=== PATIENT | male | born 1965 | race Caucasian/White ===

== ENCOUNTER 2020-09-10 08:02 | Outpatient (REF) | payer MEDICAID, SELFPAY | END 2020-09-10 08:03 | disposition home or self-care (01) | LOC: HO.LAB 08:02 | PROVIDERS: Visit Provider Internal Medicine | DX: Z20.822 Contact with and (suspected) exposure to COVID-19 (principal) | CPT/HCPCS: 36415; C9803; U0003 ==

== ENCOUNTER 2022-05-27 22:52 | Emergency (ER) | payer MEDICAID, SELFPAY ==
[2022-05-27 23:28] VITALS: BP 146/91; PULSE 92; RESP 20; TEMP 37.2; O2SAT 91; BMI 34.3
[2022-05-28 00:17] LABS: Basophils Percent Auto 0.4 % (0-2); Eosinophils Absolute Auto 0.4 X10*3/uL (0.0-0.4); Hematocrit 45.9 % (42.0-52.0); Hemoglobin 14.9 g/dl (14.0-18.0); Imm Gran Abs Auto 0.02 X10*3/uL (0.00-0.03); Imm Gran Pct Auto 0.2 % (0.0-0.4); Lymphocytes Absolute Auto 2.1 X10*3/uL (1.2-4.9); Lymphocytes Percent Auto 22.7 % (20-40); MANUAL DIFF FLAG NO; Mean Corpuscular HGB Conc 32.5 g/dl (31.0-36.0); Mean Corpuscular Hemoglobin 30.3 pg (27.0-33.0); Mean Corpuscular Volume 93.3 fL (80.0-98.0); Mean Platelet Volume 10.3 fL (9.4-12.4); Monocytes Absolute Auto 0.9 X10*3/uL (0.1-1.2); Monocytes Percent Auto 9.4 % (2-11); Neutrophils Absolute Auto 5.9 x10*3/uL (2.0-8.3); Neutrophils Percent Auto 63.3 % (45-73); Platelet Count 196 X10*3/uL (160-400); Red Blood Count 4.92 X10*6/uL (4.60-5.80); Red Cell Distribution Width 13.2 % (11.0-16.0); White Blood Count 9.3 X10*3/uL (4.8-10.8)
[2022-05-28 00:33] LABS: Alanine Aminotransferase 23 U/L (0-40); Albumin Level 4.3 g/dL (3.5-5.0); Alkaline Phosphatase 79 U/L (39-117); Anion Gap 13 (12-20); Aspartate Amino Transferase 27 U/L (5-37); Bilirubin Direct 0.4 mg/dL (0.0-0.5); Bilirubin Total 1.2 mg/dL (0.0-1.0); Blood Urea Nitrogen 21 mg/dL (9-16); Calcium 9.2 mg/dL (8.4-10.2); Carbon Dioxide 33 mmol/L (22-29); Chloride 98 mmol/L (96-108); Creatinine Clr Calc Pharmacy 104.5; Estimated Glomerular Filt Rate > 60; Glucose Random 110 mg/dL (60-115); Lipase 16 U/L (8-78); Potassium 4.8 mmol/L (3.3-5.1); Sodium 139 mmol/L (135-145); Total Protein 7.4 g/dL (6.5-8.0)
== END 2022-05-28 09:47 | disposition left against medical advice (07) ==
PROVIDERS: Emergency Provider Emergency Medicine
DX: R10.9 Unspecified abdominal pain (principal); R11.2 Nausea with vomiting, unspecified
CPT/HCPCS: 36415; 80048; 80076; 83690; 85025; 99281; 99283

== ENCOUNTER 2022-05-30 20:38 | Emergency (ER) | payer MEDICAID, SELFPAY ==
--- NOTE | ~2022-05-30 | XR_ITS ---
EXAMINATION: XR CHEST CLINICAL INFORMATION: Shortness of breath COMPARISON: Chest x-ray 06/18/2019 TECHNIQUE: Frontal view of the chest was obtained. FINDINGS: The lungs are clear. No airspace consolidation, pleural effusion, or pneumothorax. The cardiomediastinal silhouette is within normal limits. No acute osseous injury. XR/XR chest 1V IMPRESSION: No acute pulmonary process.
--- NOTE | 2022-05-30 21:07 | ECG_ITS ---
Test Reason : DYSPNEA Blood Pressure : / mmHG Vent. Rate : 089 BPM Atrial Rate : 089 BPM P-R Int : 156 ms QRS Dur : 108 ms QT Int : 378 ms P-R-T Axes : 057 015 056 degrees QTc Int : 459 ms Normal sinus rhythm Intra-ventricular conduction delay Otherwise normal ECG When compared with ECG of 07-MAY-2019 22:43, No significant change was found Referred By: Eneida Conteh Electronically Signed By:MARIA EUGENIA FERREIRA MD
[2022-05-30 21:08] VITALS: BP 140/80; PULSE 85; RESP 15; O2SAT 95; BMI 38.3
[2022-05-30 21:14] VITALS: PULSE 85; RESP 16; O2SAT 95
[2022-05-30] MEDS: Albuterol Sulfate (0.083%) 2.5 MG/3 ML VIAL.NEB 10 MG INHALE (21:14)
[2022-05-30 21:22] LABS: MANUAL DIFF FLAG NO
[2022-05-30] MEDS: methylPREDNISolone Sod Succ 125 MG/2 ML VIAL IVPUSH (21:23)
[2022-05-30] MEDS: Magnesium Sulfate/H2O 2 GM/50 ML PIGGYBACK IV (21:26)
[2022-05-30 21:28] LABS: Basophils Absolute Auto 0.1 X10*3/uL (0.0-0.2); Basophils Percent Auto 0.6 % (0-2); Eosinophils Percent Auto 12.6 % (0-4); Hematocrit 44.4 % (42.0-52.0); Hemoglobin 14.6 g/dl (14.0-18.0); Imm Gran Abs Auto 0.02 X10*3/uL (0.00-0.03); Imm Gran Pct Auto 0.3 % (0.0-0.4); Lymphocytes Absolute Auto 2.1 X10*3/uL (1.2-4.9); Lymphocytes Percent Auto 27.2 % (20-40); Mean Corpuscular HGB Conc 32.9 g/dl (31.0-36.0); Mean Corpuscular Volume 94.3 fL (80.0-98.0); Mean Platelet Volume 10.9 fL (9.4-12.4); Monocytes Absolute Auto 0.7 X10*3/uL (0.1-1.2); Monocytes Percent Auto 8.4 % (2-11); Neutrophils Percent Auto 50.9 % (45-73); Platelet Count 172 X10*3/uL (160-400); Red Blood Count 4.71 X10*6/uL (4.60-5.80); Red Cell Distribution Width 13.2 % (11.0-16.0); White Blood Count 7.9 X10*3/uL (4.8-10.8)
[2022-05-30 21:30] VITALS: O2SAT 93
--- NOTE | 2022-05-30 21:30 | PC.NURSE ---
patient a&ox3, iv inserted, labs drawn, covid swab obtained, ekg obtained, photo graphics librarian applied nsr, pt medicated per order, lungs have in/ex wheezing throughout/diminished throughout, call bradley within reach, will continue to monitor.
[2022-05-30 21:37] LABS: Anion Gap 12 (12-20); Blood Urea Nitrogen 23 mg/dL (9-16); Calcium 9.1 mg/dL (8.4-10.2); Carbon Dioxide 34 mmol/L (22-29); Chloride 99 mmol/L (96-108); Creatinine Clr Calc Pharmacy 91.2; Estimated Glomerular Filt Rate > 60; Glucose Random 118 mg/dL (60-115); Potassium 4.4 mmol/L (3.3-5.1); Sodium 141 mmol/L (135-145)
[2022-05-30 21:55] VITALS: BP 132/66; PULSE 89; RESP 16; TEMP 36.9; O2SAT 94
--- NOTE | 2022-05-30 21:56 | PC.NURSE ---
Pt came in with upper respiratory distress, o2 low ~80. Pt was connected to nasal cannula 3L, resp therapy was contacted, pt had IV placed by JOANNA Merritt. Pt was connected to the telemetry and it shows NSR. 95 o2.. Pt lung sound were Wheezing through out the lobes and chest tightness. Pt eyes are red and pt reported feeling tired . will continue to monitor.
[2022-05-30 21:59] LABS: COVID-19 Test Negative (Negative)
[2022-05-30 22:16] VITALS: BP 150/75; PULSE 89; RESP 14; TEMP 36.8; O2SAT 92
--- NOTE | 2022-05-30 22:21 | ED_ITS ---
HPI - URI/Sore Throat General Chief Complaint: Upper Respiratory Symptoms Stated Complaint: Asthma Time Seen by Provider: 05/30/22 21:06 Source: patient Mode of arrival: ambulatory Limitations: no limitations History of Present Illness HPI Narrative: Patient comes emergency room complaining of shortness of breath/asthma exacerbation. Patient states it has been going on for couple of days. When patient arrived to the emergency room, patient's oxygen was 84% on room air. Patient was started on nasal cannula at 4 L. patient denies any recent URI infections, no chest pain. Related Data Previous Rx's Medication Instructions Recorded albuterol sulfate 90 mcg/actuation 2 puff inhalation Q4-6H PRN 05/30/22 aerosol inhaler shortness of breath or wheezing #8.5 grams prednisone 50 mg tablet 50 mg PO DAILY #5 tabs 05/30/22 Allergies Allergy/AdvReac Type Severity Reaction Status Date / Time ? Environmental Allergy Unknown asthma Uncoded 10/05/21 13:56 exacerbation Review of Systems Review of Systems: Constitutional : No Weight loss, No Fever, No Chills, No Night Sweats, No Fatigue, No Malaise ENT/Mouth : No Hearing loss, No Ear Pain, No Nasal Congestion, No Sinus Pain, No Hoarseness, No sore throat, No Rhinorrhea, No Swallowing Difficulty Eyes: No Eye Pain, No Swelling, No Redness, No Foreign Body, No Discharge, No Vision Changes Cardiovascular : No Chest Pain, No SOB, No Dyspnea on Exertion, No Orthopnea, No Edema, No Palpitations Respiratory : Complaining of cough, wheezing, dyspnea Gastrointestinal : No Nausea, No Vomiting, No Diarrhea, No Constipation, No abdominal Pain, No Hematochezia, No Melena Genitourinary : no irregular bleeding, No Dysuria, No Urinary Frequency, No Hematuria, No Urinary Incontinence, No Urgency, No Flank Pain, No Urinary Flow Changes, No Hesitancy Musculoskeletal : No joint pain, No Myalgias, No Joint Swelling Skin : No Skin Lesions, No rash Neuro : No Weakness, No Numbness, No Paresthesias, No Loss of Consciousness, No Dizziness, No Headache Psych : No Anxiety/Panic, No Depression, No SI/HI/AH/VH, No Social Issues, Heme/Lymph: No Bruising, No Bleeding,No Lymphadenopathy Endocrine : No Polyuria, No Polydipsia, No Temperature Intolerance PMFSH Past Medical History Medical History (Updated 05/30/22 @ 22:28 by Eneiad Conteh MD) Asthma exacerbation Social History Social History (System 10/05/21 @ 13:56 by Betzaida Bustillo) Alcohol intake: former Patient Tobacco Use Status: Former Tobacco user Use of substances other than those prescribed or required for medical reasons: No Advance Directives: No Advance Directives Information Provided: No Physical Exam Vital Signs: Vital Signs: Last Vital Signs Temp 98.3 F 05/30/22 22:16 Pulse 89 05/30/22 22:16 Resp 14 05/30/22 22:16 BP 150/75 H 05/30/22 22:16 Pulse Ox 92 05/30/22 22:16 O2 Del Method 05/30/22 22:16 O2 Flow Rate 4 05/30/22 22:16 Oxygen Flow Rate 3 05/30/22 21:30 BMI result Body Mass Index 38.3 Const: Other: Appearance: Alert. Oriented X3. No acute distress. Eyes: Pupils equal, round and reactive to light. ENT: Pharynx normal. Neck: Normal inspection. Neck supple. No lymph nodes noted. No crepitus CVS: Normal heart rate and rhythm. Pulses normal. Normal S1 and S2 Respiratory: Wheezing, shortness of breath, cough Abdomen: Soft and nontender. No rigidity. No distention. Skin: Skin warm and dry. Normal skin color. Normal skin turgor. Extremities: No lower extremity edema. No Lacerations. No Rash Neuro: Oriented X 3. No motor deficit. No sensory deficit. Moving all ex tremities. No slurred speech. CN 2 through 12 grossly intact Psych: calm, cooperative, normal affect Course Course Course Narrative: Patient received an hour long nebulization treatment, Solu-Medrol, who assumed. Chest x-ray negative for pneumonia. After the treatment, patient states that he feels much better. However, patient remains needing oxygen, 4 L to saturate 92-93%. Patient needs more nebulization treatments and steroids. On physical exam after the treatment, patient is moving air more than on arrival. However he is still very wheezy I discussed with the patient that I strongly recommend that he needs to be admitted. Patient is still on 4 L of oxygen saturating 93%. Without oxygen, drops to the high 80s. Patient is insistent that he does not want to stay in the hospital, patient will leave against medical advise. Patient is aware that if he leaves against medical advice, his respiratory status can worsen, it may even lead to . Patient has no specific reason for not wanting to stay in the hospital other than he wants to go home Patient requesting that his medications be sent to [facility]. At this time, it is closed. Patient [facility]. I discussed with the patient that only 1 open is in [facility] and there are other pharmacies open in [place]. Patient states that he will go to [facility] in the morning. I discussed with the patient that he will not have any medications throughout the night to help him with his shortness of breath. Patient is fully aware and verbalizes that he is making a bad decision but still insists on leaving. MDM - URI/Sore Throat Lab Data Result diagrams: 05/30/22 21:19 05/30/22 21:19 Labs: Lab Results 05/30/22 05/30/22 05/30/22 Range/Units 21:19 21:19 21:19 WBC 7.9 (4.8-10.8) X10*3/uL RBC 4.71 (4.60-5.80) X10*6/uL Hgb 14.6 (14.0-18.0) g/dl Hct 44.4 (42.0-52.0) % MCV 94.3 (80.0-98.0) fL MCH 31.0 (27.0-33.0) pg MCHC 32.9 (31.0-36.0) g/dl RDW 13.2 (11.0-16.0) % Plt Count 172 (160-400) X10*3/uL MPV 10.9 (9.4-12.4) fL Immature Gran % (Auto) 0.3 (0.0-0.4) % Neut % (Auto) 50.9 (45-73) % Lymph % (Auto) 27.2 (20-40) % Routt % (Auto) 8.4 (2-11) % Eos % (Auto) 12.6 H (0-4) % Baso % (Auto) 0.6 (0-2) % Lymph # (Auto) 2.1 (1.2-4.9) X10*3/uL Routt # (Auto) 0.7 (0.1-1.2) X10*3/uL Eos # (Auto) 1.0 H (0.0-0.4) X10*3/uL Baso # (Auto) 0.1 (0.0-0.2) X10*3/uL Abs Immat Gran (auto) 0.02 (0.00-0.03) X10*3/uL Absolute Neuts (auto) 4.0 (2.0-8.3) x10*3/uL Absolute Nucleated RBC 0.000 (0.0-0.012) X10*3/uL Nucleated RBC % (auto) 0.0 (0.0-0.2) /100WBC Sodium 141 (135-145) mmol/L Potassium 4.4 (3.3-5.1) mmol/L Chloride 99 (96-108) mmol/L Carbon Dioxide 34 H (22-29) mmol/L Anion Gap 12 (12-20) BUN 23 H (9-16) mg/dL Creatinine 1.03 (0.5-1.4) mg/dL Estim Creat Clear Calc 91.2 Estimated GFR > 60 Random Glucose 118 H (60-115) mg/dL Calcium 9.1 (8.4-10.2) mg/dL COVID-19 ([facility]) Negative (Negative) COVID-19 Clin Com See Note Discharge Plan Discharge Clinical Impression: Asthma exacerbation Patient Disposition: Left Against Medical Advice Instructions: Asthma (ED) Additional Instructions: Your refused to be admitted to the hospital. Please follow-up with your primary care physician tomorrow. If you have any worsening or new symptoms, please return to the emergency room or call 911 Prescriptions: New albuterol sulfate 90 mcg/actuation HFA aerosol inhaler 2 puff inhalation Q4-6H PRN (Reason: shortness of breath or wheezing) Qty: 8.5 1RF prednisone 50 mg tablet 50 mg PO DAILY Qty: 5 0RF
== END 2022-05-30 23:14 | disposition left against medical advice (07) ==
PROVIDERS: Emergency Provider Emergency Medicine
DX: J45.901 Unspecified asthma with (acute) exacerbation (principal); R06.02 Shortness of breath; Z20.822 Contact with and (suspected) exposure to COVID-19; Z87.891 Personal history of nicotine dependence; Z79.899 Other long term (current) drug therapy
CPT/HCPCS: 71045; 80048; 85025; 87635; 93005; 94640; 99285; J2930; J3475

== ENCOUNTER 2022-10-09 17:35 | Emergency (ER) | payer MEDICAID, SELFPAY ==
--- NOTE | ~2022-10-09 | CT_ITS ---
CT HEAD WITHOUT IV CONTRAST CT CERVICAL SPINE WITHOUT IV CONTRAST CT MAXILLOFACIAL WITHOUT IV CONTRAST INDICATION: Pain status post fall COMPARISON: 04/16/2018 TECHNIQUE: Multidetector CT acquisitions of the head, maxillofacial region, and cervical spine were obtained without IV contrast. Multiplanar reformats were acquired and utilized for image interpretation. DLP: 1609 mGy-cm FINDINGS: HEAD: There is no intracranial hemorrhage or extra-axial fluid collection. The ventricles are unremarkable without hydrocephalus. No midline shift or mass effect. Best to white matter differentiation is diffusely maintained without evidence of an evolved acute territorial infarct. The basilar cisterns are preserved. Subcortical and periventricular white matter hypoattenuation is suggestive of [] small vessel ischemic disease. Soft tissue swelling anteriorly overlying the frontal region. No underlying deformity.. The mastoid air cells and paranasal sinuses are well-aerated. MAXILLOFACIAL: The mandible, maxilla, pterygoid plates, nasal bones, zygomatic arches, paranasal sinus canales, and bony orbits are intact. No acute osseous abnormality within the maxillofacial region. There is near complete opacity of the right maxillary sinus which is relatively diminutive sclerotic thickened bony margins. This is likely sequelae chronic sinus disease. Widening of the ostium noted with extension into the nasal cavity suggesting possibly a polypoid changes.. The globes and extra-ocular musculature is intact. No significant soft tissue findings. CERVICAL SPINE: Ossicular terminalis again noted C2. Motion degradation limits assessment. No definite acute deformity. There is anatomic alignment of the vertebral bodies and posterior elements. There is no acute fracture and there is no acute subluxation. The craniocervical and atlantoaxial articulations are normal. There is no prevertebral soft tissue swelling. No significant soft tissue abnormality within the neck. The visualized lung apices are clear. CT/CT cervical spine wo IV con IMPRESSION: 1. No acute intracranial abnormality. 2. No acute osseous abnormality within the cervical spine. 3. No acute osseous abnormality within the maxillofacial region. Chronic findings as above.
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
[2022-10-09 17:43] VITALS: BP 139/85; PULSE 98; RESP 20; TEMP 37.3; O2SAT 91; BMI 36.0
== END 2022-10-09 19:40 | disposition home or self-care (01) ==
PROVIDERS: Emergency Provider Emergency Medicine
DX: R51.9 Headache, unspecified (principal); H57.12 Ocular pain, left eye; S00.83XD Contusion of other part of head, subsequent encounter; S00.12XD Contusion of left eyelid and periocular area, subsequent encounter; V28.09XD Other motorcycle driver injured in noncollision transport accident in nontraffic accident, subsequent encounter
CPT/HCPCS: 70450; 70486; 72125; 99282; 99284

== ENCOUNTER 2022-10-20 13:40 | Outpatient (REF) | payer MEDICAID, SELFPAY ==
--- NOTE | ~2022-10-20 | XR_ITS ---
EXAMINATION: XR LUMBOSACRAL SPINE CLINICAL INFORMATION: Pain across lumbar area. COMPARISON: None TECHNIQUE: Three views of the lumbosacral spine. FINDINGS: There is normal lumbar lordosis. The vertebral heights and alignment is normal. There is loss of L3-L4 and L4-L5 disc levels. No lytic or sclerotic process seen. The paravertebral soft tissues are normal. The SI joints are normal. There is moderate stool in colon. XR/XR lumbar spine 2-3V IMPRESSION: Mild ventral spondylosis lumbar spine. No visible acute fracture, dislocation or lytic process seen.
== END 2022-10-20 13:41 | disposition home or self-care (01) ==
LOC: HO.XRAY 13:40
PROVIDERS: Visit Provider Emergency Medicine
DX: M54.50 Low back pain, unspecified (principal)
CPT/HCPCS: 72100

== ENCOUNTER 2023-03-01 10:26 | Outpatient (REF) | payer MEDICAID, SELFPAY ==
[2023-03-01 11:52] LABS: Alanine Aminotransferase 17 U/L (0-40); Alkaline Phosphatase 63 U/L (39-117); Aspartate Amino Transferase 21 U/L (5-37); Bilirubin Direct 0.6 mg/dL (0.0-0.5); Bilirubin Total 2.7 mg/dL (0.0-1.0)
[2023-03-02 02:23] LABS: Syphilis Screen Nonreactive (Nonreactive)
[2023-03-02 03:02] LABS: HIV AB/AG Nonreactive (Nonreactive); HIV Num 1 0.04 S/CO (0.00-0.99)
[2023-03-02 03:05] LABS: ~HepC Num1 0.12 S/CO (0.00-0.79); ~Hepatitis C Antibody Nonreactive (Nonreactive)
[2023-03-03 16:19] LABS: TS Negative Control Passed; TS Panel A 0; TS Panel B 0; TS Positive Control Passed; TSpotTB Negative (Negative)
== END 2023-03-01 10:27 | disposition home or self-care (01) ==
LOC: HO.HHCL 10:26
PROVIDERS: Visit Provider Emergency Medicine
DX: Z11.4 Encounter for screening for human immunodeficiency virus [HIV] (principal); Z11.1 Encounter for screening for respiratory tuberculosis; F11.20 Opioid dependence, uncomplicated
CPT/HCPCS: 36415; 80076; 86481; 86780; 86803; 87389

== ENCOUNTER 2023-03-08 11:21 | Outpatient (REF) | payer MEDICAID, SELFPAY ==
[2023-03-08 13:37] LABS: MANUAL DIFF FLAG NO
[2023-03-08 14:01] LABS: Basophils Percent Auto 0.5 % (0-2); Eosinophils Absolute Auto 0.2 X10*3/uL (0.0-0.4); Eosinophils Percent Auto 3.1 % (0-4); Hematocrit 37.3 % (42.0-52.0); Hemoglobin 12.4 g/dl (14.0-18.0); Imm Gran Abs Auto 0.01 X10*3/uL (0.00-0.03); Imm Gran Pct Auto 0.2 % (0.0-0.4); Immature Retic Fraction 3.3 % (2.3-13.4); Lymphocytes Absolute Auto 1.9 X10*3/uL (1.2-4.9); Lymphocytes Percent Auto 32.6 % (20-40); Mean Corpuscular HGB Conc 33.2 g/dl (31.0-36.0); Mean Corpuscular Hemoglobin 30.5 pg (27.0-33.0); Mean Corpuscular Volume 91.9 fL (80.0-98.0); Mean Platelet Volume 10.6 fL (9.4-12.4); Monocytes Absolute Auto 0.5 X10*3/uL (0.1-1.2); Neutrophils Absolute Auto 3.2 x10*3/uL (2.0-8.3); Neutrophils Percent Auto 54.6 % (45-73); Platelet Count 224 X10*3/uL (160-400); Red Blood Count 4.06 X10*6/uL (4.60-5.80); Red Cell Distribution Width 12.1 % (11.0-16.0); Retic HGB Equivalent 35.8 pg (30.0-35.0); White Blood Count 5.9 X10*3/uL (4.8-10.8)
[2023-03-08 14:36] LABS: Alanine Aminotransferase 14 U/L (0-40); Albumin Level 3.7 g/dL (3.5-5.0); Alkaline Phosphatase 60 U/L (39-117); Aspartate Amino Transferase 15 U/L (5-37); Bilirubin Direct 0.3 mg/dL (0.0-0.5); Bilirubin Total 0.7 mg/dL (0.0-1.0); Total Protein 6.6 g/dL (6.5-8.0)
[2023-03-08 15:26] LABS: Amphetamine Screen Urine Not Detected (Not Detect); Barbiturates, Urine Not Detected (Not Detect); Benzodiazepines Screen Urine Not Detected (Not Detect); Cannabinoid Screen Urine POSITIVE (Not Detect); Cocaine Screen Urine POSITIVE (Not Detect); Fentanyl, urine POSITIVE (Not Detect); Opiate Screen Urine Not Detected (Not Detect); Phencyclidine Screen Urine Not Detected (Not Detect)
== END 2023-03-08 11:22 | disposition home or self-care (01) ==
LOC: HO.HHCL 11:21
PROVIDERS: Visit Provider Emergency Medicine
DX: F11.20 Opioid dependence, uncomplicated (principal)
CPT/HCPCS: 36415; 80076; 80307; 80353; 85025; 85045

== ENCOUNTER 2024-06-06 06:30 | Outpatient (REF) | payer MEDICAID, SELFPAY ==
[2024-06-06 06:49] LABS: MANUAL DIFF FLAG NO
[2024-06-06 07:36] LABS: Basophils Percent Auto 0.5 % (0-2); Eosinophils Absolute Auto 0.4 X10*3/uL (0.0-0.4); Eosinophils Percent Auto 6.2 % (0-4); Hematocrit 38.6 % (42.0-52.0); Hemoglobin 12.9 g/dl (14.0-18.0); Imm Gran Abs Auto 0.03 X10*3/uL (0.00-0.03); Imm Gran Pct Auto 0.5 % (0.0-0.4); Lymphocytes Absolute Auto 2.1 X10*3/uL (1.2-4.9); Lymphocytes Percent Auto 36.5 % (20-40); Mean Corpuscular HGB Conc 33.4 g/dl (31.0-36.0); Mean Corpuscular Hemoglobin 30.9 pg (27.0-33.0); Mean Corpuscular Volume 92.3 fL (80.0-98.0); Mean Platelet Volume 10.4 fL (9.4-12.4); Monocytes Absolute Auto 0.6 X10*3/uL (0.1-1.2); Monocytes Percent Auto 10.3 % (2-11); Neutrophils Absolute Auto 2.6 x10*3/uL (2.0-8.3); Platelet Count 204 X10*3/uL (160-400); Red Blood Count 4.18 X10*6/uL (4.60-5.80); Red Cell Distribution Width 12.8 % (11.0-16.0); White Blood Count 5.6 X10*3/uL (4.8-10.8)
[2024-06-06 08:00] LABS: Alanine Aminotransferase 30 U/L (0-40); Albumin Level 3.9 g/dL (3.5-5.0); Alkaline Phosphatase 87 U/L (39-117); Anion Gap 10 (12-20); Aspartate Amino Transferase 25 U/L (5-37); Bilirubin Total 0.7 mg/dL (0.0-1.0); Blood Urea Nitrogen 20 mg/dL (9-16); Calcium 8.9 mg/dL (8.4-10.2); Carbon Dioxide 31 mmol/L (22-29); Chloride 103 mmol/L (96-108); Estimated Glomerular Filt Rate > 60; Glucose Random 118 mg/dL (60-115); Potassium 4.1 mmol/L (3.3-5.1); Sodium 140 mmol/L (135-145); Total Protein 6.9 g/dL (6.5-8.0)
[2024-06-06 08:39] LABS: HBS Num1 208.36 mIU/mL (0-7.99); HBsAGNum1 0.38 S/CO (0.00-0.99); HIV AB/AG Nonreactive (Nonreactive); HIV Num 1 0.06 S/CO (0.00-0.99); Hepatitis B Surface Antigen Negative (Negative); ~HepC Num1 0.12 S/CO (0.00-0.79); ~Hepatitis B Surface Antibody REACTIVE (Nonreactive); ~Hepatitis C Antibody Nonreactive (Nonreactive)
[2024-06-06 08:57] LABS: Hepatitis A Antibody IgG REACTIVE (Nonreactive); ~Hepatitis A Antibody IgG 7.68 S/CO (0.00-0.99)
[2024-06-08 15:23] LABS: RPR Rapid Plasma Reagin NON-REACTIVE (NON-REACTIVE)
== END 2024-06-06 06:31 | disposition home or self-care (01) ==
LOC: HO.LAB 06:30
PROVIDERS: PCP Internal Medicine Geriatric Medicine; Visit Provider Internal Medicine Geriatric Medicine
DX: F11.20 Opioid dependence, uncomplicated (principal); F33.2 Major depressive disorder, recurrent severe without psychotic features
CPT/HCPCS: 36415; 80053; 85025; 86592; 86706; 86708; 86803; 87340; 87389

== ENCOUNTER 2024-10-03 22:48 | Emergency (ER) | payer MEDICAID, SELFPAY ==
--- NOTE | ~2024-10-03 | CT_ITS ---
EXAMINATION: CT CERVICAL SPINE WITHOUT CONTRAST CLINICAL INFORMATION: Fall, trauma. COMPARISON: 10/09/2022. TECHNIQUE: Spiral CT imaging of the cervical spine performed in axial plane without contrast. Multiplanar reformatted images were constructed from the axial data set. This CT examination was performed using dose optimization techniques as appropriate, variously including the following: *Automated exposure control *Adjustment of mA and/or kV according to patient size (this includes techniques or standardized protocols for targeted exams where dose is matched to indication/reason for exam; i.e. extremities or head) *Use of iterative reconstruction technique FINDINGS: CORONAL ALIGNMENT: -Minimal levoconvex scoliosis, possibly positional. SAGITTAL ALIGNMENT: -There is a normal lordosis. There are no subluxations. C1-C2 AND CRANIOCERVICAL JUNCTION: -Intact and aligned. There are mild to moderate degenerative changes at the atlantoaxial joint with a subcortical cyst in the left lateral dens. VERTEBRAL BODIES AND FACETS: -No fracture, compression deformity, traumatic subluxation, facet malalignment, or suspicious bone lesion. -Normal facet alignment. Mild degenerative facet changes most notable on the right at C3-4. DISCS: -Mild loss of disc space diffusely. PREVERTEBRAL AND PARAVERTEBRAL SOFT TISSUES: -No prevertebral or paravertebral soft tissue abnormality. -Neck soft tissues demonstrate minimal calcification of the carotid bulbs bilaterally. Mildly heterogeneous thyroid without discrete nodule. LUNG APICES: -Mild left pleural scarring posteriorly. Lung apices otherwise clear. CT/CT cervical spine wo IV con IMPRESSION: 1. No CT evidence of acute cervical spine fracture or injury. Electronically signed by: Eh Guillaume MD 10/04/2024 08:59 AM [facility] [place]
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
[2024-10-04 06:46] VITALS: BP 153/77; PULSE 77; RESP 17; TEMP 36.6; O2SAT 98; BMI 28.1
--- NOTE | 2024-10-04 06:52 | PC.NURSE ---
pt named called x2 times at time of initial triage, no answer at that time. rn care manager preformed x2 role calls with no answer. at this time, pt noted to be sitting and awake in waiting room, pt states he slept through his name. triage preformed at this time.
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
--- OUTSIDE RECORDS SUMMARY | 2024-10-04 08:00 | XMS_ITS | Clinical Summary ---
Author Organization [facility] Address [address] [place] [address] Care Team Providers Care Director Of Search Engine Marketing Name Role Phone Pcp, No Primary Care Provider Unavailabl e Allergies No known active allergies Family History Medical History Relation Name Comments Bipolar disorder Father Relation Name Status Comments Father Social History Tobacco Use Types Packs/Day Years Used Date Smoking Tobacco: Never Alcohol Use Standard Drinks/Week Comments No 0 (1 standard drink = 0.6 oz pur e alcohol) Sex and Gender Information Value Date Recorded Sex Assigned at Not on file Gender Identity Not on file Sexual Orientation Not on file Last Filed Vital Signs Vital Sign Reading Time Taken Comments Blood Pressure 135/76 08/19/2016 12:05 PM EST Pulse 68 08/19/2016 12:05 PM EST Temperature 36 ??C (96.8 ??F) 08/19/2016 12:05 PM EST Respiratory Rate 18 08/19/2016 12:05 PM EST Oxygen Saturation 97% 08/19/2016 12:05 PM EST Inhaled Oxygen Concentration - - Weight - - Height - - Body Mass Index - - Plan of Treatment Health Maintenance Due Date Last Done Comments Hepatitis C Virus Screening 1967 HIV Screening 1980 DTaP/Tdap/Td Vaccines (1 - Tdap) 1986 Hepatitis B Vaccines (1 of 3 - 19+ 3-dose series) 1986 Colonoscopy 2012 Pneumococcal Vaccines 50+ (1 of 1 - PCV) 2017 Zoster (Shingles) Vaccine (1 of 2) 2017 Influenza Vaccine 03/22/2024 COVID-19 Vaccine ( - 2023-2 5 season) 2024 Pneumococcal Vaccine: Pediat allie (0-5 Years) and At-Risk Patients (6 to 49 Years) Aged Out No longer eligible b ased on patient's age to complete this topic Care Teams Director Of Search Engine Marketing Relationship Specialty Start Date End Date Pcp, No PCP - General General Medicine 08/19/16
--- NOTE | 2024-10-04 08:23 | ED.FALL ---
HPI - Fall General Chief Complaint: Fall Stated Complaint: Fall 4 days ago; bruising and swelling in face Time Seen by Provider: 10/04/24 08:21 Source: patient Mode of arrival: ambulatory Limitations: language barrier (Ivorian speaking, [facility] content publisher used) History of Present Illness ED Provider: Dr. Felipe Melissa HPI Narrative: 59-year-old male with a history of asthma, polysubstance use disorder in remission who presents to the emergency department for evaluation of slip and fall landing on his face, striking his head, no loss of consciousness. The injury occurred 3 days prior to coming to the emergency department. The patient states he was concerned he was developed bilateral black and blueness to both eyes, he has a lpto-tb-vipyzmmf headache, he also has neck pain. He states he feels dizzy and lightheaded whenever he stands up. Patient points to the top of his head when asked to localize the headache, describes it as a pounding sensation which he has been constant since the injury. Patient also was complaining of neck pain. He denied numbness, weakness, loss of bowel or bladder control, nausea, vomiting. Related Data Previous Rx's ?Medication ?Instructions ?Recorded albuterol sulfate 90 mcg/actuation 2 puff inhalation Q4-6H PRN 05/30/22 aerosol inhaler shortness of breath or wheezing #8.5 grams prednisone 50 mg tablet 50 mg PO DAILY #5 tabs 05/30/22 Allergies Allergy/AdvReac Type Severity Reaction Status Date / Time ? Environmental Allergy Unknown asthma Uncoded 10/04/24 06:48 exacerbation Review of Systems Review of Systems: Yes all other systems are reviewed and are negative [facility] Past Medical History [facility] Narrative: Social history: He denies tobacco and alcohol use. He states that he was a former intranasal heroin user but states that he has been sober for years. Medical History (Updated 10/05/24 @ 00:01 by Dylan Zuniga) Asthma exacerbation Social History Social History (System 10/05/21 @ 13:56 by Betzaida Bustillo) Alcohol intake: former Patient Tobacco Use Status: Former Tobacco user Advance Directives: No Advance Directives Information Provided: No Do you have a plan to hurt others: No Plan Physical Exam Vital Signs: Vital Signs: Last Vital Signs Temp 97.8 F 10/04/24 10:25 Pulse 71 10/04/24 10:25 Resp 16 10/04/24 10:25 BP 125/80 10/04/24 10:25 Pulse Ox 97 10/04/24 10:25 O2 Del Method Room Air 10/04/24 10:25 BMI result Body Mass Index 28.1 Vital signs were normal Exam: General: Awake, alert in no distress Head: Normocephalic, atraumatic EENT: PERRL, Lids normal, sclera normal, conjunctiva normal, bilateral periorbitalecchymosis, extraocular muscles are intact with no double vision, ecchymosis to the bridge of the nose with no tenderness, does have tenderness palpation he was zygomatic arch bilaterally, , ears normal, throat without erythema or exudates Neck: Supple, no adenopathy, patient has no cervical spine tenderness, he does have tenderness palpation it was trapezius muscles bilaterally, he was full range of motion of his neck without any discomfort. Lung: breath sounds symmetric, no wheezing, rales or rhonchi Chest: symmetric movement, nontender Heart: regular rate and rhythm, normal S1, S2 no murmurs or rubs Abdomen: soft, non-tender, nondistended, normal bowel sounds Back: no vertebral tenderness, no CVAT Extremities: no deformities, moves all extremities symmetrically Neuro: Awake, alert, oriented, normal speech, cranial nerves intact, moves all extremities symmetrically Psych: Pleasant, cooperative Medical Decision Making Medical Decision Making MDM Narrative: 59-year-old male with a history of asthma, polysubstance use disorder in remission who presents to the emergency department for evaluation of slip and fall landing on his face, striking his head and face 3 days prior, no loss of consciousness. He complaining of headache, neck pain and facial pain with no double vision, numbness, weakness, nausea and vomiting. Physical examination did reveal ecchymosis the bridge in his nose, bilateral periorbital ecchymosis, tenderness bilateral zygomatic arch areas, normal neurologic exam. Differential diagnosis: Includes but is not limited to Skull fracture, intracranial bleed, postconcussion syndrome/headache, orbital fractures, zygomatic arch fractures, nasal fracture, neck strain/sprain /fracture Course: CT scans of the patient's head, cervical spine maxillofacial bones were unremarkable except for question of nasal bone fracture. The patient did have ecchymosis over his bridge of his nose but no significant tenderness therefore I doubt that he has a significant nasal bone fracture and I did discuss this with him. Patient was advised to take Tylenol and ibuprofen for pain, he was given printed and verbal instructions and discharged home. Admission/Observation Consideration of admission/observation: Escalation of care including admission/observation considered ( Yes) Radiology Impression Discussion of test interpretation with radiology: I have reviewed the radiologist's reading. Radiologist Impression: CT facial bones wo IV con IMPRESSION: Limited examination due to patient motion. Possible fracture of the left nasal bone. The facial bones are otherwise intact. Electronically signed by: Mart James MD 10/04/2024 08:[address] head/brain wo IV con IMPRESSION: Soft tissue swelling at the vertex. No acute intracranial abnormality. Electronically signed by: Mart James MD 10/04/2024 08:[address] cervical spine wo IV con IMPRESSION: 1. No CT evidence of acute cervical spine fracture or injury. Electronically signed by: Eh Guillaume MD 10/04/2024 08:59 AM EST Discharge Plan Discharge Clinical Impression: Closed head injury, Contusion of face, Fall from slipping Patient Disposition: Home, Self-Care Instructions: Head Injury (ED), Facial Contusion (ED) Additional Instructions: The CT scan of your head, face and neck did not reveal any skull fracture/broken bones, bleeding in your brain or fractures/broken bones in your face. The black and blueness underneath your eyes are from the initial fall causing bleeding underneath your skin. As the bleeding is absorbed by your body the bruises turned black and blue, green and then yellow. The should eventually go away in 2 weeks. Take ibuprofen 200 mg pills, 2 pills every 6 hours as needed for pain or fever. Take Tylenol (acetaminophen) 500 mg pills, 2 pills every 6 hours as needed for pain or fever. Follow-up with your doctor in 2 days. Please return to the emergency department if your symptoms get worse or if you develop any symptoms that are concerning to you. Prescriptions: No Action albuterol sulfate 90 mcg/actuation HFA aerosol inhaler 2 puff inhalation Q4-6H PRN (Reason: shortness of breath or wheezing) Qty: 8.5 1RF prednisone 50 mg tablet 50 mg PO DAILY Qty: 5 0RF Interventions: ED Discharge Assessment Last Done: 10/04/24 10:25 Discharge Date/Time: 10/04/24 10:26 Print Language: Ivorian
[2024-10-04 09:37] VITALS: BP 125/80; PULSE 71; RESP 16; TEMP 36.6; O2SAT 97
[2024-10-04 10:25] VITALS: BP 125/80; PULSE 71; RESP 16; TEMP 36.6; O2SAT 97
== END 2024-10-04 10:26 | disposition home or self-care (01) ==
PROVIDERS: Emergency Provider Emergency Medicine Emergency Medical Services; PCP Internal Medicine Geriatric Medicine
DX: S00.83XA Contusion of other part of head, initial encounter (principal); S05.12XA Contusion of eyeball and orbital tissues, left eye, initial encounter; S05.11XA Contusion of eyeball and orbital tissues, right eye, initial encounter; R51.9 Headache, unspecified; M54.2 Cervicalgia; W18.30XA Fall on same level, unspecified, initial encounter; Y93.9 Activity, unspecified; Y92.9 Unspecified place or not applicable; Y99.8 Other external cause status; Z87.891 Personal history of nicotine dependence; Z79.899 Other long term (current) drug therapy
CPT/HCPCS: 70450; 70486; 72125; 99283; 99284

== ENCOUNTER → 2024-10-04 07:06 | Outpatient (BNV) | payer MEDICAID, SELFPAY | PROVIDERS: Emergency Provider Emergency Medicine Emergency Medical Services; PCP Internal Medicine Geriatric Medicine; Visit Provider Radiology Diagnostic Radiology | DX: S09.90XA Unspecified injury of head, initial encounter (principal); G89.11 Acute pain due to trauma; S02.2XXA Fracture of nasal bones, initial encounter for closed fracture; S00.81XA Abrasion of other part of head, initial encounter; W01.10XA Fall on same level from slipping, tripping and stumbling with subsequent striking against unspecified object, initial encounter | CPT/HCPCS: 70450; 70486; 72125 ==

== ENCOUNTER 2024-10-18 11:11 | Inpatient (IN) | payer MEDICAID, SELFPAY ==
[2024-10-18] VITALS (16 sets, daily range): BP systolic 110–147; BP diastolic 67–92; PULSE 58–109; RESP 10–20; TEMP 36.2–38.3; O2SAT 80–99; BMI 34.5; BMI 33.9
--- NOTE | ~2024-10-18 | XR_ITS ---
CLINICAL HISTORY: f u left pleural effusion 1 view chest x-ray Comparison: 05/30/2022 Findings: Portions of the exam are obscured by overlying material. There is a large left pleural effusion with underlying consolidation. Left chest catheter is in position in the inferior hemithorax. Normal size heart. No acute fracture. IMPRESSION: 1. Large left pleural effusion with underlying consolidation This document has been electronically signed by: Preston Plummer MD on 10/19/2024 07:16:59
--- NOTE | ~2024-10-18 | XR_ITS ---
EXAMINATION: XR CHEST CLINICAL INFORMATION: Status post left chest tube removal COMPARISON: October 21, 2024. TECHNIQUE: Frontal view of the chest was obtained. FINDINGS: Small tiny left-sided pneumothorax. Pulmonary reticular pattern prominence of the interstitial markings. Linear and patchy opacity right perihilar region. Cardiomediastinal silhouette is enlarged, unchanged.. XR/XR chest 1V IMPRESSION: Small tiny left-sided pneumothorax. Recommend follow-up Electronically signed by: Jay Bangura MD 10/22/2024 08:40 AM EST
--- NOTE | ~2024-10-18 | US_ITS ---
PROCEDURE: Ultrasound-guided chest tube placement HISTORY: left pleural effusion MEDICATIONS: 10 mL 1% lidocaine TECHNIQUE/FINDINGS Appropriate preprocedural clinical history and imaging studies were reviewed. The patient was brought to the department and placed in the decubitus position. Ultrasound images of the left thorax were obtained to localize a moderate multiloculated pleural effusionwith numerous septations. Permanent ultrasound images were saved. A conversation was had with referring provider to relay the ultrasound findings and confirm that a chest tube was still desired. The risks and benefits and possible complications were discussed with the patient and consent form was signed. An area of the patient's left back was prepped and draped in the usual sterile fashion. 10 mL of 1% lidocaine was used to obtain local anesthesia of the skin and deeper tissues. The left pleural space was accessed with a 12 slovenian locking catheter utilizing trocar technique. The catheter was secured to the skin with a single suture and a sterile dressing was applied over the site. The catheter was then connected to a close chest drainage system. The patient tolerated the procedure well. There were no immediate complications US/US drain thoracentesis Impression: Ultrasound-guided left chest tube placement Electronically signed by: Jake Velazquez MD 10/18/2024 04:40 PM [facility]
--- NOTE | ~2024-10-18 | XR_ITS ---
CLINICAL HISTORY: L pleural collection status post chest tube placem 1 view chest x-ray Comparison: CR - XR CHEST 1V - 10/19/24 06:41 EST Findings: Left-sided chest tube at the left lung base with left effusion significantly diminished. Possible airspace opacity left mid lung versus some remaining loculated fluid or atelectasis. Normal size heart. No acute fracture. IMPRESSION: 1. Left-sided chest tube at the left lung base with left effusion significantly diminished. 2. Possible airspace opacity left mid lung versus some remaining loculated fluid or atelectasis. This document has been electronically signed by: Bret Paredes MD on 10/20/2024 08:07:02
--- NOTE | ~2024-10-18 | XR_ITS ---
CLINICAL HISTORY: effusion 2 views chest Comparison: CR - XR CHEST 1V - 10/20/24 07:43 EST Findings: Cardiac and mediastinal contours are normal. Mild chronic interstitial prominence with scattered peribronchial thickening. No focal consolidation. No effusion. No pneumothorax. Left-sided pigtail pleural drain noted No acute osseous finding. Impression: No significant residual effusion. No pneumothorax. Left-sided pigtail pleural drain noted Mild chronic interstitial prominence with scattered peribronchial thickening. No acute process. This document has been electronically signed by: Marquis Yo MD on 10/21/2024 11:29:10
--- NOTE | ~2024-10-18 | CT_ITS ---
EXAMINATION: CT CHEST ANGIOGRAPHY WITH IV CONTRAST INDICATION: SOB, chest pain, concern for PE COMPARISON: Correlation is made with an AP portable view of the chest dated 05/30/2022. TECHNIQUE: Helical CT scan of the chest was performed following administration of intravenous contrast (65 mL Omnipaque 350). The contrast bolus was timed to optimally opacify the pulmonary arteries. Thin sections were obtained through the pulmonary arteries. Coronal and sagittal reformatted images were generated. 3D/MIP reconstructed images are also obtained and reviewed. This CT exam was performed with one or more of the following dose reduction techniques: automated exposure control, adjustment of the mA and/or kV according to patient size, use of iterative reconstruction technique. DLP: 309 mGy-cm CHEST: THYROID: The thyroid gland is unremarkable. PULMONARY ARTERIES: No intraluminal filling defects are identified within the pulmonary arteries to suggest pulmonary emboli. PLEURA: There is a large left pleural effusion which is likely loculated. There is moderate mass effect with shift of the cardiomediastinal silhouette to the right. There is no right pleural effusion. No pneumothorax. LUNGS: There is subsegmental atelectasis in the left upper lobe and near complete atelectasis of the left lower lobe. There are scattered groundglass opacities in the right upper lobe which may be inflammatory in nature. MEDIASTINUM: There is no mediastinal lymphadenopathy. MARYJO: There is no hilar lymphadenopathy. CARDIOVASCULATURE: The heart is normal in size. There is mitral annular calcification. There is no pericardial effusion. The thoracic aorta is normal in caliber. DEGREE OF CORONARY CALCIFICATION: mild MAIN AIRWAYS: The mainstem bronchi and proximal branches are patent. AXILLA: There is no axillary lymphadenopathy. UPPER ABDOMEN: The visualized portions of the liver, spleen, and adrenals are unremarkable. BONES AND SOFT TISSUES: Unremarkable. CT/CT angio chest PE protocol IMPRESSION: No evidence of pulmonary emboli. Large left pleural effusion which is likely loculated. Subsegmental atelectasis in the left upper lobe and near complete atelectasis of the left lower lobe. Electronically signed by: Mart James MD 10/18/2024 01:47 PM [facility]
--- NOTE | 2024-10-18 11:30 | ECG_ITS ---
Test Reason : DIFF BREATHING Blood Pressure : */* mmHG Vent. Rate : 99 BPM Atrial Rate : 99 BPM P-R Int : 132 ms QRS Dur : 106 ms QT Int : 348 ms P-R-T Axes : 44 21 46 degrees QTcB Int : 446 ms Normal sinus rhythm Septal infarct , age undetermined Abnormal ECG When compared with ECG of 30-May-2022 21:24, Septal infarct is now Present Referred By: Armando Vu Electronically Signed By: Chuck Fleming
--- NOTE | 2024-10-18 11:35 | ED_ITS ---
HPI - Chest Pain General Chief Complaint: Chest Pain Stated Complaint: lung pain Time Seen by Provider: 10/18/24 11:45 Source: patient Mode of arrival: ambulatory Limitations: no limitations History of Present Illness ED Provider: Kathi Rogers PA-C HPI narrative: Patient is a 59 year old assigned male at with a history of IVDU - last use this morning, and asthma presenting to the emergency department today with left sided chest pain and shortness of breath. Patient states that 4 days ago he was at work when he felt a sharp sudden left sided pain and has progressively had worsening shortness of breath and chest pain. Patient denies any dizziness, lightheadedness, abdominal pain, nausea, vomiting, fever, chills, blurry vision, double vision, loss of vision, back pain, night sweats, pain with urination, increased urinary frequency, increased urinary urgency, blood in his urine or stool, syncope or a near syncopal episode, bowel incontinence, bladder incontinence, or any other complaints at this time. MD complaint: chest pain Treatment prior to arrival: none Related Data Home Medications ?Medication ?Instructions ?Recorded ?Confirmed No Known Home Meds 10/18/24 10/18/24 Allergies Allergy/AdvReac Type Severity Reaction Status Date / Time ? Environmental Allergy Unknown asthma Uncoded 10/18/24 11:29 exacerbation Review of Systems 2 Constitutional: Constitutional: Reports no additional constitutional complaints, Denies chills, Denies fever(s) and Denies night sweats Eyes: Eyes: Reports no additional eye complaints, Denies blurry vision, Denies change in vision, Denies diplopia, Denies eye discharge, Denies loss of vision and Denies eye pain ENT: Denies dizziness Comments: bruising present under bilateral eyes - patient states this is from fall on 10/04 for which he was already evaluated Cardiovascular: Cardiovascular: Reports no additional cardiovascular complaints, Reports chest pain, Denies lightheadedness, Denies Loss of Consciousness and Reports dyspnea Respiratory: Respiratory: Reports no additional respiratory complaints and Reports dyspnea Gastrointestinal: Gastrointestinal: Reports no additional gastrointestinal complaints, Denies abdominal pain, Denies melena, Denies hematochezia, Denies change in bowel habits and Denies change in stool character Genitourinary: Genitourinary: Reports no additional male genitourinary complaints, Denies hematuria, Denies oliguria, Denies difficulty urinating, Denies dysuria, Denies urinary frequency, Denies urinary hesitancy, Denies urinary incontinence and Denies urinary urgency Musculoskeletal: Musculoskeletal: Reports no additional musculoskeletal complaints, Denies numbness and Denies tingling Neurologic: Denies dizziness, Denies loss of vision, Denies numbness and Denies tingling Psychiatric: Psychiatric: Reports no additional psychiatric complaints Endocrine: Endocrine: Reports no additional endocrine complaints Hematologic/Lymphatic: Hematologic/Lymphatic: Reports no additional hematologic/lymphatic complaints Allergic/Immunologic: Allergic/Immunologic: Reports no additional allergic/immunologic complaints [facility] Past Medical History Attestation statement: The following information was validated with the patient. Source: old records reviewed and nursing notes reviewed Medical History Asthma exacerbation Social History Social History Household Members: Unknown / Unable to assess Housing: Unknown / Unable to assess Alcohol intake: former Patient Tobacco Use Status: Former Tobacco user Use of substances other than those prescribed or required for medical reasons: Yes Currently Displaying Signs/Symptoms of Drug Intoxication Withdrawal: Yes Advance Directives: No Advance Directives Information Provided: Yes Physical Exam 2 Vital Signs: Vital Signs: Last Vital Signs Temp 98.0 F 10/19/24 07:21 Pulse 86 10/19/24 08:09 Resp 18 10/19/24 08:09 BP 147/87 H 10/19/24 07:21 Pulse Ox 96 10/19/24 07:21 O2 Del Method Nasal Cannula 10/19/24 07:21 O2 Flow Rate 4 10/19/24 07:21 BMI result Body Mass Index 34.5 Const: General: cooperative, no acute distress, alert and awake Nutritional Appearance: well nourished Orientation/consciousness: patient oriented x3 Limitations: no limitations HEENT: Head: Yes normal to inspection and Yes atraumatic Ears: hearing grossly normal bilaterally and external ears normal General nose exam: Normal external nose present, no nasal discharge noted and no epistaxis Face and sinus: No abrasion, No laceration and Yes other (bruising present under bilateral eyes - patient states he fell on 10/04) Mouth: Normal oral and palatal mucosa present, no drooling and no muffled voice Eyes: General: appearance normal, both eyes and all related structures P eriorbital: periorbital findings normal Eyelids: Yes eyelids normal C onjunctivae: conjunctivae normal Pupils: Equal, round and reactive pupils present EOM: EOMs intact bilaterally Neck: Neck: Yes normal visual inspection, Yes full ROM and Yes no lymphadenopathy Chest: Chest palpation & inspection: normal inspection of the chest Resp: Effort & Inspection: able to speak in complete sentences and labored Auscultation: wheezes right lower and right upper and diminished lung sounds on the left throughout Cardio: Rate: tachycardic Rhythm: regular rhythm GI: Inspection: Yes normal to inspection Neuro: General: patient oriented x3, moves all extremities and CN's II-XI intact bilaterally Cranial nerves: Yes Equal, round and reactive pupils present Cognition (Neuro): normal cognition Extrem: General: Yes normal to inspection, Yes full ROM and Yes capillary refill normal Psych: Appearance: grossly normal Mental Status: mental status grossly normal Affect: normal affect Attitude: cooperative Thought process: N ormal thought process present Thought content: Normal thought content present Insight: Good insight present (Psych) Course Course Course Narrative: RmE: 59-year-old male presents to ED for shortness of breath and pleurisy for the past 4 days. Patient states shortness of breath on exertion. Patient is hypoxic O2 sat between 76 80%. Negative for leg swelling or pitting edema. For crackles and rhonchi on lungs. Labs EKG ordered. Patient to be brought back to the ED immediately. Oxygen ordered. Medications Administered Generic Name Dose Route Start Last Admin Trade Name Freq PRN Reason Stop Dose Admin Albuterol/Ipratropium 3 ml 10/18/24 20:00 10/19/24 08:06 Albuterol/Iprat 2.5/0.5mg 3 Ml Ampul.Neb INHALE 3 ml RQ4H WHILE AWAKE ANGELES Administration Enoxaparin Sodium 40 mg 10/18/24 18:00 10/18/24 18:34 Enoxaparin Sodium 40 Mg/0.4 Ml Syringe SUBCUT 40 mg Q24H ANGELES Administration Piperacillin Sod/Tazobactam 100 mls @ 200 mls/hr 10/18/24 18:00 10/19/24 06:24 Sod 4.5 gm/ Sodium Chloride IV Infused Q6H ANGELES Infusion Vancomycin HCl 1,500 mg/ 500 mls @ 333.333 mls/hr 10/19/24 03:00 10/19/24 05:15 Sodium Chloride IV Infused Q12H ANGELES Infusion Methylprednisolone Sodium Succinate 40 mg 10/19/24 00:00 10/19/24 00:56 Methylprednisolone Sod Succ 40 Mg/Ml Vial IVPUSH 40 mg Q12H ANGELES Administration Morphine Sulfate 4 mg 10/18/24 18:11 10/18/24 22:58 Morphine Sulfate 4 Mg/Ml Cartridge IVPUSH 4 mg Q4H PRN Administration Pain, Severe (Pain Scale 7-10) Protocol Sodium Chloride 3 ml 10/19/24 00:00 10/19/24 00:57 0.9 % Sodium Chloride Flush 3 Ml Syringe IVFLUSH 3 ml QSHIFT ANGELES Administration Discontinued Medications Generic Name Dose Route Start Last Admin Trade Name Freq PRN Reason Stop Dose Admin Ceftriaxone Sodium 1 gm 10/18/24 12:07 10/18/24 12:17 Ceftriaxone Sodium 1 Gm Vial IVPUSH 10/18/24 12:08 1 gm ONCE ONE Administration Albuterol Sulfate 5 mg/ 0 mg 10/18/24 12:07 10/18/24 12:13 Albuterol/Ipratropium 3 ml INHALE 10/18/24 12:08 5 each ONCE ONE Administration Acetaminophen 1,000 mg in 100 mls @ 400 mls/hr 10/18/24 11:47 10/18/24 12:17 Ofirmev IV 10/18/24 12:01 Infused ONCE ONE Infusion Magnesium Sulfate/Dextrose 1 gm in 100 mls @ 100 mls/hr 10/18/24 11:55 10/18/24 13:22 Magnesium Sulfate/D5w IV 10/18/24 12:54 Infused ONCE ONE Infusion Azithromycin 500 mg/ Sodium 250 mls @ 125 mls/hr 10/18/24 12:07 10/18/24 15:11 Chloride IV 10/18/24 14:06 Infused ONCE ONE Infusion Vancomycin HCl 2,000 mg in 500 mls @ 250 mls/hr 10/18/24 14:00 10/18/24 17:10 Vancomycin/Ns IV 10/18/24 15:59 Infused ONCE ONE Infusion Iohexol 100 ml 10/18/24 13:22 10/18/24 13:22 Iohexol 350 Mg/Ml 100 Ml Infus..Btl IV 10/18/24 13:23 65 ml ONCE ONE Administration Lidocaine HCl 10 ml 10/18/24 17:03 10/18/24 17:06 Lidocaine Hcl 1 % Mpf 5 Ml Vial SUBCUT 10/18/24 17:04 10 ml ONCE ONE Administration Lorazepam 1 mg 10/19/24 01:25 10/19/24 01:40 Lorazepam 2 Mg/Ml Vial IVPUSH 10/19/24 01:26 1 mg STAT STA Administration Methylprednisolone Sodium Succinate 60 mg 10/18/24 11:55 10/18/24 12:16 Methylprednisolone Sod Succ 125 Mg/2 Ml Vial IVPUSH 10/18/24 11:56 60 mg ONCE ONE Administration Medical Decision Making Medical Decision Making [facility] Narrative: Patient is a 59 year old assigned male at with a history of IVDU - last use this morning, and asthma presenting to the emergency department today with left sided chest pain and shortness of breath. Patient's physical exam was as noted in the physical exam portion of this note. Patient's physical exam showed an initially hypoxic individual in the mid 80s on RA. Oxygen was immediately applied via nasal cannula and the patient's saturation improved as expected. Patient's right lung sounded wheezy and the left sounded diminished. Given his asthma history and hypoxia, IV magnesium + solu-medrol and a duo neb were given. Patient's physical exam showed some healing / old bruising to the face from a fall on 10/01/2024 for which he had a CT head, c-spine, and facial bones on 10/04/2024 that were negative. Patient confirmed he suffered no other falls or trauma since then. Patient's blood work showed an elevated WBC count of 18.6, AST 53, ALT 45, alk phos 285, initial trop of 193.1, BNP 303. Patient's EKG were unremarkable. Patient's CT PT study showed a marked left sided pleural effusion with loculation causing moderate mass effect with shift of the cardiomediastinal silhouette to the right. I consulted with cardiology who stated that the patient's elevated troponin was likely secondary to an underlying cause such as infection and not cardiac ischemia. I spoke with the thoracic team who recommended speaking with IR. I spoke with IR who agreed to place a chest tube. I spoke with the hospitalist team who agreed to admission. Patient's presentation was concerning for sepsis (@1400). Patient was given IV ceftriaxone + azithromycin initially when concern was primarily aspiration pneumonia however, after the CT findings were reported - vancomycin was added. I explained my physical exam findings as well as all test results to the patient. I answered all questions asked by the patient. Patient admitted. Differential Diagnosis Differential Diagnoses: The differential diagnosis associated with the presentation includes Pleural effusion Empyema Sepsis PNA Admission/Observation Consideration of admission/observation: Escalation of care including admission/observation considered Patient admitted as noted in the MDM Rationale portion of this note. Consult Healthcare Provider Management of the patient was discussed with: Hospitalist (agreed to admission as noted in the MDM Rationale portion of this note.) and [employer] Operator (spoke to the thoracic team, IR, and cardiology as noted in the MDM Rationale portion of this note.) Lab Data [facility] Lab Attestation statement: I reviewed the patient's lab results. My interpretation of these results are in the MDM Rationale portion of this note. 10/19/24 05:35 10/19/24 05:35 Labs: Lab Results 10/18/24 10/18/24 10/18/24 Range/Units 11:50 12:11 16:30 WBC 18.6 H (4.8-10.8) X10*3/uL RBC 3.57 L (4.60-5.80) X10*6/uL Hgb 10.5 L (14.0-18.0) g/dl Hct 32.8 L (42.0-52.0) % MCV 91.9 (80.0-98.0) fL MCH 29.4 (27.0-33.0) pg MCHC 32.0 (31.0-36.0) g/dl RDW 12.9 (11.0-16.0) % Plt Count 417 H D (160-400) X10*3/uL MPV 9.5 (9.4-12.4) fL Immature Gran % (Auto) 0.6 H (0.0-0.4) % Neut % (Auto) 76.8 H (45-73) % Lymph % (Auto) 8.8 L (20-40) % Barnwell % (Auto) 13.3 H (2-11) % Eos % (Auto) 0.2 (0-4) % Baso % (Auto) 0.3 (0-2) % Lymph # (Auto) 1.6 (1.2-4.9) X10*3/uL Barnwell # (Auto) 2.5 H (0.1-1.2) X10*3/uL Eos # (Auto) 0.0 (0.0-0.4) X10*3/uL Baso # (Auto) 0.1 (0.0-0.2) X10*3/uL Abs Immat Gran (auto) 0.12 H (0.00-0.03) X10*3/uL Absolute Neuts (auto) 14.3 H (2.0-8.3) x10*3/uL Absolute Nucleated RBC 0.000 (0.0-0.012) X10*3/uL Nucleated RBC % (auto) 0.0 (0.0-0.2) /100WBC Smear Tech's Comments VERIFIED PT 14.2 H (10.9-12.4) SEC INR 1.2 H (0.9-1.1) APTT 28.4 (26.0-36.8) SEC VBG pH 7.45 H (7.32-7.43) VBG pCO2 55 mmHg VBG pO2 73 mmHg VBG HCO3 38 H (22-26) mmol/L VBG O2 Saturation 97.0 % VBG Base Excess 12.9 mmol/L Sodium 134 L (135-145) mmol/L Potassium 4.5 (3.3-5.1) mmol/L Chloride 97 (96-108) mmol/L Carbon Dioxide 31 H (22-29) mmol/L Anion Gap 11 L (12-20) BUN 16 (9-16) mg/dL Creatinine 0.61 (0.5-1.4) mg/dL Estim Creat Clear Calc 126.6 Estimated GFR > 60 Random Glucose 111 (60-115) mg/dL Lactic Acid 0.7 (0.5-2.0) mmol/L Calcium 8.2 L D (8.4-10.2) mg/dL Total Bilirubin 0.7 (0.0-1.0) mg/dL AST 53 H (5-37) U/L ALT 45 H (0-40) U/L Alkaline Phosphatase 285 H (39-117) U/L Lactate Dehydrogenase 474 H (118-273) U/L Troponin I High Sens 193.1 H* (<3.5-35.0) ng/L B-Natriuretic Peptide 303 H (<100) pg/mL Total Protein 6.8 (6.5-8.0) g/dL Albumin 2.9 L (3.5-5.0) g/dL Pleural pH 7.15 Pleural WBC 1.215 X10*3/uL Pleural RBC 0.015 X10*6/uL Pleural Neutrophils 64 % Pleural Lymphocytes 20 % Pleural Monocytes 13 % Pleural Eosinophils 3 % Pleural Total Protein 5.4 Pleural LDH 805 Influenza Type A (PCR) NEGATIVE (Negative) Influenza Type B (PCR) NEGATIVE (Negative) RSV RNA Qual (PCR) NEGATIVE (Negative) SARS-CoV-2 RNA (RT-PCR) NEGATIVE (Negative) 10/18/24 Range/Units 17:54 WBC (4.8-10.8) X10*3/uL RBC (4.60-5.80) X10*6/uL Hgb (14.0-18.0) g/dl Hct (42.0-52.0) % MCV (80.0-98.0) fL MCH (27.0-33.0) pg MCHC (31.0-36.0) g/dl RDW (11.0-16.0) % Plt Count (160-400) X10*3/uL MPV (9.4-12.4) fL Immature Gran % (Auto) (0.0-0.4) % Neut % (Auto) (45-73) % Lymph % (Auto) (20-40) % Barnwell % (Auto) (2-11) % Eos % (Auto) (0-4) % Baso % (Auto) (0-2) % Lymph # (Auto) (1.2-4.9) X10*3/uL Barnwell # (Auto) (0.1-1.2) X10*3/uL Eos # (Auto) (0.0-0.4) X10*3/uL Baso # (Auto) (0.0-0.2) X10*3/uL Abs Immat Gran (auto) (0.00-0.03) X10*3/uL Absolute Neuts (auto) (2.0-8.3) x10*3/uL Absolute Nucleated RBC (0.0-0.012) X10*3/uL Nucleated RBC % (auto) (0.0-0.2) /100WBC Smear Tech's Comments PT (10.9-12.4) SEC INR (0.9-1.1) APTT (26.0-36.8) SEC VBG pH (7.32-7.43) VBG pCO2 mmHg VBG pO2 mmHg VBG HCO3 (22-26) mmol/L VBG O2 Saturation % VBG Base Excess mmol/L Sodium (135-145) mmol/L Potassium (3.3-5.1) mmol/L Chloride (96-108) mmol/L Carbon Dioxide (22-29) mmol/L Anion Gap (12-20) BUN (9-16) mg/dL Creatinine (0.5-1.4) mg/dL Estim Creat Clear Calc Estimated GFR Random Glucose (60-115) mg/dL Lactic Acid (0.5-2.0) mmol/L Calcium (8.4-10.2) mg/dL Total Bilirubin (0.0-1.0) mg/dL AST (5-37) U/L ALT (0-40) U/L Alkaline Phosphatase (39-117) U/L Lactate Dehydrogenase (118-273) U/L Troponin I High Sens 87.5 H D (<3.5-35.0) ng/L B-Natriuretic Peptide (<100) pg/mL Total Protein (6.5-8.0) g/dL Albumin (3.5-5.0) g/dL Pleural pH Pleural WBC X10*3/uL Pleural RBC X10*6/uL Pleural Neutrophils % Pleural Lymphocytes % Pleural Monocytes % Pleural Eosinophils % Pleural Total Protein Pleural LDH Influenza Type A (PCR) (Negative) Influenza Type B (PCR) (Negative) RSV RNA Qual (PCR) (Negative) SARS-CoV-2 RNA (RT-PCR) (Negative) Independent Interpretation I performed an independent interpretation of an: EKG and CT Scan Interpretation: My interpretation is in agreement with the radiologist's impression of this imaging study. L Report Number: [id number]: Total DLP = 309.00 mGy-cm EXAMINATION: CT CHEST ANGIOGRAPHY WITH IV CONTRAST INDICATION: SOB, chest pain, concern for PE COMPARISON: Correlation is made with an AP portable view of the chest dated 05/30/2022. TECHNIQUE: Helical CT scan of the chest was performed following administration of intravenous contrast (65 mL Omnipaque 350). The contrast bolus was timed to optimally opacify the pulmonary arteries. Thin sections were obtained through the pulmonary arteries. Coronal and sagittal reformatted images were generated. 3D/MIP reconstructed images are also obtained and reviewed. This CT exam was performed with one or more of the following dose reduction techniques: automated exposure control, adjustment of the mA and/or kV according to patient size, use of iterative reconstruction technique. DLP: 309 mGy-cm CHEST: THYROID: The thyroid gland is unremarkable. PULMONARY ARTERIES: No intraluminal filling defects are identified within the pulmonary arteries to suggest pulmonary emboli. PLEURA: There is a large left pleural effusion which is likely loculated. There is moderate mass effect with shift of the cardiomediastinal silhouette to the right. There is no right pleural effusion. No pneumothorax. LUNGS: There is subsegmental atelectasis in the left upper lobe and near complete atelectasis of the left lower lobe. There are scattered groundglass opacities in the right upper lobe which may be inflammatory in nature. MEDIASTINUM: There is no mediastinal lymphadenopathy. MARYJO: There is no hilar lymphadenopathy. CARDIOVASCULATURE: The heart is normal in size. There is mitral annular calcification. There is no pericardial effusion. The thoracic aorta is normal in caliber. DEGREE OF CORONARY CALCIFICATION: mild MAIN AIRWAYS: The mainstem bronchi and proximal branches are patent. AXILLA: There is no axillary lymphadenopathy. UPPER ABDOMEN: The visualized portions of the liver, spleen, and adrenals are unremarkable. BONES AND SOFT TISSUES: Unremarkable. CT/CT angio chest PE protocol IMPRESSION: No evidence of pulmonary emboli. Large left pleural effusion which is likely loculated. Subsegmental atelectasis in the left upper lobe and near complete atelectasis of the left lower lobe. Electronically signed by: Mart James MD 10/18/2024 01:47 PM [facility] Dictated By: Mart James MD Signed By: Electronically signed by Mart James MD 10/18/24 1347 Vent. Rate: 99 BPM Atrial Rate: 99 BPM P-R Int: 132 ms QRS Dur: 106 ms QT Int: 348 ms P-R-T Axes: 44 21 46 degrees QTcB Int: 446 ms Normal sinus rhythm Septal infarct, age undetermined When compared with ECG of 30-May-2022 21:24, Septal infarct is now Present DD/ 1141 Vent. Rate: 86 BPM Atrial Rate: 86 BPM P-R Int: 134 ms QRS Dur: 112 ms QT Int: 380 ms P-R-T Axes: 40 23 46 degrees QTcB Int: 454 ms Sinus rhythm with Premature supraventricular complexes Septal infarct (cited on or before 18-Oct-2024) When compared with ECG of 18-Oct-2024 11:47, Premature supraventricular complexes are now Present DD/ 1305 Radiology Impression Discussion of test interpretation with radiology: I have reviewed the radiologist's reading. Critical Care Time Critical Care Time Critical Care Time: Yes Total Critical Care Time: 59 Attestation: I spent 59 minutes of Critical Care Time with this patient. This does not include time spent on separately reported billable procedures. Discharge Plan Discharge Clinical Impression: Hypoxia, Pleural effusion, Sepsis Patient Disposition: Admitted As Inpatient Interventions: Admission Worksheet (ED) Last Done: 10/18/24 19:46 Discharge Date/Time: 10/18/24 21:46
[2024-10-18] MEDS: Acetaminophen 1,000 MG/100 ML PIGGYBACK 400 MG IV (11:54)
[2024-10-18 12:04] LABS: Basophils Absolute Auto 0.1 X10*3/uL (0.0-0.2); Basophils Percent Auto 0.3 % (0-2); Eosinophils Percent Auto 0.2 % (0-4); Hematocrit 32.8 % (42.0-52.0); Hemoglobin 10.5 g/dl (14.0-18.0); Imm Gran Abs Auto 0.12 X10*3/uL (0.00-0.03); Imm Gran Pct Auto 0.6 % (0.0-0.4); Lymphocytes Absolute Auto 1.6 X10*3/uL (1.2-4.9); Lymphocytes Percent Auto 8.8 % (20-40); MANUAL DIFF FLAG SCAN; Mean Corpuscular Hemoglobin 29.4 pg (27.0-33.0); Mean Corpuscular Volume 91.9 fL (80.0-98.0); Mean Platelet Volume 9.5 fL (9.4-12.4); Monocytes Absolute Auto 2.5 X10*3/uL (0.1-1.2); Monocytes Percent Auto 13.3 % (2-11); Neutrophils Absolute Auto 14.3 x10*3/uL (2.0-8.3); Neutrophils Percent Auto 76.8 % (45-73); Platelet Count 417 X10*3/uL (160-400); Red Blood Count 3.57 X10*6/uL (4.60-5.80); Red Cell Distribution Width 12.9 % (11.0-16.0); SCAN SMEAR FLAG 1; White Blood Count 18.6 X10*3/uL (4.8-10.8)
[2024-10-18 12:08] LABS: INTERNATIONAL NORM RATIO 1.2 (0.9-1.1); Prothrombin Time 14.2 SEC (10.9-12.4)
[2024-10-18 12:11] LABS: Partial Thromboplastin Time 28.4 SEC (26.0-36.8)
[2024-10-18] MEDS: Albuterol Sulfate 5 MG, Albuterol/Iprat 2.5/0.5MG 3 ML 3 ML INHALE (12:13)
[2024-10-18 12:14] LABS: Lactic Acid 0.7 mmol/L (0.5-2.0)
[2024-10-18 12:16] LABS: VBG Base Excess 12.9 mmol/L; VBG HCO3 38 mmol/L (22-26); VBG pCO2 55 mmHg; VBG pH 7.45 (7.32-7.43); VBG pO2 73 mmHg
[2024-10-18] MEDS: Magnesium Sulfate/D5W 1 GM/100 ML PIGGYBACK IV (12:16)
[2024-10-18] MEDS: methylPREDNISolone Sod Succ 125 MG/2 ML VIAL 60 MG IVPUSH (12:16)
[2024-10-18 12:17] LABS: Venous Blood Gas Refer to POC result
[2024-10-18 12:17] LABS: Anion Gap 11 (12-20); Carbon Dioxide 31 mmol/L (22-29); Chloride 97 mmol/L (96-108); Potassium 4.5 mmol/L (3.3-5.1); Sodium 134 mmol/L (135-145)
[2024-10-18] MEDS: cefTRIAXone sodium 1 GM VIAL IVPUSH (12:17)
[2024-10-18 12:19] LABS: Alanine Aminotransferase 45 U/L (0-40); Albumin Level 2.9 g/dL (3.5-5.0); Alkaline Phosphatase 285 U/L (39-117); Aspartate Amino Transferase 53 U/L (5-37); B Type Natriuretic Peptide 303 pg/mL (<100); Bilirubin Total 0.7 mg/dL (0.0-1.0); Blood Urea Nitrogen 16 mg/dL (9-16); Calcium 8.2 mg/dL (8.4-10.2); Creatinine Clr Calc Pharmacy 126.6; Estimated Glomerular Filt Rate > 60; Glucose Random 111 mg/dL (60-115); Total Protein 6.8 g/dL (6.5-8.0)
[2024-10-18 12:26] LABS: Troponin-I High Sensitivity 193.1 ng/L (<3.5-35.0)
[2024-10-18 12:29] LABS: SLIDE REVIEW VERIFIED
[2024-10-18 12:53] LABS: Influenza A PCR NEGATIVE (Negative); Influenza B PCR NEGATIVE (Negative); Resp Syncy Virus RNA Qual PCR NEGATIVE (Negative); SARS COV2 PCR INHOUSE NEGATIVE (Negative)
--- NOTE | 2024-10-18 12:53 | ECG_ITS ---
Test Reason : REPEAT Blood Pressure : */* mmHG Vent. Rate : 86 BPM Atrial Rate : 86 BPM P-R Int : 134 ms QRS Dur : 112 ms QT Int : 380 ms P-R-T Axes : 40 23 46 degrees QTcB Int : 454 ms Sinus rhythm with Premature supraventricular complexes Septal infarct (cited on or before 18-Oct-2024) Abnormal ECG When compared with ECG of 18-Oct-2024 11:47, Premature supraventricular complexes are now Present Referred By: Kathi Rogers Electronically Signed By: Chuck Fleming
[2024-10-18] MEDS: Azithromycin 500 MG in 0.9 % Sodium Chloride 250 ML 125 MG IV (12:55)
[2024-10-18] MEDS: iohexoL 350 MG/ML 100 ML INFUS..BTL IV (13:22)
--- OUTSIDE RECORDS SUMMARY | 2024-10-18 14:55 | XMS_ITS | Clinical Summary ---
Author Organization [employer] Address [address] [facility] [address] [place] [address] Care Team Providers Care Blanket Winder Helper Name Role Phone Name, Warner JENKINS Primary Care Provider [phone] Allergies No known active allergies Medications * [...] arise. Plan: Aldo will be engaged in MH services, referral for Ind. Therapy and Medication [...] to address current needs Yes Strengths include Adlo is in action stageof change and his motivation will serve as treatment engagement. PLAN: 1. Follow up with [facility]: Recommended for follow-up: during OBAT appts 2. [...] Encounters Date Type Department Care Team Description 10/04/2024 Orders Only [facility] External Provider, [facility] 08/16/2024 Telephone [facility] MEDICINE [address] [place] [address] Brianna Rizzo [place] feb recalls [...] your housing situation today? I have davi corina 05/29/[address] you li [...] 05/29/2024 10:27 AM EDT Plan of Treatment Upcoming Encounters Date Type Department Care Team (Late st Contact Info) Description 12/28/2024 10:15 AM EDT Office Visit [facility] MEDICINE [address] [place] [address] Name, MD Warner [address] [place] [address] Health Maintenance Due Date Last Done Comments [...] Procedure Name Priority Date/Time Associated Diagnosis Comments CTA CHEST PE PROTOCAL Routine 10/18/2024 1:16 PM EST VENOUS BLOOD GAS Routine 10/18/2024 12:1 1 PM EST SLIDE REVIEW Routine 10/18/2024 11:50 AM EST CBC WITH AUTO DIFFERENTIAL Routine 10/18/2024 11:50 AM EST HIGH SENSITIVITY TROPONIN I Routine 10/18/2024 11:50 AM EST B TYPE NATRIURETIC PEPTIDE (BNP) Routine 10/18/2024 11:50 AM EST COMPREHENSIVE METABOLIC PANEL Routine 10/18/2024 11:50 AM EST LACTIC ACID Routine 10/18/2024 11:50 AM EST APTT Routine 10/18/2024 11:50 AM EST PROTHROMBIN TIME-INR Routine 10/18/2024 11:50 AM EST SARS COV2/INFLUENZA A/B AND RSV RNA QL NAAT Routine 10/18/2024 11:[address] CERVICAL SPINE WO CONTRAST Routine 10/04/2024 8:[address] SINUS FACIAL BONES WO CONTRAST Routine 10/04/2024 7:[address] HEAD WO CONTRAST Routine 10/04/2024 7 :06 AM EST HEPATITIS C AB W/REFL TO HCV RNA, QN, PCR Routine 06/06/2024 6:48 AM EDT Uncomplicated opioid dependence (CMS/HCC) 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 [facility] ?[address] ?[place] [address] ? CT Scan Report ? Signed ? Patient: Carroll,Aldo ?MR#: [id number] ? : 1965 ?Acct:[id number] ? Age/Sex: 59 / M ?ADM Date: 02/27/25 ? Loc: HO.ED ? Attending Dr: ? Ordering Physician: Kathi Rogers ?? Date of Service: 10/18/24 ?? Procedure(s): CT angio chest PE protocol ?? Accession Number(s): [id number] ? cc: Kathi Rogers; [facility] ? Report Number: ?? [id number]: Total DLP = ??309.00 mGy-cm ?? EXAMINATION: CT CHEST ANGIOGRAPHY WITH IV CONTRAST ? INDICATION: SOB, chest pain, concern for PE ? COMPARISON: Correlation is made with an AP portable view of the chest ?? dated 05/30/2022. ? TECHNIQUE: Helical CT scan of the chest was performed following ?? administration of intravenous contrast (65 mL Omnipaque 350). ??The ?? contrast bolus was timed to optimally opacify the pulmonary arteries. ? Thin sections were obtained through the pulmonary arteries. ??Coronal ?? and sagittal reformatted images were generated. ??3D/MIP reconstructed ?? images are also obtained and reviewed. ? This CT exam was performed with one or more of the following dose ?? reduction techniques: automated exposure control, adjustment of the mA ?? and/or kV according to patient size, use of iterative reconstruction ?? technique. ? DLP: 309 mGy-cm ? CHEST: ? THYROID: ??The thyroid gland is unremarkable. ? PULMONARY ARTERIES: ??No intraluminal filling defects are identified ?? within the pulmonary arteries to suggest pulmonary emboli. ? PLEURA: ??There is a large left pleural effusion which is likely ?? loculated. There is moderate mass effect with shift of the ?? cardiomediastinal silhouette to the right. There is no right pleural ?? effusion. ??No pneumothorax. ? LUNGS: There is subsegmental atelectasis in the left upper lobe and ?? near complete atelectasis of the left lower lobe. There are scattered ?? groundglass opacities in the right upper lobe which may be inflammatory ?? in nature. ? MEDIASTINUM: There is no mediastinal lymphadenopathy. ? MARYJO: There is no hilar lymphadenopathy. ? CARDIOVASCULATURE: The heart is normal in size. There is mitral annular ?? calcification. ??There is no pericardial effusion. ??The thoracic aorta ?? is normal in caliber. ? DEGREE OF CORONARY CALCIFICATION: ??mild ? MAIN AIRWAYS: The mainstem bronchi and proximal branches are patent. ? AXILLA: There is no axillary lymphadenopathy. ? UPPER ABDOMEN: The visualized portions of the liver, spleen, and ?? adrenals are unremarkable. ? BONES AND SOFT TISSUES: Unremarkable. ? CT/CT angio chest PE protocol ?? IMPRESSION: ?? No evidence of pulmonary emboli. ?? Large left pleural effusion which is ?? likely loculated. Subsegmental atelectasis in the left upper lobe and ?? near complete atelectasis of the left lower lobe. ? Electronically signed by: ??Mart James MD ??10/18/2024 01:47 PM EST ?? RP ? Dictated By: ?Mart James MD ? Signed By: ?<Electronically signed by Mart James MD in OV> ?10/18/24 1347 ? DD/ 1316 ? TD/TT: 10/18/24 1335 ? Car Worker Helper: ? Procedure Note Milli Mondragon - 10/18/[address] [place] [address] [address] Scan Report Signed Patient: Brent Hodges#: [id number] : 1965Acct:[id number] Age/Sex: 59 / MADM Date: 10/18/24 Loc: .ED Attending Dr: Ordering Physician: Kathi Rogers Date of Service: 10/18/24 Procedure(s): CT angio chest PE protocol Accession Number(s): [id number] cc: Kathi Rogers; [facility] Report Number: [id number]: Total DLP = 309.00 mGy-cm EXAMINATION: CT CHEST ANGIOGRAPHY WITH IV CONTRAST INDICATION: SOB, chest pain, concern for PE COMPARISON: Correlation is made with an AP portable view of the chest dated 05/30/2022. TECHNIQUE: Helical CT scan of the chest was performed following administration of intravenous contrast (65 mL Omnipaque 350). The contrast bolus was timed to optimally opacify the pulmonary arteries. Thin sections were obtained through the pulmonary arteries. Coronal and sagittal reformatted images were generated. 3D/MIP reconstructed images are also obtained and reviewed. This CT exam was performed with one or more of the following dose reduction techniques: automated exposure control, adjustment of the mA and/or kV according to patient size, use of iterative reconstruction technique. DLP: 309 mGy-cm CHEST: THYROID: The thyroid gland is unremarkable. PULMONARY ARTERIES: No intraluminal filling defects are identified within the pulmonary arteries to suggest pulmonary emboli. PLEURA: There is a large left pleural effusion which is likely loculated. There is moderate mass effect with shift of the cardiomediastinal silhouette to the right. There is no right pleural effusion. No pneumothorax. LUNGS: There is subsegmental atelectasis in the left upper lobe and near complete atelectasis of the left lower lobe. There are scattered groundglass opacities in the right upper lobe which may be inflammatory in nature. MEDIASTINUM: There is no mediastinal lymphadenopathy. MARYJO: There is no hilar lymphadenopathy. CARDIOVASCULATURE: The heart is normal in size. There is mitral annular calcification. There is no pericardial effusion. The thoracic aorta is normal in caliber. DEGREE OF CORONARY CALCIFICATION: mild MAIN AIRWAYS: The mainstem bronchi and proximal branches are patent. AXILLA: There is no axillary lymphadenopathy. UPPER ABDOMEN: The visualized portions of the liver, spleen, and adrenals are unremarkable. BONES AND SOFT TISSUES: Unremarkable. CT/CT angio chest PE protocol IMPRESSION: No evidence of pulmonary emboli. Large left pleural effusion which is likely loculated. Subsegmental atelectasis in the left upper lobe and near complete atelectasis of the left lower lobe. Electronically signed by: Mart James MD 10/18/2024 01:47 PM EST Dictated By: Mart James MD Signed By: <Electronically signed by Mart James MD in OV> 10/18/24 1347 DD/ 1316 TD/TT: 10/18/24 1335 Car Worker Helper: [facility] External Provider IM CT PROCEDURES Final Result * (ABNORMAL) VENOUS BLOOD GAS (10/18/2024 12:11 PM EST) VBG pH 7.45(H) 7.32 - 7.43 [facility] Comment:METER #: [id number] additional_comment: Cb hernaso VBG PCO2 55 mmHg [facility] Comment:METER #: [id number] additional_comment: Cb hernaso VBG PO2 73 mmHg [facility] Comment:METER #: [id number] additional_comment: Cb hernaso VBG Base Excess 12.9 mmol/L [facility] Comment:METER #: [id number] additional_comment: Cb hernaso VBG HCO3 38(H) 22 - 26 mmol/L [facility] Comment:METER #: [id number] additional_comment: Cb hernaso O2 Sat, Beau 97.0 % [facility] Comment:METER #: [id number] additional_comment: Cb hernaso 10/18/2024 12:1 1 PM EST 10/18/2024 12:15 PM EST us Generic External Data Provider LAB BLOOD ORDERAB LES Final Result Performing Organization Address City/[facility]/ZIP Co de Phone Number [facility] [address] [place] [phone] * Slide Review (10/18/2024 11:50 AM EST) Pathologist [facility] Slide Review VERIFIED [facility] 10/18/2024 11:5 0 AM EST 10/18/2024 11:55 AM EST us Generic External Data Provider LAB BLOOD ORDERAB LES Final Result Performing Organization Address City/[facility] Co de Phone Number [facility] [address] [place] [phone] * (ABNORMAL) High Sensitivity Troponin I (10/18/2024 11:50 AM EST) TROPONIN I HIGH SENSITIVITY 193.1(HH) <3.5 - 35.0 ng/L [facility] Comment:Critical value for H S-TNI Results called to and read backby: SHELDON Person calling: MANAS Date: 10/18/24Time:1226The Khan high sensitivity Troponin-I results should beused in conjunction with other diagnostic information suchas ECG, clinical observations and information, and patientsymptoms to aid in the diagnosis of PA. 10/18/2024 11:5 0 AM EST 10/18/2024 11:55 AM EST Generic External Data Provider LAB BLOOD ORDERAB LES Final Result Performing Organization Address City/[facility]/ZIP Co de Phone Number [facility] [address] [place] [phone] * SARS-CoV-2 RNA, Influenza A/B, and RSV RNA, Ql NAAT (10/18/2024 11:50 AM EST) Influenza A PCR NEGATIVE Negative [facility] Influenza B PCR NEGATIVE Negative [facility] Resp Syncy Virus RNA Qual PCR NEGATIVE Negative [facility] SARS COV2 PCR NEGATIVE Negative [facility] Comment:All test results mus t be correlated with clinical findings.Negative results do not preclude SARS-CoV2, influenza Avirus, influenza B virus and/or RSV infectionand should not be used as the sole basis for treatment orother patient management decisions. Negative results must becombined with clinical observations, patient history, andepidemiological information.This test has not been evaluated for monitoring treatment ofinfection.This test has been authorized by the FDA under an EmergencyUse Authorization (EUA) for use by authorized laboratories.Testing performed on the blabfeed GeneXpert utilizingreal-time RT-PCR.All SARS CoV2 and positive influenza A/B results arereported to [facility]. 10/18/2024 11:5 0 AM EST 10/18/2024 11:55 AM EST us Generic External Data Provider LAB MICROBIOLOGY - GENERAL ORDERABLES Final Result [facility] [address] [place] [address] [phone] * (ABNORMAL) CBC auto differential (10/18/2024 11:50 AM EST) White Blood Count 18.6(H) 4.8 - 10.8 X10*3/uL [facility] Red Blood Count 3.57(L) 4.60 - 5.80 X10*6/uL [facility] Hemoglobin 10.5(L) 14.0 - 18.0 g/dl [facility] Hematocrit 32.8(L) 42.0 - 52.0 % [facility] Mean Corpuscular Volume 91.9 80.0 - 98.0 fL [facility] Mean Corpuscular Hemoglobin 29.4 27.0 - 33.0 pg [facility] Mean Corpuscular HGB Conc 32.0 31.0 - 36.0 g/dl [facility] Red Cell Distribution Width 12.9 11.0 - 16.0 % [facility] Platelet Count 417(H) 160 - 400 X10*3/uL [facility] Mean Platelet Volume 9.5 9.4 - 12.4 fL [facility] Neutrophils Percent Auto 76.8(H) 45 - 73 % [facility] Imm Gran Pct Auto 0.6(H) 0.0 - 0.4 % [facility] Lymphocytes Percent Auto 8.8(L) 20 - 40 % [facility] Monocytes Percent Auto 13.3(H) 2 - 11 % [facility] Eosinophils Percent Auto 0.2 0 - 4 % [facility] Basophils Percent Auto 0.3 0 - 2 % [facility] NRBC Pct Auto 0.0 0.0 - 0.2 /100WBC [facility] Neutrophils Absolute Auto 14.3(H) 2.0 - 8.3 x10*3/uL [facility] Imm Gran Abs Auto 0.12(H) 0.00 - 0.03 X10*3/uL [facility] Lymphocytes Absolute Auto 1.6 1.2 - 4.9 X10*3/uL [facility] Monocytes Absolute Auto 2.5(H) 0.1 - 1.2 X10*3/uL [facility] Eosinophils Absolute Auto 0.0 0.0 - 0.4 X10*3/uL [facility] Basophils Absolute Auto 0.1 0.0 - 0.2 X10*3/uL [facility] NRBC Abs Auto 0.000 0.0 - 0.012 X10*3/uL [facility] 10/18/2024 11:5 0 AM EST 10/18/2024 11:55 AM EST Generic External Data Provider LAB BLOOD ORDERAB LES Edited Result - Final Performing Organization Address [facility] Co de Phone Number [facility] [address] [place] [phone] * Partial Thromboplastin Time, Activated (APTT) (10/18/2024 11:50 AM EST) Partial Thromboplastin Time 28.4 26.0 - 36.8 SEC [facility] Comment:For information rega rding the monitoring of direct thrombininhibitors, please refer to Pharmacy. 10/18/2024 11:5 0 AM EST 10/18/2024 11:55 AM EST Generic External Data Provider LAB BLOOD ORDERAB LES Final Result Performing Organization Address [facility] Co de Phone Number [facility] [address] [place] [phone] * (ABNORMAL) Prothrombin Time-INR (10/18/2024 11:50 AM EST) Prothrombin Time 14.2(H) 10.9 - 12.4 SEC [facility] INTERNATIONAL NORM RATIO 1.2(H) 0.9 - 1.1 [facility] Comment:INTERNATIONAL NORMAL IZED RATIO (INR) REFERENCE RANGES Reference RangeFor patients not on anticoagulant therapy: 0.9 - 1.1INR ranges for oral anticoagulanttherapy:For prevention and treatment of venous thrombosis and pulmonary embolism: 2.0 - 3.0For acute myocardial infarction with aspirin therapy: 2.0 - 3.0For acute myocardial infarction without aspirin therapy: 3.0 - 4.0For patients with mechanical prosthetic heart valves: 2.5 - 3.5 10/18/2024 11:5 0 AM EST 10/18/2024 11:55 AM EST us Generic External Data Provider LAB BLOOD ORDERAB LES Final Result Performing Organization Address [facility] Co de Phone Number [facility] [address] [place] [phone] * (ABNORMAL) B Type Natriuretic Peptide (BNP) (10/18/2024 11:50 AM EST) B Type Natriuretic Peptide 303(H) <100 pg/mL [facility] Comment:For those patients w ho are being treated with Natrecor(nesiritide, recombinant BNP), BNP testing should beperformed at least two hours post treatment in order toensure that only endogenous levels of BNP are detected. 10/18/2024 11:5 0 AM EST 10/18/2024 11:55 AM EST us Generic External Data Provider LAB BLOOD ORDERAB LES Final Result Performing Organization Address [facility] Co de Phone Number [facility] [address] [place] [phone] * Lactic Acid (10/18/2024 11:50 AM EST) Lactic Acid 0.7 0.5 - 2.0 mmol/L [facility] 10/18/2024 11:5 0 AM EST 10/18/2024 11:55 AM EST Generic External Data Provider LAB BLOOD ORDERAB LES Final Result Performing Organization Address [facility] Co de Phone Number [facility] [address] [place] [phone] * (ABNORMAL) Comprehensive Metabolic Panel (10/18/2024 11:50 AM EST) Sodium 134(L) 135 - 145 mmol/L [facility] Potassium 4.5 3.3 - 5.1 mmol/L [facility] Chloride 97 96 - 108 mmol/L [facility] Carbon Dioxide 31(H) 22 - 29 mmol/L [facility] Anion Gap 11(L) 12 - 20 [facility] Urea Nitrogen (BUN) 16 9 - 16 mg/dL [facility] Creatinine, Serum 0.61 0.5 - 1.4 mg/dL [facility] Creatinine Clr Calc Pharmacy 126.6 [facility] Comment:eGFR (calculated fro m the MDRD study equation) and eCrCl(calculated from the Cockcroft-Gault equation) are based ondifferent parameters and may not yield comparable results.If eCrCl result is absurd, please check patient'sheight/weight. Estimated Glomerular Filt Rate >60 [facility] Comment:Chronic Kidney Disea se: Estimated GFR < 60 mL/min/1.02h9Nhitbh Kidney Disease: Estimated GFR < 15 mL/min/1.73m2 Glucose 111 60 - 115 mg/dL [facility] Calcium 8.2(L) 8.4 - 10.2 mg/dL [facility] Bilirubin, Total 0.7 0.0 - 1.0 mg/dL [facility] Aspartate Amino Transferase 53(H) 5 - 37 U/L [facility] Alanine Aminotransferase 45(H) 0 - 40 U/L [facility] Total Protein 6.8 6.5 - 8.0 g/dL [facility] Albumin Level 2.9(L) 3.5 - 5.0 g/dL [facility] Alkaline Phosphatase 285(H) 39 - 117 U/L [facility] 10/18/2024 11:5 0 AM EST 10/18/2024 11:55 AM EST us Generic External Data Provider LAB BLOOD ORDERAB LES Final Result [facility] [address] [place] [phone] * CT Cervical Spine w/o Contrast (10/04/2024 8:04 AM EST) Anatomical Region Laterality Modality Spine, C-spine Computed Tomogra phy 10/04/2024 8:04 AM EST Narrative 10/04/2024 9:03 AM EST ? [facility] ?[address] ?[place] [address] ? CT Scan Report ? Signed ? Patient: Aldo Link ?MR#: [id number] ?? [id number] ? : 1965 ?Acct:[id number] ? Age/Sex: 59 / M ?ADM Date: 10/04/24 ? Loc: HO.ED ? Attending Dr: ? Ordering Physician: Deborah Oreilly ?? Date of Service: 10/04/24 ?? Procedure(s): CT cervical spine wo IV con ?? Accession Number(s): [id number] ? cc: Deborah Oreilly; Name,Warner JENKINS ? Report Number: ?? [id number]: Total DLP = ?0.00 mGy-cm ?? EXAMINATION: ?? CT CERVICAL SPINE WITHOUT CONTRAST ? CLINICAL INFORMATION: ?? Fall, trauma. ? COMPARISON: ?? 10/09/2022. ? TECHNIQUE: ?? Spiral CT imaging of the cervical spine performed in axial plane ?? without contrast. Multiplanar reformatted images were constructed from ?? the axial data set. ? This CT examination was performed using dose optimization techniques as ?? appropriate, variously including the following: ?? *Automated exposure control ?? *Adjustment of mA and/or kV according to patient size (this includes ?? techniques or standardized protocols for targeted exams where dose is ?? matched to indication/reason for exam; i.e. extremities or head) ?? *Use of iterative reconstruction technique ? FINDINGS: ?? CORONAL ALIGNMENT: ?? -Minimal levoconvex scoliosis, possibly positional. ? SAGITTAL ALIGNMENT: ?? -There is a normal lordosis. There are no subluxations. ? C1-C2 AND CRANIOCERVICAL JUNCTION: ?? -Intact and aligned. There are mild to moderate degenerative changes at ?? the atlantoaxial joint with a subcortical cyst in the left lateral dens. ? VERTEBRAL BODIES AND FACETS: ?? -No fracture, compression deformity, traumatic subluxation, facet ?? malalignment, or suspicious bone lesion. ?? -Normal facet alignment. Mild degenerative facet changes most notable ?? on the right at C3-4. ? DISCS: ?? -Mild loss of disc space diffusely. ? PREVERTEBRAL AND PARAVERTEBRAL SOFT TISSUES: ?? -No prevertebral or paravertebral soft tissue abnormality. ?? -Neck soft tissues demonstrate minimal calcification of the carotid ?? bulbs bilaterally. ?? Mildly heterogeneous thyroid without discrete nodule. ? LUNG APICES: ?? -Mild left pleural scarring posteriorly. Lung apices otherwise clear. ? CT/CT cervical spine wo IV con ?? IMPRESSION: ?? 1. No CT evidence of acute cervical spine fracture or injury. ? Electronically signed by: ??Eh Guillaume MD ??10/04/2024 08:59 AM EST RP ? Dictated By: ?Eh Guillaume MD ? Signed By: ?<Electronically signed by Eh Guillaume, MD in OV> ?10/04/24 0859 ? DD/ 0804 ? TD/TT: 10/04/24 0842 ? Car Worker Helper: ? Procedure Note Alanna, Milli - 10/04/[address] [address] [address] Scan Report Signed Patient: Aldo Link#: [id number] : 1965Acct:[id number] Age/Sex: 59 / MADM Date: 10/04/24 Loc: HO.ED Attending Dr: Ordering Physician: Deborah Oreilly Date of Service: 10/04/24 Procedure(s): CT cervical spine wo IV con Accession Number(s): [id number] cc: Deborah Oreilly; Name,Warner JENKINS Report Number: [id number]: Total DLP = 0.00 mGy-cm EXAMINATION: CT CERVICAL SPINE WITHOUT CONTRAST CLINICAL INFORMATION: Fall, trauma. COMPARISON: 10/09/2022. TECHNIQUE: Spiral CT imaging of the cervical spine performed in axial plane without contrast. Multiplanar reformatted images were constructed from the axial data set. This CT examination was performed using dose optimization techniques as appropriate, variously including the following: *Automated exposure control *Adjustment of mA and/or kV according to patient size (this includes techniques or standardized protocols for targeted exams where dose is matched to indication/reason for exam; i.e. extremities or head) *Use of iterative reconstruction technique FINDINGS: CORONAL ALIGNMENT: -Minimal levoconvex scoliosis, possibly positional. SAGITTAL ALIGNMENT: -There is a normal lordosis. There are no subluxations. C1-C2 AND CRANIOCERVICAL JUNCTION: -Intact and aligned. There are mild to moderate degenerative changes at the atlantoaxial joint with a subcortical cyst in the left lateral dens. VERTEBRAL BODIES AND FACETS: -No fracture, compression deformity, traumatic subluxation, facet malalignment, or suspicious bone lesion. -Normal facet alignment. Mild degenerative facet changes most notable on the right at C3-4. DISCS: -Mild loss of disc space diffusely. PREVERTEBRAL AND PARAVERTEBRAL SOFT TISSUES: -No prevertebral or paravertebral soft tissue abnormality. -Neck soft tissues demonstrate minimal calcification of the carotid bulbs bilaterally. Mildly heterogeneous thyroid without discrete nodule. LUNG APICES: -Mild left pleural scarring posteriorly. Lung apices otherwise clear. CT/CT cervical spine wo IV con IMPRESSION: 1. No CT evidence of acute cervical spine fracture or injury. Electronically signed by: Eh Guillaume MD 10/04/2024 08:59 AM EST Dictated By: Eh Guillaume MD Signed By: <Electronically signed by Eh Guillaume MD in OV> 10/04/24 0859 DD/ 0804 TD/TT: 10/04/24 0842 Car Worker Helper: [facility] External Provider IMG CT PROCEDURES Edited Result - Final * CT Sinus Facial Bones w/o Contrast (10/04/2024 7:06 AM EST) Anatomical Region Laterality Modality Computed Tomogra phy 10/04/2024 7:06 AM EST Narrative 10/04/2024 8:58 AM EST ? [facility] ?[address] ?[place] [address] ? CT Scan Report ? Signed ? Patient: Carroll Kunz,Aldo ?MR#: [id number] ?? [id number] ? : 1965 ?Acct:[id number] ? Age/Sex: 59 / M ?ADM Date: 10/04/24 ? Loc: HO.ED ? Attending Dr: ? Ordering Physician: Deborah Oreilly ?? Date of Service: 10/04/24 ?? Procedure(s): CT facial bones wo IV con ?? Accession Number(s): [id number] ? cc: Deborah Oreilly; Name,Warner JENKINS ? Report Number: ?? [id number]: Total DLP = ??307.00 mGy-cm ?? EXAMINATION: CT MAXILLOFACIAL WITHOUT IV CONTRAST ? HISTORY: fall, +headstrike. ? TECHNIQUE: ? Serial 1.5 mm helically acquired images were obtained of the facial ?? bones per standard departmental protocol. Coronal and sagittal ?? reformatted images were also obtained and evaluated. ??One or more of ?? the following techniques was used for dose reduction: Automated ?? exposure control, adjustment of the mA and/or kV according to patient ?? size, use of iterative reconstruction technique. ? DLP: 307.71 mGy-cm ? COMPARISON: Comparison is made with the prior examination dated ?? 10/04/2024. ? FINDINGS: ? There is mild motion artifact. There may be a nondisplaced fracture of ?? the left nasal bone. Facial bones are otherwise intact. ??The globes are ?? intact. ??There is partial opacification of the bilateral frontal and ?? ethmoid sinuses as well as the right maxillary sinus. Expansion of the ?? ostium of the right maxillary sinus may represent polyposis. ??The ?? visualized portion of the brain is unremarkable. ??There is left ?? periorbital soft tissue swelling. ? CT/CT facial bones wo IV con ?? IMPRESSION: ?? Limited examination due to patient motion. Possible fracture of the ?? left nasal bone. The facial bones are otherwise intact. ? Electronically signed by: ??Mart James MD ??10/04/2024 08:56 AM EST ?? RP ? Dictated By: ?Mart James MD ? Signed By: ?<Electronically signed by Mart James MD in OV> ?10/04/24 0856 ? DD/ 0706 ? TD/TT: 10/04/24 0842 ? Car Worker Helper: ? Procedure Note Donektainterpreter, Image - 10/04/[address] [place] [address] [address] Scan Report Signed Patient: Brent Link#: [id number] 2532 : 1965Acct:[id number] Age/Sex: 59 / MADM Date: 10/04/24 Loc: HO.ED Attending Dr: Ordering Physician: Deborah Oreilly Date of Service: 10/04/24 Procedure(s): CT facial bones wo IV con Accession Number(s): [id number] cc: Deborah Oreilly; Name,Warner JENKINS Report Number: [id number]: Total DLP = 307.00 mGy-cm EXAMINATION: CT MAXILLOFACIAL WITHOUT IV CONTRAST HISTORY: fall, +headstrike. TECHNIQUE: Serial 1.5 mm helically acquired images were obtained of the facial bones per standard departmental protocol. Coronal and sagittal reformatted images were also obtained and evaluated. One or more of the following techniques was used for dose reduction: Automated exposure control, adjustment of the mA and/or kV according to patient size, use of iterative reconstruction technique. DLP: 307.71 mGy-cm COMPARISON: Comparison is made with the prior examination dated 10/04/2024. FINDINGS: There is mild motion artifact. There may be a nondisplaced fracture of the left nasal bone. Facial bones are otherwise intact. The globes are intact. There is partial opacification of the bilateral frontal and ethmoid sinuses as well as the right maxillary sinus. Expansion of the ostium of the right maxillary sinus may represent polyposis. The visualized portion of the brain is unremarkable. There is left periorbital soft tissue swelling. CT/CT facial bones wo IV con IMPRESSION: Limited examination due to patient motion. Possible fracture of the left nasal bone. The facial bones are otherwise intact. Electronically signed by: Mart James MD 10/04/2024 08:56 AM EST RP Dictated By: Mart James MD Signed By: <Electronically signed by Mart James MD in OV> 10/04/24 0856 DD/ 0706 TD/TT: 10/04/24 0842 Car Worker Helper: [facility] External Provider IMG CT PROCEDURES Edited Result - Final * CT Head w/o Contrast (10/04/2024 7:06 AM EST) Anatomical Region Laterality Modality Head, Neck Computed Tomogra phy 10/04/2024 7:06 AM EST Narrative 10/04/2024 8:54 AM EST ? [facility] ?[address] ?[place] [address] ? CT Scan Report ? Signed ? Patient: Carroll Kunz,Aldo ?MR#: [id number] ?? 2532 ? : 1965 ?Acct:[id number] ? Age/Sex: 59 / M ?ADM Date: 10/04/24 ? Loc: HO.ED ? Attending Dr: ? Ordering Physician: Deborah Oreilly ?? Date of Service: 10/04/24 ?? Procedure(s): CT head/brain wo IV con ?? Accession Number(s): [id number] ? cc: Deborah Oreilly; Name,Warner JENKINS ? Report Number: ?? [id number]: Total DLP = ??819.00 mGy-cm ?? EXAMINATION: CT HEAD WITHOUT IV CONTRAST ? HISTORY: headstrike. ? TECHNIQUE: ? Unenhanced helical CT of the head was performed per standard ?? departmental protocol. Coronal and sagittal reformats of the head were ?? also evaluated. One or more of the following techniques was used for ?? dose reduction: Automated exposure control, adjustment of the mA and/or ?? kV according to patient size, use of iterative reconstruction technique. ? DLP: 809.58 mGy-cm ? COMPARISON: Comparison is made with the prior examination dated ?? 10/09/2022. ? FINDINGS: ? BRAIN: ??The brain parenchyma is unremarkable. There is normal ?? shaw/white differentiation. The ventricular system is normal in size ?? and configuration. ??There is no mass effect or midline shift. ??No ?? intra- or extra-axial fluid collections are identified. ? SINUSES: There is opacification of the sphenoid and right maxillary ?? sinuses. Expansion of the ostium of the right maxillary sinus may ?? represent polyposis. ??The mastoid air cells and middle ear cavities are ?? well pneumatized. ? ORBITS: The visualized orbits are unremarkable. ? BONES/SOFT TISSUES: There is soft tissue swelling at the vertex. The ?? calvarium is intact. No suspicious lytic or sclerotic lesions. ? CT/CT head/brain wo IV con ?? IMPRESSION: ?? Soft tissue swelling at the vertex. No acute intracranial abnormality. ? Electronically signed by: ??Mart James MD ??10/04/2024 08:51 AM EST ? Dictated By: ?Mart James MD ? Signed By: ?<Electronically signed by Mart James MD in OV> ?10/04/24 0851 ? DD/ 07 ? TD/TT: 10/04/24 0842 ? Car Worker Helper: ? Procedure Note Milli Mondragon - 10/04/[address] [address] [address] Scan Report Signed Patient: Brent Link#: [id number] 2532 : 1965Acct:[id number] Age/Sex: 59 / MADM Date: 10/04/24 Loc: HO.ED Attending Dr: Ordering Physician: Deborah Oreilly Date of Service: 10/04/24 Procedure(s): CT head/brain wo IV con Accession Number(s): [id number] cc: Deborah Oreilly; Name,Warner Report Number: [id number]: Total DLP = 819.00 mGy-cm EXAMINATION: CT HEAD WITHOUT IV CONTRAST HISTORY: headstrike. TECHNIQUE: Unenhanced helical CT of the head was performed per standard departmental protocol. Coronal and sagittal reformats of the head were also evaluated. One or more of the following techniques was used for dose reduction: Automated exposure control, adjustment of the mA and/or kV according to patient size, use of iterative reconstruction technique. DLP: 809.58 mGy-cm COMPARISON: Comparison is made with the prior examination dated 10/09/2022. FINDINGS: BRAIN: The brain parenchyma is unremarkable. There is normal shaw/white differentiation. The ventricular system is normal in size and configuration. There is no mass effect or midline shift. No intra- or extra-axial fluid collections are identified. SINUSES: There is opacification of the sphenoid and right maxillary sinuses. Expansion of the ostium of the right maxillary sinus may represent polyposis. The mastoid air cells and middle ear cavities are well pneumatized. ORBITS: The visualized orbits are unremarkable. BONES/SOFT TISSUES: There is soft tissue swelling at the vertex. The calvarium is intact. No suspicious lytic or sclerotic lesions. CT/CT head/brain wo IV con IMPRESSION: Soft tissue swelling at the vertex. No acute intracranial abnormality. Electronically signed by: Mart James MD 10/04/2024 08:51 AM EST Dictated By: Mart James MD Signed By: <Electronically signed by Mart James MD in OV> 10/04/24 0851 DD/ 0706 TD/TT: 10/04/24 0842 Car Worker Helper: [facility] External Provider IMG CT PROCEDURES Edited Result - Final * Hepatitis C Antibody with Reflex to HCV, RNA, Quantitative, Real-Time PCR (06/06/2024 6:48 AM EDT) Pathologist [facility] Hepatitis C Antibody Nonreactive Nonreactive [facility] Comment:Antibodies to HCV no t detected; does not exclude early acuteHCV infection. Blood Venous blood specimen / Unknown 06/06/2024 6:48 AM EDT 06/06/2024 6:48 AM EDT Warner Hinkle MD LAB BLOOD ORDERABLES Final Resul t Performing Organization Address [facility] de Phone Number [facility] [address] [place] [phone] * HIV-1/2 Antigen and Antibodies, Fourth Generation, with Reflexes (06/06/2024 6:48 AM EDT) Pathologist [facility] HIV AB/AG Nonreactive Nonreactive [facility] Comment:HIV-1 p24 Ag and/or HIV-1/HIV-2 Ab not detected.A test result that is nonreactive does not exclude thepossibility of exposure to or infection with HIV-1 and/orHIV-2. Nonreactive results in this assay for individualswith prior exposure to HIV-1 and/or HIV-2 may be due toantigen and antibody levels that are below the limit ofdetection of this assay.[facility] HIV Ag/Ab Combo assay result andsupplemental assay results should be interpreted inconjunction with the patient's clinical presentation,history and other laboratory results. If the results areinconsistent with clinical evidence, additional testing issuggested to confirm the result. Blood Venous blood specimen / Unknown 06/06/2024 6:48 AM EDT 06/06/2024 6:48 AM EDT Warner Hinkle MD LAB BLOOD ORDERABLES Final Resul t Performing Organization Address [facility] Co de Phone Number [facility] [address] [place] [address] [phone] from Last 3 Months or Most Recently Relevant to Health Maintenance Insurance * Guarantor: Aldo Hodges Account Type Relation to Patient Date of Phone Billing Address Personal/Family Self [address] Care Teams Blanket Winder Helper Relationship Specialty Start Date End Date Name, MD Warner [address] [place] [phone] PCP - General Internal Medicine 03/09/24
--- OUTSIDE RECORDS SUMMARY | 2024-10-18 14:55 | XMS_ITS | Clinical Summary ---
Author Organization [facility] Address [address] [place] [address] Care Team Providers Care Gang Tailer Name Role Phone Pcp, No Primary Care [...] (1 of 3 - 19+ 3-dose series) 08/1986 Colonoscopy 2012 Pneumococcal Vaccines 50+ (1 of 1 - PCV) 2017 Zoster (Shingles) Vaccine (1 of 2) 2017 Influenza Vaccine 03/22/2024 COVID-19 Vaccine ( - 2023-25 season) 2024 Care Teams Gang Tailer Relationship Specialty Start Date End Date Pcp, No PCP - General General Medicine 08/19/16
--- OUTSIDE RECORDS SUMMARY | 2024-10-18 14:55 | XMS_ITS | Encounter Summary ---
Demographics Address [address] [place] [address] Mobile Phone Home Phone Work Phone Preferred Language es Marital Status Single Anabaptist Affiliation Unknown Race Other Race Ethnic Group or Author Organization [employer] Address [address] [place] [address] Care Team Providers Care Supervisor Seaming Name Role Phone Name, Warner JENKINS Primary Care Provider Encounter Details Date Type Department Care Team ([facility] st Contact Info) Description 10/04/2024 Orders Only [facility] External Provider, [facility] Social History Tobacco Use Types Packs/Day Years Used Date Smoking Tobacco: Never Smokeless Tobacco: Never Alcohol Use Standard Drinks/Week Comments Not Currently [...] Orientation Straight 06/21/2022 10 :17 AM EDT documented as of this encounter Plan of Treatment Upcoming Encounters Date Type Department Care Team (Late st Contact Info) Description 12/28/2024 10:15 AM EDT Office Visit [facility] [address] [place] [address] Name, MD Warner [address] [place] [address] documented as of this encounter Procedures Procedure Name Priority Date/Time Associated Diagnosis Comments CTA CHEST PE PROTOCAL Routine 10/18/2024 1:16 PM EST VENOUS BLOOD GAS Routine 10/18/2024 12:1 1 PM EST SLIDE REVIEW Routine 10/18/2024 11:50 AM EST HIGH SENSITIVITY TROPONIN I Routine 10/18/2024 11:50 AM EST SARS COV2/INFLUENZA A/B AND RSV RNA QL NAAT Routine 10/18/2024 11:50 AM EST CBC WITH AUTO DIFFERENTIAL Routine 10/18/2024 11:50 AM EST APTT Routine 10/18/2024 11:50 AM EST PROTHROMBIN TIME-INR Routine 10/18/2024 11:50 AM EST B TYPE NATRIURETIC PEPTIDE (BNP) Routine 10/18/2024 11:50 AM EST LACTIC ACID Routine 10/18/2024 11:50 AM EST COMPREHENSIVE METABOLIC PANEL Routine 10/18/2024 11:[address] CERVICAL SPINE WO CONTRAST Routine 10/04/2024 8:[address] SINUS FACIAL BONES WO CONTRAST Routine 10/04/2024 7:[address] HEAD WO CONTRAST Routine 10/04/2024 7 :06 AM EST documented in this encounter Results * CTA Chest PE Protocal (10/18/2024 1:16 PM EST) Anatomical Region Laterality Modality Body, Chest Computed Tomogra phy 10/18/2024 1:16 PM EST Narrative 10/18/2024 1:50 PM EST ? [facility] ?[address] ?[place] [address] ? CT Scan Report ? Signed ? Patient: Carroll,Aldo ?MR#: [id number] ? : 1965 ?Acct:[id number] ? Age/Sex: 59 / M ?ADM Date: 10/18/24 ? Loc: HO.ED ? Attending Dr: ? Ordering Physician: Kathi Rogers ?? Date of Service: 10/18/24 ?? Procedure(s): CT angio chest PE protocol ?? Accession Number(s): [id number] ? cc: Kathi Rogers; [facility] ? Report Number: ?? [id number]: Total DLP = ??309.00 mGy-cm ?? EXAMINATION: [...] DD/ 1316 ? TD/TT: 10/18/24 1335 ? Medical Geneticist: ? Procedure Note Donotuseinterpreter, Image - 10/18/[address] [address] [address] Scan Report Signed Patient: Brent Hodges#: [id number] : 1965Acct:[id number] Age/Sex: 59 / MADM Date: 10/18/24 Loc: HO.ED Attending Dr: Ordering Physician: Kathi Rogers Date of Service: 10/18/24 Procedure(s): CT angio chest PE protocol Accession Number(s): [id number] cc: Kathi Rogers; [facility] Report Number: [id number]: Total DLP = 309.00 mGy-cm EXAMINATION: CT [...] 10/18/24 1347 DD/ 1316 TD/TT: 10/18/24 1335 Medical Geneticist: [facility] External Provider IMG CT PROCEDURES Final Result * (ABNORMAL) VENOUS BLOOD GAS (10/18/2024 12:11 PM EST) VBG pH 7.45(H) 7.32 - 7.43 [facility] Comment:METER #: [id number] additional_comment: Cb hernaso VBG PCO2 55 mmHg [facility] Comment:METER #: [id number] additional_comment: Cb hernaso VBG PO2 73 mmHg [facility] Comment:METER #: [id number] additional_comment: Cb hernaso VBG Base Excess 12.9 mmol/L [facility] Comment:METER #: [id number] additional_comment: Cb hernaso VBG HCO3 38(H) 22 - 26 mmol/L [facility] Comment:METER #: [id number] additional_comment: Cb hernaso O2 Sat, Beau 97.0 % [facility] Comment:METER #: [id number] additional_comment: Cb naso 10/18/2024 12:1 1 PM EST 10/18/2024 12:15 PM EST Generic External Data Provider LAB BLOOD ORDERAB LES Final Result Performing Organization Address [facility] Co de Phone Number [facility] [address] [place] [phone] * SARS-CoV-2 RNA, Influenza A/B, and RSV RNA, Ql NAAT (10/18/2024 11:50 AM EST) Influenza A PCR NEGATIVE Negative [facility] Influenza B PCR NEGATIVE Negative [facility] Resp Syncy Virus RNA Qual PCR NEGATIVE Negative [facility] SARS COV2 PCR NEGATIVE Negative [facility] Comment:All test results mus t be [...] use by authorized laboratories.Testing performed on the [employer] GeneXpert utilizingreal-time RT-PCR.All SARS CoV2 and positive influenza A/B results arereported to [facility]. 10/18/2024 11:5 0 AM EST 10/18/2024 11:55 AM EST Generic External Data Provider LAB MICROBIOLOGY - GENERAL ORDERABLES Final Result Performing Organization Address [facility]/ZIP Co de Phone Number [facility] [address] [place] [phone] * Slide Review (10/18/2024 11:50 AM EST) Slide Review VERIFIED [facility] 10/18/2024 11:5 0 AM EST 10/18/2024 11:55 AM EST us Generic External Data Provider LAB BLOOD ORDERAB LES Final Result Performing Organization Address City/State/[place] Co de Phone Number [facility] [address] [place] [phone] * (ABNORMAL) CBC auto differential (10/18/2024 11:50 AM EST) White Blood Count 18.6(H) 4.8 - 10.8 X10*3/uL [facility] Red Blood Count 3.57(L) 4.60 - 5.80 X10*6/uL [facility] Hemoglobin 10.5(L) 14.0 - 18.0 g/dl [facility] Hematocrit 32.8(L) 42.0 - 52.0 % [facility] Mean Corpuscular Volume 91.9 80.0 - 98.0 fL [facility] Mean Corpuscular Hemoglobin 29.4 27.0 - 33.0 pg [facility] Mean Corpuscular HGB Conc 32.0 31.0 - 36.0 g/dl [facility] Red Cell Distribution Width 12.9 11.0 - 16.0 % [facility] Platelet Count 417(H) 160 - 400 X10*3/uL [facility] Mean Platelet Volume 9.5 9.4 - 12.4 fL [facility] Neutrophils Percent Auto 76.8(H) 45 - 73 % [facility] Imm Gran Pct Auto 0.6(H) 0.0 - 0.4 % [facility] Lymphocytes Percent Auto 8.8(L) 20 - 40 % [facility] Monocytes Percent Auto 13.3(H) 2 - 11 % [facility] Eosinophils Percent Auto 0.2 0 - 4 % [facility] Basophils Percent Auto 0.3 0 - 2 % [facility] NRBC Pct Auto 0.0 0.0 - 0.2 /100WBC [facility] Neutrophils Absolute Auto 14.3(H) 2.0 - 8.3 x10*3/uL [facility] Imm Gran Abs Auto 0.12(H) 0.00 - 0.03 X10*3/uL [facility] Lymphocytes Absolute Auto 1.6 1.2 - 4.9 X10*3/uL [facility] Monocytes Absolute Auto 2.5(H) 0.1 - 1.2 X10*3/uL [facility] Eosinophils Absolute Auto 0.0 0.0 - 0.4 X10*3/uL [facility] Basophils Absolute Auto 0.1 0.0 - 0.2 X10*3/uL [facility] NRBC Abs Auto 0.000 0.0 - 0.012 X10*3/uL [facility] 10/18/2024 11:5 0 AM EST 10/18/2024 11:55 AM EST us Generic External Data Provider LAB BLOOD ORDERAB LES Edited Result - Final [facility] [address] [place] [phone] * (ABNORMAL) High Sensitivity Troponin I (10/18/2024 11:50 AM EST) TROPONIN I HIGH SENSITIVITY 193.1(HH) <3.5 - 35.0 ng/L [facility] Comment:Critical value for H S-TNI Results called to and read backby: SHELDON Person calling: MANAS Date: 10/18/24Time:1226The Khan high sensitivity Troponin-I results should beused in conjunction with other diagnostic information suchas ECG, clinical observations and information, and patientsymptoms to aid in the diagnosis of [place]. 10/18/2024 11:5 0 AM EST 10/18/2024 11:55 AM EST us Generic External Data Provider LAB BLOOD ORDERAB LES Final Result Performing Organization Address City/[facility]/ZIP Co de Phone Number [facility] [address] [place] [phone] * (ABNORMAL) B Type Natriuretic Peptide (BNP) (10/18/2024 11:50 AM EST) [facility] B Type Natriuretic Peptide 303(H) <100 pg/mL [facility] Comment:For those patients w ho are being treated with Natrecor(nesiritide, recombinant BNP), BNP testing should beperformed at least two hours post treatment in order toensure that only endogenous levels of BNP are detected. 10/18/2024 11:5 0 AM EST 10/18/2024 11:55 AM EST Generic External Data Provider LAB BLOOD ORDERAB LES Final Result Performing Organization Address [facility]/[place] Co de Phone Number [facility] [address] [place] [phone] * (ABNORMAL) Comprehensive Metabolic Panel (10/18/2024 11:50 AM EST) [facility] Sodium 134(L) 135 - 145 mmol/L [facility] Potassium 4.5 3.3 - 5.1 mmol/L [facility] Chloride 97 96 - 108 mmol/L [facility] Carbon Dioxide 31(H) 22 - 29 mmol/L [facility] Anion Gap 11(L) 12 - 20 [facility] Urea Nitrogen (BUN) 16 9 - 16 mg/dL [facility] Creatinine, Serum 0.61 0.5 - 1.4 mg/dL [facility] Creatinine Clr Calc Pharmacy 126.6 [facility] Comment:eGFR (calculated fro m the MDRD study equation) and eCrCl(calculated from the Cockcroft-Gault equation) are based ondifferent parameters and may not yield comparable results.If eCrCl result is absurd, please check patient'sheight/weight. Estimated Glomerular Filt Rate >60 [facility] Comment:Chronic Kidney Disea se: Estimated GFR < 60 mL/min/1.51x3Rfztbr Kidney Disease: Estimated GFR < 15 mL/min/1.73m2 Glucose 111 60 - 115 mg/dL [facility] Calcium 8.2(L) 8.4 - 10.2 mg/dL [facility] Bilirubin, Total 0.7 0.0 - 1.0 mg/dL [facility] Aspartate Amino Transferase 53(H) 5 - 37 U/L [facility] Alanine Aminotransferase 45(H) 0 - 40 U/L [facility] Total Protein 6.8 6.5 - 8.0 g/dL [facility] Albumin Level 2.9(L) 3.5 - 5.0 g/dL [facility] Alkaline Phosphatase 285(H) 39 - 117 U/L [facility] 10/18/2024 11:5 0 AM EST 10/18/2024 11:55 AM EST Generic External Data Provider LAB BLOOD ORDERAB LES Final Result Performing Organization Address [facility]/[place] Co de Phone Number [facility] [address] [place] [phone] * Lactic Acid (10/18/2024 11:50 AM EST) Lactic Acid 0.7 0.5 - 2.0 mmol/L [facility] 10/18/2024 11:5 0 AM EST 10/18/2024 11:55 AM EST Generic External Data Provider LAB BLOOD ORDERAB LES Final Result Performing Organization Address [facility] Co de Phone Number [facility] [address] [place] [address] [phone] * Partial Thromboplastin Time, Activated (APTT) (10/18/2024 11:50 AM EST) Partial Thromboplastin Time 28.4 26.0 - 36.8 SEC [facility] Comment:For information rega rding the monitoring of direct thrombininhibitors, please refer to Pharmacy. 10/18/2024 11:5 0 AM EST 10/18/2024 11:55 AM EST Generic External Data Provider LAB BLOOD ORDERAB LES Final Result Performing Organization Address [facility] Co de Phone Number [facility] [address] [place] [address] [phone] * (ABNORMAL) Prothrombin Time-INR (10/18/2024 11:50 AM EST) Prothrombin Time 14.2(H) 10.9 - 12.4 SEC [facility] INTERNATIONAL NORM RATIO 1.2(H) 0.9 - 1.1 [facility] Comment:INTERNATIONAL NORMAL IZED RATIO (INR) REFERENCE [...] ORDERAB LES Final Result Performing Organization Address [facility] Co de Phone Number [facility] [address] [place] [phone] * CT Cervical Spine w/o Contrast (10/04/2024 8:04 AM EST) Anatomical Region Laterality Modality Spine, C-spine Computed Tomogra phy 10/04/2024 8:04 AM EST Narrative 10/04/2024 9:03 AM EST ? [facility] ?[address] ?[place] [address] ? CT Scan Report ? Signed ? Patient: Carroll Ze,Aldo ?MR#: [id number] ?? [id number] ? : 1965 ?Acct:[id number] ? Age/Sex: 59 / M ?ADM Date: 10/04/24 ? Loc: HO.ED ? Attending Dr: ? Ordering Physician: Deborah Oreilly ?? Date of Service: 10/04/24 ?? Procedure(s): CT cervical spine wo IV con ?? Accession Number(s): [id number] ? cc: Deborah Oreilly; Name,Warner JENKINS ? Report Number: ?? [id number]: Total DLP = ?0.00 mGy-cm ?? EXAMINATION: [...] ? Signed By: ?<Electronically signed by Eh Guillaume MD in OV> ?10/04/24 0859 ? DD/ 0804 ? TD/TT: 10/04/24 0842 ? Medical Geneticist: ? Procedure Note Donotuseinterpreter, Image - 10/04/[address] [place] [address] [address] Scan Report Signed Patient: Brent Link#: [id number] : 1965Acct:[id number] Age/Sex: 59 / MADM Date: 10/04/24 Loc: HO.ED Attending Dr: Ordering Physician: Deborah Oreilly Date of Service: 10/04/24 Procedure(s): CT cervical spine wo IV con Accession Number(s): [id number] cc: Deborah Oreilly; Name,Warner JENKINS Report Number: [id number]: Total DLP = 0.00 mGy-cm EXAMINATION: CT [...] 10/04/24 0859 DD/ 0804 TD/TT: 10/04/24 0842 Medical Geneticist: [facility] External Provider IMG CT PROCEDURES Edited Result - Final * CT Sinus Facial Bones w/o Contrast (10/04/2024 7:06 AM EST) Anatomical Region Laterality Modality Computed Tomogra phy 10/04/2024 7:06 AM EST Narrative 10/04/2024 8:58 AM EST ? [facility] ?[address] ?[place] [address] ? CT Scan Report ? Signed ? Patient: Carroll Kunz,Aldo ?MR#: [id number] ?? [id number] ? : 1965 ?Acct:[id number] ? Age/Sex: 59 / M ?ADM Date: 02/13/25 ? Loc: HO.ED ? Attending Dr: ? Ordering Physician: Deborah Oreilly ?? Date of Service: 10/04/24 ?? Procedure(s): CT facial bones wo IV con ?? Accession Number(s): [id number] ? cc: Deborah Oreilly; Name,Warner JENKINS ? Report Number: ?? [id number]: Total DLP = ??307.00 mGy-cm ?? EXAMINATION: [...] DD/ 0706 ? TD/TT: 10/04/24 0842 ? Medical Geneticist: ? Procedure Note Alanna, Image - 10/04/[address] [address] CT Scan Report Signed Patient: Brent Link#: [id number] 2532 : 1965Acct:[id number] Age/Sex: 59 / MADM Date: 10/04/24 Loc: HO.ED Attending Dr: Ordering Physician: Deborah Oreilly Date of Service: 10/04/24 Procedure(s): CT facial bones wo IV con Accession Number(s): [id number] cc: Deborah Oreilly; Name,Warner JENKINS Report Number: [id number]: Total DLP = 307.00 mGy-cm EXAMINATION: CT [...] Mart James MD 10/04/2024 08:56 AM EST Dictated By: Mart James MD Signed By: <Electronically signed by Mart James MD in OV> 10/04/24 0856 DD/ 0706 TD/TT: 10/04/24 0842 Medical Geneticist: [facility] External Provider IMG CT PROCEDURES Edited Result - Final * CT Head w/o Contrast (10/04/2024 7:06 AM EST) Anatomical Region Laterality Modality Head, Neck Computed Tomogra phy 10/04/2024 7:06 AM EST Narrative 10/04/2024 8:54 AM EST ? [facility] ?[address] ?[place] [address] ? CT Scan Report ? Signed ? Patient: Aldo Link ?MR#: [id number] ?? 2532 ? : 1965 ?Acct:[id number] ? Age/Sex: 59 / M ?ADM Date: 10/04/24 ? Loc: HO.ED ? Attending Dr: ? Ordering Physician: Deborah Oreilly ?? Date of Service: 10/04/24 ?? Procedure(s): CT head/brain wo IV con ?? Accession Number(s): [id number] ? cc: Deborah Oreilly; Name,Warner JENKINS ? Report Number: ?? [id number]: Total DLP = ??819.00 mGy-cm ?? EXAMINATION: [...] ??Mart James MD ??10/04/2024 08:51 AM EST ?? RP ? Dictated By: ?Mart James MD ? Signed By: ?<Electronically signed by Mart James MD in OV> ?10/04/24 0851 ? DD/ 0706 ? TD/TT: 10/04/24 0842 ? Medical Geneticist: ? Procedure Note Alanna, Image - 10/04/[address] [place] [address] [address] Scan Report Signed Patient: Brent Link#: [id number] 2532 : 1965Acct:[id number] Age/Sex: 59 / MADM Date: 10/04/24 Loc: HO.ED Attending Dr: Ordering Physician: Deborah Oreilly Date of Service: 10/04/24 Procedure(s): CT head/brain wo IV con Accession Number(s): [id number] cc: Deborah Oreilly; Name,Warner JENKINS Report Number: [id number]: Total DLP = 819.00 mGy-cm EXAMINATION: CT [...] 10/04/24 0851 DD/ 0706 TD/TT: 10/04/24 0842 Medical Geneticist: [facility] External Provider IMG CT PROCEDURES Edited Result - Final documented in this encounter Visit Diagnoses Not on filedocumented in this encounter Additional Health Concerns Assessment Noted Time PHQ-9 Depression Total Score: 16 024 11:28 AM EDT documented as of this encounter Care Teams Supervisor Seaming Relationship Specialty Start Date End Date Name, MD Warner [address] [place] [address] PCP - General Internal Medicine 03/09/24 documented as of this encounter
--- NOTE | 2024-10-18 14:58 | PHA.MEDREC ---
Addendum entered by Noe Gant 10/18/24 16:09: reviewed Original Note: Pharmacy Consult ? Medication Reconciliation Pharmacy has completed the medication reconciliation. 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
[2024-10-18] MEDS: vancomycin/NS 2,000 MG/500 ML PLAST..BAG 250 MG IV (15:00)
--- NOTE | 2024-10-18 15:21 | HO.THORCONS ---
History of Present Illness Consult details Consult date: 10/18/24 Narrative: 59 year old male with a history of IVDA and asthma who presented to the ED with complaints of left sided chest pain and shortness of breath. Patient states that he felt well until around 4 days ago when he felt a sharp sudden left sided pain and has progressively had worsening shortness of breath and chest pain. Patient denies any dizziness, lightheadedness, abdominal pain, nausea, vomiting, fever, chills, back pain, night sweats. He was tachycardic and febrile upon presentation with O2 sat of 80s on room air. Improved with supplemental O2 now on oxymask. Work up in ED included CBC, BMP, LFTs significant for leukocytosis oif 18.6. Lactic acid normal. Trop 193.1. BNP 303. CTA chest was performed which was negative for PE, showed large possible loculated left pleural effusion with shift of the cardiomediastinal silhouette to the right and near complete atelectasis of the left lower lobe. Review of Systems Review of Systems: Yes all other systems are reviewed and are negative [facility] Past Medical History Medical History Asthma exacerbation Social History Social History Alcohol intake: former Patient Tobacco Use Status: Former Tobacco user Use of substances other than those prescribed or required for medical reasons: Yes Advance Directives: No Advance Directives Information Provided: Yes Meds Allergies Allergy/AdvReac Type Severity Reaction Status Date / Time ? Environmental Allergy Unknown asthma Uncoded 10/18/24 11:29 exacerbation Active Medications: Current Medications Vancomycin HCl (Vancomycin/Ns) 2,000 mg in 500 mls @ 250 mls/hr IV ONCE ONE Stop: 10/18/24 15:59 Last Admin: 10/18/24 15:00 Dose: 250 mls/hr Home Medications ?Medication ?Instructions ?Recorded ?Confirmed ?Last Taken ?Type No Known Home Meds 10/18/24 10/18/24 Unknown History Physical Exam Vital Signs: Vital Signs: Last Vital Signs Temp 98.4 F 10/18/24 15:00 Pulse 82 10/18/24 14:53 Resp 20 10/18/24 14:53 BP 135/87 10/18/24 14:53 Pulse Ox 95 10/18/24 14:53 O2 Del Method Oxymask 10/18/24 14:53 O2 Flow Rate 7 10/18/24 14:53 BMI result Body Mass Index 34.5 Const: Other: somnolent but arousable to verbal stimuli General: no acute distress Orientation/consciousness: patient oriented x3 Eyes: Other: b/l orbital ecchymosis Chest: Chest palpation & inspection: normal inspection of the chest and normal palpation of entire chest wall Resp: Effort & Inspection: normal respiratory effort, able to speak in complete sentences, no cough, not labored, not tachypneic, no tracheal deviation and no use of accessory muscles Skin: General skin exam: no jaundice Neuro: General: patient oriented x3 and moves all extremities Results Labs 10/18/24 11:50 10/18/24 11:50 Labs: Abnormal lab results 10/18/24 10/18/24 Range/Units 11:50 12:11 WBC 18.6 H (4.8-10.8) X10*3/uL RBC 3.57 L (4.60-5.80) X10*6/uL Hgb 10.5 L (14.0-18.0) g/dl Hct 32.8 L (42.0-52.0) % Plt Count 417 H D (160-400) X10*3/uL Immature Gran % (Auto) 0.6 H (0.0-0.4) % Neut % (Auto) 76.8 H (45-73) % Lymph % (Auto) 8.8 L (20-40) % Stevens % (Auto) 13.3 H (2-11) % Stevens # (Auto) 2.5 H (0.1-1.2) X10*3/uL Abs Immat Gran (auto) 0.12 H (0.00-0.03) X10*3/uL Absolute Neuts (auto) 14.3 H (2.0-8.3) x10*3/uL PT 14.2 H (10.9-12.4) SEC INR 1.2 H (0.9-1.1) VBG pH 7.45 H (7.32-7.43) VBG HCO3 38 H (22-26) mmol/L Sodium 134 L (135-145) mmol/L Carbon Dioxide 31 H (22-29) mmol/L Anion Gap 11 L (12-20) Calcium 8.2 L D (8.4-10.2) mg/dL AST 53 H (5-37) U/L ALT 45 H (0-40) U/L Alkaline Phosphatase 285 H (39-117) U/L Troponin I High Sens 193.1 H* (<3.5-35.0) ng/L B-Natriuretic Peptide 303 H (<100) pg/mL Albumin 2.9 L (3.5-5.0) g/dL Short CBC 10/18/24 Range/Units 11:50 WBC 18.6 H (4.8-10.8) X10*3/uL Hgb 10.5 L (14.0-18.0) g/dl Hct 32.8 L (42.0-52.0) % Plt Count 417 H D (160-400) X10*3/uL BMP 10/18/24 11:50 Sodium 134 L Potassium 4.5 Chloride 97 Carbon Dioxide 31 H BUN 16 Creatinine 0.61 Calcium 8.2 L D Liver Function 10/18/24 Range/Units 11:50 Total Bilirubin 0.7 (0.0-1.0) mg/dL AST 53 H (5-37) U/L ALT 45 H (0-40) U/L Alkaline Phosphatase 285 H (39-117) U/L Albumin 2.9 L (3.5-5.0) g/dL All other labs normal. Imaging CT scan - chest: report reviewed and image reviewed Assessment and Plan (1) Pleural effusion: Status: Acute (2) Sepsis: Status: Acute Plan 59 year old male with a history of IVDA and asthma presenting with chest pain and shortness of breath with work up showing large left pleural effusion with mediastinal shift, with concern for possible early empyema. IR left chest tube insertion was requested. Depending on IR findings and his clinical response, we discussed he may require fibrinolysis or possibly even surgical intervention with decortication. He understands. Further plan dependent on clinical course. Will continue to follow. Procedures Date of Service Date of Service: 10/18/24
--- NOTE | 2024-10-18 15:41 | P.HPHOSP_ITS ---
History of Present Illness Date of Service: 10/18/24 Attending physician on admission: García Velasquez Chief Complaint: SOB and chest pain Pt is a 59-year-old [place] Citizen-speaking male with a PMH significant for asthma?and opioid use disorder who presents to the ED with?worsening SOB, PLUNKETT, and left- sided chest pain x4 days. Pt reports SOB and chest pain worsened with walking. Chest pain is sharp and stabbing, and nonradiating. Reports he just can not catch his breath when he walks. Denies cough, fever, or chills. Has hx of opioid use disorder, no longer on methadone for at least the past year. Reports only snorts heroin, last used late last night/early this morning. Denies hx of IVDU or tobacco use. No nausea, vomiting, abdominal pain. Denies lower leg extremity swelling or pain. In the ED pt was febrile up to 100.9, tachycardic up to 109, and hypoxic at 80% on RA. Labs were significant for leukocytosis 18.6, normocytic anemia of 10.5/32.8, sodium 134, AST 53, ALT 45, alk-phos 285, initial troponin 193.1, BNP 303, and albumin 2.9. Tested negative for flu, RSV, and COVID. CTA of chest negative for pulmonary emboli but showed large left pleural effusion likely loculated. Also showed subsegmental atelectasis in left upper lobe and near complete atelectasis of left lower lobe. EKG demonstrated normal sinus rhythm without evidence of significant ST elevations or depressions, similar to prior. ED clinician contacted IR who performed ultrasound-guided thoracentesis and placed chest tube in left lung. Pt was treated with acetaminophen, DuoNebs, Mag sulfate, Solu-Medrol, azithromycin, ceftriaxone, and vancomycin. Pt will be admitted to the hospital for treatment and further evaluation of acute hypoxic respiratory failure in the setting of large left pleural effusion. Review of Systems 2 Review of Systems: Negative except for that which is stated in the HPI. [facility] Medical History Asthma exacerbation Social History Alcohol intake: former Patient Tobacco Use Status: Former Tobacco user Use of substances other than those prescribed or required for medical reasons: Yes Advance Directives: No Advance Directives Information Provided: Yes Meds Allergies Allergy/AdvReac Type Severity Reaction Status Date / Time ? Environmental Allergy Unknown asthma Uncoded 10/18/24 11:29 exacerbation Active Medications: Current Medications Vancomycin HCl (Vancomycin/Ns) 2,000 mg in 500 mls @ 250 mls/hr IV ONCE ONE Stop: 10/18/24 15:59 Last Admin: 10/18/24 15:00 Dose: 250 mls/hr Home Medications ?Medication ?Instructions ?Recorded ?Confirmed ?Last Taken ?Type No Known Home Meds 10/18/24 10/18/24 Unknown History Physical Exam 2 Vital Signs and Narrative: Vital Signs: Last Vital Signs Temp 98.4 F 10/18/24 15:00 Pulse 82 10/18/24 14:53 Resp 20 10/18/24 14:53 BP 135/87 10/18/24 14:53 Pulse Ox 95 10/18/24 14:53 O2 Del Method Oxymask 10/18/24 14:53 O2 Flow Rate 7 10/18/24 14:53 BMI result Body Mass Index 34.5 General: AOx3, somnolent but arousable, answering appropriately. In no acute distress Resp: Primarily right-sided wheezing and rhonchi. Left side with coarse breath sounds. Left-sided chest tube in place. CVS: S1, S2, RRR GI: +BS, NT, no distention Skin: Warm, dry Neuro: Cranial nerves II-XII grossly intact bilaterally. Motor grossly intact bilaterally Extremities: No edema Psych: Appropriate affect Results Labs 10/18/24 11:50 10/18/24 11:50 Labs: Laboratory Results - last 24 hr 10/18/24 10/18/24 11:50 12:11 MCV 91.9 MCH 29.4 MCHC 32.0 RDW 12.9 Plt Count 417 H D MPV 9.5 Immature Gran % (Auto) 0.6 H Neut % (Auto) 76.8 H Lymph % (Auto) 8.[address] [place] % (Auto) 13.3 H Eos % (Auto) 0.2 Baso % (Auto) 0.3 Lymph # (Auto) 1.6 [place] # (Auto) 2.5 H Eos # (Auto) 0.0 Baso # (Auto) 0.1 Abs Immat Gran (auto) 0.12 H Absolute Neuts (auto) 14.3 H Absolute Nucleated RBC 0.000 Nucleated RBC % (auto) 0.0 Smear Tech's Comments VERIFIED PT 14.2 H INR 1.2 H APTT 28.4 VBG pH 7.45 H VBG pCO2 55 VBG pO2 73 VBG HCO3 38 H VBG O2 Saturation 97.0 VBG Base Excess 12.9 Anion Gap 11 L Estim Creat Clear Calc 126.6 Estimated GFR > 60 Random Glucose 111 Lactic Acid 0.7 Calcium 8.2 L D Total Bilirubin 0.7 AST 53 H ALT 45 H Alkaline Phosphatase 285 H B-Natriuretic Peptide 303 H Total Protein 6.8 Albumin 2.9 L Influenza Type A (PCR) NEGATIVE Influenza Type B (PCR) NEGATIVE RSV RNA Qual (PCR) NEGATIVE SARS-CoV-2 RNA (RT-PCR) NEGATIVE Imaging Radiologist's Impressions: Impressions Chest CTA 10/18/24 13:16 IMPRESSION: No evidence of pulmonary emboli. Large left pleural effusion which is likely loculated. Subsegmental atelectasis in the left upper lobe and near complete atelectasis of the left lower lobe. Electronically signed by: Mart James MD 10/18/2024 01:47 PM EST Assessment and Plan (1) Pleural effusion: Status: Acute (2) Hypoxia: Status: Acute Plan Pt is a 59-year-old [place] Citizen-speaking male with a PMH significant for asthma?and opioid use disorder who presents to the ED with?worsening SOB, PLUNKETT, and left- sided chest pain x4 days. Pt will be admitted to the hospital for treatment and further evaluation of acute hypoxic respiratory failure in the setting of large left pleural effusion. Acute hypoxic respiratory failure in the setting of left pleural effusion Concerning for underlying pneumonia with sepsis CTA showing left large pleural effusion likely loculated with subsegmental atelectasis of JANET and near complete atelectasis of LLL IR performed US-guided thoracentesis with chest tube in place Meets sepsis criteria with tachycardia and leukocytosis; lactic acid wnl Will treat with vancomycin and Zosyn, started 10/18/2024 Analy, Solu-Medrol Thoracic surgery consult for chest tube management Follow blood cultures, thoracentesis/pleural serologies Titrate supplemental O2>92, wean as tolerated Mild intermittent asthma Concern for acute exacerbation in the setting of above Treat as above Elevated troponin Initial troponin 193.1 with repeat down trending to 87.5 EKG without significant ischemic changes Chest pain likely secondary to pleural effusion Monitor on telemetry Opioid use disorder Denies IVDU Reports last used either last night or this morning No longer on methadone for the past year+ Addiction medicine consult Full Code Attending:?Dr. Velasquez DVT Prophylaxis: Lovenox Pt will require a hospitalization of at least two nights for treatment of?acute hypoxic respiratory failure in the setting of large left pleural effusion with likely underlying pneumonia with sepsis. Pt will require hospital level care for chest tube management, IV antibiotics, and specialist consultation with thoracic surgery. Quality Stroke Does the patient have a stroke diagnosis?: No VTE Prior VTE?: No VTE Risk Level:: Medical - moderate - high VTE Device Contraindication: Treatment Not Indicated VTE Drug Contraindication: N/A - Med Ordered
[2024-10-18] MEDS: Lidocaine HCl 1 % MPF 5 ML VIAL 10 ML SUBCUT (17:06)
[2024-10-18 17:08] LABS: Lactate Dehydrogenase 474 U/L (118-273)
[2024-10-18 17:34] LABS: MN% 22.8 %; PMN% 77.2 %; RBC Pleural Fluid 0.015 X10*6/uL; WBC Pleural Fluid 1.215 X10*3/uL
[2024-10-18 18:03] LABS: BF Shift QC OK YES; Lymphocytes Pleural Fluid 20 %; Neutrophils Pleural Fluid 64 %
[2024-10-18 18:04] LABS: Eosinophils Pleural Fluid 3 %; Monocytes Pleural Fluid 13 %
--- NOTE | 2024-10-18 18:08 | PHA.PROG ---
Admission Date/Time: Indication: respiratory Weight in k.6 kg Adjusted body weight in Kg: [place] body weight in Kg: Obesity Dosing Indication % IBW: BMI 34.5 Serum Creatinine - Last 168 Hours 10/18/24 11:50 Creatinine 0.61 Estimated CrCl and GFR - Last 168 Hours 10/18/24 11:50 Estim Creat Clear Calc 126.6 Estimated GFR > 60 Vancomycin Loading Dose: 2000mg X1 Current Vancomycin Dosing Regimen: 1500mg Q12H Vancomycin Monitoring using AUC goal of 400 - 600 range with trough as surrogate marker: 554 Date and Time for next Vancomycin Level to be drawn: 10/19 @1300 Pharmacist Comments on Vancomycin Plan: Patient's renal function appears stable Targeting trough on 16.2, predicted as indication is respiratory. To be be readjusted as needed per renal and trough tomorow. Vancomycin dosing will take advantage of [employer] as a clinical decision support tool that uses Bayesian modeling to calculate individual patient's pharmacokinetic parameters and forecast the patient's drug concentration time course with the target goal AUC 24 range of 400 - 600 mg/L/hr.
--- NOTE | 2024-10-18 18:09 | PC.NURSE ---
pt back from IR with left lateral chest tube. patent and hooked up to low wall suctions. set to -20. report from IR said about 45cc drainage, drainage now about 85ccs. fruit punch color. dressing site clean and dry.
[2024-10-18 18:21] LABS: Troponin-I High Sensitivity 87.5 ng/L (<3.5-35.0)
[2024-10-18] MEDS: Piperacillin Sodium/Tazobactam 4.5 GM in 0.9 % Sodium Chloride 100 ML IV (18:34)
[2024-10-18] MEDS: Enoxaparin Sodium 40 MG/0.4 ML SYRINGE SUBCUT (18:34)
[2024-10-18 19:25] LABS: Amphetamine Screen Urine Not Detected (Not Detect); Barbiturates, Urine Not Detected (Not Detect); Benzodiazepines Screen Urine Not Detected (Not Detect); Buprenorphine Scr Not Detected (Not Detect); Cannabinoid Screen Urine Not Detected (Not Detect); Cocaine Screen Urine Not Detected (Not Detect); Fentanyl, urine POSITIVE (Not Detect); Methadone Screen, Urine Not Detected (Not Detect); Opiate Screen Urine POSITIVE (Not Detect); Oxycodone Screen Urine Not Detected (Not Detect); Phencyclidine Screen Urine Not Detected (Not Detect)
[2024-10-18] MEDS: Albuterol/Iprat 2.5/0.5MG 3 ML AMPUL.NEB INHALE (19:54)
[2024-10-18] MEDS: Morphine Sulfate 4 MG/ML CARTRIDGE IVPUSH (22:58)
[2024-10-19] VITALS (8 sets, daily range): BP systolic 100–166; BP diastolic 61–90; PULSE 82–96; RESP 16–22; TEMP 36.1–37.2; O2SAT 93–98
[2024-10-19] MEDS: Piperacillin Sodium/Tazobactam 4.5 GM in 0.9 % Sodium Chloride 100 ML IV ×4 (00:56→17:45)
[2024-10-19] MEDS: methylPREDNISolone Sod Succ 40 MG/ML VIAL IVPUSH ×2 (00:56→11:31)
[2024-10-19] MEDS: 0.9 % Sodium Chloride Flush 3 ML SYRINGE IVFLUSH ×3 (00:57→15:44)
[2024-10-19] MEDS: LORazepam 2 MG/ML VIAL 1 MG IVPUSH (01:40)
[2024-10-19] MEDS: vancomycin HCL 1,500 MG in 0.9 % Sodium Chloride 500 ML 333.33 MG IV ×3 (03:29→22:59)
[2024-10-19 06:11] LABS: Hematocrit 35.7 % (42.0-52.0); Hemoglobin 11.5 g/dl (14.0-18.0); Mean Corpuscular HGB Conc 32.2 g/dl (31.0-36.0); Mean Corpuscular Hemoglobin 29.6 pg (27.0-33.0); Mean Platelet Volume 9.6 fL (9.4-12.4); Platelet Count 445 X10*3/uL (160-400); Red Blood Count 3.88 X10*6/uL (4.60-5.80); White Blood Count 18.4 X10*3/uL (4.8-10.8)
[2024-10-19 06:22] LABS: Anion Gap 12 (12-20); Blood Urea Nitrogen 15 mg/dL (9-16); Calcium 8.7 mg/dL (8.4-10.2); Carbon Dioxide 30 mmol/L (22-29); Chloride 100 mmol/L (96-108); Creatinine Clr Calc Pharmacy 139.1; Estimated Glomerular Filt Rate > 60; Glucose Random 107 mg/dL (60-115); Potassium 4.4 mmol/L (3.3-5.1); Sodium 138 mmol/L (135-145)
[2024-10-19 06:30] LABS: B Type Natriuretic Peptide 96 pg/mL (<100)
--- NOTE | 2024-10-19 07:26 | HO.PM.IMPN ---
Subjective Subjective Date of Service: 10/19/24 Interval History: Admitted for shortness of breath and chest pain and diagnosed to have large left pleural effusion status post chest tube placement. This a.m. patient offers no complain of pain, no shortness of breath, no fevers, no chills, no cough, no headache, no acute events overnight tolerating diet. Review of Systems All other system reviewed and are negative. Physical Exam Vital Signs: Vital Signs: Last Vital Signs Temp 97 F 10/19/24 03:32 Pulse 91 10/19/24 03:32 Resp 18 10/19/24 03:32 BP 100/61 10/19/24 03:32 Pulse Ox 96 10/19/24 03:32 O2 Del Method Nasal Cannula 10/19/24 03:32 O2 Flow Rate 3 10/19/24 03:32 BMI result Body Mass Index 33.9 Const: Other: General resting comfortably in no acute distress. Neck no JVD. CVS regular rate rhythm, Respiratory lungs clear to auscultation, no respiratory distress, no wheeze, no rhonchi. Chest tube in left lateral posterior chest, serosanguineous drainage in floor VAC Gastrointestinal abdomen soft, non tender, bowel sounds audible Extremities no edema. Neuro non focal Skin no rash Objective Data Active Medications Acetaminophen (Acetaminophen 325 Mg Tablet) 650 mg PO Q6H PRN PRN Reason: Pain, Mild 1-3,fever,headache Albuterol/Ipratropium (Albuterol/Iprat 2.5/0.5mg 3 Ml Ampul.Neb) 3 ml INHALE RQ4H WHILE AWAKE [facility] Last Admin: 10/18/24 19:54 Dose: 3 ml Documented By: CONSTANTINO Calcium Carbonate (Calcium Carbonate 750 Mg Tab.Chew) 750 mg PO Q4H PRN PRN Reason: Heartburn Enoxaparin Sodium (Enoxaparin Sodium 40 Mg/0.4 Ml Syringe) 40 mg SUBCUT Q24H [facility] Last Admin: 10/18/24 18:34 Dose: 40 mg Documented By: DESTINY Guaifenesin/Dextromethorphan (Guaifenesin Dm 200/20/10 Ml 10 Ml Syrup) 10 ml PO Q4H PRN PRN Reason: Cough Piperacillin Sod/Tazobactam (Sod 4.5 gm/ Sodium Chloride) 100 mls @ 200 mls/hr IV Q6H [facility] Last Infusion: 10/19/24 06:24 Dose: Infused Documented By: HERNAN Vancomycin HCl 1,500 mg/ (Sodium Chloride) 500 mls @ 333.333 mls/hr IV Q12H [facility] Last Infusion: 10/19/24 05:15 Dose: Infused Documented By: HERNAN Ketorolac Tromethamine (Ketorolac Tromethamine 30 Mg/Ml Vial) 30 mg IVPUSH Q6H PRN PRN Reason: Pain, Moderate(Pain Scale 4-6) Magnesium Hydroxide (Milk Of Magnesia 30 Ml Oral.Susp) 30 ml PO DAILY PRN PRN Reason: Constipation Melatonin (Melatonin 3 Mg Tablet) 6 mg PO BEDTIME PRN PRN Reason: Insomnia Methylprednisolone Sodium Succinate (Methylprednisolone Sod Succ 40 Mg/Ml Vial) 40 mg IVPUSH Q12H [facility] Last Admin: 10/19/24 00:56 Dose: 40 mg Documented By: HERNAN Morphine Sulfate (Morphine Sulfate 4 Mg/Ml Cartridge) 4 mg IVPUSH Q4H PRN; Protocol PRN Reason: Pain, Severe (Pain Scale 7-10) Last Admin: 10/18/24 22:58 Dose: 4 mg Documented By: JLUIS Ondansetron HCl (Ondansetron Hcl 4 Mg/2 Ml Vial) 4 mg IVPUSH Q8H PRN PRN Reason: Nausea and Vomiting Pharmacy Consult (Consult Rx Vancomycin Dosing) 1 each MISCELLANE DAILY PRN PRN Reason: Consult order Sodium Chloride (0.9 % Sodium Chloride Flush 3 Ml Syringe) 3 ml IVFLUSH QSHIFT [facility] Last Admin: 10/19/24 00:57 Dose: 3 ml Documented By: HERNAN Labs 10/19/24 05:35 10/19/24 05:35 Labs: Laboratory Results - last 24 hr 10/18/24 10/18/24 10/18/24 11:50 12:11 16:30 MCV 91.9 MCH 29.4 MCHC 32.0 RDW 12.9 Plt Count 417 H D MPV 9.5 Immature Gran % (Auto) 0.6 H Neut % (Auto) 76.8 H Lymph % (Auto) 8.8 L [place] % (Auto) 13.3 H Eos % (Auto) 0.2 Baso % (Auto) 0.3 Lymph # (Auto) 1.6 [place] # (Auto) 2.5 H Eos # (Auto) 0.0 Baso # (Auto) 0.1 Abs Immat Gran (auto) 0.12 H Absolute Neuts (auto) 14.3 H Absolute Nucleated RBC 0.000 Nucleated RBC % (auto) 0.0 Smear Tech's Comments VERIFIED PT 14.2 H INR 1.2 H APTT 28.4 VBG pH 7.45 H VBG pCO2 55 VBG pO2 73 VBG HCO3 38 H VBG O2 Saturation 97.0 VBG Base Excess 12.9 Anion Gap 11 L Estim Creat Clear Calc 126.6 Estimated GFR > 60 Random Glucose 111 Lactic Acid 0.7 Calcium 8.2 L D Total Bilirubin 0.7 AST 53 H ALT 45 H Alkaline Phosphatase 285 H Lactate Dehydrogenase 474 H B-Natriuretic Peptide 303 H Total Protein 6.8 Albumin 2.9 L Pleural WBC 1.215 Pleural RBC 0.015 Pleural Neutrophils 64 Pleural Lymphocytes 20 Pleural Monocytes 13 Pleural Eosinophils 3 Urine Opiates Screen Ur Buprenorphine Scrn Ur Oxycodone Screen Urine Methadone Screen Urine Fentanyl Screen Ur Barbiturates Screen Ur Phencyclidine Scrn Ur Amphetamines Screen U Benzodiazepines Scrn Urine Cocaine Screen U Marijuana (THC) Screen Influenza Type A (PCR) NEGATIVE Influenza Type B (PCR) NEGATIVE RSV RNA Qual (PCR) NEGATIVE SARS-CoV-2 RNA (RT-PCR) NEGATIVE 10/18/24 10/19/24 19:08 05:35 MCV 92.0 MCH 29.6 MCHC 32.2 RDW 13.0 Plt Count 445 H MPV 9.6 Immature Gran % (Auto) Neut % (Auto) Lymph % (Auto) [place] % (Auto) Eos % (Auto) Baso % (Auto) Lymph # (Auto) [place] # (Auto) Eos # (Auto) Baso # (Auto) Abs Immat Gran (auto) Absolute Neuts (auto) Absolute Nucleated RBC 0.000 Nucleated RBC % (auto) 0.0 Smear Tech's Comments PT INR APTT VBG pH VBG pCO2 VBG pO2 VBG HCO3 VBG O2 Saturation VBG Base Excess Anion Gap 12 Estim Creat Clear Calc 139.1 Estimated GFR > 60 Random Glucose 107 Lactic Acid Calcium 8.7 D Total Bilirubin AST ALT Alkaline Phosphatase Lactate Dehydrogenase B-Natriuretic Peptide 96 Total Protein Albumin Pleural WBC Pleural RBC Pleural Neutrophils Pleural Lymphocytes Pleural Monocytes Pleural Eosinophils Urine Opiates Screen POSITIVE H Ur Buprenorphine Scrn Not Detected Ur Oxycodone Screen Not Detected Urine Methadone Screen Not Detected Urine Fentanyl Screen POSITIVE H Ur Barbiturates Screen Not Detected Ur Phencyclidine Scrn Not Detected Ur Amphetamines Screen Not Detected U Benzodiazepines Scrn Not Detected Urine Cocaine Screen Not Detected U Marijuana (THC) Screen Not Detected Influenza Type A (PCR) Influenza Type B (PCR) RSV RNA Qual (PCR) SARS-CoV-2 RNA (RT-PCR) Assessment and Plan (1) Loculated pleural effusion: Status: Acute (2) Opioid use disorder: Status: Acute (3) Sepsis: Status: Acute (4) Pleural effusion: Status: Acute (5) Hypoxia: Status: Acute Plan 59-year-old Portuguese-speaking male with a PMH significant for asthma?and opioid use disorder who presents to the ED with?worsening SOB, PLUNKETT, and left-sided chest pain x4 days. Pt will be admitted to the hospital for treatment and further evaluation of acute hypoxic respiratory failure in the setting of large left pleural effusion. Acute hypoxic respiratory failure in the setting of left pleural effusion with concern for early empyema due to underlying pneumonia/sepsis CTA showing left large pleural effusion likely loculated with subsegmental atelectasis of JANET and near complete atelectasis of LLL IR performed US-guided thoracentesis with chest tube in place on vancomycin and Zosyn, started 10/18/2024 Repeat chest x-ray this morning showed large left pleural effusion with underlying consolidation, leukocytosis due to steroids Thoracic surgery obtained pulmonary consult for fibrinolysis with tPA blood cultures, pleural fluid culture pending Continue oxygen and wean as tolerated Mild intermittent asthma Mild acute exacerbation in the setting of above DuoNeb/IV Solu Medrol gradually wean Elevated troponin Initial troponin 193.1 with repeat down trending to 87.5, EKG without significant ischemic changes, Chest pain likely secondary to pleural effusion Monitor on telemetry Opioid use disorder Denies IVDU Seen by Addiction Team placed on methadone Full Code DVT Prophylaxis: Lovenox Pt will require continued inpatient hospitalization for treatment of?acute hypoxic respiratory failure in the setting of large left pleural effusion with likely underlying pneumonia with sepsis, requiring IV antibiotics IV steroids and Close clinical follow-up with pulmonology and thoracic surgery Quality Stroke Does the patient have a stroke diagnosis?: No VTE Prior VTE?: No VTE Risk Level:: Medical - moderate - high VTE Device Contraindication: Treatment Not Indicated VTE Drug Contraindication: N/A - Med Ordered
[2024-10-19 07:34] LABS: pH Pleural Fluid 7.15
[2024-10-19 07:36] LABS: LDH Pleural Fluid 805; Total Protein Pleural Fluid 5.4
--- NOTE | 2024-10-19 07:56 | PM.PNTS ---
Subjective Subjective Date of Service: 10/19/24 Interval history: Feels a little improved this morning. Denies shortness of breath. Was restless overnight. Physical Exam Vital Signs: Vital Signs: Last Vital Signs Temp 98.0 F 10/19/24 07:21 Pulse 82 10/19/24 07:21 Resp 18 10/19/24 07:21 BP 147/87 H 10/19/24 07:21 Pulse Ox 96 10/19/24 07:21 O2 Del Method Nasal Cannula 10/19/24 07:21 O2 Flow Rate 4 10/19/24 07:21 BMI result Body Mass Index 33.9 Const: General: no acute distress, alert and tired appearing Chest: Other: chest tube in place left lateral/posterior chest no air leak serosanguineous drainage in pleurvac Resp: Effort & Inspection: normal respiratory effort, able to speak in complete sentences, not labored, no retractions, not tachypneic and uses accessory muscles Cardio: Rate: regular rate Skin: General skin exam: no rashes or lesions noted Neuro: General: moves all extremities Procedures Date of Service Date of Service: 10/19/24 Progress Note: A&P Assessment and plan (1) Pleural effusion: Status: Acute (2) Sepsis: Status: Acute Plan Admitted for sepsis, acute hypoxic respiratory failure secondary to large left pleural effusion with concern for early empyema. Underwent IR chest tube placement yesterday. Oxygen requirements have improved somewhat. F/u CXR this AM shows large left pleural effusion with underlying consolidation. Unlikely effusion will improve further as it appears loculated. Will obtain pulmonology consult for fibrinolysis with tPA. Discussed if no further improvement in a couple of days, may require decortication but will attempt conservative measures. Cont IV abx. Time Spent With Patient Time: Total time managing care of this patient today ____ minutes. Quality Stroke Does the patient have a stroke diagnosis?: No VTE Prior VTE?: No VTE Risk Level:: Medical - moderate - high VTE Device Contraindication: Treatment Not Indicated VTE Drug Contraindication: N/A - Med Ordered
[2024-10-19] MEDS: Albuterol/Iprat 2.5/0.5MG 3 ML AMPUL.NEB INHALE (08:06)
--- NOTE | 2024-10-19 12:01 | MHC.CM.PN ---
Cm met with pt along with general cleaner, he was able to answer some questions, but then fell asleep. He lives alone, does not have home health services or DME. He did not know the name of his PCP, we have [facility] listed. CM will return at a later time to determine if pt. wants to complete HCP and further discuss DCP. CM to follow for DC needs.
--- NOTE | 2024-10-19 13:43 | HO.ADDICT_ITS ---
History of Present Illness Date of Service: 10/19/2024 Chief Complaint: Large Pleural Effusion Reason for Consult: OUD Sources of Information: patient interviewed (minimal participation ) and chart reviewed HPI Narrative: Patient is a 59 year old Croatian speaking male medically admitted with pleural effusion Known history of substance use, and UDS +fentanyl Most information obtained from chart review and from Recovery support RN who met with patient before t/w, as patient was quite drowsy and unable to stay awake when seen by t/w. Patient seen in room 486, he is asleep, sitting up in bed. Wakes to voice, and able to answer few questions before falling asleep He states he has been using approx a bundle of fentanyl daily [place]. last use prior to coming to ED Remainder of information obtained from warehouse person lul. He reported that he had previously been engaged in treatment for OUD, and was prescribed methadone 70mg. Unclear when this was, but it has been several months to a year. He denied withdrawal sx to RN and t/w. He did appear somewhat restless, even while sleeping, with his feet moving frequently. He did not appear diaphoretic, piloerection not seen, no yawning, n/v, or loose stools Review of Systems Review of Systems Yes Unobtainable due to mental status Diagnostics Vital Signs (24Hr): Vital Signs - 24 hr 10/18/24 14:53 10/18/24 15:00 10/18/24 16:00 Temperature 98.4 F Pulse Rate 82 73 Respiratory Rate 20 12 Blood Pressure 135/87 124/82 Pulse Oximetry 95 99 Oxygen Delivery Method Oxymask Oxymask Oxygen Flow Rate 7 6 10/18/24 16:05 10/18/24 16:15 10/18/24 16:25 Temperature Pulse Rate 75 77 77 Respiratory Rate 12 12 10 L Blood Pressure 122/80 130/90 H 138/86 Pulse Oximetry 99 99 99 Oxygen Delivery Method Oxymask Oxymask Oxymask Oxygen Flow Rate 6 6 6 10/18/24 16:30 10/18/24 16:35 10/18/24 16:45 Temperature Pulse Rate 78 78 78 Respiratory Rate 10 L 10 L 10 L Blood Pressure 141/92 H 131/90 H 131/82 Pulse Oximetry 99 99 99 Oxygen Delivery Method Oxymask Oxymask Oxymask Oxygen Flow Rate 6 6 6 10/18/24 17:10 10/18/24 18:06 10/18/24 21:34 Temperature 99.4 F 97.2 F Pulse Rate 77 82 58 Respiratory Rate 18 20 18 Blood Pressure 110/67 118/73 147/72 H Pulse Oximetry 94 96 97 Oxygen Delivery Method Oxymask Oxymask Nasal Cannula Oxygen Flow Rate 6 6 3 10/19/24 00:00 10/19/24 03:32 10/19/24 07:21 Temperature 97.6 F 97 F 98.0 F Pulse Rate 84 91 82 Respiratory Rate 18 18 18 Blood Pressure 137/71 100/61 147/87 H Pulse Oximetry 96 96 96 Oxygen Delivery Method Room Air Nasal Cannula Nasal Cannula Oxygen Flow Rate 3 4 10/19/24 08:09 10/19/24 11:12 Temperature 98.6 F Pulse Rate 86 96 Respiratory Rate 18 18 Blood Pressure 152/90 H Pulse Oximetry 93 Oxygen Delivery Method Oxymask Oxygen Flow Rate 5 BMI result Body Mass Index 33.9 Labs 10/19/24 05:35 10/19/24 05:35 Labs: Laboratory Results - last 48 hr 10/18/24 10/18/24 10/18/24 11:50 12:11 16:30 WBC 18.6 H RBC 3.57 L Hgb 10.5 L Hct 32.8 L MCV 91.9 MCH 29.4 MCHC 32.0 RDW 12.9 Plt Count 417 H D MPV 9.5 Immature Gran % (Auto) 0.6 H Neut % (Auto) 76.8 H Lymph % (Auto) 8.8 L Scott % (Auto) 13.3 H Eos % (Auto) 0.2 Baso % (Auto) 0.3 Lymph # (Auto) 1.6 Scott # (Auto) 2.5 H Eos # (Auto) 0.0 Baso # (Auto) 0.1 Abs Immat Gran (auto) 0.12 H Absolute Neuts (auto) 14.3 H Absolute Nucleated RBC 0.000 Nucleated RBC % (auto) 0.0 Smear Tech's Comments VERIFIED PT 14.2 H INR 1.2 H APTT 28.4 VBG pH 7.45 H VBG pCO2 55 VBG pO2 73 VBG HCO3 38 H VBG O2 Saturation 97.0 VBG Base Excess 12.9 Sodium 134 L Potassium 4.5 Chloride 97 Carbon Dioxide 31 H Anion Gap 11 L BUN 16 Creatinine 0.61 Estim Creat Clear Calc 126.6 Estimated GFR > 60 Random Glucose 111 Lactic Acid 0.7 Calcium 8.2 L D Total Bilirubin 0.7 AST 53 H ALT 45 H Alkaline Phosphatase 285 H Lactate Dehydrogenase 474 H Troponin I High Sens 193.1 H* B-Natriuretic Peptide 303 H Total Protein 6.8 Albumin 2.9 L Pleural pH 7.15 Pleural WBC 1.215 Pleural RBC 0.015 Pleural Neutrophils 64 Pleural Lymphocytes 20 Pleural Monocytes 13 Pleural Eosinophils 3 Pleural Total Protein 5.4 Pleural LDH 805 Urine Opiates Screen Ur Buprenorphine Scrn Ur Oxycodone Screen Urine Methadone Screen Urine Fentanyl Screen Ur Barbiturates Screen Ur Phencyclidine Scrn Ur Amphetamines Screen U Benzodiazepines Scrn Urine Cocaine Screen U Marijuana (THC) Screen Influenza Type A (PCR) NEGATIVE Influenza Type B (PCR) NEGATIVE RSV RNA Qual (PCR) NEGATIVE SARS-CoV-2 RNA (RT-PCR) NEGATIVE 10/18/24 10/18/24 10/19/24 17:54 19:08 05:35 WBC 18.4 H RBC 3.88 L Hgb 11.5 L Hct 35.7 L MCV 92.0 MCH 29.6 MCHC 32.2 RDW 13.0 Plt Count 445 H MPV 9.6 Immature Gran % (Auto) Neut % (Auto) Lymph % (Auto) Scott % (Auto) Eos % (Auto) Baso % (Auto) Lymph # (Auto) Scott # (Auto) Eos # (Auto) Baso # (Auto) Abs Immat Gran (auto) Absolute Neuts (auto) Absolute Nucleated RBC 0.000 Nucleated RBC % (auto) 0.0 Smear Tech's Comments PT INR APTT VBG pH VBG pCO2 VBG pO2 VBG HCO3 VBG O2 Saturation VBG Base Excess Sodium 138 Potassium 4.4 Chloride 100 Carbon Dioxide 30 H Anion Gap 12 BUN 15 Creatinine 0.55 Estim Creat Clear Calc 139.1 Estimated GFR > 60 Random Glucose 107 Lactic Acid Calcium 8.7 D Total Bilirubin AST ALT Alkaline Phosphatase Lactate Dehydrogenase Troponin I High Sens 87.5 H D B-Natriuretic Peptide 96 Total Protein Albumin Pleural pH Pleural WBC Pleural RBC Pleural Neutrophils Pleural Lymphocytes Pleural Monocytes Pleural Eosinophils Pleural Total Protein Pleural LDH Urine Opiates Screen POSITIVE H Ur Buprenorphine Scrn Not Detected Ur Oxycodone Screen Not Detected Urine Methadone Screen Not Detected Urine Fentanyl Screen POSITIVE H Ur Barbiturates Screen Not Detected Ur Phencyclidine Scrn Not Detected Ur Amphetamines Screen Not Detected U Benzodiazepines Scrn Not Detected Urine Cocaine Screen Not Detected U Marijuana (THC) Screen Not Detected Influenza Type A (PCR) Influenza Type B (PCR) RSV RNA Qual (PCR) SARS-CoV-2 RNA (RT-PCR) Imaging Radiology Impressions: ITS Impressions Chest CTA 10/18/24 13:16 IMPRESSION: No evidence of pulmonary emboli. Large left pleural effusion which is likely loculated. Subsegmental atelectasis in the left upper lobe and near complete atelectasis of the left lower lobe. Electronically signed by: Mart James MD 10/18/2024 01:47 PM [facility] Mental Status Exam Mental Status Exam Level of Consciousness: Drowsy and Lethargic Medications Medications Current Medications Acetaminophen (Acetaminophen 325 Mg Tablet) 650 mg PO Q6H PRN PRN Reason: Pain, Mild 1-3,fever,headache Albuterol/Ipratropium (Albuterol/Iprat 2.5/0.5mg 3 Ml Ampul.Neb) 3 ml INHALE RQ4H WHILE AWAKE [facility] Last Admin: 10/19/24 11:37 Dose: Not Given Calcium Carbonate (Calcium Carbonate 750 Mg Tab.Chew) 750 mg PO Q4H PRN PRN Reason: Heartburn Enoxaparin Sodium (Enoxaparin Sodium 40 Mg/0.4 Ml Syringe) 40 mg SUBCUT Q24H [facility] Last Admin: 10/18/24 18:34 Dose: 40 mg Guaifenesin/Dextromethorphan (Guaifenesin Dm 200/20/10 Ml 10 Ml Syrup) 10 ml PO Q4H PRN PRN Reason: Cough Piperacillin Sod/Tazobactam (Sod 4.5 gm/ Sodium Chloride) 100 mls @ 200 mls/hr IV Q6H [facility] Last Infusion: 10/19/24 12:01 Dose: Infused Vancomycin HCl 1,500 mg/ (Sodium Chloride) 500 mls @ 333.333 mls/hr IV Q12H [facility] Last Infusion: 10/19/24 05:15 Dose: Infused Ketorolac Tromethamine (Ketorolac Tromethamine 30 Mg/Ml Vial) 30 mg IVPUSH Q6H PRN PRN Reason: Pain, Moderate(Pain Scale 4-6) Magnesium Hydroxide (Milk Of Magnesia 30 Ml Oral.Susp) 30 ml PO DAILY PRN PRN Reason: Constipation Melatonin (Melatonin 3 Mg Tablet) 6 mg PO BEDTIME PRN PRN Reason: Insomnia Methylprednisolone Sodium Succinate (Methylprednisolone Sod Succ 40 Mg/Ml Vial) 40 mg IVPUSH Q12H [facility] Last Admin: 10/19/24 11:31 Dose: 40 mg Morphine Sulfate (Morphine Sulfate 4 Mg/Ml Cartridge) 4 mg IVPUSH Q4H PRN; Protocol PRN Reason: Pain, Severe (Pain Scale 7-10) Last Admin: 10/18/24 22:58 Dose: 4 mg Ondansetron HCl (Ondansetron Hcl 4 Mg/2 Ml Vial) 4 mg IVPUSH Q8H PRN PRN Reason: Nausea and Vomiting Pharmacy Consult (Consult Rx Vancomycin Dosing) 1 each MISCELLANE DAILY PRN PRN Reason: Consult order Sodium Chloride (0.9 % Sodium Chloride Flush 3 Ml Syringe) 3 ml IVFLUSH QSHIFT [facility] Last Admin: 10/19/24 00:57 Dose: 3 ml Allergies Allergies Allergy/AdvReac Type Severity Reaction Status Date / Time ? Environmental Allergy Unknown asthma Uncoded 10/18/24 11:29 exacerbation Assessment & Plan Assessment & Plan (1) Opioid use disorder: Status: Acute Code(s): F11.90 - Opioid use, unspecified, uncomplicated Assessment and Plan: * patient declines methadone dose at this time * methadone 10mg q3H PRN max 3 doses * will adjust methadone dose as appropriate Total time managing care of this patient today __25__ minutes. PMFSH Past Medical History Medical History Asthma exacerbation Social History Social History Household Members: Unknown / Unable to assess Housing: Unknown / Unable to assess Alcohol intake: former Patient Tobacco Use Status: Former Tobacco user Use of substances other than those prescribed or required for medical reasons: Yes Currently Displaying Signs/Symptoms of Drug Intoxication Withdrawal: Yes Advance Directives: No Advance Directives Information Provided: Yes
[2024-10-19 13:53] LABS: Vancomycin Random 6.4 mcg/mL (15-20)
--- NOTE | 2024-10-19 14:08 | HE.PHANOTE ---
RE: VANCO DOSING Trough came back as 6.4 mg/L. Dose is increased to 1500 mg q8h, next trough is scheduled for 10/20/24 @1300.
--- NOTE | 2024-10-19 14:38 | P.CONPL_ITS ---
History of Present Illness History of Present Illness Consult date: 10/19/24 Chief complaint: Large Pleural Effusion Narrative: 59-year-old gentleman with underlying history of asthma and substance abuse admitted 03/10/2025 with dyspnea and left-sided chest discomfort. On initial evaluation patient with large left-sided loculated pleural effusion and significant hypoxia. Now patient is status post left-sided chest tube with partial drainage, however still with presence of loculations. Patient has been evaluated by thoracic surgery and treated with empiric broad-spectrum antibiotics. Review of Systems 2 Constitutional: Constitutional: Denies daytime sleepiness, Denies excessive sweating, Denies fatigue, Denies fever(s), Denies lethargy, Denies malaise, Denies night sweats, Denies snoring and Denies weight loss Eyes: Eyes: Denies blurry vision and Denies itchy eyes ENT: Denies nasal congestion, Denies post nasal drip, Denies sinus pain, Denies sinus pressure and Denies other ( Thrush) Cardiovascular: Cardiovascular: Denies chest pain, Denies pedal edema, Reports dyspnea, Reports dyspnea on exertion, Denies orthopnea and Denies paroxysmal nocturnal dyspnea Respiratory: Respiratory: Denies cough, Denies hemoptysis, Denies excessive phlegm production, Reports dyspnea, Reports dyspnea on exertion, Denies snoring and Denies wheezing Gastrointestinal: Gastrointestinal: Denies abdominal pain and Denies heartburn Musculoskeletal: Musculoskeletal: Denies myalgias, Denies arthralgias and Denies joint swelling Integumentary/Breasts: Skin/Breast: Denies rash Neurologic: Denies memory loss and Denies seizure-like activity Psychiatric: Psychiatric: Denies abnormal sleep pattern, Denies anxiety and Denies memory loss Endocrine: Endocrine: Denies excessive sweating, Denies fatigue and Denies heat intolerance Hematologic/Lymphatic: Hematologic/Lymphatic: Denies easy bruising Allergic/Immunologic: Allergic/Immunologic: Denies itchy eyes, Denies seasonal rhinorrhea and Denies wheezing PMFSH Past Medical History Medical History Asthma exacerbation Social History Social History Household Members: Unknown / Unable to assess Housing: Unknown / Unable to assess Alcohol intake: former Patient Tobacco Use Status: Former Tobacco user Use of substances other than those prescribed or required for medical reasons: Yes Currently Displaying Signs/Symptoms of Drug Intoxication Withdrawal: Yes Advance Directives: No Advance Directives Information Provided: Yes Meds Allergies Allergy/AdvReac Type Severity Reaction Status Date / Time ? Environmental Allergy Unknown asthma Uncoded 10/18/24 11:29 exacerbation Active Medications: Current Medications Acetaminophen (Acetaminophen 325 Mg Tablet) 650 mg PO Q6H PRN PRN Reason: Pain, Mild 1-3,fever,headache Albuterol/Ipratropium (Albuterol/Iprat 2.5/0.5mg 3 Ml Ampul.Neb) 3 ml INHALE RQ4H WHILE AWAKE [facility] Last Admin: 10/19/24 11:37 Dose: Not Given Calcium Carbonate (Calcium Carbonate 750 Mg Tab.Chew) 750 mg PO Q4H PRN PRN Reason: Heartburn Enoxaparin Sodium (Enoxaparin Sodium 40 Mg/0.4 Ml Syringe) 40 mg SUBCUT Q24H [facility] Last Admin: 10/18/24 18:34 Dose: 40 mg Guaifenesin/Dextromethorphan (Guaifenesin Dm 200/20/10 Ml 10 Ml Syrup) 10 ml PO Q4H PRN PRN Reason: Cough Piperacillin Sod/Tazobactam (Sod 4.5 gm/ Sodium Chloride) 100 mls @ 200 mls/hr IV Q6H [facility]CLUD[facility] Last Infusion: 10/19/24 12:01 Dose: Infused Vancomycin HCl 1,500 mg/ (Sodium Chloride) 500 mls @ 333.333 mls/hr IV Q8H [facility]CLUDES [facility] Alteplase, Recombinant 10 mg/Dornase Erik 5 mg/ Lidocaine HCl 10 ml/ Sodium Chloride 50 mls @ 0 mls/hr INTRAPLEUR BID COUNT INCLUDES THE [facility] Stop: 10/22/24 09:01 Ketorolac Tromethamine (Ketorolac Tromethamine 30 Mg/Ml Vial) 30 mg IVPUSH Q6H PRN PRN Reason: Pain, Moderate(Pain Scale 4-6) Magnesium Hydroxide (Milk Of Magnesia 30 Ml Oral.Susp) 30 ml PO DAILY PRN PRN Reason: Constipation Melatonin (Melatonin 3 Mg Tablet) 6 mg PO BEDTIME PRN PRN Reason: Insomnia Methadone HCl (Methadone Hcl 20 Mg/2 Ml Oral.Conc) 10 mg PO Q3H PRN PRN Reason: Opiate Withdrawal Methylprednisolone Sodium Succinate (Methylprednisolone Sod Succ 40 Mg/Ml Vial) 40 mg IVPUSH Q12H [facility]CLUDES [facility] Last Admin: 10/19/24 11:31 Dose: 40 mg Morphine Sulfate (Morphine Sulfate 4 Mg/Ml Cartridge) 4 mg IVPUSH Q4H PRN; Protocol PRN Reason: Pain, Severe (Pain Scale 7-10) Last Admin: 10/18/24 22:58 Dose: 4 mg Ondansetron HCl (Ondansetron Hcl 4 Mg/2 Ml Vial) 4 mg IVPUSH Q8H PRN PRN Reason: Nausea and Vomiting Pharmacy Consult (Consult Rx Vancomycin Dosing) 1 each MISCELLANE DAILY PRN PRN Reason: Consult order Sodium Chloride (0.9 % Sodium Chloride Flush 3 Ml Syringe) 3 ml IVFLUSH QSHIFT COUNT [facility]CLUDES [facility] Last Admin: 10/19/24 00:57 Dose: 3 ml Home Medications ?Medication ?Instructions ?Recorded ?Confirmed ?Last Taken ?Type No Known Home Meds 10/18/24 10/18/24 Unknown History Physical Exam 2 Vital Signs: Vital Signs: Last Vital Signs Temp 98.6 F 10/19/24 11:12 Pulse 96 10/19/24 11:12 Resp 18 10/19/24 11:12 BP 152/90 H 10/19/24 11:12 Pulse Ox 93 10/19/24 11:12 O2 Del Method Oxymask 10/19/24 11:12 O2 Flow Rate 5 10/19/24 11:12 BMI result Body Mass Index 33.9 Const: General: no acute distress and alert Nutritional Appearance: not obese Orientation/consciousness: Other orientation findings ( oriented) HEENT: Head: Yes atraumatic Eyes: General: appearance normal, both eyes and all related structures S clerae: sclerae normal EOM: EOMs intact bilaterally Neck: Neck: Yes supple Lymphatic: no lymphadenopathy noted Resp: Effort & Inspection: normal respiratory effort and no use of accessory muscles Auscultation: other (Poor left-sided air movement) Cardio: Rate: regular rate Rhythm: regular rhythm Heart sounds: no gallops, no murmurs and no rubs Skin: General skin exam: other ( warm) Extrem: General: No clubbing, No cyanosis and No edema Results Laboratory Findings 10/19/24 05:35 10/19/24 05:35 ABG, PT/INR, D-dimer: PT/INR, D-dimer PT 14.2 SEC (10.9-12.4) H 10/18/24 11:50 INR 1.2 (0.9-1.1) H 10/18/24 11:50 Abnormal lab findings: Abnormal Labs 10/18/24 10/18/24 10/18/24 11:50 12:11 17:54 WBC 18.6 H RBC 3.57 L Hgb 10.5 L Hct 32.8 L Plt Count 417 H D Immature Gran % (Auto) 0.6 H Neut % (Auto) 76.8 H Lymph % (Auto) 8.8 L Lynn % (Auto) 13.3 H Lynn # (Auto) 2.5 H Abs Immat Gran (auto) 0.12 H Absolute Neuts (auto) 14.3 H PT 14.2 H INR 1.2 H VBG pH 7.45 H VBG HCO3 38 H Sodium 134 L Carbon Dioxide 31 H Anion Gap 11 L Calcium 8.2 L D AST 53 H ALT 45 H Alkaline Phosphatase 285 H Lactate Dehydrogenase 474 H Troponin I High Sens 193.1 H* 87.5 H D B-Natriuretic Peptide 303 H Albumin 2.9 L Random Vancomycin Urine Opiates Screen Urine Fentanyl Screen 10/18/24 10/19/24 10/19/24 19:08 05:35 13:09 WBC 18.4 H RBC 3.88 L Hgb 11.5 L Hct 35.7 L Plt Count 445 H Immature Gran % (Auto) Neut % (Auto) Lymph % (Auto) Lynn % (Auto) Lynn # (Auto) Abs Immat Gran (auto) Absolute Neuts (auto) PT INR VBG pH VBG HCO3 Sodium Carbon Dioxide 30 H Anion Gap Calcium AST ALT Alkaline Phosphatase Lactate Dehydrogenase Troponin I High Sens B-Natriuretic Peptide Albumin Random Vancomycin 6.4 L Urine Opiates Screen POSITIVE H Urine Fentanyl Screen POSITIVE H Microbiology: Microbiology 10/18/24 12:05 Blood - Venous Blood Culture - Preliminary No growth after 24 hours. 10/18/24 11:50 Blood - Venous Blood Culture - Preliminary No growth after 24 hours. 10/18/24 16:30 Thoracentesis Fluid Gram Stain - Final 10/18/24 16:30 Thoracentesis Fluid Anaerobic Culture - Preliminary No growth to date. 10/18/24 16:30 Thoracentesis Fluid Body Fluid Culture - Preliminary No growth to date. Assessment and Plan (1) Hypoxia: Status: Acute (2) Loculated pleural effusion: Status: Acute Plan Impression: 59-year-old gentleman admitted with hypoxia and large left-sided loculated parapneumonic pleural effusion, though no natali purulence. Recommendation: Will attempt chemical decortication, however if not improving, may require surgical decortication. Procedures Date of Service Date of Service: 10/19/24
[2024-10-19] MEDS: methADONE HCl 20 MG/2 ML ORAL.CONC 10 MG PO (15:23)
[2024-10-19] MEDS: Enoxaparin Sodium 40 MG/0.4 ML SYRINGE SUBCUT (17:45)
[2024-10-19] MEDS: Alteplase Cath Clear 10 MG, Dornase Alfa 5 MG, Lidocaine HCl 2 % MPF 10 ML in 0.9 % Sod... INTRAPLEUR (21:57)
--- NOTE | 2024-10-19 22:58 | PC.NURSE ---
Chest tube unclamped at 2257 per RESIDENTIAL DIRECT SUPPORT PROFESSIONAL Gloria.
[2024-10-19] MEDS: Morphine Sulfate 4 MG/ML CARTRIDGE IVPUSH (23:03)
[2024-10-20] VITALS (10 sets, daily range): BP systolic 120–161; BP diastolic 59–97; PULSE 86–92; RESP 18–20; TEMP 36.6–37.1; O2SAT 93–99
[2024-10-20] MEDS: methylPREDNISolone Sod Succ 40 MG/ML VIAL IVPUSH ×2 (00:45→12:19)
[2024-10-20] MEDS: 0.9 % Sodium Chloride Flush 3 ML SYRINGE IVFLUSH ×2 (00:45→22:05)
[2024-10-20] MEDS: Piperacillin Sodium/Tazobactam 4.5 GM in 0.9 % Sodium Chloride 100 ML IV ×4 (00:45→18:45)
[2024-10-20] MEDS: Ketorolac Tromethamine 30 MG/ML VIAL IVPUSH (00:58)
[2024-10-20] MEDS: Melatonin 3 MG TABLET 6 MG PO (00:59)
[2024-10-20] MEDS: vancomycin HCL 1,500 MG in 0.9 % Sodium Chloride 500 ML 333.33 MG IV ×3 (06:40→22:05)
[2024-10-20 07:22] LABS: Creatinine Clr Calc Pharmacy 127.5; Estimated Glomerular Filt Rate > 60
[2024-10-20] MEDS: Albuterol/Iprat 2.5/0.5MG 3 ML AMPUL.NEB INHALE ×3 (07:29→19:21)
[2024-10-20] MEDS: methADONE HCl 20 MG/2 ML ORAL.CONC 10 MG PO (08:49)
--- NOTE | 2024-10-20 08:51 | HO.PM.IMPN ---
Subjective Subjective Date of Service: 10/20/24 Interval History: Seen in follow up for loculated pleural effusion Interval history: Reports nausea and constipation. Restarting methadone. Reports soreness around chest tube nite. Serosanguinous drainage 300ml on exam. No sob, chest pain Review of Systems Review of Systems: Yes all other systems are reviewed and are negative Physical Exam Vital Signs: Vital Signs: Last Vital Signs Temp 97.8 F 10/20/24 07:23 Pulse 88 10/20/24 07:30 Resp 18 10/20/24 07:30 BP 143/82 H 10/20/24 07:23 Pulse Ox 99 10/20/24 07:23 O2 Del Method Nasal Cannula 10/20/24 07:23 O2 Flow Rate 2 10/20/24 07:23 BMI result Body Mass Index 33.9 Constitutional - Awake and Alert, No apparent distress Eyes - PERRLA, EOMI Cardiovascular - S1S2, RRR, No edema Chest- pleuravac in place with serosanguineous drainage with surrounding tenderness to palpation but no crepitus Respiratory - Normal lung expansion, Normal respiratory effort, No respiratory distress, CTA bilaterally Gastrointestinal - NT / ND; +BS; No rebound or guarding Extremities - no calf tenderness bilaterally, no swelling Skin - Warm/Dry Neurological - Alert & oriented x3= Psychological - Appropriate affect Objective Data Active Medications Acetaminophen (Acetaminophen 325 Mg Tablet) 650 mg PO Q6H PRN PRN Reason: Pain, Mild 1-3,fever,headache Albuterol/Ipratropium (Albuterol/Iprat 2.5/0.5mg 3 Ml Ampul.Neb) 3 ml INHALE RQ4H WHILE AWAKE [facility] Last Admin: 10/20/24 07:29 Dose: 3 ml Documented By: OLIVIA Calcium Carbonate (Calcium Carbonate 750 Mg Tab.Chew) 750 mg PO Q4H PRN PRN Reason: Heartburn Enoxaparin Sodium (Enoxaparin Sodium 40 Mg/0.4 Ml Syringe) 40 mg SUBCUT Q24H [facility] Last Admin: 10/19/24 17:45 Dose: 40 mg Documented By: BREONNA Guaifenesin/Dextromethorphan (Guaifenesin Dm 200/20/10 Ml 10 Ml Syrup) 10 ml PO Q4H PRN PRN Reason: Cough Piperacillin Sod/Tazobactam (Sod 4.5 gm/ Sodium Chloride) 100 mls @ 200 mls/hr IV Q6H [facility] Last Infusion: 10/20/24 06:43 Dose: Infused Documented By: JOLEEN Vancomycin HCl 1,500 mg/ (Sodium Chloride) 500 mls @ 333.333 mls/hr IV Q8H [facility] Last Admin: 10/20/24 06:40 Dose: 333.33 mls/hr Documented By: JOLEEN Alteplase, Recombinant 10 mg/Dornase Erik 5 mg/ Lidocaine HCl 10 ml/ Sodium Chloride 50 mls @ 0 mls/hr INTRAPLEUR BID [facility] Stop: 10/22/24 09:01 Last Admin: 10/19/24 21:57 Dose: 5 mls/hr Documented By: JOLEEN Comments: given by ICU ETHNOLOGY PROFESSOR Gloria. Given via Chest tube site. Not given IVP. mL/hr rate of 0 Ketorolac Tromethamine (Ketorolac Tromethamine 30 Mg/Ml Vial) 30 mg IVPUSH Q6H PRN PRN Reason: Pain, Moderate(Pain Scale 4-6) Last Admin: 10/20/24 00:58 Dose: 30 mg Documented By: JOLEEN Magnesium Hydroxide (Milk Of Magnesia 30 Ml Oral.Susp) 30 ml PO DAILY PRN PRN Reason: Constipation Melatonin (Melatonin 3 Mg Tablet) 6 mg PO BEDTIME PRN PRN Reason: Insomnia Last Admin: 10/20/24 00:59 Dose: 6 mg Documented By: JOLEEN Methadone HCl (Methadone Hcl 20 Mg/2 Ml Oral.Conc) 10 mg PO Q3H PRN PRN Reason: Opiate Withdrawal Last Admin: 10/19/24 15:23 Dose: 10 mg Documented By: BREONNA Co-signed By: MARISOL Methylprednisolone Sodium Succinate (Methylprednisolone Sod Succ 40 Mg/Ml Vial) 40 mg IVPUSH Q12H [facility] Last Admin: 10/20/24 00:45 Dose: 40 mg Documented By: JOLEEN Morphine Sulfate (Morphine Sulfate 4 Mg/Ml Cartridge) 4 mg IVPUSH Q4H PRN; Protocol PRN Reason: Pain, Severe (Pain Scale 7-10) Last Admin: 10/19/24 23:03 Dose: 4 mg Documented By: JOLEEN Ondansetron HCl (Ondansetron Hcl 4 Mg/2 Ml Vial) 4 mg IVPUSH Q8H PRN PRN Reason: Nausea and Vomiting Pharmacy Consult (Consult Rx Vancomycin Dosing) 1 each MISCELLANE DAILY PRN PRN Reason: Consult order Sodium Chloride (0.9 % Sodium Chloride Flush 3 Ml Syringe) 3 ml IVFLUSH QSHIFT [facility] Last Admin: 10/20/24 00:45 Dose: 3 ml Documented By: JOLEEN Labs 10/19/24 05:35 10/20/24 06:11 Labs: Laboratory Results - last 24 hr 10/19/24 10/20/24 13:09 06:11 Hold Purple Top SEE NOTE Estim Creat Clear Calc 127.5 Estimated GFR > 60 Random Vancomycin 6.4 L Microbiology Microbiology Results: Microbiology 10/18/24 12:05 Blood Culture - Preliminary Blood - Venous No growth after 24 hours. 10/18/24 11:50 Blood Culture - Preliminary Blood - Venous No growth after 24 hours. 10/18/24 16:30 Gram Stain - Final Thoracentesis Fluid Anaerobic Culture - Preliminary No growth to date. Body Fluid Culture - Preliminary No growth to date. Assessment and Plan (1) Loculated pleural effusion: Status: Acute (2) Opioid use disorder: Status: Acute Plan 59-year-old Kinyarwanda-speaking male with a PMH significant for asthma?and opioid use disorder who presents to the ED with?worsening SOB, PLUNKETT, and left-sided chest pain x4 days. Pt will be admitted to the hospital for treatment and further evaluation of acute hypoxic respiratory failure in the setting of large left pleural effusion. Acute hypoxic respiratory failure in the setting of left pleural effusion with concern for early empyema due to underlying pneumonia/sepsis CTA showing left large pleural effusion likely loculated with subsegmental atelectasis of JANET and near complete atelectasis of LLL IR performed US-guided thoracentesis with chest tube in place on vancomycin and Zosyn, started 10/18/2024 Repeat chest x-ray this morning showed large left pleural effusion with underlying consolidation, leukocytosis due to steroids Thoracic surgery obtained pulmonary consult for fibrinolysis with tPA blood cultures, pleural fluid culture pending Continue oxygen and wean as tolerated Mild intermittent asthma Mild acute exacerbation in the setting of above DuoNeb/IV Solu Medrol gradually wean Elevated troponin Initial troponin 193.1 with repeat down trending to 87.5, EKG without significant ischemic changes, Chest pain likely secondary to pleural effusion Monitor on telemetry Opioid use disorder Denies IVDU Seen by Addiction Team placed on methadone, increase to 40mg 3/2 Full Code DVT Prophylaxis: Lovenox Pt will require continued inpatient hospitalization for treatment of?acute hypoxic respiratory failure in the setting of large left pleural effusion with likely underlying pneumonia with sepsis, requiring IV antibiotics IV steroids and Close clinical follow-up with pulmonology and thoracic surgery Quality Stroke Does the patient have a stroke diagnosis?: No VTE Prior VTE?: No VTE Risk Level:: Medical - moderate - high VTE Device Contraindication: Treatment Not Indicated VTE Drug Contraindication: N/A - Med Ordered
[2024-10-20] MEDS: Alteplase Cath Clear 10 MG, Dornase Alfa 5 MG, Lidocaine HCl 2 % MPF 10 ML in 0.9 % Sod... INTRAPLEUR ×2 (10:09→22:19)
--- NOTE | 2024-10-20 11:21 | PC.RT ---
Pt SATs 100% on 2L NC. RT took pt off O2, SATs 94% on RA.
--- NOTE | 2024-10-20 11:27 | MHC.RECOVRN ---
Met with pt, along with paste mixer, to follow up regarding methadone titration and assess for withdrawal. Pt laying in bed, awake, alert, easily engages in conversation. Pt reports withdrawal symptoms including nausea, chills, anxiety. Diaphoresis and restlessness noted. Pt would like to continue methadone titration. Denies other questions or concerns. Disucssed with provider, plan to administer 20 mg methadone for a total of 30 mg today. Will continue to follow.
[2024-10-20] MEDS: Docusate Sodium 100 MG CAPSULE PO ×2 (12:19→22:05)
[2024-10-20] MEDS: methADONE HCl 20 MG/2 ML ORAL.CONC PO (12:19)
[2024-10-20 13:20] LABS: Vancomycin Random 14.5 mcg/mL (15-20)
--- NOTE | 2024-10-20 13:52 | MHC.RECOVRN ---
Followed up with pt after receiving total 30 mg methadone today. Pt reports feeling better. Appears less restless, less diaphoretic. Would like to continue titration. Pt has 10 mg prn available for later in the day if needed. Pt denies questions or concerns for t/w. Discussed with provider, plan to begin 40 mg methadone daily tomorrow.
[2024-10-20] MEDS: Morphine Sulfate 4 MG/ML CARTRIDGE IVPUSH ×2 (14:37→22:05)
--- NOTE | 2024-10-20 16:05 | PM.PNTS ---
Subjective Subjective Date of Service: 10/20/24 Interval history: Pt is sleeping. Uneventful night. Sero-sang CT output in pleurovac Cxr this am, marked improvement Physical Exam Vital Signs: Vital Signs: Last Vital Signs Temp 98.4 F 10/20/24 15:42 Pulse 92 10/20/24 15:48 Resp 20 10/20/24 15:48 BP 131/77 10/20/24 15:42 Pulse Ox 98 10/20/24 15:42 O2 Del Method Nasal Cannula 10/20/24 15:42 O2 Flow Rate 2 10/20/24 15:42 BMI result Body Mass Index 33.9 Chest: Other: CT in place Procedures Date of Service Date of Service: 10/20/24 Progress Note: A&P Assessment and plan (1) Loculated pleural effusion: Status: Acute Plan Cont current plan; encourage IS, oob to chair Time Spent With Patient Time: Total time managing care of this patient today ____ minutes. Quality Stroke Does the patient have a stroke diagnosis?: No VTE Prior VTE?: No VTE Risk Level:: Medical - moderate - high VTE Device Contraindication: Treatment Not Indicated VTE Drug Contraindication: N/A - Med Ordered
[2024-10-20] MEDS: Enoxaparin Sodium 40 MG/0.4 ML SYRINGE SUBCUT (18:25)
[2024-10-21] VITALS (8 sets, daily range): BP systolic 113–132; BP diastolic 59–70; PULSE 68–91; RESP 14–20; TEMP 36.3–37.2; O2SAT 93–96
[2024-10-21] MEDS: methylPREDNISolone Sod Succ 40 MG/ML VIAL IVPUSH ×2 (00:06→13:11)
[2024-10-21] MEDS: Piperacillin Sodium/Tazobactam 4.5 GM in 0.9 % Sodium Chloride 100 ML IV ×4 (00:06→17:44)
[2024-10-21] MEDS: Melatonin 3 MG TABLET 6 MG PO (00:08)
--- NOTE | 2024-10-21 00:47 | PC.NURSE ---
Chest tube unclamped at 2319 per MAIL CARRIER TECHNICIAN Gloria. Chest tube draining serosanguineous fluid freely.
[2024-10-21] MEDS: Morphine Sulfate 4 MG/ML CARTRIDGE IVPUSH (02:01)
[2024-10-21] MEDS: vancomycin HCL 1,500 MG in 0.9 % Sodium Chloride 500 ML 333.33 MG IV ×2 (06:35→17:42)
--- NOTE | 2024-10-21 07:40 | HO.PM.IMPN ---
Subjective Subjective Date of Service: 10/21/24 Interval History: Seen in follow up for loculated pleural effusion Interval history: denies opiate w/d symptoms. Serosanguinous drainage from chest tube. No sob, chest pain Review of Systems Review of Systems: Yes all other systems are reviewed and are negative Physical Exam Vital Signs: Vital Signs: Last Vital Signs Temp 97.5 F 10/21/24 03:58 Pulse 84 10/21/24 03:58 Resp 18 10/21/24 03:58 BP 132/66 10/21/24 03:58 Pulse Ox 93 10/21/24 00:00 O2 Del Method Room Air 10/21/24 00:00 O2 Flow Rate 2 10/20/24 15:42 BMI result Body Mass Index 33.9 Constitutional - Awake and Alert, No apparent distress Eyes - PERRLA, EOMI Cardiovascular - S1S2, RRR, No edema Respiratory - Normal lung expansion, Normal respiratory effort, No respiratory distress, diminished LLL , chst tube in place Extremities - no calf tenderness bilaterally, no swelling Skin - Warm/Dry Neurological - Alert & oriented x3 Psychological - Appropriate affect Objective Data Active Medications Acetaminophen (Acetaminophen 325 Mg Tablet) 650 mg PO Q6H PRN PRN Reason: Pain, Mild 1-3,fever,headache Albuterol/Ipratropium (Albuterol/Iprat 2.5/0.5mg 3 Ml Ampul.Neb) 3 ml INHALE RQ4H WHILE AWAKE [facility] Last Admin: 10/21/24 07:34 Dose: Not Given Documented By: SID Non-Admin Reason: Patient Refused Calcium Carbonate (Calcium Carbonate 750 Mg Tab.Chew) 750 mg PO Q4H PRN PRN Reason: Heartburn Docusate Sodium (Docusate Sodium 100 Mg Capsule) 100 mg PO BID [facility] Last Admin: 10/20/24 22:05 Dose: 100 mg Documented By: JOLEEN Enoxaparin Sodium (Enoxaparin Sodium 40 Mg/0.4 Ml Syringe) 40 mg SUBCUT Q24H [facility] Last Admin: 10/20/24 18:25 Dose: 40 mg Documented By: JOLEEN Guaifenesin/Dextromethorphan (Guaifenesin Dm 200/20/10 Ml 10 Ml Syrup) 10 ml PO Q4H PRN PRN Reason: Cough Piperacillin Sod/Tazobactam (Sod 4.5 gm/ Sodium Chloride) 100 mls @ 200 mls/hr IV Q6H [facility] Last Infusion: 10/21/24 06:35 Dose: Infused Documented By: JOLEEN Vancomycin HCl 1,500 mg/ (Sodium Chloride) 500 mls @ 333.333 mls/hr IV Q8H [facility] Last Admin: 10/21/24 06:35 Dose: 333.33 mls/hr Documented By: JOLEEN Alteplase, Recombinant 10 mg/Dornase Erik 5 mg/ Lidocaine HCl 10 ml/ Sodium Chloride 50 mls @ 0 mls/hr INTRAPLEUR BID [facility] Stop: 10/22/24 09:01 Last Admin: 10/20/24 22:19 Dose: 1 mls/hr Documented By: JOLEEN Comments: Administered by ICU HIGH SCHOOL BAND TEACHER at bedside. Given to chest tube. Not as an IV infusion. Ketorolac Tromethamine (Ketorolac Tromethamine 30 Mg/Ml Vial) 30 mg IVPUSH Q6H PRN PRN Reason: Pain, Moderate(Pain Scale 4-6) Last Admin: 10/20/24 00:58 Dose: 30 mg Documented By: JOLEEN Magnesium Hydroxide (Milk Of Magnesia 30 Ml Oral.Susp) 30 ml PO DAILY PRN PRN Reason: Constipation Melatonin (Melatonin 3 Mg Tablet) 6 mg PO BEDTIME PRN PRN Reason: Insomnia Last Admin: 10/21/24 00:08 Dose: 6 mg Documented By: JOLEEN Methadone HCl (Methadone Hcl 20 Mg/2 Ml Oral.Conc) 40 mg PO DAILY@0800 [facility] Methylprednisolone Sodium Succinate (Methylprednisolone Sod Succ 40 Mg/Ml Vial) 40 mg IVPUSH Q12H [facility] Last Admin: 10/21/24 00:06 Dose: 40 mg Documented By: JOLEEN Morphine Sulfate (Morphine Sulfate 4 Mg/Ml Cartridge) 4 mg IVPUSH Q4H PRN; Protocol PRN Reason: Pain, Severe (Pain Scale 7-10) Last Admin: 10/21/24 02:01 Dose: 4 mg Documented By: JOLEEN Ondansetron HCl (Ondansetron Hcl 4 Mg/2 Ml Vial) 4 mg IVPUSH Q8H PRN PRN Reason: Nausea and Vomiting Pharmacy Consult (Consult Rx Vancomycin Dosing) 1 each MISCELLANE DAILY PRN PRN Reason: Consult order Sodium Chloride (0.9 % Sodium Chloride Flush 3 Ml Syringe) [facility] Last Admin: 10/20/24 22:05 Dose: 3 ml Documented By: JOLEEN Labs 10/19/24 05:35 10/21/24 06:19 Labs: Laboratory Results - last 24 hr 10/20/24 12:57 Random Vancomycin 14.5 L Microbiology Microbiology Results: Microbiology 10/18/24 12:05 Blood Culture - Preliminary Blood - Venous No growth after 48 hours. 10/18/24 11:50 Blood Culture - Preliminary Blood - Venous No growth after 48 hours. 10/18/24 16:30 Gram Stain - Final Thoracentesis Fluid Anaerobic Culture - Preliminary No growth to date. Body Fluid Culture - Preliminary No growth to date. Assessment and Plan (1) Loculated pleural effusion: Status: Acute (2) Opioid use disorder: Status: Acute Plan 59-year-old Slovenian-speaking male with a PMH significant for asthma?and opioid use disorder who presents to the ED with?worsening SOB, PLUNKETT, and left-sided chest pain x4 days. Pt will be admitted to the hospital for treatment and further evaluation of acute hypoxic respiratory failure in the setting of large left pleural effusion. Acute hypoxic respiratory failure in the setting of left pleural effusion with concern for early empyema due to underlying pneumonia/sepsis CTA showing left large pleural effusion likely loculated with subsegmental atelectasis of JANET and near complete atelectasis of LLL IR performed US-guided thoracentesis with chest tube in place on vancomycin and Zosyn, started 10/18/2024 Repeat chest x-ray this morning showed large left pleural effusion with underlying consolidation, leukocytosis due to steroids Thoracic surgery obtained pulmonary consult for fibrinolysis with tPA (intiated 10/19) blood cultures, pleural fluid culture pending Weaned from O2 Add IS Mild intermittent asthma Mild acute exacerbation in the setting of above DuoNeb/IV Solu Medrol gradually wean Elevated troponin Initial troponin 193.1 with repeat down trending to 87.5, EKG without significant ischemic changes, Chest pain likely secondary to pleural effusion Monitor on telemetry Opioid use disorder Denies IVDU Seen by Addiction Team placed on methadone, increase to 40mg 10/21 Full Code DVT Prophylaxis: Lovenox Pt will require continued inpatient hospitalization for treatment of?acute hypoxic respiratory failure in the setting of large left pleural effusion with likely underlying pneumonia with sepsis, requiring IV antibiotics IV steroids and Close clinical follow-up with pulmonology and thoracic surgery Quality Stroke Does the patient have a stroke diagnosis?: No VTE Prior VTE?: No VTE Risk Level:: Medical - moderate - high VTE Device Contraindication: Treatment Not Indicated VTE Drug Contraindication: N/A - Med Ordered
[2024-10-21 07:47] LABS: Creatinine Clr Calc Pharmacy 156.2; Estimated Glomerular Filt Rate > 60
[2024-10-21] MEDS: Docusate Sodium 100 MG CAPSULE PO ×2 (09:03→19:51)
[2024-10-21] MEDS: methADONE HCl 20 MG/2 ML ORAL.CONC 40 MG PO (09:03)
--- NOTE | 2024-10-21 09:26 | PM.PNGS ---
Subjective Subjective Date of Service: 10/21/24 Interval history: Patient resting comfortably, no respiratory distress Physical Exam Vital Signs: Vital Signs: Last Vital Signs Temp 97.5 F 10/21/24 03:58 Pulse 84 10/21/24 03:58 Resp 18 10/21/24 03:58 BP 132/66 10/21/24 03:58 Pulse Ox 93 10/21/24 00:00 O2 Del Method Room Air 10/21/24 00:00 O2 Flow Rate 2 10/20/24 15:42 BMI result Body Mass Index 33.9 Chest: Other: Patient breathing comfortably, no air leak identified with deep inspiration. Skin: Other: Warm and dry Objective Data Active Medications Acetaminophen (Acetaminophen 325 Mg Tablet) 650 mg PO Q6H PRN PRN Reason: Pain, Mild 1-3,fever,headache Albuterol/Ipratropium (Albuterol/Iprat 2.5/0.5mg 3 Ml Ampul.Neb) 3 ml INHALE RQ4H WHILE AWAKE [facility] Last Admin: 10/21/24 07:34 Dose: Not Given Documented By: SID Non-Admin Reason: Patient Refused Calcium Carbonate (Calcium Carbonate 750 Mg Tab.Chew) 750 mg PO Q4H PRN PRN Reason: Heartburn Docusate Sodium (Docusate Sodium 100 Mg Capsule) 100 mg PO BID [facility] Last Admin: 10/21/24 09:03 Dose: 100 mg Documented By: CHAYITO Enoxaparin Sodium (Enoxaparin Sodium 40 Mg/0.4 Ml Syringe) 40 mg SUBCUT Q24H [facility] Last Admin: 10/20/24 18:25 Dose: 40 mg Documented By: JOLEEN Guaifenesin/Dextromethorphan (Guaifenesin Dm 200/20/10 Ml 10 Ml Syrup) 10 ml PO Q4H PRN PRN Reason: Cough Piperacillin Sod/Tazobactam (Sod 4.5 gm/ Sodium Chloride) 100 mls @ 200 mls/hr IV Q6H [facility] Last Infusion: 10/21/24 06:35 Dose: Infused Documented By: JOLEEN Vancomycin HCl 1,500 mg/ (Sodium Chloride) 500 mls @ 333.333 mls/hr IV Q8H [facility] Last Admin: 10/21/24 06:35 Dose: 333.33 mls/hr Documented By: JOLEEN Alteplase, Recombinant 10 mg/Dornase Erik 5 mg/ Lidocaine HCl 10 ml/ Sodium Chloride 50 mls @ 0 mls/hr INTRAPLEUR BID [facility] Stop: 10/22/24 09:01 Last Admin: 10/20/24 22:19 Dose: 1 mls/hr Documented By: JOLEEN Comments: Administered by ICU TIMBER CUTTER at bedside. Given to chest tube. Not as an IV infusion. Ketorolac Tromethamine (Ketorolac Tromethamine 30 Mg/Ml Vial) 30 mg IVPUSH Q6H PRN PRN Reason: Pain, Moderate(Pain Scale 4-6) Last Admin: 10/20/24 00:58 Dose: 30 mg Documented By: JOLEEN Magnesium Hydroxide (Milk Of Magnesia 30 Ml Oral.Susp) 30 ml PO DAILY PRN PRN Reason: Constipation Melatonin (Melatonin 3 Mg Tablet) 6 mg PO BEDTIME PRN PRN Reason: Insomnia Last Admin: 10/21/24 00:08 Dose: 6 mg Documented By: JOLEEN Methadone HCl (Methadone Hcl 20 Mg/2 Ml Oral.Conc) 40 mg PO DAILY@0800 [facility] Last Admin: 10/21/24 09:03 Dose: 40 mg Documented By: CHAYITO Co-signed By: ERIC Methylprednisolone Sodium Succinate (Methylprednisolone Sod Succ 40 Mg/Ml Vial) 40 mg IVPUSH Q12H [facility] Last Admin: 10/21/24 00:06 Dose: 40 mg Documented By: JOLEEN Morphine Sulfate (Morphine Sulfate 4 Mg/Ml Cartridge) 4 mg IVPUSH Q4H PRN; Protocol PRN Reason: Pain, Severe (Pain Scale 7-10) Last Admin: 10/21/24 02:01 Dose: 4 mg Documented By: JOLEEN Ondansetron HCl (Ondansetron Hcl 4 Mg/2 Ml Vial) 4 mg IVPUSH Q8H PRN PRN Reason: Nausea and Vomiting Pharmacy Consult (Consult Rx Vancomycin Dosing) 1 each MISCELLANE DAILY PRN PRN Reason: Consult order Sodium Chloride (0.9 % Sodium Chloride Flush 3 Ml Syringe) 3 ml IVFLUSH QSHIFT [facility] Last Admin: 10/21/24 09:24 Dose: Not Given Documented By: CHAYITO Non-Admin Reason: No Access Labs 10/19/24 05:35 10/21/24 06:19 Labs: Laboratory Results - last 24 hr 10/20/24 10/21/24 12:57 06:19 Estim Creat Clear Calc 156.2 Estimated GFR > 60 Random Vancomycin 14.5 L Microbiology Microbiology Results: Microbiology 10/18/24 16:30 Gram Stain - Final Thoracentesis Fluid Anaerobic Culture - Preliminary No growth to date. Body Fluid Culture - Final No growth after 2 days 10/18/24 12:05 Blood Culture - Preliminary Blood - Venous No growth after 48 hours. 10/18/24 11:50 Blood Culture - Preliminary Blood - Venous No growth after 48 hours. Procedures Date of Service Date of Service: 10/21/24 Progress Note: A&P Assessment and plan (1) Loculated pleural effusion: Status: Acute Plan Continue CT drainage, incentive spirometry. Time Spent With Patient Time: Total time managing care of this patient today ____ minutes. Quality Stroke Does the patient have a stroke diagnosis?: No VTE Prior VTE?: No VTE Risk Level:: Medical - moderate - high VTE Device Contraindication: Treatment Not Indicated VTE Drug Contraindication: N/A - Med Ordered
[2024-10-21] MEDS: Alteplase Cath Clear 10 MG, Dornase Alfa 5 MG, Lidocaine HCl 2 % MPF 10 ML in 0.9 % Sod... INTRAPLEUR (10:50)
[2024-10-21] MEDS: Albuterol/Iprat 2.5/0.5MG 3 ML AMPUL.NEB INHALE (10:51)
--- NOTE | 2024-10-21 12:18 | MHC.RECOVRN ---
Met with pt to follow up after receiving 40 mg methadone this morning. Pt denies withdrawal symptoms. Reports he slept poorly last night. Reports feeling comfortable with 40 mg at the moment. Denies questions or concerns for t/w. Discussed with pts RN.
[2024-10-21 13:33] LABS: Vancomycin Trough 17.6 mcg/mL (10.0-20.0)
--- NOTE | 2024-10-21 14:01 | HE.PHANOTE ---
RE: VANCO DOSING Trough came back as 17.6 mg/L. Continue with dose of 1500 mg q8h, trough is scheduled for 10/22/24 @1300.
[2024-10-21] MEDS: Enoxaparin Sodium 40 MG/0.4 ML SYRINGE SUBCUT (17:43)
[2024-10-21] MEDS: Ketorolac Tromethamine 30 MG/ML VIAL IVPUSH (19:51)
[2024-10-21] MEDS: 0.9 % Sodium Chloride Flush 3 ML SYRINGE IVFLUSH (19:53)
[2024-10-21] MEDS: Alteplase Cath Clear 10 MG, Dornase Alfa 5 MG, Lidocaine HCl 2 % MPF 10 ML in 0.9 % Sod... 50 MG INTRAPLEUR (22:16)
[2024-10-22] VITALS (8 sets, daily range): BP systolic 109–145; BP diastolic 57–66; PULSE 74–88; RESP 16–18; TEMP 36.3–36.6; O2SAT 92–97
[2024-10-22] MEDS: vancomycin HCL 1,500 MG in 0.9 % Sodium Chloride 500 ML 333.33 MG IV (02:54)
[2024-10-22] MEDS: Piperacillin Sodium/Tazobactam 4.5 GM in 0.9 % Sodium Chloride 100 ML IV ×2 (02:54→08:50)
[2024-10-22 07:01] LABS: MANUAL DIFF FLAG NO
[2024-10-22 07:05] LABS: Basophils Percent Auto 0.2 % (0-2); Eosinophils Absolute Auto 0.1 X10*3/uL (0.0-0.4); Eosinophils Percent Auto 0.8 % (0-4); Hematocrit 40.2 % (42.0-52.0); Hemoglobin 13.2 g/dl (14.0-18.0); Imm Gran Abs Auto 0.18 X10*3/uL (0.00-0.03); Imm Gran Pct Auto 1.1 % (0.0-0.4); Lymphocytes Percent Auto 12.4 % (20-40); Mean Corpuscular HGB Conc 32.8 g/dl (31.0-36.0); Mean Corpuscular Hemoglobin 29.9 pg (27.0-33.0); Mean Platelet Volume 8.9 fL (9.4-12.4); Monocytes Absolute Auto 1.5 X10*3/uL (0.1-1.2); Monocytes Percent Auto 9.1 % (2-11); Neutrophils Absolute Auto 12.3 x10*3/uL (2.0-8.3); Neutrophils Percent Auto 76.4 % (45-73); Platelet Count 603 X10*3/uL (160-400); Red Blood Count 4.42 X10*6/uL (4.60-5.80); Red Cell Distribution Width 13.2 % (11.0-16.0); White Blood Count 16.1 X10*3/uL (4.8-10.8)
[2024-10-22 07:24] LABS: Anion Gap 11 (12-20); Blood Urea Nitrogen 14 mg/dL (9-16); Calcium 8.3 mg/dL (8.4-10.2); Carbon Dioxide 26 mmol/L (22-29); Chloride 105 mmol/L (96-108); Creatinine Clr Calc Pharmacy 110.9; Estimated Glomerular Filt Rate > 60; Glucose Random 102 mg/dL (60-115); Potassium 3.8 mmol/L (3.3-5.1); Sodium 138 mmol/L (135-145)
[2024-10-22] MEDS: Albuterol/Iprat 2.5/0.5MG 3 ML AMPUL.NEB INHALE ×3 (07:30→15:36)
[2024-10-22] MEDS: 0.9 % Sodium Chloride Flush 3 ML SYRINGE IVFLUSH (08:42)
[2024-10-22] MEDS: predniSONE 20 MG TABLET PO (08:43)
[2024-10-22] MEDS: Docusate Sodium 100 MG CAPSULE PO (08:43)
[2024-10-22] MEDS: methADONE HCl 20 MG/2 ML ORAL.CONC 40 MG PO (08:44)
--- NOTE | 2024-10-22 09:19 | PM.PNTS ---
Subjective Subjective Date of Service: 10/22/24 <Teresa Herrera PA-C - Last Filed: 10/22/24 09:23> 10/22/24 <Scooter España MD - Last Filed: 10/22/24 10:04> Interval history: Feels much improved. Denies shortness of breath. On room air. <Teresa Herrera PA-C - Last Filed: 10/22/24 09:23> Physical Exam Vital Signs: Vital Signs: Last Vital Signs Temp 97.8 F 10/22/24 07:01 Pulse 86 10/22/24 07:30 Resp 18 10/22/24 07:30 BP 119/66 10/22/24 07:01 Pulse Ox 92 10/22/24 07:01 O2 Del Method Room Air 10/22/24 07:01 O2 Flow Rate 2 10/20/24 15:42 BMI result Body Mass Index 33.9 <DAISY Carias Last Filed: 10/22/24 09:23> Const: General: comfortable, no acute distress and alert <Teresa Herrera PA-C - Last Filed: 10/22/24 09:23> Chest: Other: left lateral chest tube in place, scant serosanguineous output in past 24h, no air leak <Teresa Herrera PA-C - Last Filed: 10/22/24 09:23> Resp: Effort & Inspection: normal respiratory effort, able to speak in complete sentences, no grunting, not labored, no tracheal deviation and no use of accessory muscles <Teresa Herrera PA-C - Last Filed: 10/22/24 09:23> Skin: General skin exam: no rashes or lesions noted <Teresa Herrera PA-C - Last Filed: 10/22/24 09:23> Procedures Date of Service Date of Service: 10/22/24 <DAISY Carias Last Filed: 10/22/24 09:23> 10/22/24 <Scooter España MD - Last Filed: 10/22/24 10:04> Progress Note: A&P Assessment and plan (1) Loculated pleural effusion: Status: Acute <Teresa Herrera PA-C - Last Filed: 10/22/24 09:23> (2) Sepsis: Status: Acute <Teresa Herrera PA-C - Last Filed: 10/22/24 09:23> Assessment and Plan: Clinically improved with fibrinolysis, no residual pleural effusion on imaging and scant drainage over past 24h. Chest tube therefore removed uneventfully today by Dr. España and occlusive dressing placed. Post procedure film shows lung up. Ok for dc from thoracic surgery standpoint. Home with [facility] services for chest tube site dressing changes. F/u in office in 1 week. <Teresa Herrera PA-C - Last Filed: 10/22/24 09:23> Time Spent With Patient Time: Total time managing care of this patient today ____ minutes. <Teresa Herrera PA-C - Last Filed: 10/22/24 09:23> Quality Stroke Does the patient have a stroke diagnosis?: No <Teresa Herrera PA-C - Last Filed: 10/22/24 09:23> VTE Prior VTE?: No <Teresa Herrera PA-C - Last Filed: 10/22/24 09:23> VTE Risk Level:: Medical - moderate - high <DAISY Carias Last Filed: 10/22/24 09:23> VTE Device Contraindication: Treatment Not Indicated <Teresa Herrera PA-C - Last Filed: 10/22/24 09:23> VTE Drug Contraindication: N/A - Med Ordered <Teresa Herrera PA-C - Last Filed: 10/22/24 09:23>
--- NOTE | 2024-10-22 11:54 | P.PNADD_ITS ---
Subjective Subjective Date of Service: 10/22/24 Reason For Visit: Large Pleural Effusion Interim History: Patient seen in follow up for OUD and withdrawal management Over the wkend methadone titrated to 40mg QD, and patient tolerating without issue Chest tube no longer in place. Patient seen in room 486 with recovery support RN present He is sitting up in reclined, awake, alert, engaged in interview. Reports that current methadone dose is helpful up until 5 pm when he starts to feel chills and body aches. Some difficulty sleeping and reporting anxiety and discomfort related to site where chest tube was placed. Review of Systems Constitutional: Reports as per HPI Mental Status Exam Mental Status Exam Level of Consciousness: Awake, Appropriate and Alert Patient Behavior: Appropriate, Talkative and Cooperative Mood Description: Calm Affect Description: Calm Speech Pattern: Clear Hallucinations: None Thought Process: Intact Judgement: Good Diagnostics Vital Signs (24Hr): Vital Signs - 24 hr 10/21/24 12:00 10/21/24 15:45 10/21/24 19:48 Temperature 97.6 F 97.6 F 98.9 F Pulse Rate 91 88 88 Respiratory Rate 16 14 20 Blood Pressure 121/70 126/63 113/59 L Pulse Oximetry 95 96 96 Oxygen Delivery Method Room Air Room Air Room Air 10/21/24 23:53 10/22/24 03:46 10/22/24 07:01 Temperature 97.4 F 97.9 F 97.8 F Pulse Rate 74 74 86 Respiratory Rate 18 18 18 Blood Pressure 123/68 145/65 H 119/66 Pulse Oximetry 95 97 92 Oxygen Delivery Method Room Air Room Air Room Air 10/22/24 07:30 10/22/24 11:12 10/22/24 11:45 Temperature 97.8 F Pulse Rate 86 88 88 Respiratory Rate 18 16 16 Blood Pressure 109/58 L Pulse Oximetry 96 Oxygen Delivery Method Room Air BMI result Body Mass Index 33.9 Labs 10/22/24 06:54 10/22/24 06:54 Labs: Laboratory Results - last 48 hr 10/20/24 10/21/24 10/21/24 12:57 06:19 13:00 WBC RBC Hgb Hct MCV MCH MCHC RDW Plt Count MPV Immature Gran % (Auto) Neut % (Auto) Lymph % (Auto) Frio % (Auto) Eos % (Auto) Baso % (Auto) Lymph # (Auto) Frio # (Auto) Eos # (Auto) Baso # (Auto) Abs Immat Gran (auto) Absolute Neuts (auto) Absolute Nucleated RBC Nucleated RBC % (auto) Sodium Potassium Chloride Carbon Dioxide Anion Gap BUN Creatinine 0.49 L Estim Creat Clear Calc 156.2 Estimated GFR > 60 Random Glucose Calcium Vancomycin Trough 17.6 Random Vancomycin 14.5 L 10/22/24 06:54 WBC 16.1 H RBC 4.42 L Hgb 13.2 L Hct 40.2 L MCV 91.0 MCH 29.9 MCHC 32.8 RDW 13.2 Plt Count 603 H D MPV 8.9 L Immature Gran % (Auto) 1.1 H Neut % (Auto) 76.4 H Lymph % (Auto) 12.4 L Frio % (Auto) 9.1 Eos % (Auto) 0.8 Baso % (Auto) 0.2 Lymph # (Auto) 2.0 Frio # (Auto) 1.5 H Eos # (Auto) 0.1 Baso # (Auto) 0.0 Abs Immat Gran (auto) 0.18 H Absolute Neuts (auto) 12.3 H Absolute Nucleated RBC 0.000 Nucleated RBC % (auto) 0.0 Sodium 138 Potassium 3.8 Chloride 105 Carbon Dioxide 26 Anion Gap 11 L BUN 14 Creatinine 0.69 Estim Creat Clear Calc 110.9 Estimated GFR > 60 Random Glucose 102 Calcium 8.3 L Vancomycin Trough Random Vancomycin Imaging Radiology Impressions: ITS Impressions Chest CTA 10/18/24 13:16 IMPRESSION: No evidence of pulmonary emboli. Large left pleural effusion which is likely loculated. Subsegmental atelectasis in the left upper lobe and near complete atelectasis of the left lower lobe. Electronically signed by: Mart James MD 10/18/2024 01:47 PM EST RP Chest X-Ray 10/22/24 08:00 IMPRESSION: Small tiny left-sided pneumothorax. Recommend follow-up Electronically signed by: Jay Bangura MD 10/22/2024 08:40 AM EST RP Medications Medications Current Medications Acetaminophen (Acetaminophen 325 Mg Tablet) 650 mg PO Q6H PRN PRN Reason: Pain, Mild 1-3,fever,headache Albuterol/Ipratropium (Albuterol/Iprat 2.5/0.5mg 3 Ml Ampul.Neb) 3 ml INHALE RQ4H WHILE AWAKE [facility] Last Admin: 10/22/24 11:12 Dose: 3 ml Calcium Carbonate (Calcium Carbonate 750 Mg Tab.Chew) 750 mg PO Q4H PRN PRN Reason: Heartburn Docusate Sodium (Docusate Sodium 100 Mg Capsule) 100 mg PO BID [facility] Last Admin: 10/22/24 08:43 Dose: 100 mg Enoxaparin Sodium (Enoxaparin Sodium 40 Mg/0.4 Ml Syringe) 40 mg SUBCUT Q24H [facility] Last Admin: 10/21/24 17:43 Dose: 40 mg Guaifenesin/Dextromethorphan (Guaifenesin Dm 200/20/10 Ml 10 Ml Syrup) 10 ml PO Q4H PRN PRN Reason: Cough Vancomycin HCl 1,500 mg/ (Sodium Chloride) 500 mls @ 333.333 mls/hr IV Q8H [facility] Last Infusion: 10/22/24 04:45 Dose: Infused Piperacillin Sod/Tazobactam (Sod 4.5 gm/ Sodium Chloride) 100 mls @ 200 mls/hr IV Q6H [facility] Last Infusion: 10/22/24 10:24 Dose: Infused Ketorolac Tromethamine (Ketorolac Tromethamine 30 Mg/Ml Vial) 30 mg IVPUSH Q6H PRN PRN Reason: Pain, Moderate(Pain Scale 4-6) Last Admin: 10/21/24 19:51 Dose: 30 mg Magnesium Hydroxide (Milk Of Magnesia 30 Ml Oral.Susp) 30 ml PO DAILY PRN PRN Reason: Constipation Melatonin (Melatonin 3 Mg Tablet) 6 mg PO BEDTIME PRN PRN Reason: Insomnia Last Admin: 10/21/24 00:08 Dose: 6 mg Methadone HCl (Methadone Hcl 20 Mg/2 Ml Oral.Conc) 40 mg PO DAILY@0800 [facility] Last Admin: 10/22/24 08:44 Dose: 40 mg Morphine Sulfate (Morphine Sulfate 4 Mg/Ml Cartridge) 4 mg IVPUSH Q4H PRN; Protocol PRN Reason: Pain, Severe (Pain Scale 7-10) Last Admin: 10/21/24 02:01 Dose: 4 mg Ondansetron HCl (Ondansetron Hcl 4 Mg/2 Ml Vial) 4 mg IVPUSH Q8H PRN PRN Reason: Nausea and Vomiting Pharmacy Consult (Consult Rx Vancomycin Dosing) 1 each MISCELLANE DAILY PRN PRN Reason: Consult order Prednisone (Prednisone 20 Mg Tablet) 20 mg PO DAILY [facility] Last Admin: 10/22/24 08:43 Dose: 20 mg Sodium Chloride (0.9 % Sodium Chloride Flush 3 Ml Syringe) 3 ml IVFLUSH QSHIFT [facility] Last Admin: 10/22/24 08:42 Dose: 3 ml Allergies Allergies Allergy/AdvReac Type Severity Reaction Status Date / Time ? Environmental Allergy Unknown asthma Uncoded 10/18/24 11:29 exacerbation Assessment & Plan Assessment & Plan (1) Opioid use disorder: Status: Acute Code(s): F11.90 - Opioid use, unspecified, uncomplicated Assessment and Plan: * additional 10mg methadone today * 50mg methadone in AM * Referral already sent to [facility] for continuation of treatment Total time managing care of this patient today __25__ minutes.
--- NOTE | 2024-10-22 13:32 | P.DS_ITS ---
DS: Providers Provider Date of Service: 10/22/24 Date of admission: 10/18/24 17:57 Date of discharge: 10/22/24 Primary care physician: Warner Hinkle MD Admitting clinician: Yumiko Keller Attending physician on admission: Matthew Tony Consults: 10/18/24 17:41 Consult to Thoracic Surgery Routine Consulting Provider: Scooter España Reason for consultation: Chest tube management 10/18/24 18:10 Addiction Medicine Routine Consulting Provider: Addiction Covering Reason for consultation: Opioid use disorder 10/19/24 08:10 Consult to Pulmonology Routine Consulting Provider: Freddie Morin Reason for consultation: loculated pleural effusion, fibrinolysis Has provider been notified: No Attending physician on discharge: [facility] Discharging clinician: Abbie Burnette DS: Diagnosis Discharge Diagnosis (1) Opioid use disorder: Status: Acute DS: Summary Hospital Course Hospital Course: HPI on admission by Yumiko Keller PA-C 10/18: Chief Complaint: SOB and chest pain Pt is a 59-year-old Cameroonian-speaking male with a PMH significant for asthma?and opioid use disorder who presents to the ED with?worsening SOB, PLUNKETT, and left- sided chest pain x4 days. Pt reports SOB and chest pain worsened with walking. Chest pain is sharp and stabbing, and nonradiating. Reports he just can not catch his breath when he walks. Denies cough, fever, or chills. Has hx of opioid use disorder, no longer on methadone for at least the past year. Reports only snorts heroin, last used late last night/early this morning. Denies hx of IVDU or tobacco use. No nausea, vomiting, abdominal pain. Denies lower leg extremity swelling or pain. In the ED pt was febrile up to 100.9, tachycardic up to 109, and hypoxic at 80% on RA. Labs were significant for leukocytosis 18.6, normocytic anemia of 10.5/32.8, sodium 134, AST 53, ALT 45, alk-phos 285, initial troponin 193.1, BNP 303, and albumin 2.9. Tested negative for flu, RSV, and COVID. CTA of chest negative for pulmonary emboli but showed large left pleural effusion likely loculated. Also showed subsegmental atelectasis in left upper lobe and near complete atelectasis of left lower lobe. EKG demonstrated normal sinus rhythm without evidence of significant ST elevations or depressions, similar to prior. ED clinician contacted IR who performed ultrasound-guided thoracentesis and placed chest tube in left lung. Pt was treated with acetaminophen, DuoNebs, Mag sulfate, Solu-Medrol, azithromycin, ceftriaxone, and vancomycin. Pt will be admitted to the hospital for treatment and further evaluation of acute hypoxic respiratory failure in the setting of large left pleural effusion. Hospital Course: Physical Exam Vital Signs: Vital Signs: Last Vital Signs Temp 97.8 F 10/22/24 11:45 Pulse 88 10/22/24 11:45 Resp 16 10/22/24 11:45 BP 109/58 L 10/22/24 11:45 Pulse Ox 96 10/22/24 11:45 O2 Del Method Room Air 10/22/24 11:45 O2 Flow Rate 2 10/20/24 15:42 BMI result Body Mass Index 33.9 DS: Data Data Completed and Pending Labs on day of discharge: Laboratory Results - last 24 hr 10/21/24 10/22/24 13:00 06:54 WBC 16.1 H RBC 4.42 L Hgb 13.2 L Hct 40.2 L MCV 91.0 MCH 29.9 MCHC 32.8 RDW 13.2 Plt Count 603 H D MPV 8.9 L Immature Gran % (Auto) 1.1 H Neut % (Auto) 76.4 H Lymph % (Auto) 12.4 L [place] % (Auto) 9.1 Eos % (Auto) 0.8 Baso % (Auto) 0.2 Lymph # (Auto) 2.0 [place] # (Auto) 1.5 H Eos # (Auto) 0.1 Baso # (Auto) 0.0 Abs Immat Gran (auto) 0.18 H Absolute Neuts (auto) 12.3 H Absolute Nucleated RBC 0.000 Nucleated RBC % (auto) 0.0 Sodium 138 Potassium 3.8 Chloride 105 Carbon Dioxide 26 Anion Gap 11 L BUN 14 Creatinine 0.69 Estim Creat Clear Calc 110.9 Estimated GFR > 60 Random Glucose 102 Calcium 8.3 L Vancomycin Trough 17.6 Preliminary micro results at discharge 10/18/24 16:30 Anaerobic Culture - Preliminary Thoracentesis Fluid No growth to date. 10/18/24 12:05 Blood Culture - Preliminary Blood - Venous No growth after 48 hours. 10/18/24 11:50 Blood Culture - Preliminary Blood - Venous No growth after 48 hours. Discharge Plan Discharge Anticipated Discharge Date/Time: 10/22/24 13:14 Patient Disposition: Home Health Service Discharge Diagnosis: Loculated pleural effusion, pneumonia Referrals: Name,MD Warner [Primary Care Provider] - 1 Week Scooter España MD [Physician] - 1 Week Discharge Medications: New cefpodoxime 200 mg tablet 200 mg PO BID Qty: 10 0RF Rx Instructions: must administer with a meal/food doxycycline hyclate 100 mg capsule 100 mg PO BID Qty: 10 0RF Discharge Orders: Discharge Order (Routine); Ordered 10/22/24 Ordered By: Abbie Burnette Diet: Advance to usual diet Activity on Discharge: As tolerated Stand Alone Forms: Patient Portal Discharge page Print Language: Cameroonian Activity Restrictions/Additional Instructions: Chest tube site dressing changes every other day with xeroform, 4x4 tape. Care Plan Goals: VNA to change dressings every other day Follow up with thoracic surgery Continue antibiotics as prescribed for treatment of pneumonia: cefpodoxime 200mg twice daily and doxycycline 100mg twice daily x 10 doses Follow up with [facility] for methadone management Health Concerns: Community-acquired pneumonia Large pleural effusion requiring chest tube Opiate use disorder Plan of Treatment: Continue following with thoracic surgery on an outpatient basis. VNA to change dressings every other day Antibiotics as prescribed above Follow-up with PCP Assessment: See above See discharge summary
--- NOTE | 2024-10-22 13:34 | MHC.RECOVRN ---
Pts referral has been sent to [facility].
[2024-10-22 13:59] LABS: Vancomycin Random 12.4 mcg/mL (15-20)
[2024-10-22] MEDS: methADONE HCl 20 MG/2 ML ORAL.CONC 10 MG PO (14:16)
--- NOTE | 2024-10-22 15:12 | MHC.CM.PN ---
Pt has been medically cleared for DC, he is able to arrange a ride home, he will have home health services from [facility].
--- NOTE | 2024-10-23 11:02 | W.MHC.F2F ---
Service Date Service Date: 10/23/24 Encounter Date of encounter: 10/23/24 Reasons for Services Signs and symptoms assessed: Chest tube due to loculated effusion secondary to pneumonia Needs dressing changes at chest tube site (removed 10/22). Chest tube site dressing changes every other day with xeroform, 4x4 tape. Reason for long-term: wound care Homebound: Leaving the home is medically contraindicated at this time without the asist of a device and/or another person due th the listed conditions above and below. Reason homebound: weakness related to hospital stay Certification: Based on the above findings, I certify that this patient is confined to the home and needs intermittent long-term care, physical therapy and/or speech therapy, or continues to need occupational therapy. The patient is under my care, and I have initiated the establishment of the plan of care. The patient will be followed by a physician who will periodically review the plan of care. Time Spent With Patient Time: Total time managing care of this patient today ____ minutes.
--- NOTE | 2024-10-23 15:37 | PM.DS ---
DS: Providers Provider Date of Service: 10/23/24 Date of admission: 10/18/24 17:57 Date of discharge: 10/22/24 Primary care physician: Warner Hinkle MD Admitting clinician: Yumiko Keller Attending physician on admission: García Velasquez Consults: 10/18/24 17:41 Consult to Thoracic Surgery Routine Consulting Provider: Scooter España Reason for consultation: Chest tube management 10/18/24 18:10 Addiction Medicine Routine Consulting Provider: Addiction Covering Reason for consultation: Opioid use disorder 10/19/24 08:10 Consult to Pulmonology Routine Consulting Provider: Freddie Morin Reason for consultation: loculated pleural effusion, fibrinolysis Has provider been notified: No DS: Diagnosis Discharge Diagnosis (1) Opioid use disorder: Status: Acute DS: Summary Hospital Course Hospital Course: HPI on admission by Yumiko Keller PA-C 10/18: Chief Complaint: SOB and chest pain Pt is a 59-year-old Belarusian-speaking male with a PMH significant for asthma?and opioid use disorder who presents to the ED with?worsening SOB, PLUNKETT, and left-sided chest pain x4 days. Pt reports SOB and chest pain worsened with walking. Chest pain is sharp and stabbing, and nonradiating. Reports he just can not catch his breath when he walks. Denies cough, fever, or chills. Has hx of opioid use disorder, no longer on methadone for at least the past year. Reports only snorts heroin, last used late last night/early this morning. Denies hx of IVDU or tobacco use. No nausea, vomiting, abdominal pain. Denies lower leg extremity swelling or pain. In the ED pt was febrile up to 100.9, tachycardic up to 109, and hypoxic at 80% on RA. Labs were significant for leukocytosis 18.6, normocytic anemia of 10.5/32.8, sodium 134, AST 53, ALT 45, alk-phos 285, initial troponin 193.1, BNP 303, and albumin 2.9. Tested negative for flu, RSV, and COVID. CTA of chest negative for pulmonary emboli but showed large left pleural effusion likely loculated. Also showed subsegmental atelectasis in left upper lobe and near complete atelectasis of left lower lobe. EKG demonstrated normal sinus rhythm without evidence of significant ST elevations or depressions, similar to prior. ED clinician contacted IR who performed ultrasound-guided thoracentesis and placed chest tube in left lung. Pt was treated with acetaminophen, DuoNebs, Mag sulfate, Solu-Medrol, azithromycin, ceftriaxone, and vancomycin. Pt will be admitted to the hospital for treatment and further evaluation of acute hypoxic respiratory failure in the setting of large left pleural effusion. Hospital Course: Physical Exam Vital Signs: Vital Signs: Last Vital Signs Temp 97.3 F 10/22/24 15:01 Pulse 81 10/22/24 15:36 Resp 18 10/22/24 15:36 BP 110/57 L 10/22/24 15:01 Pulse Ox 96 10/22/24 15:01 O2 Del Method Room Air 10/22/24 15:01 O2 Flow Rate 2 10/20/24 15:42 BMI result Body Mass Index 33.9 Discharge Plan Discharge Anticipated Discharge Date/Time: 10/22/24 13:14 Patient Disposition: Home Health Service Discharge Diagnosis: Loculated pleural effusion, pneumonia Referrals: [facility] [Outside] - 1 Week Warner Hinkle MD [Primary Care Provider] - 1 Week Scooter España MD [Physician] - 1 Week Discharge Medications: New cefpodoxime 200 mg tablet 200 mg PO BID Qty: 10 0RF Rx Instructions: must administer with a meal/food doxycycline hyclate 100 mg capsule 100 mg PO BID Qty: 10 0RF Discharge Orders: Discharge Order (Routine); Ordered 10/22/24 Ordered By: Abbie Burnette Diet: Advance to usual diet Activity on Discharge: As tolerated Stand Alone Forms: Patient Portal Discharge page Print Language: Belarusian Activity Restrictions/Additional Instructions: Chest tube site dressing changes every other day with xeroform, 4x4 tape. Care Plan Goals: VNA to change dressings every other day Follow up with thoracic surgery Continue antibiotics as prescribed for treatment of pneumonia: cefpodoxime 200mg twice daily and doxycycline 100mg twice daily x 10 doses Follow up with [facility] for methadone management Health Concerns: Community-acquired pneumonia Large pleural effusion requiring chest tube Opiate use disorder Plan of Treatment: Continue following with thoracic surgery on an outpatient basis. VNA to change dressings every other day Antibiotics as prescribed above Follow-up with PCP Assessment: See above See discharge summary Discharge Date/Time: 10/22/24 17:38
--- NOTE | 2024-10-23 18:13 | P.DS_ITS ---
DS: Providers Provider Date of Service: 10/22/24 Date of admission: 10/18/24 17:57 Date of discharge: 10/22/24 Primary care physician: Warner Hinkle MD Admitting clinician: Yumiko Keller Attending physician on admission: García Velasquez Consults: 10/18/24 17:41 Consult to Thoracic Surgery Routine Consulting Provider: Scooter España Reason for consultation: Chest tube management 10/18/24 18:10 Addiction Medicine Routine Consulting Provider: Addiction Covering Reason for consultation: Opioid use disorder 10/19/24 08:10 Consult to Pulmonology Routine Consulting Provider: Freddie Morin Reason for consultation: loculated pleural effusion, fibrinolysis Has provider been notified: No Attending physician on discharge: García Velasquez Discharging clinician: Abbie Burnette DS: Diagnosis Discharge Diagnosis (1) Opioid use disorder: Status: Acute DS: Summary Hospital Course Hospital Course: HPI on admission by Yumiko Keller PA-C 10/18: Chief Complaint: SOB and chest pain Pt is a 59-year-old [place]inean-speaking male with a PMH significant for asthma?and opioid use disorder who presents to the ED with?worsening SOB, PLUNKETT, and left- sided chest pain x4 days. Pt reports SOB and chest pain worsened with walking. Chest pain is sharp and stabbing, and nonradiating. Reports he just can not catch his breath when he walks. Denies cough, fever, or chills. Has hx of opioid use disorder, no longer on methadone for at least the past year. Reports only snorts heroin, last used late last night/early this morning. Denies hx of IVDU or tobacco use. No nausea, vomiting, abdominal pain. Denies lower leg extremity swelling or pain. In the ED pt was febrile up to 100.9, tachycardic up to 109, and hypoxic at 80% on RA. Labs were significant for leukocytosis 18.6, normocytic anemia of 10.5/32.8, sodium 134, AST 53, ALT 45, alk-phos 285, initial troponin 193.1, BNP 303, and albumin 2.9. Tested negative for flu, RSV, and COVID. CTA of chest negative for pulmonary emboli but showed large left pleural effusion likely loculated. Also showed subsegmental atelectasis in left upper lobe and near complete atelectasis of left lower lobe. EKG demonstrated normal sinus rhythm without evidence of significant ST elevations or depressions, similar to prior. ED clinician contacted IR who performed ultrasound-guided thoracentesis and placed chest tube in left lung. Pt was treated with acetaminophen, DuoNebs, Mag sulfate, Solu-Medrol, azithromycin, ceftriaxone, and vancomycin. Pt will be admitted to the hospital for treatment and further evaluation of acute hypoxic respiratory failure in the setting of large left pleural effusion. Hospital Course: 59-year-old [place]inean-speaking male with a PMH significant for asthma?and opioid use disorder who presents to the ED with?worsening SOB, PLUNKETT, and left-sided chest pain x4 days. Pt will be admitted to the hospital for treatment and further evaluation of acute hypoxic respiratory failure in the setting of large left pleural effusion secondary to pneumonia with sepsis Acute hypoxic respiratory failure in the setting of left pleural effusion with concern for early empyema due to underlying pneumonia/sepsis Patient tachycardic, tachypneic, with leukocytosis on admission. Resolved with chest tube placement and antibiotic therapy. Blood cultures negative x2. Pleural fluid without any growth. CTA showing left large pleural effusion likely loculated with subsegmental atelectasis of JANET and near complete atelectasis of LLL IR performed US-guided thoracentesis with chest tube in place. Thoracic surgery followed closely monitoring chest tube. Pulmonology consulted who performed fibrinolysis with tPA x3 on vancomycin and Zosyn, started 10/18/2024. Continue cefpodoxime 200 mg twice daily and doxycycline 100 mg twice daily x5 days Select successfully weaned from O2 with resolution of pleural effusion Chest tube removed by thoracic surgery on 10/22. Discharged home with recommendation for follow-up in 1 week. VNA consulted for dressing changes Mild intermittent asthma Mild acute exacerbation in the setting of above Weaned from steroids, Woodrow scheduled Elevated troponin Initial troponin 193.1 with repeat down trending to 87.5, EKG without significant ischemic changes, Chest pain likely secondary to pleural effusion Monitor on telemetry Opioid use disorder Denies IVDU Seen by Addiction Team placed on methadone. Continue 50 mg methadone on discharge and follow-up with [facility] Time Attestation Discharge Coordination Time (in mins): 40 Quality: Safe Use of Opioids Does Pt have an Active Cancer Diagnosis on the Problem List?: No Quality: Stroke Does the patient have a stroke diagnosis?: No Physical Exam Vital Signs: Vital Signs: Last Vital Signs Temp 97.3 F 10/22/24 15:01 Pulse 81 10/22/24 15:36 Resp 18 10/22/24 15:36 BP 110/57 L 10/22/24 15:01 Pulse Ox 96 10/22/24 15:01 O2 Del Method Room Air 10/22/24 15:01 O2 Flow Rate 2 10/20/24 15:42 BMI result Body Mass Index 33.9 Discharge Plan Discharge Anticipated Discharge Date/Time: 10/22/24 13:14 Patient Disposition: Home Health Service Discharge Diagnosis: Loculated pleural effusion, pneumonia Referrals: Miguel SHAIKH [Outside] - 1 Week Name,MD Warner [Primary Care Provider] - 1 Week Scooter España MD [Physician] - 1 Week Discharge Medications: New cefpodoxime 200 mg tablet 200 mg PO BID Qty: 10 0RF Rx Instructions: must administer with a meal/food doxycycline hyclate 100 mg capsule 100 mg PO BID Qty: 10 0RF Discharge Orders: Discharge Order (Routine); Ordered 10/22/24 Ordered By: Abbie Burnette Diet: Advance to usual diet Activity on Discharge: As tolerated Stand Alone Forms: Patient Portal Discharge page Print Language: Guinean Activity Restrictions/Additional Instructions: Chest tube site dressing changes every other day with xeroform, 4x4 tape. Care Plan Goals: VNA to change dressings every other day Follow up with thoracic surgery Continue antibiotics as prescribed for treatment of pneumonia: cefpodoxime 200mg twice daily and doxycycline 100mg twice daily x 10 doses Follow up with [facility] for methadone management Health Concerns: Community-acquired pneumonia Large pleural effusion requiring chest tube Opiate use disorder Plan of Treatment: Continue following with thoracic surgery on an outpatient basis. VNA to change dressings every other day Antibiotics as prescribed above Follow-up with PCP Assessment: See above See discharge summary Discharge Date/Time: 10/22/24 17:38
== END 2024-10-22 17:38 | disposition home health service (06) | DRG 720 ==
LOC: HO.ED 15:41 → HO.EDOVER 18:21 → HO.IMC 19:27
PROVIDERS: Physician Assistant; Physician Assistant Medical; Student in an Organized Health Care Education/Training Program; Admitting Provider Student in an Organized Health Care Education/Training Program; Emergency Provider Emergency Medicine; PCP Internal Medicine Geriatric Medicine; Visit Provider Physician Assistant
PROC: 0W9B30Z Drainage of Left Pleural Cavity with Drainage Device, Percutaneous Approach (ICD-10-PCS; CPT 32551; principal; 2024-10-18 15:30)
DX: A41.9 Sepsis, unspecified organism (principal); J96.01 Acute respiratory failure with hypoxia; J86.9 Pyothorax without fistula; J18.9 Pneumonia, unspecified organism; J91.8 Pleural effusion in other conditions classified elsewhere; J45.21 Mild intermittent asthma with (acute) exacerbation; F11.20 Opioid dependence, uncomplicated; J98.11 Atelectasis; Z20.822 Contact with and (suspected) exposure to COVID-19; Z87.891 Personal history of nicotine dependence
CPT/HCPCS: 0241U; 32557; 36415; 71045; 71275; 80048; 80053; 80202; 80307; 82565; 82803; 83605; 83615; 83880; 83986; 84157; 84484; 85025; 85027; 85610; 85730; 87040; 87070; 87073; 87205; 89051; 93005; 94640; 99285; C1729; J0131; J0456; J0696; J1650; J1885; J2003; J2060; J2270; J2543; J2919; J2997; J3370; J3371; J3475; Q9967; S9485

== ENCOUNTER → 2024-10-18 11:30 | Outpatient (BNV) | payer MEDICAID, SELFPAY | PROVIDERS: Admitting Provider Student in an Organized Health Care Education/Training Program; Emergency Provider Emergency Medicine; Visit Provider Internal Medicine Cardiovascular Disease | DX: R06.09 Other forms of dyspnea (principal); R94.31 Abnormal electrocardiogram [ECG] [EKG]; I49.1 Atrial premature depolarization | CPT/HCPCS: 93010 ==

== ENCOUNTER → 2024-10-18 11:52 | Outpatient (BNV) | payer MEDICAID, SELFPAY | PROVIDERS: Emergency Provider Emergency Medicine; Visit Provider Radiology Diagnostic Radiology | DX: J90 Pleural effusion, not elsewhere classified (principal) | CPT/HCPCS: 32557; 71275 ==

== ENCOUNTER 2024-10-18 17:57 | Outpatient (BNV) | payer MEDICAID, SELFPAY | END 2024-10-19 06:00 | PROVIDERS: Admitting Provider Student in an Organized Health Care Education/Training Program; Emergency Provider Emergency Medicine; Visit Provider Specialist | DX: J90 Pleural effusion, not elsewhere classified (principal) | CPT/HCPCS: 71045 ==

== ENCOUNTER 2024-10-18 17:57 | Outpatient (BNV) | payer MEDICAID, SELFPAY | END 2024-10-20 07:42 | PROVIDERS: Admitting Provider Student in an Organized Health Care Education/Training Program; Emergency Provider Emergency Medicine; PCP Internal Medicine Geriatric Medicine; Visit Provider Radiology Diagnostic Radiology | DX: J90 Pleural effusion, not elsewhere classified (principal) | CPT/HCPCS: 71045 ==

== ENCOUNTER 2024-10-18 17:57 | Outpatient (BNV) | payer MEDICAID, SELFPAY | END 2024-10-21 11:00 | PROVIDERS: Admitting Provider Student in an Organized Health Care Education/Training Program; Emergency Provider Emergency Medicine; PCP Internal Medicine Geriatric Medicine; Visit Provider Radiology Vascular & Interventional Radiology | DX: J90 Pleural effusion, not elsewhere classified (principal) | CPT/HCPCS: 71045 ==

== ENCOUNTER 2024-10-18 17:57 | Outpatient (BNV) | payer MEDICAID, SELFPAY | END 2024-10-22 08:00 | PROVIDERS: Admitting Provider Student in an Organized Health Care Education/Training Program; Emergency Provider Emergency Medicine; PCP Internal Medicine Geriatric Medicine; Visit Provider Radiology Diagnostic Radiology | DX: Z48.03 Encounter for change or removal of drains (principal) | CPT/HCPCS: 71045 ==

== ENCOUNTER → 2024-10-18 17:57 | Outpatient (BNV) | payer MEDICAID, SELFPAY | PROVIDERS: Admitting Provider Student in an Organized Health Care Education/Training Program; Emergency Provider Emergency Medicine; PCP Internal Medicine Geriatric Medicine; Visit Provider Nurse Practitioner Psychiatric/Mental Health | DX: F11.90 Opioid use, unspecified, uncomplicated (principal) | CPT/HCPCS: 99222; 99232 ==

== ENCOUNTER → 2024-10-18 17:57 | Outpatient (BNV) | payer MEDICAID, SELFPAY | PROVIDERS: Admitting Provider Student in an Organized Health Care Education/Training Program; Emergency Provider Emergency Medicine; PCP Internal Medicine Geriatric Medicine; Visit Provider Internal Medicine Pulmonary Disease | DX: R09.02 Hypoxemia (principal); J90 Pleural effusion, not elsewhere classified | CPT/HCPCS: 99222 ==

== ENCOUNTER → 2024-10-18 17:57 | Outpatient (BNV) | payer MEDICAID, SELFPAY | PROVIDERS: Admitting Provider Student in an Organized Health Care Education/Training Program; Emergency Provider Emergency Medicine; Visit Provider Student in an Organized Health Care Education/Training Program | DX: A41.9 Sepsis, unspecified organism (principal); J96.01 Acute respiratory failure with hypoxia; J90 Pleural effusion, not elsewhere classified; F11.90 Opioid use, unspecified, uncomplicated | CPT/HCPCS: 99223; 99232; 99239; G0180 ==

== ENCOUNTER → 2024-10-18 17:57 | Outpatient (BNV) | payer MEDICAID, SELFPAY | PROVIDERS: Admitting Provider Student in an Organized Health Care Education/Training Program; Emergency Provider Emergency Medicine; PCP Internal Medicine Geriatric Medicine; Visit Provider Physician Assistant Surgical | DX: J90 Pleural effusion, not elsewhere classified (principal); A41.9 Sepsis, unspecified organism | CPT/HCPCS: 99222; 99232; 99233 ==

== ENCOUNTER 2024-10-29 14:05 | Outpatient (AMB) | payer MEDICAID, SELFPAY ==
--- NOTE | 2024-10-29 14:06 | A.OFFVIS_ITS ---
Intake Visit Reasons: wound check Intake Note: Patient here s/p pleural effusion. Tube removed on 10-22-34 Patient c/o: reports tube placement healing well. Project Manager Retail Required: No Accompanied by: Self / Same As Patient Allergies ? Environmental Allergy (Unknown, Uncoded 10/29/24 14:08) asthma exacerbation HPI Comments Details: Patient was follow-up status post recent hospitalization for left pleural effusion requiring tube thoracostomy. At present, he has no respiratory issues or complaints. He is otherwise doing well. [facility] Medical History Asthma exacerbation Social History Household Members: Unknown / Unable to assess Housing: Unknown / Unable to assess Alcohol intake: former Patient Tobacco Use Status: Former Tobacco user Physical Exam Chest Other: Chest breath sounds bilaterally. Chest tube site well healed. Assessment & Plan Assessment & Plan (1) Pleural effusion: Code(s): J90 - Pleural effusion, not elsewhere classified Category: Surgical Plan Patient was been given local instructions, and will otherwise follow-up p.r.n.. All questions answered. Coding Level of Care Code Est Pt Level 4 (51515) Diagnoses Pleural effusion J90
--- OUTSIDE RECORDS SUMMARY | 2024-10-29 16:02 | XMS_ITS | Encounter Summary ---
Author Organization @[employer] Address [address] [place] [address] Care Team Providers Care Security Systems Engineer Name Role Phone Name, Warner JENKINS Primary Care Provider [phone] Reason for Visit * Reason Comments Transition Of Care (Tcm) HDF- unschedule d LVM Encounter Details Date Type Department Care Team ([facility] st Contact Info) Description 10/23/2024 Patient Outreach [facility] [address], [place] [id number] Name, MD Warner [address] [place] [address] Transition Of Care (Tcm) (HDF- unscheduled LVM ) Social History Tobacco Use Types Packs/Day Years [...] AM EDT documented as of this encounter Miscellaneous Notes * Significant Event - Lakhwinder Arana - 10/23/2024 1:45 PM EST 10/23/24 1254 Hospital Discharges and Admission for [facility] Type of Visit Hospital Admission Date of Admission/Visit 10/18/24 Date of Discharge 10/22/24 Facility [facility] Diagnosis Loculated pleural effusion Disposition Discharged Home Follow-Up Actions Follow-Up Needed None/self-monitoring Follow-Up Outcome Left Voicemail Initial Contact Date 10/23/24 CC Lakhwinder Luna placed outbound call to patient for HDF outreach. CC placing call to offer patient with an HDF appointment with provider. No answer at this time. Patient's name and were not confirmed. CC left detailed message educating patient on importance of following up with provider followingan inpatient admission. Provided contact information requesting a call back in order to schedule the HDF appointment. Patient educated via voicemail on extended clinic hours on Mondays and Wednesdays, and Walk-In Urgent Care Located in [facility] of [facility]. Patient provided with after-hours line for [facility], , which offer night time triage service and option to transfer to travel consultant provider if needed. CC will request Discharge summaries to scan into chart. CC will place additional outreach call within 2-5 business days. documented in this encounter Plan of Treatment Upcoming Encounters Date Type Department Care Team (Late st Contact Info) Description 12/28/2024 10:15 AM EDT Office Visit [facility] [address] [place] [address] Name, MD Warner [address] [place] [address] documented as of this encounter Visit Diagnoses Not on filedocumented in this encounter Additional Health Concerns Assessment Noted Time PHQ-9 Depression Total Score: 16 024 11:28 AM EDT documented as of this encounter Care Teams Security Systems Engineer Relationship Specialty Start Date End Date Name, [place] [address] PCP - General Internal Medicine 03/09/24 documented as of this encounter
--- OUTSIDE RECORDS SUMMARY | 2024-10-29 16:02 | XMS_ITS | Clinical Summary ---
Author Organization [employer] Address [address] [place] [address] Care Team Providers Care Java Enterprise Architect Name Role Phone Name, Warner JENKINS Primary Care Provider Allergies No known active allergies Medications * [...] treatment engagement. PLAN: 1. Follow up with [facility]: Recommended for follow-up: during OBAT appts 2. [...] Encounters Date Type Department Care Team Description 10/24/2024 Telephone [facility] [address] [place] [address] Name, MD [facility] Follow-up; Appointment Request 10/23/2024 Patient Outreach [facility] [address] [place] [address] Name, MD Warner Transition Of Care (Tcm) (HDF- unscheduled LVM ) 10/04/2024 Orders Only [facility] External Provider, [facility] 08/16/2024 Telephone [facility] [address] [place] [address] Brianna Rizzo [place] sep recalls from Last 3 Months Immunizations Name [...] Description 12/28/2024 10:15 AM EDT Office Visit [facility] [address] [place] [address] Name, MD Warner [address] [place] [address] Health Maintenance Due Date Last Done Comments [...] 05/29/2024, 05/29/2024 Depression Screening 05/29/2025 05/29/2024, 05/29/20 Tobacco Screening 05/29/2025 05/29/2024 DTaP/Tdap/Td Vaccines (2 [...] Procedure Name Priority Date/Time Associated Diagnosis Comments XR CHEST 1 VIEW Routine 10/22/2024 8:00 AM EST XR CHEST 1 VIEW Routine 10/21/2024 11:29 AM EST XR CHEST 1 VIEW Routine 10/20/2024 8:07 AM EST XR CHEST 1 VIEW Routine 10/19/2024 7:16 AM EST CELL COUNT W/DIFF, PLEURAL FLUID Routine 10/18/2024 4:30 PM EST US DRAIN THORACENTESIS Routine 4:00 PM EST CTA CHEST PE PROTOCAL Routine 10/18/2024 1:16 PM EST VENOUS BLOOD GAS Routine 10/18/2024 12:1 1 PM EST LD Routine 10/18/2024 11:50 AM EST SLIDE REVIEW Routine 10/18/2024 11:50 AM [...] Recently Relevant to Health Maintenance Results * XR Chest 1 View (10/22/2024 8:00 AM EST) Only the most recent of4 resultswithin the time period is included. Anatomical Region Laterality Modality Chest Radiographic Kristin ging 10/22/2024 8:00 AM EST Narrative 10/22/2024 8:43 AM EST ? [facility] ?[address] ?[place] [address] ?XRay Report ? Signed ? Patient: Carroll,Aldo ?MR#: [id number] ? : 1965 ?Acct:[id number] ? Age/Sex: 59 / M ?ADM Date: 10/18/24 ? Loc: HO.IMC ?486-1 ? Attending Dr: Abbie HIDALGO ? Ordering Physician: Scooter España MD ?? Date of Service: 10/22/24 ?? Procedure(s): XR chest 1V ?? Accession Number(s): [id number] ? cc: Warner Hinkle MD; Scooter España MD ? EXAMINATION: ?? XR CHEST ? CLINICAL INFORMATION: ?? Status post left chest tube removal ? COMPARISON: ?? October 21, 2024. ? TECHNIQUE: ?? Frontal view of the chest was obtained. ? FINDINGS: ?? Small tiny left-sided pneumothorax. ?? Pulmonary reticular pattern prominence of the interstitial markings. ?? Linear and patchy opacity right perihilar region. ?? Cardiomediastinal silhouette is enlarged, unchanged.. ? XR/XR chest 1V ?? IMPRESSION: ?? Small tiny left-sided pneumothorax. Recommend follow-up ? Electronically signed by: ??Jay Bangura MD ??10/22/2024 08:40 AM ?? EST RP ? Dictated By: ?Jay Mitchell MD ? Signed By: ?<Electronically signed by Jay Carmichael MD in OV> ? 10/22/24 0840 ? DD/ 0800 ? TD/TT: 10/22/24 0809 ? Sheet Metal Worker Supervisor: ? Procedure Note Alanna, Image - 10/22/[address] [address] XRay Report Signed Patient: Brent Hodges#: [id number] : 1965Acct:[id number] Age/Sex: 59 / MADM Date: 10/18/24 Loc: [facility] 486-[address]: Abbie HIDALGO Ordering Physician: Scooter España MD Date of Service: 10/22/24 Procedure(s): XR chest 1V Accession Number(s): [id number] cc: Name,Warner JENKINS; Scooter España MD EXAMINATION: XR CHEST CLINICAL INFORMATION: Status post left chest tube removal COMPARISON: October 21, 2024. TECHNIQUE: Frontal view of the chest was obtained. FINDINGS: Small tiny left-sided pneumothorax. Pulmonary reticular pattern prominence of the interstitial markings. Linear and patchy opacity right perihilar region. Cardiomediastinal silhouette is enlarged, unchanged.. XR/XR chest 1V IMPRESSION: Small tiny left-sided pneumothorax. Recommend follow-up Electronically signed by: Jay Bangura MD 10/22/2024 08:40 AM EST Dictated By: Jay Mitchell MD Signed By: <Electronically signed by Jay Carmichael MDin OV> 10/22/24 0840 DD/ 0800 TD/TT: 10/22/24 0809 Sheet Metal Worker Supervisor: [facility] External Provider IMG XR PROCEDURES Final Result * Cell Count w/Diff Pleural Fluid (10/18/2024 4:30 PM EST) WBC Pleural Fluid 1.215 X10*3/uL [facility] Comment:Body Fluid WBC is a total nucleated cell count.When a differential is performed, the specimen isconcentrated by cytocentrifugation. This sometimes resultsin the number of cells in the differential being greaterthan the actual cell count performed on thenon-concentrated specimen. RBC Pleural Fluid 0.015 X10*6/uL [facility] Comment:The reference interv al(s) and other method performancespecifications are unavailable for this body fluid.Comparison of the result with concentration in the blood,serum, or plasma is recommended. Neutrophils Pleural Fluid 64 % [facility] Lymphocytes Pleural Fluid 20 % [facility] Monocytes Pleural Fluid 13 % [facility] Eosinophils Pleural Fluid 3 % [facility] 10/18/2024 4:30 PM EST 10/18/2024 5:10 PM EST us Generic External Data Provider LAB BODY FLUIDS A ND STOOLS ORDERABLES Final Result Performing Organization Address [facility]/State/[facility] Co de Phone Number [facility] [address] [place] [address] [phone] * US DRAIN THORACENTESIS (10/18/2024 4:00 PM EST) Anatomical Region Laterality Modality Abdomen Ultrasound 10/18/2024 4:00 PM EST Narrative 10/23/2024 1:37 PM EST ? [facility] ?[address] ?[place] [address] ? Ultrasound Report ? Signed ? Patient: Aldo Hodges ?MR#: [id number] ? : 1965 ?Acct:[id number] ? Age/Sex: 59 / M ?ADM Date: 10/18/24 ? Loc: HO.IMC ?486-1 ? Attending Dr: Abbie HIDALGO ? Ordering Physician: Wally Cardona ?? Date of Service: 10/18/24 ?? Procedure(s): US drain thoracentesis ?? Accession Number(s): [id number] ? cc: Warner Hinkle MD; Wally Cardona ? PROCEDURE: ?? Ultrasound-guided chest tube placement ? HISTORY: ?? left pleural effusion ? MEDICATIONS: ?? 10 mL 1% lidocaine ? TECHNIQUE/FINDINGS ?? Appropriate preprocedural clinical history and imaging studies were ?? reviewed. The patient was brought to the department and placed in the ?? decubitus position. ? Ultrasound images of the left thorax were obtained to localize a ?? moderate multiloculated pleural effusionwith numerous septations. ?? Permanent ultrasound images were saved. A conversation was had with ?? referring provider to relay the ultrasound findings and confirm that a ?? chest tube was still desired. ? The risks and benefits and possible complications were discussed with ?? the patient and consent form was signed. An area of the patient's left ?? back was prepped and draped in the usual sterile fashion. 10 mL of 1% ?? lidocaine was used to obtain local anesthesia of the skin and deeper ?? tissues. The left pleural space was accessed with a 12 belgian locking ?? catheter utilizing trocar technique. The catheter was secured to the ?? skin with a single suture and a sterile dressing was applied over the ?? site. The catheter was then connected to a close chest drainage system. ? The patient tolerated the procedure well. There were no immediate ?? complications ? US/US drain thoracentesis ?? Impression: Ultrasound-guided left chest tube placement ? Electronically signed by: ??Jake Velazquez MD ??10/18/2024 04:40 PM EST RP ? Dictated By: ?Jake Velazquez MD ? Signed By: ?<Electronically signed by Jake Velazquez MD in OV> ?10/18/24 1640 ? DD/ 1600 ? TD/TT: 10/18/24 1630 ? Sheet Metal Worker Supervisor: ? Procedure Note Milli Mondragon - 10/23/2024 [place] [address] Ultrasound Report Signed Patient: Brent Hodges#: [id number] : 1965Acct:[id number] Age/Sex: 59 / MADM Date: 10/18/24 Loc: [facility] 486-[address]: Abbie HIDALGO Ordering Physician: Wally Cardona Date of Service: 10/18/24 Procedure(s): US drain thoracentesis Accession Number(s): [id number] cc: Warner Hinkle MD; Wally Cardona PROCEDURE: Ultrasound-guided chest tube placement HISTORY: left pleural effusion MEDICATIONS: 10 mL 1% lidocaine TECHNIQUE/FINDINGS Appropriate preprocedural clinical history and imaging studies were reviewed. The patient was brought to the department and placed in the decubitus position. Ultrasound images of the left thorax were obtained to localize a moderate multiloculated pleural effusionwith numerous septations. Permanent ultrasound images were saved. A conversation was had with referring provider to relay the ultrasound findings and confirm that a chest tube was still desired. The risks and benefits and possible complications were discussed with the patient and consent form was signed. An area of the patient's left back was prepped and draped in the usual sterile fashion. 10 mL of 1% lidocaine was used to obtain local anesthesia of the skin and deeper tissues. The left pleural space was accessed with a 12 belgian locking catheter utilizing trocar technique. The catheter was secured to the skin with a single suture and a sterile dressing was applied over the site. The catheter was then connected to a close chest drainage system. The patient tolerated the procedure well. There were no immediate complications US/US drain thoracentesis Impression: Ultrasound-guided left chest tube placement Electronically signed by: Jake Velazquez MD 10/18/2024 04:40 PM EST RP Dictated By: Jake Velazquez MD Signed By: <Electronically signed by Jake Velazquez MD in OV> 10/18/24 1640 DD/ 1600 TD/TT: 10/18/24 1630 Sheet Metal Worker Supervisor: [facility] External Provider IMG US PROCEDURES Final Result * CTA Chest PE Protocal (10/18/2024 1:16 PM EST) Anatomical Region Laterality Modality Body, Chest Computed Tomogra phy 10/18/2024 1:16 PM EST Narrative 10/18/2024 1:50 PM EST ? [facility] ?[address] ?[place] [address] ? CT Scan Report ? Signed ? Patient: Carroll,Aldo ?MR#: [id number] ? : 1965 ?Acct:[id number] ? Age/Sex: 59 / M ?ADM Date: 02/27/25 ? Loc: HO.ED ? Attending Dr: ? Ordering Physician: Kathi Rogers ?? Date of Service: 10/18/24 ?? Procedure(s): CT angio chest PE protocol ?? Accession Number(s): [id number] ? cc: Kathi Rogers; [facility] ? Report Number: ?? [id number]: Total DLP = ??309.00 mGy-cm ?? EXAMINATION: [...] ??Mart James MD ??10/18/2024 01:47 PM EST ? Dictated By: ?Mart James MD ? Signed By: ?<Electronically signed by Mart James MD in OV> ?10/18/24 1347 ? DD/ 1316 ? TD/TT: 10/18/24 1335 ? Sheet Metal Worker Supervisor: ? Procedure Note Alanna, Image - 10/18/[address] [place] [address] [address] Scan Report Signed Patient: Brent Hodges#: [id number] : 1965Acct:[id number] Age/Sex: 59 / MADM Date: 10/18/24 Loc: HO.ED Attending Dr: Ordering Physician: Kathi Rogers Date of Service: 10/18/24 Procedure(s): CT angio chest PE protocol Accession Number(s): [id number] cc: Kathi Rogers; [facility] Report Number: [id number]: Total DLP = 309.00 mGy-cm EXAMINATION: CT [...] 10/18/24 1347 DD/ 1316 TD/TT: 10/18/24 1335 Sheet Metal Worker Supervisor: us [facility] External Provider IMG CT PROCEDURES Final Result * (ABNORMAL) VENOUS BLOOD GAS (10/18/2024 12:11 PM EST) VBG pH 7.45(H) 7.32 - 7.43 [facility] Comment:METER #: [id number] additional_comment: Cb hernaso VBG PCO2 55 mmHg [facility] Comment:METER #: [id number] additional_comment: Cb hernaso VBG PO2 73 mmHg [facility] Comment:METER #: [id number] additional_comment: Cb hernaso VBG Base Excess 12.9 mmol/L [facility] Comment:METER #: [id number] additional_comment: Cb hernaso VBG HCO3 38(H) 22 - 26 mmol/L [facility] Comment:METER #: [id number] additional_comment: Cb hernaso O2 Sat, Beau 97.0 % [facility] Comment:METER #: [id number] additional_comment: Cb hernaso 10/18/2024 12:1 1 PM EST 10/18/2024 12:15 PM EST Generic External Data Provider LAB BLOOD ORDERAB LES Final Result [facility] [address] [place] [address] [phone] * Slide Review (10/18/2024 11:50 AM EST) Slide Review VERIFIED [facility] 10/18/2024 11:5 0 AM EST 10/18/2024 11:55 AM EST Generic External Data Provider LAB BLOOD ORDERAB LES Final Result Performing Organization Address City/[facility]/ZIP Co de Phone Number [facility] [address] [place] [address] [phone] * (ABNORMAL) High Sensitivity Troponin I (10/18/2024 11:50 AM EST) TROPONIN I HIGH SENSITIVITY 193.1(HH) <3.5 - 35.0 ng/L [facility] Comment:Critical value for H S-TNI Results called to and read backby: SHELDON Person calling: MANAS Date: 10/18/24Time:1226The Khan high sensitivity Troponin-I results should beused in conjunction with other diagnostic information suchas ECG, clinical observations and information, and patientsymptoms to aid in the diagnosis of IA. 10/18/2024 11:5 0 AM EST 10/18/2024 11:55 AM EST us Generic External Data Provider LAB BLOOD ORDERAB LES Final Result [facility] [address] [place] [address] [phone] * SARS-CoV-2 RNA, Influenza A/B, and RSV RNA, Ql NAAT (10/18/2024 11:50 AM EST) Influenza A PCR NEGATIVE Negative [facility] Influenza B PCR NEGATIVE Negative [facility] Resp Syncy Virus RNA Qual PCR NEGATIVE Negative [facility] SARS COV2 PCR NEGATIVE Negative [facility] Comment:All test results mus t be [...] use by authorized laboratories.Testing performed on the [employer] GeneXpert utilizingreal-time RT-PCR.All SARS CoV2 and positive influenza A/B results arereported to [facility]. 10/18/2024 11:5 0 AM EST 10/18/2024 11:55 AM EST us Generic External Data Provider LAB MICROBIOLOGY - GENERAL ORDERABLES Final Result [facility] [address] [place] [phone] [phone] * (ABNORMAL) CBC auto differential (10/18/2024 11:50 AM EST) White Blood Count 18.6(H) 4.8 - 10.8 X10*3/uL [facility] Red Blood Count 3.57(L) 4.60 - 5.80 X10*6/uL [facility] Hemoglobin 10.5(L) 14.0 - 18.0 g/dl [facility] Hematocrit 32.8(L) 42.0 - 52.0 % [facility] Mean Corpuscular Volume 91.9 80.0 - 98.0 fL [facility] Mean Corpuscular Hemoglobin 29.4 27.0 - 33.0 pg [facility] Mean Corpuscular HGB Conc 32.0 31.0 - 36.0 g/dl [facility] Red Cell Distribution Width 12.9 11.0 - 16.0 % [facility] Platelet Count 417(H) 160 - 400 X10*3/uL [facility] Mean Platelet Volume 9.5 9.4 - 12.4 fL [facility] Neutrophils Percent Auto 76.8(H) 45 - 73 % [facility] Imm Gran Pct Auto 0.6(H) 0.0 - 0.4 % [facility] Lymphocytes Percent Auto 8.8(L) 20 - 40 % [facility] Monocytes Percent Auto 13.3(H) 2 - 11 % [facility] Eosinophils Percent Auto 0.2 0 - 4 % [facility] Basophils Percent Auto 0.3 0 - 2 % [facility] NRBC Pct Auto 0.0 0.0 - 0.2 /100WBC [facility] Neutrophils Absolute Auto 14.3(H) 2.0 - 8.3 x10*3/uL [facility] Imm Gran Abs Auto 0.12(H) 0.00 - 0.03 X10*3/uL [facility] Lymphocytes Absolute Auto 1.6 1.2 - 4.9 X10*3/uL [facility] Monocytes Absolute Auto 2.5(H) 0.1 - 1.2 X10*3/uL [facility] Eosinophils Absolute Auto 0.0 0.0 - 0.4 X10*3/uL [facility] Basophils Absolute Auto 0.1 0.0 - 0.2 X10*3/uL [facility] NRBC Abs Auto 0.000 0.0 - 0.012 X10*3/uL [facility] 10/18/2024 11:5 0 AM EST 10/18/2024 11:55 AM EST Generic External Data Provider LAB BLOOD ORDERAB LES Edited Result - Final Performing Organization Address [facility]/ZIP Co de Phone Number [facility] [address] [place] [phone] * Partial Thromboplastin Time, Activated (APTT) (10/18/2024 11:50 AM EST) Partial Thromboplastin Time 28.4 26.0 - 36.8 SEC [facility] Comment:For information rega rding the monitoring of direct thrombininhibitors, please refer to Pharmacy. 10/18/2024 11:5 0 AM EST 10/18/2024 11:55 AM EST us Generic External Data Provider LAB BLOOD ORDERAB LES Final Result Performing Organization Address [facility]/ZIP Co de Phone Number [facility] [address] [place] [phone] * (ABNORMAL) Prothrombin Time-INR (10/18/2024 11:50 AM EST) Prothrombin Time 14.2(H) 10.9 - 12.4 SEC [facility] INTERNATIONAL NORM RATIO 1.2(H) 0.9 - 1.1 [facility] Comment:INTERNATIONAL NORMAL IZED RATIO (INR) [...] ORDERAB LES Final Result Performing Organization Address [facility] de Phone Number [facility] [address] [place] [phone] * (ABNORMAL) B Type Natriuretic Peptide (BNP) (10/18/2024 11:50 AM EST) Pathologist [facility] B Type Natriuretic Peptide 303(H) <100 pg/mL [facility] Comment:For those patients w ho are being treated with Natrecor(nesiritide, recombinant BNP), BNP testing should beperformed at least two hours post treatment in order toensure that only endogenous levels of BNP are detected. 10/18/2024 11:5 0 AM EST 10/18/2024 11:55 AM EST Generic External Data Provider LAB BLOOD ORDERAB LES Final Result Performing Organization Address [facility] Co de Phone Number [facility] [address] [place] [phone] * (ABNORMAL) Lactate Dehydrogenase (LD) (10/18/2024 11:50 AM EST) Lactate Dehydrogenase 474(H) 118 - 273 U/L [facility] 10/18/2024 11:5 0 AM EST 10/18/2024 11:55 AM EST us Generic External Data Provider LAB BLOOD ORDERAB LES Final Result Performing Organization Address City/[facility]/ZIP Co de Phone Number [facility] [address] [place] [address] [phone] * Lactic Acid (10/18/2024 11:50 AM EST) Lactic Acid 0.7 0.5 - 2.0 mmol/L [facility] 10/18/2024 11:5 0 AM EST 10/18/2024 11:55 AM EST Generic External Data Provider LAB BLOOD ORDERAB LES Final Result Performing Organization Address [facility] Co de Phone Number [facility] [address] [place] [address] [phone] * (ABNORMAL) Comprehensive Metabolic Panel (10/18/2024 11:50 AM EST) Sodium 134(L) 135 - 145 mmol/L [facility] Potassium 4.5 3.3 - 5.1 mmol/L [facility] Chloride 97 96 - 108 mmol/L [facility] Carbon Dioxide 31(H) 22 - 29 mmol/L [facility] Anion Gap 11(L) 12 - 20 [facility] Urea Nitrogen (BUN) 16 9 - 16 mg/dL [facility] Creatinine, Serum 0.61 0.5 - 1.4 mg/dL [facility] Creatinine Clr Calc Pharmacy 126.6 [facility] Comment:eGFR (calculated fro m the MDRD study equation) and eCrCl(calculated from the Cockcroft-Gault equation) are based ondifferent parameters and may not yield comparable results.If eCrCl result is absurd, please check patient'sheight/weight. Estimated Glomerular Filt Rate >60 [facility] Comment:Chronic Kidney Disea se: Estimated GFR < 60 mL/min/1.04o4Rfxkkg Kidney Disease: Estimated GFR < 15 mL/min/1.73m2 Glucose 111 60 - 115 mg/dL [facility] Calcium 8.2(L) 8.4 - 10.2 mg/dL [facility] Bilirubin, Total 0.7 0.0 - 1.0 mg/dL [facility] Aspartate Amino Transferase 53(H) 5 - 37 U/L [facility] Alanine Aminotransferase 45(H) 0 - 40 U/L [facility] Total Protein 6.8 6.5 - 8.0 g/dL [facility] Albumin Level 2.9(L) 3.5 - 5.0 g/dL [facility] Alkaline Phosphatase 285(H) 39 - 117 U/L [facility] 10/18/2024 11:5 0 AM EST 10/18/2024 11:55 AM EST us Generic External Data Provider LAB BLOOD ORDERAB LES Final Result [facility] [address] [place] [address] [phone] * CT Cervical Spine w/o Contrast (10/04/2024 8:04 AM EST) Anatomical Region Laterality Modality Spine, C-spine Computed Tomogra phy 10/04/2024 8:04 AM EST Narrative 10/04/2024 9:03 AM EST ? [facility] ?[address] ?[place] [address] ? [place] Scan Report ? Signed ? Patient: Carroll Kunz,Aldo ?MR#: [id number] ?? [id number] ? : 1965 ?Acct:[id number] ? Age/Sex: 59 / M ?ADM Date: //25 ? Loc: HO.ED ? Attending Dr: ? Ordering Physician: Deborah Oreilly ?? Date of Service: 10/04/24 ?? Procedure(s): CT cervical spine wo IV con ?? Accession Number(s): [id number] ? cc: Deborah Oreilly; Name,Warner JENKINS ? Report Number: ?? [id number]: Total DLP = ?0.00 mGy-cm ?? EXAMINATION: [...] DD/ 0804 ? TD/TT: 10/04/24 0842 ? Sheet Metal Worker Supervisor: ? Procedure Note Donotuseinterpreter, Image - 10/04/[address] [address] [place] Scan Report Signed Patient: Brent Link#: [id number] : 1965Acct:[id number] Age/Sex: 59 / MADM Date: 10/04/24 Loc: HO.ED Attending Dr: Ordering Physician: Deborah Oreilly Date of Service: 10/04/24 Procedure(s): CT cervical spine wo IV con Accession Number(s): [id number] cc: Deborah Oreilly; Name,Warner JENKINS Report Number: [id number]: Total DLP = 0.00 mGy-cm EXAMINATION: CT [...] Eh Guillaume MD 10/04/2024 08:59 AM EST RP Dictated By: Eh Guillaume MD Signed By: <Electronically signed by Eh Guillaume MD in OV> 10/04/24 0859 DD/ 0804 TD/TT: 10/04/24 0842 Sheet Metal Worker Supervisor: [facility] External Provider IMG CT PROCEDURES Edited Result - Final * CT Sinus Facial Bones w/o Contrast (10/04/2024 7:06 AM EST) Anatomical Region Laterality Modality Computed Tomogra phy 10/04/2024 7:06 AM EST Narrative 10/04/2024 8:58 AM EST ? [facility] ?[address] ?[place] [address] ? [place] Scan Report ? Signed ? Patient: Carroll KunzAldo ?MR#: [id number] ?? [id number] ? : 1965 ?Acct:[id number] ? Age/Sex: 59 / M ?ADM Date: 10/04/24 ? Loc: HO.ED ? Attending Dr: ? Ordering Physician: Deborah Oreilly ?? Date of Service: 10/04/24 ?? Procedure(s): CT facial bones wo IV con ?? Accession Number(s): [id number] ? cc: Deborah Oreilly; Name,Warner JENKINS ? Report Number: ?? [id number]: Total DLP = ??307.00 mGy-cm ?? EXAMINATION: [...] MD in OV> ?10/04/24 0856 ? DD/ 5 ? TD/TT: 10/04/2442 ? Sheet Metal Worker Supervisor: ? Procedure Note Alanna, Milli - 10/04/[address] [place] [address] [address] Scan Report Signed Patient: Brent Link#: [id number] : 1965Acct:[id number] Age/Sex: 59 / MADM Date: 10/04/24 Loc: HO.ED Attending Dr: Ordering Physician: Deborah Oreilly Date of Service: 10/04/24 Procedure(s): CT facial bones wo IV con Accession Number(s): [id number] cc: Deborah Oreilly; Name,Warner JENKINS Report Number: [id number]: Total DLP = 307.00 mGy-cm EXAMINATION: CT [...] 10/04/24 0856 DD/ 0706 TD/TT: 10/04/24 0842 Sheet Metal Worker Supervisor: [facility] External Provider IMG CT PROCEDURES Edited Result - Final * CT Head w/o Contrast (10/04/2024 7:06 AM EST) Anatomical Region Laterality Modality Head, Neck Computed Tomogra phy 10/04/2024 7:06 AM EST Narrative 10/04/2024 8:54 AM EST ? [facility] ?[address] ?[place] [address] ? CT Scan Report ? Signed ? Patient: Carroll Ze,Aldo ?MR#: [id number] ?? [id number] ? : 1965 ?Acct:[id number] ? Age/Sex: 59 / M ?ADM Date: 10/04/24 ? Loc: HO.ED ? Attending Dr: ? Ordering Physician: Deborah Oreilly ?? Date of Service: 10/04/24 ?? Procedure(s): CT head/brain wo IV con ?? Accession Number(s): [id number] ? cc: Deborah Oreilly; Name,Warner JENKINS ? Report Number: ?? [id number]: Total DLP = ??819.00 mGy-cm ?? EXAMINATION: [...] by Mart James MD in OV> ?10/04/24 08 ? DD/ 0706 ? TD/TT: 10/04/24 0842 ? Sheet Metal Worker Supervisor: ? Procedure Note Donotshonainterpreter, Image - 10/04/[address] [address] [place] Scan Report Signed Patient: Brent Link#: [id number] : 1965Acct:[id number] Age/Sex: 59 / MADM Date: 10/04/24 Loc: HO.ED Attending Dr: Ordering Physician: Deborah Oreilly Date of Service: 10/04/24 Procedure(s): CT head/brain wo IV con Accession Number(s): [id number] cc: Deborah Oreilly; Name,Warner JENKINS Report Number: [id number]: Total DLP = 819.00 mGy-cm EXAMINATION: CT [...] 10/04/24 0851 DD/ 0706 TD/TT: 10/04/24 0842 Sheet Metal Worker Supervisor: [facility] External Provider IMG CT PROCEDURES Edited Result - Final * Hepatitis C Antibody with Reflex to HCV, RNA, Quantitative, Real-Time PCR (06/06/2024 6:48 AM EDT) Hepatitis C Antibody Nonreactive Nonreactive [facility] Comment:Antibodies to HCV no t detected; does not exclude early acuteHCV infection. Blood Venous blood specimen / Unknown 06/06/2024 6:48 AM EDT 06/06/2024 6:48 AM EDT Warner Hinkle MD LAB BLOOD ORDERABLES Final Resul t [facility] [address] [place] [phone] * HIV-1/2 Antigen and Antibodies, Fourth Generation, with Reflexes (06/06/2024 6:48 AM EDT) HIV AB/AG Nonreactive Nonreactive [facility] Comment:HIV-1 p24 Ag and/or HIV-1/HIV-2 Ab not detected.A test result that is nonreactive does not exclude thepossibility of exposure to or infection with HIV-1 and/orHIV-2. Nonreactive results in this assay for individualswith prior exposure to HIV-1 and/or HIV-2 may be due toantigen and antibody levels that are below the limit ofdetection of this assay.The One[employer] Alinity HIV Ag/Ab Combo assay result andsupplemental assay results should be interpreted inconjunction with the patient's clinical presentation,history and other laboratory results. If the results areinconsistent with clinical evidence, additional testing issuggested to confirm the result. Blood Venous blood specimen / Unknown 06/06/2024 6:48 AM EDT 06/06/2024 6:48 AM EDT us Warner Hinkle MD LAB BLOOD ORDERABLES Final Resul t 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
--- OUTSIDE RECORDS SUMMARY | 2024-10-29 16:02 | XMS_ITS | Clinical Summary ---
Author Organization [facility] Address [address] [place] [address] Care Team Providers Care Manager Management Name Role Phone Pcp, No Primary Care [...] ( - 2023-25 season) 2024 Care Teams Manager Management Relationship Specialty Start Date End Date Pcp, No PCP - General General Medicine 08/19/16
--- OUTSIDE RECORDS SUMMARY | 2024-10-29 16:02 | XMS_ITS | Encounter Summary ---
Demographics Address [address] [facility] [address] [place] [address] Mobile Phone Home Phone Work Phone Preferred Language es Marital Status Single Yazidi Affiliation Unknown Race Other Race Ethnic Group or Author Organization [email or web address] Address [address] [place] [address] Care Team Providers Care [employer]oe [employer] Molder Name Role Phone Name, Warner JENKINS Primary Care Provider [phone] Encounter Details Date Type Department Care Team ([facility] st Contact Info) Description 10/04/2024 Orders Only [facility] External Provider, [facility] Social History Tobacco Use Types Packs/Day Years [...] Description 12/28/2024 10:15 AM EDT Office Visit [facility] [address] [place] [address] Name, MD Warner [address] [place] [address] documented as of this encounter Procedures Procedure [...] PEPTIDE (BNP) Routine 10/18/2024 11:50 AM EST LD Routine 10/18/2024 11:50 AM EST LACTIC ACID Routine 10/18/2024 11:50 AM EST COMPREHENSIVE METABOLIC PANEL Routine 10/18/2024 11:[address] CERVICAL SPINE WO CONTRAST Routine 10/04/2024 8:[address] SINUS FACIAL BONES WO CONTRAST Routine 10/04/2024 7:[address] HEAD WO CONTRAST Routine 10/04/2024 7 :06 AM EST documented in this encounter Results * XR Chest 1 View (10/22/2024 8:00 AM EST) Anatomical Region Laterality Modality Chest Radiographic Kristin ging 10/22/2024 8:00 AM EST Narrative 10/22/2024 8:43 AM EST ? [facility] ?[address] ?[place] [address] ?XRay Report ? Signed ? Patient: Carroll,Aldo ?MR#: [id number] ? : 1965 ?Acct:[id number] ? Age/Sex: 59 / M ?ADM Date: 02/27/25 ? Loc: HO.[facility]C ?486-1 ? Attending Dr: Abbie HIDALGO ? Ordering Physician: Scooter España MD ?? Date of Service: 10/22/24 ?? Procedure(s): XR chest 1V ?? Accession Number(s): [id number] ? cc: Warner Hinkle MD; Scooter España [...] DD/ 0800 ? TD/TT: 10/22/24 0809 ? Plaster Applicator: ? Procedure Note Alanna, Image - 10/22/[address] [address] XRay Report Signed Patient: Brent Hodges#: [id number] : 1965Acct:[id number] Age/Sex: 59 / MADM Date: 10/18/24 Loc: [facility] 486-[address]: Abbie HIDALGO Ordering Physician: Scooter España MD Date of Service: 10/22/24 Procedure(s): XR chest 1V Accession Number(s): [id number] cc: Warner Hinkle MD; Scooter España MD EXAMINATION: XR CHEST CLINICAL [...] Jay Bangura MD 10/22/2024 08:40 AM EST RP Dictated By: Jay Mitchell MD Signed By: <Electronically signed by Jay Carmichael MDin OV> 10/22/24 0840 DD/ 0800 TD/TT: 10/22/24 0809 Plaster Applicator: [facility] External Provider IMG XR PROCEDURES Final Result * XR Chest 1 View (10/21/2024 11:29 AM EST) Anatomical Region Laterality Modality Chest Radiographic Kristin ging 10/21/2024 11:2 9 AM EST Narrative 10/21/2024 11:30 AM EST ? [facility] ?[address] ?[place] [address] ?XRay Report ? Signed ? Patient: Carroll,Aldo ?MR#: [id number] ? : 1965 ?Acct:[id number] ? Age/Sex: 59 / M ?ADM Date: 10/18/24 ? Loc: HO.[facility] ?486-1 ? Attending Dr: Abbie HIDALGO ? Ordering Physician: Abbie Burnette ?? Date of Service: 10/21/24 ?? Procedure(s): XR chest 1V ?? Accession Number(s): [id number] ? cc: Abbie Burnette; Name,Warner JENKINS ? CLINICAL HISTORY: effusion ? 2 views chest ? Comparison: CR - XR CHEST 1V - 10/20/24 07:43 EST ? Findings: ?? Cardiac and mediastinal contours are normal. ?? Mild chronic interstitial prominence with scattered peribronchial ?? thickening. ?? No focal consolidation. No effusion. No pneumothorax. Left-sided pigtail ?? pleural drain noted ?? No acute osseous finding. ? Impression: ? No significant residual effusion. No pneumothorax. Left-sided pigtail ?? pleural drain noted ?? Mild chronic interstitial prominence with scattered peribronchial ?? thickening. No acute process. ? This document has been electronically signed by: Marquis Yo MD on ?? 10/21/2024 11:29:10 ? Dictated By: ?Marquis Yo MD ? Signed By: ?<Electronically signed by Marquis Yo MD in OV> ? 10/21/24 1130 ? DD/ 1129 ? TD/TT: 10/21/24 1129 ? Plaster Applicator: ? Procedure Note Donotuseinterpreter, Image - 10/21/[address] [address] XRay Report Signed Patient: Brent Hodges#: [id number] : 1965Acct:[id number] Age/Sex: 59 / MADM Date: 10/18/24 Loc: [facility] 486-[address]: Abbie HIDALGO Ordering Physician: Abbie Burnette Date of Service: 10/21/24 Procedure(s): XR chest 1V Accession Number(s): [id number] cc: Abbie Burnette; Name,Warner JENKINS CLINICAL HISTORY: effusion 2 views chest Comparison: CR - XR CHEST 1V - 10/20/24 07:43 EST Findings: Cardiac and mediastinal contours are normal. Mild chronic interstitial prominence with scattered peribronchial thickening. No focal consolidation. No effusion. No pneumothorax. Left-sided pigtail pleural drain noted No acute osseous finding. Impression: No significant residual effusion. No pneumothorax. Left-sided pigtail pleural drain noted Mild chronic interstitial prominence with scattered peribronchial thickening. No acute process. This document has been electronically signed by: Marquis Yo MD on 10/21/2024 11:29:10 Dictated By: Marquis Yo MD Signed By: <Electronically signed by Marquis Yo MD in OV> 10/21/24 1130 DD/ 1129 TD/TT: 10/21/24 1129 Plaster Applicator: us [facility] External Provider IMG XR PROCEDURES Edited Result - Final * XR Chest 1 View (10/20/2024 8:07 AM EST) Anatomical Region Laterality Modality Chest Radiographic Kristin ging 10/20/2024 8:07 AM EST Narrative 10/20/2024 8:08 AM EST ? [place] [facility] ?[address] ?[place] [address] ?XRay Report ? Signed ? Patient: Carroll,Aldo ?MR#: [id number] ? : 1965 ?Acct:[id number] ? Age/Sex: 59 / M ?ADM Date: 10/18/24 ? Loc: HO.[facility] ?486-1 ? Attending Dr: Abbie HIDALGO ? Ordering Physician: Scooter España MD ?? Date of Service: 10/20/24 ?? Procedure(s): XR chest 1V ?? Accession Number(s): [id number] ? cc: Arin,Warner JENKINS; Scooter España MD ? CLINICAL HISTORY: L pleural collection status post chest tube placem ? 1 view chest x-ray ? Comparison: CR - XR CHEST 1V - 10/19/24 06:41 EST ? Findings: ?? Left-sided chest tube at the left lung base with left effusion ?? significantly diminished. ?? Possible airspace opacity left mid lung versus some remaining loculated ?? fluid or atelectasis. ?? Normal size heart. ?? No acute fracture. ? IMPRESSION: ?? 1. Left-sided chest tube at the left lung base with left effusion ?? significantly diminished. ?? 2. Possible airspace opacity left mid lung versus some remaining loculated ?? fluid or atelectasis. ? This document has been electronically signed by: Bret Paredes MD on ?? 10/20/2024 08:07:02 ? Dictated By: ?Bret Paredes MD ? Signed By: ?<Electronically signed by Bret Paredes MD in OV> ? 10/20/24 0808 ? DD/ 08 ? TD/TT: 10/20/24 08 ? Plaster Applicator: ? Procedure Note Milli Mondragon - 10/20/[address] [address] XRay Report Signed Patient: Brent Hodges#: [id number] : 1965Acct:[id number] Age/Sex: 59 / MADM Date: 10/18/24 Loc: .[facility] 486-[address]: Abbie HIDALGO Ordering Physician: Scooter España MD Date of Service: 10/20/24 Procedure(s): XR chest 1V Accession Number(s): [id number] cc: Warner Hinkle MD; Scooter España MD CLINICAL HISTORY: L pleural collection status post chest tube placem 1 view chest x-ray Comparison: CR - XR CHEST 1V - 10/19/24 06:41 EST Findings: Left-sided chest tube at the left lung base with left effusion significantly diminished. Possible airspace opacity left mid lung versus some remaining loculated fluid or atelectasis. Normal size heart. No acute fracture. IMPRESSION: 1. Left-sided chest tube at the left lung base with left effusion significantly diminished. 2. Possible airspace opacity left mid lung versus some remaining loculated fluid or atelectasis. This document has been electronically signed by: Bret Paredes MD on 10/20/2024 08:07:02 Dictated By: Bret Paredes MD Signed By: <Electronically signed by Bret Paredes MD in OV> 10/20/24 0808 DD/ 0807 TD/TT: 10/20/24 0807 Plaster Applicator: [facility] External Provider IMG XR PROCEDURES Edited Result - Final * XR Chest 1 View (10/19/2024 7:16 AM EST) Anatomical Region Laterality Modality Chest Radiographic Kristin ging 10/19/2024 7:16 AM EST Narrative 10/19/2024 7:18 AM EST ? [facility] ?[address] ?[place] [address] ?XRay Report ? Signed ? Patient: Carroll,Aldo ?MR#: [id number] ? : 1965 ?Acct:[id number] ? Age/Sex: 59 / M ?ADM Date: /27/25 ? Loc: HO.IMC ?486-1 ? Attending Dr: Ko Garcia MD ? Ordering Physician: Teresa Herrera PA-C ?? Date of Service: 10/19/24 ?? Procedure(s): XR chest 1V ?? Accession Number(s): [id number] ? cc: [facility]; Teresa Herrera PA-C ? CLINICAL HISTORY: f u left pleural effusion ? 1 view chest x-ray ? Comparison: 05/30/2022 ? Findings: ?? Portions of the exam are obscured by overlying material. ?? There is a large left pleural effusion with underlying consolidation. ?? Left chest catheter is in position in the inferior hemithorax. ?? Normal size heart. ?? No acute fracture. ? IMPRESSION: ?? 1. Large left pleural effusion with underlying consolidation ? This document has been electronically signed by: Preston Plummer MD on ?? 10/19/2024 07:16:59 ? Dictated By: ?Preston Plummer MD ? Signed By: ?<Electronically signed by Preston Plummer MD in OV> ?10/19/24 0717 ? DD/ 5 ? TD/TT: 10/19/247[address] ? Plaster Applicator: ? Procedure Note Donsidneyshonamodesta, Image - 10/19/2024 [place] [address] XRay Report Signed Patient: Brent Hodges#: [id number] : 1965Acct:[id number] Age/Sex: 59 / MADM Date: 10/18/24 Loc: [facility] 486-[address]: Ko Garcia MD Ordering Physician: Teresa Herrera PA-C Date of Service: 10/19/24 Procedure(s): XR chest 1V Accession Number(s): [id number] cc: [facility]; Teresa Herrera PA-C CLINICAL HISTORY: f u left pleural effusion 1 view chest x-ray Comparison: 05/30/2022 Findings: Portions of the exam are obscured by overlying material. There is a large left pleural effusion with underlying consolidation. Left chest catheter is in position in the inferior hemithorax. Normal size heart. No acute fracture. IMPRESSION: 1. Large left pleural effusion with underlying consolidation This document has been electronically signed by: Preston Plummer MD on 10/19/2024 07:16:59 Dictated By: Preston Plummer MD Signed By: <Electronically signed by Preston Plummer MD in OV> 10/19/2417 DD/ 5 TD/TT: 10/19/24715 Plaster Applicator: [facility] External Provider IMG XR PROCEDURES Final Result * Cell Count w/Diff Pleural Fluid (10/18/2024 4:30 PM EST) WBC Pleural Fluid 1.215 X10*3/uL [facility] Comment:Body Fluid WBC is a total nucleated cell count.When a differential is performed, the specimen isconcentrated by cytocentrifugation. This sometimes resultsin the number of cells in the differential being greaterthan the actual cell count performed on thenon-concentrated specimen. RBC Pleural Fluid 0.015 X10*6/uL [facility] Comment:The reference interv al(s) and other method performancespecifications are unavailable for this body fluid.Comparison of the result with concentration in the blood,serum, or plasma is recommended. Neutrophils Pleural Fluid 64 % [facility] Lymphocytes Pleural Fluid 20 % [facility] Monocytes Pleural Fluid 13 % [facility] Eosinophils Pleural Fluid 3 % [facility] 10/18/2024 4:30 PM EST 10/18/2024 5:10 PM EST us Generic External Data Provider LAB BODY FLUIDS A ND STOOLS ORDERABLES Final Result Performing Organization Address City/State/[facility] Co de Phone Number [facility] [address] [place] [phone] * US DRAIN THORACENTESIS (10/18/2024 4:00 PM EST) Anatomical Region Laterality Modality Abdomen Ultrasound 10/18/2024 4:00 PM EST Narrative 10/23/2024 1:37 PM EST ? [facility] ?[address] ?[place] [address] ? Ultrasound Report ? Signed ? Patient: Carroll,Aldo ?MR#: [id number] ? : 1965 ?Acct:[id number] ? Age/Sex: 59 / M ?ADM Date: 02/27/25 ? Loc: HO.IMC ?486-1 ? Attending Dr: Abbie HIDALGO ? Ordering Physician: Wally Cardona ?? Date of Service: 10/18/24 ?? Procedure(s): US drain thoracentesis ?? Accession Number(s): [id number] ? cc: Name,Warner JENKINS; Wally Cardona ? PROCEDURE: ?? Ultrasound-guided chest [...] pleural space was accessed with a 12 congolese locking ?? catheter utilizing trocar technique. The [...] Velazquez MD ??10/18/2024 04:40 PM EST RP ?? Workstation: [employer] ? Dictated By: ?Jake Velazquez MD ? Signed By: ?<Electronically signed by Jake Velazquez MD in OV> ?10/18/24 1640 ? DD/ 1600 ? TD/TT: 10/18/24 1630 ? Plaster Applicator: ? Procedure Note Milli Mondragon - 10/23/[address] [address] Ultrasound Report Signed Patient: Brent Hodges#: [id number] : 1965Acct:[id number] Age/Sex: 59 / MADM Date: 10/18/24 Loc: [facility] 486-[address]: Abbie HIDALGO Ordering Physician: Wally Cardona Date of Service: 10/18/24 Procedure(s): US drain thoracentesis Accession Number(s): [id number] cc: Arin,Warner JENKINS; Wally Cardona PROCEDURE: Ultrasound-guided chest tube placement [...] pleural space was accessed with a 12 congolese locking catheter utilizing trocar technique. The catheter [...] Jake Velazquez MD 10/18/2024 04:40 PM EST Dictated By: Jake Velazquez MD Signed By: <Electronically signed by Jake Velazquez MD in OV> 10/18/24 1640 DD/ 1600 TD/TT: 10/18/24 1630 Plaster Applicator: us [facility] External Provider IMG US PROCEDURES Final Result * CTA Chest PE Protocal (10/18/2024 1:16 PM EST) Anatomical Region Laterality Modality Body, Chest Computed Tomogra phy 10/18/2024 1:16 PM EST Narrative 10/18/2024 1:50 PM EST ? [facility] ?[address] ?[place] [address] ? CT Scan Report ? Signed ? Patient: Carroll,Aldo ?MR#: [id number] ? : 1965 ?Acct:[id number] ? Age/Sex: 59 / M ?ADM Date: 10/18/24 ? Loc: HO.ED ? Attending Dr: ? Ordering Physician: Kathi Rogers ?? Date of Service: 10/18/24 ?? Procedure(s): CT angio chest PE protocol ?? Accession Number(s): [id number] ? cc: Kathi Rogers; [facility] ? Report Number: ?? [id number]: Total DLP = ??309.00 mGy-cm ?? EXAMINATION: [...] DD/ 1316 ? TD/TT: 10/18/24 1335 ? Plaster Applicator: ? Procedure Note Milli Mondragon - 10/18/[address] [address] [address] Scan Report Signed Patient: Brent Hodges#: [id number] : 1965Acct:[id number] Age/Sex: 59 / MADM Date: 10/18/24 Loc: HO.ED Attending Dr: Ordering Physician: Kathi Rogers Date of Service: 10/18/24 Procedure(s): CT angio chest PE protocol Accession Number(s): [id number] cc: Kathi Rogers; [facility] Report Number: [id number]: Total DLP = 309.00 mGy-cm EXAMINATION: CT [...] 10/18/24 1347 DD/ 1316 TD/TT: 10/18/24 1335 Plaster Applicator: [facility] External Provider IMG CT PROCEDURES Final Result * (ABNORMAL) VENOUS BLOOD GAS (10/18/2024 12:11 PM EST) [facility] VBG pH 7.45(H) 7.32 - 7.43 [facility] Comment:METER #: [id number] additional_comment: Cb hernaso VBG PCO2 55 mmHg [facility] Comment:METER #: [id number] additional_comment: Cb hernaso VBG PO2 73 mmHg [facility] Comment:METER #: [id number] additional_comment: Cb hernaso VBG Base Excess 12.9 mmol/L [facility] Comment:METER #: [id number] additional_comment: Cb hernaso VBG HCO3 38(H) 22 - 26 mmol/L [facility] Comment:METER #: [id number] additional_comment: Cb hernaso O2 Sat, Beau 97.0 % [facility] Comment:METER #: [id number] additional_comment: Cb hernaso 10/18/2024 12:1 1 PM EST 10/18/2024 12:15 PM EST Generic External Data Provider LAB BLOOD ORDERAB LES Final Result [facility] [address] [place] [phone] * (ABNORMAL) Lactate Dehydrogenase (LD) (10/18/2024 11:50 AM EST) Lactate Dehydrogenase 474(H) 118 - 273 U/L [facility] 10/18/2024 11:5 0 AM EST 10/18/2024 11:55 AM EST Generic External Data Provider LAB BLOOD ORDERAB LES Final Result Performing Organization Address [facility]/ZIP Co de Phone Number [facility] [address] [place] [phone] * SARS-CoV-2 RNA, Influenza A/B, and RSV RNA, Ql NAAT (10/18/2024 11:50 AM EST) Pathologist [facility] Influenza A PCR NEGATIVE Negative [facility] Influenza B PCR NEGATIVE Negative [facility] Resp Syncy Virus RNA Qual PCR NEGATIVE Negative [facility] SARS COV2 PCR NEGATIVE Negative [facility] Comment:All test results mus t [...] use by authorized laboratories.Testing performed on the [employer] GeneXpert utilizingreal-time RT-PCR.All SARS CoV2 and positive influenza A/B results arereported to [facility]. 10/18/2024 11:5 0 AM EST 10/18/2024 11:55 AM EST us Generic External Data Provider LAB MICROBIOLOGY - GENERAL ORDERABLES Final Result Performing Organization Address [facility]/ZIP Co de Phone Number [facility] [address] [place] [phone] * Slide Review (10/18/2024 11:50 AM EST) Pathologist [facility] Slide Review VERIFIED [facility] 10/18/2024 11:5 0 AM EST 10/18/2024 11:55 AM EST us Generic External Data Provider LAB BLOOD ORDERAB LES Final Result [facility] [address] [place] [phone] * (ABNORMAL) CBC auto differential (10/18/2024 11:50 AM EST) White Blood Count 18.6(H) 4.8 - 10.8 X10*3/uL [facility] Red Blood Count 3.57(L) 4.60 - 5.80 X10*6/uL [facility] Hemoglobin 10.5(L) 14.0 - 18.0 g/dl [facility] Hematocrit 32.8(L) 42.0 - 52.0 % [facility] Mean Corpuscular Volume 91.9 80.0 - 98.0 fL [facility] Mean Corpuscular Hemoglobin 29.4 27.0 - 33.0 pg [facility] Mean Corpuscular HGB Conc 32.0 31.0 - 36.0 g/dl [facility] Red Cell Distribution Width 12.9 11.0 - 16.0 % [facility] Platelet Count 417(H) 160 - 400 X10*3/uL [facility] Mean Platelet Volume 9.5 9.4 - 12.4 fL [facility] Neutrophils Percent Auto 76.8(H) 45 - 73 % [facility] Imm Gran Pct Auto 0.6(H) 0.0 - 0.4 % [facility] Lymphocytes Percent Auto 8.8(L) 20 - 40 % [facility] Monocytes Percent Auto 13.3(H) 2 - 11 % [facility] Eosinophils Percent Auto 0.2 0 - 4 % [facility] Basophils Percent Auto 0.3 0 - 2 % [facility] NRBC Pct Auto 0.0 0.0 - 0.2 /100WBC [facility] Neutrophils Absolute Auto 14.3(H) 2.0 - 8.3 x10*3/uL [facility] Imm Gran Abs Auto 0.12(H) 0.00 - 0.03 X10*3/uL [facility] Lymphocytes Absolute Auto 1.6 1.2 - 4.9 X10*3/uL [facility] Monocytes Absolute Auto 2.5(H) 0.1 - 1.2 X10*3/uL [facility] Eosinophils Absolute Auto 0.0 0.0 - 0.4 X10*3/uL [facility] Basophils Absolute Auto 0.1 0.0 - 0.2 X10*3/uL [facility] NRBC Abs Auto 0.000 0.0 - 0.012 X10*3/uL [facility] 10/18/2024 11:5 0 AM EST 10/18/2024 11:55 AM EST us Generic External Data Provider LAB BLOOD ORDERAB LES Edited Result - Final [facility] [address] [place] [address] [phone] * (ABNORMAL) High Sensitivity Troponin I (10/18/2024 11:50 AM EST) TROPONIN I HIGH SENSITIVITY 193.1(HH) <3.5 - 35.0 ng/L [facility] Comment:Critical value for H S-TNI Results [...] Provider LAB BLOOD ORDERAB LES Final Result [facility] [address] [place] [phone] [phone] * (ABNORMAL) B Type Natriuretic Peptide (BNP) (10/18/2024 11:50 AM EST) B Type Natriuretic Peptide 303(H) <100 pg/mL [facility] Comment:For those patients w ho are being treated with Natrecor(nesiritide, recombinant BNP), BNP testing should beperformed at least two hours post treatment in order toensure that only endogenous levels of BNP are detected. 10/18/2024 11:5 0 AM EST 10/18/2024 11:55 AM EST us Generic External Data Provider LAB BLOOD ORDERAB LES Final Result [facility] [address] [place] [phone] * (ABNORMAL) Comprehensive Metabolic Panel (10/18/2024 11:50 AM EST) Sodium 134(L) 135 - 145 mmol/L [facility] Potassium 4.5 3.3 - 5.1 mmol/L [facility] Chloride 97 96 - 108 mmol/L [facility] Carbon Dioxide 31(H) 22 - 29 mmol/L [facility] Anion Gap 11(L) 12 - 20 [facility] Urea Nitrogen (BUN) 16 9 - 16 mg/dL [facility] Creatinine, Serum 0.61 0.5 - 1.4 mg/dL [facility] Creatinine Clr Calc Pharmacy 126.6 [facility] Comment:eGFR (calculated fro m the MDRD study equation) and eCrCl(calculated from the Cockcroft-Gault equation) are based ondifferent parameters and may not yield comparable results.If eCrCl result is absurd, please check patient'sheight/weight. Estimated Glomerular Filt Rate >60 [facility] Comment:Chronic Kidney Disea se: Estimated GFR < 60 mL/min/1.45o6Bexkrs Kidney Disease: Estimated GFR < 15 mL/min/1.73m2 Glucose 111 60 - 115 mg/dL [facility] Calcium 8.2(L) 8.4 - 10.2 mg/dL [facility] Bilirubin, Total 0.7 0.0 - 1.0 mg/dL [facility] Aspartate Amino Transferase 53(H) 5 - 37 U/L [facility] Alanine Aminotransferase 45(H) 0 - 40 U/L [facility] Total Protein 6.8 6.5 - 8.0 g/dL [facility] Albumin Level 2.9(L) 3.5 - 5.0 g/dL [facility] Alkaline Phosphatase 285(H) 39 - 117 U/L [facility] 10/18/2024 11:5 0 AM EST 10/18/2024 11:55 AM EST Generic External Data Provider LAB BLOOD ORDERAB LES Final Result Performing Organization Address [facility]/ZIP Co de Phone Number [facility] [facility] [address] [place] [phone] * Lactic Acid (10/18/2024 11:50 AM EST) Lactic Acid 0.7 0.5 - 2.0 mmol/L [facility] 10/18/2024 11:5 0 AM EST 10/18/2024 11:55 AM EST us Generic External Data Provider LAB BLOOD ORDERAB LES Final Result Performing Organization Address [facility] Co de Phone Number [facility] [address] [place] [phone] * Partial Thromboplastin Time, Activated (APTT) (10/18/2024 11:50 AM EST) Partial Thromboplastin Time 28.4 26.0 - 36.8 SEC [facility] Comment:For information rega rding the monitoring of direct thrombininhibitors, please refer to Pharmacy. 10/18/2024 11:5 0 AM EST 10/18/2024 11:55 AM EST Generic External Data Provider LAB BLOOD ORDERAB LES Final Result Performing Organization Address [facility] de Phone Number [facility] [address] [place] [phone] * (ABNORMAL) Prothrombin Time-INR (10/18/2024 11:50 AM EST) Prothrombin Time 14.2(H) 10.9 - 12.4 SEC [facility] INTERNATIONAL NORM RATIO 1.2(H) 0.9 - 1.1 [facility] Comment:INTERNATIONAL NORMAL IZED RATIO (INR) REFERENCE [...] ORDERAB LES Final Result Performing Organization Address [facility] de Phone Number [facility] [address] [place] [phone] * CT Cervical Spine w/o Contrast (10/04/2024 8:04 AM EST) Anatomical Region Laterality Modality Spine, C-spine Computed Tomogra phy 10/04/2024 8:04 AM EST Narrative 10/04/2024 9:03 AM EST ? [facility] ?[address] ?[place] [address] ? CT Scan Report ? Signed ? Patient: Carroll Ze,Aldo ?MR#: [id number] ?? 2532 ? : 1965 ?Acct:[id number] ? Age/Sex: 59 / M ?ADM Date: 02/13/25 ? Loc: HO.ED ? Attending Dr: ? Ordering Physician: Deborah Oreilly ?? Date of Service: 10/04/24 ?? Procedure(s): CT cervical spine wo IV con ?? Accession Number(s): [id number] ? cc: Deborah Oreilly; Name,Warner JENKINS ? Report Number: ?? [id number]: Total DLP = ?0.00 mGy-cm ?? EXAMINATION: [...] DD/ 0804 ? TD/TT: 10/04/24 0842 ? Plaster Applicator: ? Procedure Note Donsundayter, Image - 10/04/[address] [address] [address] Scan Report Signed Patient: Brent Link#: [id number] 2532 : 1965Acct:[id number] Age/Sex: 59 / MADM Date: 10/04/24 Loc: HO.ED Attending Dr: Ordering Physician: Deborah Oreilly Date of Service: 10/04/24 Procedure(s): CT cervical spine wo IV con Accession Number(s): [id number] cc: Deborah Oreilly; Name,Warner JENKINS Report Number: [id number]: Total DLP = 0.00 mGy-cm EXAMINATION: CT [...] 10/04/24 0859 DD/ 0804 TD/TT: 10/04/24 0842 Plaster Applicator: [facility] External Provider IMG CT PROCEDURES Edited Result - Final * CT Sinus Facial Bones w/o Contrast (10/04/2024 7:06 AM EST) Anatomical Region Laterality Modality Computed Tomogra phy 10/04/2024 7:06 AM EST Narrative 10/04/2024 8:58 AM EST ? [facility] ?[address] ?[place] [address] ? CT Scan Report ? Signed ? Patient: Carroll Kunz,Aldo ?MR#: [id number] ?? 2532 ? : 1965 ?Acct:[id number] ? Age/Sex: 59 / M ?ADM Date: 02/13/25 ? Loc: HO.ED ? Attending Dr: ? Ordering Physician: Deborah Oreilly ?? Date of Service: 10/04/24 ?? Procedure(s): CT facial bones wo IV con ?? Accession Number(s): [id number] ? cc: Deborah Oreilly; Name,Warner JENKINS ? Report Number: ?? [id number]: Total DLP = ??307.00 mGy-cm ?? EXAMINATION: [...] DD/ 0706 ? TD/TT: 10/04/24 0842 ? Plaster Applicator: ? Procedure Note Alanna, Image - 10/04/[address] [address] [address] Scan Report Signed Patient: Brent Link#: [id number] 2532 : 1965Acct:[id number] Age/Sex: 59 / MADM Date: 10/04/24 Loc: HO.ED Attending Dr: Ordering Physician: Deborah Oreilly Date of Service: 10/04/24 Procedure(s): CT facial bones wo IV con Accession Number(s): [id number] cc: Deborah Oreilly; Name,Warner JENKINS Report Number: [id number]: Total DLP = 307.00 mGy-cm EXAMINATION: CT [...] 10/04/24 0856 DD/ 0706 TD/TT: 10/04/24 0842 Plaster Applicator: us [facility] External Provider IMG CT PROCEDURES Edited Result - Final * CT Head w/o Contrast (10/04/2024 7:06 AM EST) Anatomical Region Laterality Modality Head, Neck Computed Tomogra phy 10/04/2024 7:06 AM EST Narrative 10/04/2024 8:54 AM EST ? [facility] ?[address] ?[place] [address] ? CT Scan Report ? Signed ? Patient: Aldo Link ?MR#: [id number] ?? 2532 ? : 1965 ?Acct:[id number] ? Age/Sex: 59 / M ?ADM Date: 10/04/24 ? Loc: HO.ED ? Attending Dr: ? Ordering Physician: Deborah Oreilly ?? Date of Service: 10/04/24 ?? Procedure(s): CT head/brain wo IV con ?? Accession Number(s): [id number] ? cc: Deborah Oreilly; Name,Warner JENKINS ? Report Number: ?? [id number]: Total DLP = ??819.00 mGy-cm ?? EXAMINATION: [...] DD/ 0706 ? TD/TT: 10/04/24 0842 ? Plaster Applicator: ? Procedure Note Milli Mondragon - 10/04/[address] [address] [place] Scan Report Signed Patient: Brent Link#: [id number] 2532 : 1965Acct:[id number] Age/Sex: 59 / MADM Date: 10/04/24 Loc: HO.ED Attending Dr: Ordering Physician: Deborah Oreilly Date of Service: 10/04/24 Procedure(s): CT head/brain wo IV con Accession Number(s): [id number] cc: Deborah Oreilly; Name,Warner JENKINS Report Number: [id number]: Total DLP = 819.00 mGy-cm EXAMINATION: CT [...] 10/04/24 0851 DD/ 0706 TD/TT: 10/04/24 0842 Plaster Applicator: [facility] External Provider IMG CT PROCEDURES Edited Result - Final documented in this encounter Visit Diagnoses Not on filedocumented in this encounter Additional Health Concerns Assessment Noted Time PHQ-9 Depression Total Score: 16 024 11:28 AM EDT documented as of this encounter Care Teams Shoe Parts Molder Relationship Specialty Start Date End Date Name, MD Warner [address] [place] [address] PCP - General Internal Medicine 03/09/24 documented as of this encounter
--- OUTSIDE RECORDS SUMMARY | 2024-10-29 16:02 | XMS_ITS | Encounter Summary ---
Author Organization [employer] Address [address] [facility] [address] [place] [address] Care Team Providers Care Predatory Game Hunter Name Role Phone Name, Warner JENKINS Primary Care Provider [phone] Reason for Visit * Reason Onset Date Comments Hospital Follow-up 10/24/2024 Appointment Request 10/24/2024 Encounter Details Date Type Department Care Team ([facility] st Contact Info) Description 10/24/2024 Telephone [facility] [address] [place] [address] Name, MD Warner [address] [place] [address] Hospital Follow-up; Appointment Request Social History Tobacco Use Types Packs/Day Years [...] as of this encounter Miscellaneous Notes * Telephone Encounter - Nat Zuñiga RN - 10/24/2024 9:10 AM EST TC placed to pt via [employer] historical interpreter ([employer] ID#[id number]) to schedule HDF per PCP request. Next available HDF on team is 11/08/24 at 10:00 AM with PCP. Individual that answered states Aldo is not available at this time. RN requested that the individual inform pt to call office back. Individual agreed to let pt know. Pt to follow up. documented in this encounter Plan of Treatment Upcoming Encounters Date Type Department Care Team (Late st Contact Info) Description 12/28/2024 10:15 AM EDT Office Visit [facility] [address] [place] [address] Name, MD Warner [address] [place] [address] documented as of this encounter Visit Diagnoses Not on filedocumented in this encounter Additional Health Concerns Assessment Noted Time PHQ-9 Depression Total Score: 16 024 11:28 AM EDT documented as of this encounter Care Teams Predatory Game Hunter Relationship Specialty Start Date End Date NameWarner MD [address] [place] [address] PCP - General Internal Medicine 03/09/24 documented as of this encounter
== END 2024-10-29 14:15 | disposition home or self-care (01) ==
LOC: HO.HGS 14:05
PROVIDERS: PCP Internal Medicine Geriatric Medicine; Visit Provider Surgery
DX: J90 Pleural effusion, not elsewhere classified (principal)
CPT/HCPCS: 99214

== ENCOUNTER → 2024-10-29 14:05 | Outpatient (BNVA) | payer MEDICAID, SELFPAY | PROVIDERS: PCP Internal Medicine Geriatric Medicine; Visit Provider Surgery | DX: Z09 Encounter for follow-up examination after completed treatment for conditions other than malignant neoplasm (principal); Z87.09 Personal history of other diseases of the respiratory system; Z98.890 Other specified postprocedural states | CPT/HCPCS: 99212 ==

== ENCOUNTER 2025-01-04 09:22 | Outpatient (REF) | payer MEDICAID, SELFPAY ==
--- OUTSIDE RECORDS SUMMARY | 2025-01-04 09:32 | XMS_ITS | Clinical Summary ---
Author Organization [facility] Address [address] [place] [address] Care Team Providers Care Meal Attendant Name Role Phone Pcp, No Primary Care [...] Recorded Sex Assigned at Not on file Legal Sex Male 7:52 PM EST Gender Identity Not on file Sexual Orientation [...] Zoster (Shingles) Vaccine (1 of 2) 2017 COVID-19 Vaccine ( - 2023-25 season) 2024 Influenza Vaccine 03/22/2025 Insurance MEDICAID OUT OF STATE [facility] Care Teams Meal Attendant Relationship Specialty Start Date End Date Pcp, No PCP - General General Medicine 08/19/16
--- OUTSIDE RECORDS SUMMARY | 2025-01-04 09:33 | XMS_ITS | Clinical Summary ---
Author Organization [employer] Address [address] [place] [address] Care Team Providers Care Band Builder Name Role Phone Name, Warner JENKINS Primary Care Provider [phone] Allergies No known active allergies Medications * [...] mouth at bedtime. 30 tablet 4 Active fluticasone furoate (Arnuity Ellipta) 100 MCG/ACT inhaler Inhale 1 puff Once per day. Rinse mouth with water after use to reduce aftertaste and incidence of candidiasis. Do not swallow. 1 each 5 12/29/19 26 Active albuterol 108 (90 Base) MCG/ACT inhaler Inhale 2 puffs every 6 (six) hours if needed for wheezing. 18 g 5 12/29/19 26 Active Active Problems Problem Noted Date Diagnosed [...] treatment engagement. PLAN: 1. Follow up with [facility]: Recommended for follow-up: during OBAT appts 2. [...] Encounters Date Type Department Care Team Description 12/28/2024 10:15 AM EDT Office [address] [facility] [address] [place] [address] Warner Hinkle MD Moderate persistent asthma without complication (Primary Dx); History of pneumonia; History of pleural effusion; Opioid use disorder; Encounter for immunization; Encounter for screening for malignant neoplasm of colon 12/28/2024 Travel 12/27/[address] [address] Ingrid Cooper [place] Chart Prep 11/02/2024 Population Health Risk Score [facility] ([facility]) Department [address] [place] [phone] Provider, Population Health Generic 10/24/[address] [address] Warner Hinkle MD Hospital Follow-up; Appointment Request 10/23/2024 Patient Outreach [address] [address] Warner Hinkle MD Transition Of Care (Tcm) (HDF- unscheduled LVM ) from Last 3 Months Immunizations Immunization Administration Dates Next Due Hep A, Adult 09/05/2018,08/12/2017 Hep B, adult 09/05/2018,09/21/2017,08/12/2017 Influenza injectable quadriv alent preservative free 08/24/2019 Influenza, seasonal, injecta ble, preservative free 05/29/2024,09/15/2016,08/15/2014 Pfizer Covid-19 Vaccine 12+ 05/29/2024 Pneumococcal Conjugate PCV 20 12/28/2024 Pneumococcal Polysaccharide PPSV23 08/24/2019, Tdap 02/02/2017 Social [...] Recorded Patient Health Questionnaire-2 Score 3 05/29/2024 Internet Access Answer Date Recorded Internet Access Q1 No 12/28/2024 Internet Access Q2 Not on file 12/28/2024 Sex and Gender Information Value Date Recorded Sex Assigned at Male 06/21/2022 10:17 AM EDT Legal Sex Male 10:17 AM EDT Gender Identity Male 06/21/2022 10:17 AM EDT Sexual Orientation Straight 06/21/2022 10 :17 AM EDT Last Filed Vital Signs Vital Sign Reading Time Taken Comments Blood Pressure 141/85 12/28/2024 10:11 AM EDT Pulse 85 12/28/2024 10:11 AM EDT Temperature 36.6 ??C (97.9 ??F) 12/28/2024 10:11 AM E DT Respiratory Rate 18 12/28/2024 10:11 AM EDT Oxygen Saturation 96% 12/28/2024 10:11 AM EDT Inhaled Oxygen Concentration - - Weight 93 kg (205 lb) 12/28/2024 10:11 AM EDT Height 167.6 cm (5' 6 ) 12/28/2024 10:11 AM EDT Body Mass Index 33.09 12/28/2024 10:11 AM EDT Plan of Treatment Health Maintenance Due Date Last Done Comments CT Colonography 1967 Colonoscopy 1967 Colorectal Cancer Screening 1967 FIT DNA/Cologuard 1967 FIT 1967 FOBT 1967 Lipid Panel 1967 Sigmoidoscopy 1967 Zoster Vaccines (1 of 2) 2017 Depression Screening 05/29/2025 05/29/2024, 05/29/20 24 Alcohol/Substance Use Screening 12/28/2025 12/28/2024 SDOH Screening 12/28/2025 12/28/2024 Tobacco Screening 12/28/2025 12/28/2024 DTaP/Tdap/Td Vaccines (2 - Td or Tdap) 02/02/2027 02/02/2017 RSV Patients and Patients Aged 60 years or older (1 - 1-dose 75+ series) 2042 Hepatitis A Vaccines Aged Out 09/05/2018, 08/12/20 17 No longer eligible based on patient's age to complete this topic Hepatitis B Vaccines Completed 09/05/2018, 09/21/2017, 08/12/2017 COVID-19 Vaccine Completed 05/29/2024, 11/2021, 10/01/2021 Influenza Vaccine Completed 05/29/2024, , 09/15/2016, Additional history exists HIV Screening Completed 06/06/2024, 02/19, 10/01/2021 Hepatitis C Screening Completed 06/06/2024 , 03/01/2023, 10/01/2021 Pneumococcal Vaccine: 50+ Years Completed 12/28/2024, 08/24/2019, 08/15/2014 HIB Vaccines Aged Out No longer eligi ble based on patient's age to complete this topic HPV Vaccines Aged Out No longer eligi ble based on patient's age to complete this topic IPV Vaccines Aged Out No longer eligi ble based on patient's age to complete this topic Meningococcal B Vaccine Aged Out No l onger eligible based on patient's age to complete [...] QL NAAT Routine 10/18/2024 11:50 AM EST HEPATITIS C AB W/REFL TO [...] EST Narrative 10/22/2024 8:43 AM EST ? [facility] ?[address] ?[place] [address] ?XRay Report ? Signed ? Patient: Carroll,Aldo ?MR#: [id number] ? : 1965 ?Acct:[id number] ? Age/Sex: 59 / M ?ADM Date: 10/18/24 ? Loc: [facility] ?486-1 ? Attending Dr: Abbie HIDALGO ? Ordering Physician: Scooter España MD ?? Date of Service: 10/22/24 ?? Procedure(s): XR chest 1V ?? Accession Number(s): [id number] ? cc: Warner Hinkle MD; Scooter España [...] DD/ 0800 ? TD/TT: 10/22/24 0809 ? Systems Coordinator: ? Procedure Note Donotuseinterpreter, Image - 10/22/[address] [address] XRay Report Signed Patient: Brent Hodges#: [id number] : 1965Acct:[id number] Age/Sex: 59 / MADM Date: 10/18/24 Loc: [facility] 486-[address]: Abbie HIDALGO Ordering Physician: Scooter España MD Date of Service: 10/22/24 Procedure(s): XR chest 1V Accession Number(s): [id number] cc: Warner Hinkle MD; Scooter España MD [...] 10/22/24 0840 DD/ 0800 TD/TT: 10/22/24 0809 Systems Coordinator: [facility] External Provider IMG XR PROCEDURES Final Result * Cell Count w/Diff Pleural Fluid (10/18/2024 4:30 PM EST) WBC Pleural Fluid 1.215 X10*3/uL [facility] Comment:Body Fluid WBC is a total nucleated cell count.When a differential is performed, the specimen isconcentrated by cytocentrifugation. This sometimes resultsin the number of cells in the differential being greaterthan the actual cell count performed on thenon-concentrated specimen. RBC Pleural Fluid 0.015 X10*6/uL [facility] Comment:The reference interv al(s) and other method performancespecifications are unavailable for this body fluid.Comparison of the result with concentration in the blood,serum, or plasma is recommended. Neutrophils Pleural Fluid 64 % [facility] Lymphocytes Pleural Fluid 20 % [facility] Monocytes Pleural Fluid 13 % [facility] Eosinophils Pleural Fluid 3 % [facility] 10/18/2024 4:30 PM EST 10/18/2024 5:10 PM EST us Generic External Data Provider LAB BODY FLUIDS A ND STOOLS ORDERABLES Final Result Performing Organization Address City/State/[facility] Co de Phone Number [facility] [address] [place] [address] [phone] * US DRAIN THORACENTESIS (10/18/2024 4:00 PM EST) Anatomical Region Laterality Modality Abdomen Ultrasound 10/18/2024 4:00 PM EST Narrative 10/23/2024 1:37 PM EST ? [facility] ?[address] ?[place] [address] ? Ultrasound Report ? Signed ? Patient: Carroll,Aldo ?MR#: [id number] ? : 1965 ?Acct:[id number] ? Age/Sex: 59 / M ?ADM Date: 02/27/25 ? Loc: [facility] ?486-1 ? Attending Dr: Abbie HIDALGO ? Ordering Physician: Wally Cardona ?? Date of Service: 10/18/24 ?? Procedure(s): US drain thoracentesis ?? Accession Number(s): [id number] ? cc: Name,Warner JENKINS; Wally Cardona ? [...] pleural space was accessed with a 12 vincentian locking ?? catheter utilizing trocar technique. The [...] DD/ 1600 ? TD/TT: 10/18/24 1630 ? Systems Coordinator: ? Procedure Note Milli Mondragon - 10/23/[address] [address] Ultrasound Report Signed Patient: Brent Hodges#: [id number] : 1965Acct:[id number] Age/Sex: 59 / MADM Date: 10/18/24 Loc: .[facility] 486-[address]: Abbie HIDALGO Ordering Physician: Wally Cardona Date of Service: 10/18/24 Procedure(s): US drain thoracentesis Accession Number(s): [id number] cc: Warner Hinkle MD; Wally Cardona PROCEDURE: [...] pleural space was accessed with a 12 vincentian locking catheter utilizing trocar technique. The catheter [...] 10/18/24 1640 DD/ 1600 TD/TT: 10/18/24 1630 Systems Coordinator: [facility] External Provider IMG US PROCEDURES Final Result * CTA Chest PE Protocal (10/18/2024 1:16 PM EST) Anatomical Region Laterality Modality Body, Chest Computed Tomogra phy 10/18/2024 1:16 PM EST Narrative 10/18/2024 1:50 PM EST ? [facility] ?[address] ?[place] [address] ? CT Scan Report ? Signed ? Patient: Carroll,Aldo ?MR#: [id number] ? : 1965 ?Acct:[id number] ? Age/Sex: 59 / M ?ADM Date: 02/27/25 ? Loc: HO.ED ? Attending Dr: ? Ordering Physician: Kathi Rogers ?? Date of Service: 10/18/24 ?? Procedure(s): CT angio chest PE protocol ?? Accession Number(s): [id number] ? cc: Kathi Rogers; [facility] ? Report Number: ?? [id number]: Total DLP = ??309.00 mGy-cm ?? EXAMINATION: [...] DD/ 1316 ? TD/TT: 10/18/24 1335 ? Systems Coordinator: ? Procedure Note Alanna, Image - 10/18/[address] [address] [address] Scan Report Signed Patient: Brent Hodges#: [id number] : 1965Acct:[id number] Age/Sex: 59 / MADM Date: 10/18/24 Loc: HO.ED Attending Dr: Ordering Physician: Kathi Rogers Date of Service: 10/18/24 Procedure(s): CT angio chest PE protocol Accession Number(s): [id number] cc: Kathi Rogers; [facility] Report Number: [id number]: Total DLP = 309.00 mGy-cm EXAMINATION: CT [...] 10/18/24 1347 DD/ 1316 TD/TT: 10/18/24 1335 Systems Coordinator: [facility] External Provider IMG CT PROCEDURES Final Result * (ABNORMAL) VENOUS BLOOD GAS (10/18/2024 12:11 PM EST) VBG pH 7.45(H) 7.32 - 7.43 [facility] Comment:METER #: [id number] additional_comment: Cb hernaso VBG PCO2 55 mmHg [facility] Comment:METER #: [id number] additional_comment: Cb hernaso VBG PO2 73 mmHg [facility] Comment:METER #: [id number] additional_comment: Cb hernaso VBG Base Excess 12.9 mmol/L [facility] Comment:METER #: [id number] additional_comment: Cb hernaso VBG HCO3 38(H) 22 - 26 mmol/L [facility] Comment:METER #: [id number] additional_comment: Cb hernaso O2 Sat, Beau 97.0 % [facility] Comment:METER #: [id number] additional_comment: Cb hernaso 10/18/2024 12:1 1 PM EST 10/18/2024 12:15 PM EST Generic External Data Provider LAB BLOOD ORDERAB LES Final Result [facility] [address] [place] [phone] * Slide Review (10/18/2024 11:50 AM EST) Slide Review VERIFIED [facility] 10/18/2024 11:5 0 AM EST 10/18/2024 11:55 AM EST Generic External Data Provider LAB BLOOD ORDERAB LES Final Result Performing Organization Address [facility] Co de Phone Number [facility] [address] [place] [phone] * (ABNORMAL) High Sensitivity Troponin I (10/18/2024 11:50 AM EST) TROPONIN I HIGH SENSITIVITY 193.1(HH) <3.5 - 35.0 ng/L [facility] Comment:Critical value for H S-TNI Results called to and read backby: SHELDON Person calling: MANAS Date: 10/18/24Time:1226The Khan high sensitivity Troponin-I results should beused in conjunction with other diagnostic information suchas ECG, clinical observations and information, and patientsymptoms to aid in the diagnosis of NV. 10/18/2024 11:5 0 AM EST 10/18/2024 11:55 AM EST Generic External Data Provider LAB BLOOD ORDERAB LES Final Result Performing Organization Address [facility] Co de Phone Number [facility] [address] [place] [phone] * SARS-CoV-2 RNA, Influenza A/B, and RSV RNA, Ql NAAT (10/18/2024 11:50 AM EST) Pathologist [facility] Influenza A PCR NEGATIVE Negative [facility] Influenza B PCR NEGATIVE Negative [facility] Resp Syncy Virus RNA Qual PCR NEGATIVE Negative [facility] SARS COV2 PCR NEGATIVE Negative [facility] Comment:All test results mus t [...] use by authorized laboratories.Testing performed on the [employer] GeneXpert utilizingreal-time RT-PCR.All SARS CoV2 and positive influenza A/B results arereported to [facility]. 10/18/2024 11:5 0 AM EST 10/18/2024 11:55 AM EST us Generic External Data Provider LAB MICROBIOLOGY - GENERAL ORDERABLES Final Result [facility] [address] [place] [address] [phone] * (ABNORMAL) CBC auto differential (10/18/2024 11:50 AM EST) White Blood Count 18.6(H) 4.8 - 10.8 X10*3/uL [facility] Red Blood Count 3.57(L) 4.60 - 5.80 X10*6/uL [facility] Hemoglobin 10.5(L) 14.0 - 18.0 g/dl [facility] Hematocrit 32.8(L) 42.0 - 52.0 % [facility] Mean Corpuscular Volume 91.9 80.0 - 98.0 fL [facility] Mean Corpuscular Hemoglobin 29.4 27.0 - 33.0 pg [facility] Mean Corpuscular HGB Conc 32.0 31.0 - 36.0 g/dl [facility] Red Cell Distribution Width 12.9 11.0 - 16.0 % [facility] Platelet Count 417(H) 160 - 400 X10*3/uL [facility] Mean Platelet Volume 9.5 9.4 - 12.4 fL [facility] Neutrophils Percent Auto 76.8(H) 45 - 73 % [facility] Imm Gran Pct Auto 0.6(H) 0.0 - 0.4 % [facility] Lymphocytes Percent Auto 8.8(L) 20 - 40 % [facility] Monocytes Percent Auto 13.3(H) 2 - 11 % [facility] Eosinophils Percent Auto 0.2 0 - 4 % [facility] Basophils Percent Auto 0.3 0 - 2 % [facility] NRBC Pct Auto 0.0 0.0 - 0.2 /100WBC [facility] Neutrophils Absolute Auto 14.3(H) 2.0 - 8.3 x10*3/uL [facility] Imm Gran Abs Auto 0.12(H) 0.00 - 0.03 X10*3/uL [facility] Lymphocytes Absolute Auto 1.6 1.2 - 4.9 X10*3/uL [facility] Monocytes Absolute Auto 2.5(H) 0.1 - 1.2 X10*3/uL [facility] Eosinophils Absolute Auto 0.0 0.0 - 0.4 X10*3/uL [facility] Basophils Absolute Auto 0.1 0.0 - 0.2 X10*3/uL [facility] NRBC Abs Auto 0.000 0.0 - 0.012 X10*3/uL [facility] 10/18/2024 11:5 0 AM EST 10/18/2024 11:55 AM EST us Generic External Data Provider LAB BLOOD ORDERAB LES Edited Result - Final Performing Organization Address [facility]/ZIP Co de Phone Number [facility] [address] [place] [phone] * Partial Thromboplastin Time, Activated (APTT) (10/18/2024 11:50 AM EST) Partial Thromboplastin Time 28.4 26.0 - 36.8 SEC [facility] Comment:For information rega rding the monitoring of direct thrombininhibitors, please refer to Pharmacy. 10/18/2024 11:5 0 AM EST 10/18/2024 11:55 AM EST us Generic External Data Provider LAB BLOOD ORDERAB LES Final Result Performing Organization Address City/[facility]/ZIP Co de Phone Number [facility] [address] [place] [phone] * (ABNORMAL) Prothrombin Time-INR (10/18/2024 11:50 AM EST) Prothrombin Time 14.2(H) 10.9 - 12.4 SEC [facility] INTERNATIONAL NORM RATIO 1.2(H) 0.9 - 1.1 [facility] Comment:INTERNATIONAL NORMAL IZED RATIO (INR) [...] Organization Address City/[facility]/ZIP Co de Phone Number [facility] [address] [place] [address] [phone] * (ABNORMAL) B Type Natriuretic Peptide (BNP) (10/18/2024 11:50 AM EST) Pathologist [facility] B Type Natriuretic Peptide 303(H) <100 pg/mL [facility] Comment:For those patients w ho are being treated with Natrecor(nesiritide, recombinant BNP), BNP testing should beperformed at least two hours post treatment in order toensure that only endogenous levels of BNP are detected. 10/18/2024 11:5 0 AM EST 10/18/2024 11:55 AM EST Generic External Data Provider LAB BLOOD ORDERAB LES Final Result Performing Organization Address [facility]/ZIP Co de Phone Number [facility] [address] [place] [address] [phone] * (ABNORMAL) Lactate Dehydrogenase (LD) (10/18/2024 11:50 AM EST) Lactate Dehydrogenase 474(H) 118 - 273 U/L [facility] 10/18/2024 11:5 0 AM EST 10/18/2024 11:55 AM EST Generic External Data Provider LAB BLOOD ORDERAB LES Final Result Performing Organization Address [facility] de Phone Number [facility] [address] [place] [phone] * Lactic Acid (10/18/2024 11:50 AM EST) Pathologist [facility] Lactic Acid 0.7 0.5 - 2.0 mmol/L [facility] 10/18/2024 11:5 0 AM EST 10/18/2024 11:55 AM EST [employer] External Data Provider LAB BLOOD ORDERAB LES Final Result Performing Organization Address [facility] de Phone Number [facility] [address] [place] [phone] * (ABNORMAL) Comprehensive Metabolic Panel (10/18/2024 11:50 AM EST) Pathologist [facility] Sodium 134(L) 135 - 145 mmol/L [facility] Potassium 4.5 3.3 - 5.1 mmol/L [facility] Chloride 97 96 - 108 mmol/L [facility] Carbon Dioxide 31(H) 22 - 29 mmol/L [facility] Anion Gap 11(L) 12 - 20 [facility] Urea Nitrogen (BUN) 16 9 - 16 mg/dL [facility] Creatinine, Serum 0.61 0.5 - 1.4 mg/dL [facility] Creatinine Clr Calc Pharmacy 126.6 [facility] Comment:eGFR (calculated fro m the MDRD study equation) and eCrCl(calculated from the Cockcroft-Gault equation) are based ondifferent parameters and may not yield comparable results.If eCrCl result is absurd, please check patient'sheight/weight. Estimated Glomerular Filt Rate >60 [facility] Comment:Chronic Kidney Disea se: Estimated GFR < 60 mL/min/1.21m6Aoeoie Kidney Disease: Estimated GFR < 15 mL/min/1.73m2 Glucose 111 60 - 115 mg/dL [facility] Calcium 8.2(L) 8.4 - 10.2 mg/dL [facility] Bilirubin, Total 0.7 0.0 - 1.0 mg/dL [facility] Aspartate Amino Transferase 53(H) 5 - 37 U/L [facility] Alanine Aminotransferase 45(H) 0 - 40 U/L [facility] Total Protein 6.8 6.5 - 8.0 g/dL [facility] Albumin Level 2.9(L) 3.5 - 5.0 g/dL [facility] Alkaline Phosphatase 285(H) 39 - 117 U/L [facility] 10/18/2024 11:5 0 AM EST 10/18/2024 11:55 AM EST us Generic External Data Provider LAB BLOOD ORDERAB LES Final Result Performing Organization Address [facility]/ZIP Co de Phone Number [facility] [address] [place] [phone] * Hepatitis C Antibody with Reflex to HCV, RNA, Quantitative, Real-Time PCR (06/06/2024 6:48 AM EDT) Hepatitis C Antibody Nonreactive Nonreactive [facility] Comment:Antibodies to HCV no t detected; does not exclude early acuteHCV infection. Blood Venous blood specimen / Unknown 06/06/2024 6:48 AM EDT 06/06/2024 6:48 AM EDT Warner Hinkle MD LAB BLOOD ORDERABLES Final Resul t Performing Organization Address City/[facility]/ZIP Co de Phone Number [facility] [address] [place] [phone] * HIV-1/2 Antigen and Antibodies, Fourth Generation, with Reflexes (06/06/2024 6:48 AM EDT) HIV AB/AG Nonreactive Nonreactive [facility] Comment:HIV-1 p24 Ag and/or HIV-1/HIV-2 Ab not detected.A test result that is nonreactive does not exclude thepossibility of exposure to or infection with HIV-1 and/orHIV-2. Nonreactive results in this assay for individualswith prior exposure to HIV-1 and/or HIV-2 may be due toantigen and antibody levels that are below the limit ofdetection of this assay.[employer] (Inspect Manager) HIV Ag/Ab Combo assay result andsupplemental assay results should be interpreted inconjunction with the patient's clinical presentation,history and other laboratory results. If the results areinconsistent with clinical evidence, additional testing issuggested to confirm the result. Blood Venous blood specimen / Unknown 06/06/2024 6:48 AM EDT 06/06/2024 6:48 AM EDT us Warnerjaida Hinkle MD LAB BLOOD ORDERABLES Final Resul t [facility] [address] [place] [phone] from Last 3 Months or Most Recently Relevant to Health Maintenance Insurance [facility] [address] [place] [id number] [place] [id number] Care Teams Band Builder Relationship Specialty Start Date End Date Name, MD Warner [address] [place] [address] [place] [id number] PCP - General Internal Medicine 03/09/24
[2025-01-04 12:21] LABS: Alanine Aminotransferase 26 U/L (0-40); Albumin Level 3.9 g/dL (3.5-5.0); Alkaline Phosphatase 90 U/L (39-117); Anion Gap 8 (12-20); Aspartate Amino Transferase 30 U/L (5-37); Bilirubin Total 0.7 mg/dL (0.0-1.0); Blood Urea Nitrogen 11 mg/dL (9-16); Calcium 9.3 mg/dL (8.4-10.2); Carbon Dioxide 32 mmol/L (22-29); Chloride 103 mmol/L (96-108); Estimated Glomerular Filt Rate > 60; Glucose Random 94 mg/dL (60-115); Potassium 4.3 mmol/L (3.3-5.1); Sodium 139 mmol/L (135-145)
[2025-01-04 12:28] LABS: HBsAGNum1 0.31 S/CO (0.00-0.99); HIV AB/AG Nonreactive (Nonreactive); HIV Num 1 0.07 S/CO (0.00-0.99); Hepatitis B Surface Antigen Negative (Negative); ~HepC Num1 0.11 S/CO (0.00-0.79); ~Hepatitis C Antibody Nonreactive (Nonreactive)
[2025-01-06 19:44] LABS: RPR Rapid Plasma Reagin NON-REACTIVE (NON-REACTIVE)
== END 2025-01-04 09:23 | disposition home or self-care (01) ==
LOC: HO.HHCL 09:22
PROVIDERS: Visit Provider Internal Medicine Geriatric Medicine
DX: Z11.4 Encounter for screening for human immunodeficiency virus [HIV] (principal); Z11.3 Encounter for screening for infections with a predominantly sexual mode of transmission; F11.90 Opioid use, unspecified, uncomplicated
CPT/HCPCS: 36415; 80053; 86592; 86803; 87340; 87389

== ENCOUNTER 2025-01-11 07:42 | Emergency (ER) | payer MEDICAID, SELFPAY ==
--- NOTE | 2025-01-11 | ECG_ITS ---
Test Reason : body aches Blood Pressure : */* mmHG Vent. Rate : 85 BPM Atrial Rate : 85 BPM P-R Int : 152 ms QRS Dur : 116 ms QT Int : 366 ms P-R-T Axes : 58 56 50 degrees QTcB Int : 435 ms Normal sinus rhythm Normal ECG When compared with ECG of 18-Oct-2024 13:05, Premature supraventricular complexes are no longer Present Referred By: Generic ED Physician Electronically Signed By: Chuck Fleming
--- NOTE | ~2025-01-11 | XR_ITS ---
EXAMINATION: XR CHEST CLINICAL INFORMATION: bodyaches COMPARISON: October 22, 2024. TECHNIQUE: 2 views of the chest were obtained. FINDINGS: No gross consolidation, pleural effusion or pneumothorax. 3 mm pulmonary nodule, right lower hemithorax. Cardiomediastinal silhouette size is normal. Multilevel thoracic spondylosis. XR/XR chest 2V IMPRESSION: 3 mm pulmonary nodule, right lower lung lobe/right middle lung lobe. Resolved left pleural effusion. Electronically signed by: Jay Bangura MD 01/11/2025 10:00 AM EDT
[2025-01-11 07:47] VITALS: BP 161/95; PULSE 92; RESP 18; TEMP 36.9; O2SAT 97; BMI 33.9
--- OUTSIDE RECORDS SUMMARY | 2025-01-11 08:07 | XMS_ITS | Clinical Summary ---
Author Organization [facility] Address [address] [place] [address] Care Team Providers Care Instrumentation Chemist Name Role Phone Pcp, No Primary Care [...] Vaccine 03/22/2025 Insurance MEDICAID OUT OF STATE [facility] Care Teams Instrumentation Chemist Relationship Specialty Start Date End Date Pcp, No PCP - General General Medicine 08/19/16
--- NOTE | 2025-01-11 08:16 | ED.GENADULT ---
HPI - General Adult General Chief complaint: General Medical Stated complaint: Body Aches Time Seen by Provider: 01/11/25 08:08 Source: patient Mode of arrival: ambulatory Limitations: no limitations History of Present Illness ED Provider: DONNA CRABTREE PA-C HPI narrative: 59 year old female with pmhx significant for IVDU and asthma presents to the ED today for evaluation of body aches x3 days. Denies any other associated symptoms. He has not trialed any OTC medication for this. Reports remote hx of cocaine use - nothing recent. Patient reports working in [employer]. He has not noticed any tick/insect bites or rashes. Denies hx known lyme disease. Of note, triage reported patient complained for nasal congestion. He is denying this to me. Denies fever, chills, sore throat, chest pain, SOB, N/V/D, abd pain, urinary sx. Related Data Previous Rx's ?Medication ?Instructions ?Recorded cefpodoxime 200 mg tablet 200 mg PO BID #10 tabs 10/22/24 doxycycline hyclate 100 mg capsule 100 mg PO BID #10 caps 10/22/24 Allergies Allergy/AdvReac Type Severity Reaction Status Date / Time ? Environmental Allergy Unknown asthma Uncoded 01/11/25 07:51 exacerbation Review of Systems Review of Systems: Yes all other systems are reviewed and are negative PMFSH Past Medical History Attestation statement: The following information was validated with the patient. Source: old records reviewed and nursing notes reviewed Medical History Asthma exacerbation Social History Social History Household Members: Unknown / Unable to assess Housing: Unknown / Unable to assess Alcohol intake: never Patient Tobacco Use Status: Former Tobacco user Smoked in Last 30 Days: No Substance Use Type: Former Substance User Advance Directives: No Advance Directives Information Provided: Yes Physical Exam ED Vital Signs: Vital Signs - 24 hr 01/11/25 07:47 01/11/25 10:17 Temperature 98.5 F 98.4 F Pulse Rate 92 68 Respiratory Rate 18 18 Blood Pressure 161/95 H 121/64 Pulse Oximetry 97 95 Oxygen Delivery Method Room Air Room Air BMI result Body Mass Index 33.9 hypertensive, afebrile General: Well appearing, in no acute distress. Skin: Warm, dry, intact. No rashes or lesions. Head: Normocephalic, atraumatic. EENT: Hearing is intact b/l. Conjunctiva clear. Sclera is anicteric. PERRLA. EOM intact. Moist mucous membranes.? Neck: Supple without LAD Cardiac: Chest wall symmetric. RRR Lungs: Normal respiratory effort without accessory muscle use. CTA bilaterally Abdomen: Soft, non-tender, non-distended. No rebound tenderness or guarding. Positive BS x4. Back: No midline spinous or paraspinal tenderness. No step off deformity. Ext: Upper and lower extremities atraumatic, without tenderness, deformity, swelling or erythema Neuro: AOx3. Normal speech. Strength 5/5 intact throughout. Ambulating with steady gait. Course Course Course Narrative: 1039 -- CBC without leukocytosis or left shift. No anemia. H&H stable. Chemistry without acute electrolyte abnormality requiring intervention. No MYESHA. Liver function appears to be around baseline. Total CK mildly elevated at 321 however I do not have concern for rhabdo. He has received 1 L of IV fluids. Troponin undetectable. Given timing of symptoms to ED presentation, I do not feel as though repeat for delta as necessary. EKG shows normal sinus rhythm at a rate of 85 beats per minute without acute ischemic changes or ST elevations. Urine without infection. Negative COVID, flu, RSV. > tick panel and Lyme testing pending. As patient has no identifiable tick or rash, I do not feel as though starting treatment with doxy is necessary at this time. He will be contacted with any positive results. > CXR shows 3 mm nodule. advised outpatient follow up for monitoring. > possible viral syndrome. will advise tylenol/ motrin for body aches w/ PCP follow up. Patient has remained stable throughout ED visit today. Discussed worrisome signs and symptoms and when to return to the ED. All questions answered at this time. Patient is agreeable with disposition and stable for discharge. Medications Administered Discontinued Medications Generic Name Dose Route Start Last Admin Trade Name Freq PRN Reason Stop Dose Admin Acetaminophen 975 mg 01/11/25 08:31 01/11/25 10:08 Acetaminophen 325 Mg Tablet PO 01/11/25 08:32 975 mg ONCE ONE Administration Sodium Chloride 1,000 mls @ 999 mls/hr 01/11/25 08:45 01/11/25 10:13 Ns IV 01/11/25 09:45 999 mls/hr .Q1H1M ANGELES Administration Medical Decision Making Medical Decision Making [facility] Narrative: 59 year old female with pmhx significant for IVDU and asthma presents to the ED today for evaluation of body aches x3 days. patient is hypertensive, vitals are otherwise wnl. he is nontoxic appearing and in NAD. On exam, no rashes. no overlying joint swelling/erythema. lungs are CTA b/l. Differential diagnosis includes viral syndrome, bronchitis, pneumonia, anemia, electrolyte abnormality, polysubstance use, tick bourne illness, lyme disease Plan for screening labs, tick/lyme testing, CXR, viral swabs, UA. I do not have concern for ACS however EKG and troponin were ordered from triage. Will review. Differential Diagnosis Differential Diagnoses: The differential diagnosis associated with the presentation includes as above. Admission/Observation not indicated. Lab Data [facility] Lab Attestation statement: I reviewed the patient's lab results. as above. 01/11/25 08:15 01/11/25 08:15 Labs: Lab Results 01/11/25 01/11/25 01/11/25 Range/Units 08:11 08:15 09:28 WBC 8.8 (4.8-10.8) X10*3/uL RBC 4.76 (4.60-5.80) X10*6/uL Hgb 14.3 (14.0-18.0) g/dl Hct 42.2 (42.0-52.0) % MCV 88.7 (80.0-98.0) fL MCH 30.0 (27.0-33.0) pg MCHC 33.9 (31.0-36.0) g/dl RDW 14.3 (11.0-16.0) % Plt Count 212 D (160-400) X10*3/uL MPV 9.9 (9.4-12.4) fL Immature Gran % (Auto) 0.3 (0.0-0.4) % Neut % (Auto) 72.9 (45-73) % Lymph % (Auto) 16.5 L (20-40) % [place] % (Auto) 7.3 (2-11) % Eos % (Auto) 2.7 (0-4) % Baso % (Auto) 0.3 (0-2) % Lymph # (Auto) 1.4 (1.2-4.9) X10*3/uL [place] # (Auto) 0.6 (0.1-1.2) X10*3/uL Eos # (Auto) 0.2 (0.0-0.4) X10*3/uL Baso # (Auto) 0.0 (0.0-0.2) X10*3/uL Abs Immat Gran (auto) 0.03 (0.00-0.03) X10*3/uL Absolute Neuts (auto) 6.4 (2.0-8.3) x10*3/uL Absolute Nucleated RBC 0.000 (0.0-0.012) X10*3/uL Nucleated RBC % (auto) 0.0 (0.0-0.2) /100WBC Sodium 142 (135-145) mmol/L Potassium 4.7 (3.3-5.1) mmol/L Chloride 105 (96-108) mmol/L Carbon Dioxide 30 H (22-29) mmol/L Anion Gap 12 (12-20) BUN 16 (9-16) mg/dL Creatinine 0.72 (0.5-1.4) mg/dL Estim Creat Clear Calc 118.3 Estimated GFR > 60 Random Glucose 99 (60-115) mg/dL Calcium 9.5 (8.4-10.2) mg/dL Total Bilirubin 1.0 (0.0-1.0) mg/dL AST 33 (5-37) U/L ALT 42 H (0-40) U/L Alkaline Phosphatase 90 (39-117) U/L Total Creatine Kinase 321 H (38-174) U/L Troponin I High Sens < 2.7 D (<3.5-35.0) ng/L Total Protein 7.4 (6.5-8.0) g/dL Albumin 4.2 (3.5-5.0) g/dL Urine Color Yellow Urine Appearance Clear Urine pH 5.5 (5.0-9.0) Ur Specific Maple 1.025 (1.005-1.025) Urine Protein Negative (Neg-Trace) mg/dL Urine Glucose (UA) Negative (Negative) mg/dL Urine Ketones Trace (Negative) mg/dL Urine Blood Negative (Negative) Urine Nitrite Negative (Negative) Ur Leukocyte Esterase Negative (Negative) Influenza Type A (PCR) NEGATIVE (Negative) Influenza Type B (PCR) NEGATIVE (Negative) RSV RNA Qual (PCR) NEGATIVE (Negative) SARS-CoV-2 RNA (RT-PCR) NEGATIVE (Negative) Independent Interpretation I performed an independent interpretation of an: EKG and Plain X-Ray Interpretation: EKG showing NSR, rate 85 bpm, no acute ischemic changes or ST elevations CXR without infiltrate or consolidation Radiology Impression Discussion of test interpretation with radiology: I have reviewed the radiologist's reading. Radiologist Impression: Procedure(s): ECG 12 lead EKG Accession Number(s): [id number] cc: ~ Test Reason : body aches Blood Pressure : */* mmHG Vent. Rate : 85 BPM Atrial Rate : 85 BPM P-R Int : 152 ms QRS Dur : 116 ms QT Int : 366 ms P-R-T Axes : 58 56 50 degrees QTcB Int : 435 ms Normal sinus rhythm Normal ECG When compared with ECG of 18-Oct-2024 13:05, Premature supraventricular complexes are no longer Present Procedure(s): XR chest 2V Accession Number(s): [id number] cc: [facility]; Donna Crabtree~ EXAMINATION: XR CHEST CLINICAL INFORMATION: bodyaches COMPARISON: October 22, 2024. TECHNIQUE: 2 views of the chest were obtained. FINDINGS: No gross consolidation, pleural effusion or pneumothorax. 3 mm pulmonary nodule, right lower hemithorax. Cardiomediastinal silhouette size is normal. Multilevel thoracic spondylosis. XR/XR chest 2V IMPRESSION: 3 mm pulmonary nodule, right lower lung lobe/right middle lung lobe. Resolved left pleural effusion. Electronically signed by: Jay Bangura MD 01/11/2025 10:00 AM EDT External Record Review External record reviewed: Inpatient record Prescription Management I considered prescription management with: Pain Medication Social Determinants Patient?s care significantly limited by Social Determinants of Health including: Other Social Determinant of Health Critical Care Time Critical Care Time Critical Care Time: No Discharge Plan Discharge Clinical Impression: Body aches Patient Disposition: Home, Self-Care Instructions: Musculoskeletal Pain (ED) Additional Instructions: Your workup today is reassuring. Your blood work is normal. The EKG of your heart is normal. Your chest x-ray does not demonstrate pneumonia however does show an incidental finding of a 3 mm nodule to your right lung. You need to follow up with your PCP for repeat imaging to monitor this. Testing for tick bourne illness and Lyme disease has been sent. You will be contacted with any positive results. You may have a viral infection. You may take Tylenol/ Motrin for body aches. Follow up with PCP. Return with new or worsening symptoms. In the case of an emergency call 911. XR chest 2V IMPRESSION: 3 mm pulmonary nodule, right lower lung lobe/right middle lung lobe. Resolved left pleural effusion. Prescriptions: No Action cefpodoxime 200 mg tablet 200 mg PO BID Qty: 10 0RF Rx Instructions: must administer with a meal/food doxycycline hyclate 100 mg capsule 100 mg PO BID Qty: 10 0RF Referrals: [facility] [Primary Care Provider] - Stand Alone Forms: Work/School Release Print Language: Unable To Collect
[2025-01-11 08:18] LABS: MANUAL DIFF FLAG NO
[2025-01-11 08:21] LABS: Basophils Percent Auto 0.3 % (0-2); Eosinophils Absolute Auto 0.2 X10*3/uL (0.0-0.4); Eosinophils Percent Auto 2.7 % (0-4); Hematocrit 42.2 % (42.0-52.0); Hemoglobin 14.3 g/dl (14.0-18.0); Imm Gran Abs Auto 0.03 X10*3/uL (0.00-0.03); Imm Gran Pct Auto 0.3 % (0.0-0.4); Lymphocytes Absolute Auto 1.4 X10*3/uL (1.2-4.9); Lymphocytes Percent Auto 16.5 % (20-40); Mean Corpuscular HGB Conc 33.9 g/dl (31.0-36.0); Mean Corpuscular Volume 88.7 fL (80.0-98.0); Mean Platelet Volume 9.9 fL (9.4-12.4); Monocytes Absolute Auto 0.6 X10*3/uL (0.1-1.2); Monocytes Percent Auto 7.3 % (2-11); Neutrophils Absolute Auto 6.4 x10*3/uL (2.0-8.3); Neutrophils Percent Auto 72.9 % (45-73); Platelet Count 212 X10*3/uL (160-400); Red Blood Count 4.76 X10*6/uL (4.60-5.80); Red Cell Distribution Width 14.3 % (11.0-16.0); White Blood Count 8.8 X10*3/uL (4.8-10.8)
[2025-01-11 08:35] LABS: Alanine Aminotransferase 42 U/L (0-40); Albumin Level 4.2 g/dL (3.5-5.0); Alkaline Phosphatase 90 U/L (39-117); Anion Gap 12 (12-20); Aspartate Amino Transferase 33 U/L (5-37); Blood Urea Nitrogen 16 mg/dL (9-16); Calcium 9.5 mg/dL (8.4-10.2); Carbon Dioxide 30 mmol/L (22-29); Chloride 105 mmol/L (96-108); Creatinine Clr Calc Pharmacy 118.3; Estimated Glomerular Filt Rate > 60; Glucose Random 99 mg/dL (60-115); Potassium 4.7 mmol/L (3.3-5.1); Sodium 142 mmol/L (135-145); Total Protein 7.4 g/dL (6.5-8.0)
[2025-01-11 08:42] LABS: Troponin-I High Sensitivity < 2.7 ng/L (<3.5-35.0)
[2025-01-11 09:01] LABS: Influenza A PCR NEGATIVE (Negative); Influenza B PCR NEGATIVE (Negative); Resp Syncy Virus RNA Qual PCR NEGATIVE (Negative); SARS COV2 PCR INHOUSE NEGATIVE (Negative)
[2025-01-11 09:38] LABS: Appearance Urine Clear; Color Urine Yellow; Glucose Urine UA Negative (Negative); Leukocyte Esterase Urine Negative (Negative); Nitrite Urine Negative (Negative); PH 5.5 (5.0-9.0); Specific Gravity - Urine 1.025 (1.005-1.025); Urine Blood Negative (Negative); Urine Ketones Trace mg/dL (Negative); Urine Protein Negative (Neg-Trace)
[2025-01-11] MEDS: Acetaminophen 325 MG TABLET 975 MG PO (10:08)
[2025-01-11] MEDS: 0.9 % Sodium Chloride 1,000 ML 999 ML IV (10:13)
[2025-01-11 10:17] VITALS: BP 121/64; PULSE 68; RESP 18; TEMP 36.9; O2SAT 95
[2025-01-11 11:11] VITALS: BP 121/64; PULSE 68; RESP 18; TEMP 36.9; O2SAT 95
[2025-01-12 13:33] LABS: Lyme Abs Screen <0.90 index
[2025-01-12 16:38] LABS: A. Phagocytphilium DNA,RT-PCR NOT DETECTED (NOT DETECTED); Babesia Microti DNA, RT-PCR NOT DETECTED (NOT DETECTED); Borrelia Miyamotoi,DNA RT-PCR NOT DETECTED (NOT DETECTED); E.Chaffeensis DNA RT-PCR NOT DETECTED (NOT DETECTED); Lyme(Borrelia ssp)DNA RT-PCR NOT DETECTED (NOT DETECTED)
== END 2025-01-11 11:12 | disposition home or self-care (01) ==
PROVIDERS: Physician Assistant Medical; Emergency Provider Emergency Medicine
DX: M79.10 Myalgia, unspecified site (principal); R09.81 Nasal congestion; Z79.899 Other long term (current) drug therapy; Z03.818 Encounter for observation for suspected exposure to other biological agents ruled out; Z87.891 Personal history of nicotine dependence
CPT/HCPCS: 0241U; 36415; 71046; 80053; 81003; 82550; 84484; 85025; 86617; 86618; 87468; 87469; 87478; 87484; 87798; 93005; 99285

== ENCOUNTER → 2025-01-11 08:02 | Outpatient (BNV) | payer MEDICAID, SELFPAY | PROVIDERS: Emergency Provider Emergency Medicine; Visit Provider Internal Medicine Cardiovascular Disease | DX: M79.10 Myalgia, unspecified site (principal) | CPT/HCPCS: 93010 ==

== ENCOUNTER → 2025-01-11 08:39 | Outpatient (BNV) | payer MEDICAID, SELFPAY | PROVIDERS: Emergency Provider Emergency Medicine; Visit Provider Radiology Diagnostic Radiology | DX: R91.1 Solitary pulmonary nodule (principal) | CPT/HCPCS: 71046 ==

== ENCOUNTER 2025-04-05 23:34 | Emergency (ER) | payer MEDICAID, SELFPAY ==
--- NOTE | ~2025-04-05 | XR_ITS ---
CLINICAL HISTORY: sob, asthma, hx empyema 1 view chest x-ray Comparison: CR/CT/SR - XR CHEST 2V - 01/11/25 09:45 EDT Findings: Bilateral peribronchial thickening suggesting bronchitis. No consolidation, large effusion or pneumothorax. Heart size is normal. No acute fracture. IMPRESSION: Bilateral peribronchial thickening suggesting bronchitis. This document has been electronically signed by: Regulo Richard MD on 04/06/2025 01:43:09
[2025-04-05 23:38] VITALS: BP 170/80; PULSE 101; RESP 20; TEMP 36.9; O2SAT 93; BMI 37.7
[2025-04-05 23:52] VITALS: PULSE 93; RESP 20; O2SAT 94
[2025-04-05] MEDS: Albuterol Sulfate 2.5 MG, Albuterol Sulfate (0.083%) 2.5 MG 5 MG INHALE (23:52)
[2025-04-06 00:02] LABS: MANUAL DIFF FLAG NO
[2025-04-06 00:04] LABS: Hematocrit 37.9 % (42.0-52.0); Hemoglobin 12.8 g/dl (14.0-18.0); Imm Gran Abs Auto 0.03 X10*3/uL (0.00-0.03); Imm Gran Pct Auto 0.4 % (0.0-0.4); Lymphocytes Absolute Auto 1.6 X10*3/uL (1.2-4.9); Mean Corpuscular HGB Conc 33.8 g/dl (31.0-36.0); Mean Corpuscular Hemoglobin 30.3 pg (27.0-33.0); Mean Corpuscular Volume 89.6 fL (80.0-98.0); NRBC Abs Auto 0.000 X10*3/uL (0.0-0.012); NRBC Pct Auto 0.0 /100WBC (0.0-0.2); Platelet Count 200 X10*3/uL (160-400); Red Blood Count 4.23 X10*6/uL (4.60-5.80); White Blood Count 8.2 X10*3/uL (4.8-10.8)
--- NOTE | 2025-04-06 00:04 | ED.SOB ---
HPI - SOB/Dyspnea General Chief Complaint: Dyspnea Stated Complaint: SOB Time Seen by Provider: 04/05/25 23:49 Source: patient Mode of arrival: ambulatory Limitations: no limitations History of Present Illness ED Provider: Dr. Eneida Conteh HPI Narrative: Patient comes in the emergency room complaining of shortness of breath that started earlier this morning. Patient states that he has a bit of left-sided chest pain with deep inhalation. Patient states that he has had pneumonia in the past with empyema. Patient denies any fever chills. Patient has history of asthma, denies ever smoking. Patient denies nausea vomiting or diarrhea. Related Data Previous Rx's ?Medication ?Instructions ?Recorded cefpodoxime 200 mg tablet 200 mg PO BID #10 tabs 10/22/24 doxycycline hyclate 100 mg capsule 100 mg PO BID #10 caps 10/22/24 albuterol sulfate 90 mcg/actuation 2 puff inhalation Q4-6H PRN 04/06/25 aerosol inhaler (Ventolin HFA) shortness of breath or wheezing #8.5 grams prednisone 50 mg tablet 50 mg PO DAILY #4 tabs 04/06/25 Allergies Allergy/AdvReac Type Severity Reaction Status Date / Time ? Environmental Allergy Unknown asthma Uncoded 04/05/25 23:41 exacerbation Review of Systems Review of Systems: Constitutional : No Weight loss, No Fever, No Chills, No Night Sweats, No Fatigue, No Malaise ENT/Mouth : No Hearing loss, No Ear Pain, No Nasal Congestion, No Sinus Pain, No Hoarseness, No sore throat, No Rhinorrhea, No Swallowing Difficulty Eyes: No Eye Pain, No Swelling, No Redness, No Foreign Body, No Discharge, No Vision Changes Cardiovascular : Complaining of left-sided chest pain with deep inspiration, No SOB, No Dyspnea on Exertion, No Orthopnea, No Edema, No Palpitations Respiratory : Complaining of cough, wheezing and shortness of breath, chest tightness Gastrointestinal : No Nausea, No Vomiting, No Diarrhea, No Constipation, No abdominal Pain, No Hematochezia, No Melena Genitourinary : no irregular bleeding, No Dysuria, No Urinary Frequency, No Hematuria, No Urinary Incontinence, No Urgency, No Flank Pain, No Urinary Flow Changes, No Hesitancy Musculoskeletal : No joint pain, No Myalgias, No Joint Swelling Skin : No Skin Lesions, No rash Neuro : No Weakness, No Numbness, No Paresthesias, No Loss of Consciousness, No Dizziness, No Headache Psych : No Anxiety/Panic, No Depression, No SI/HI/AH/VH, No Social Issues, Heme/Lymph: No Bruising, No Bleeding,No Lymphadenopathy Endocrine : No Polyuria, No Polydipsia, No Temperature Intolerance [facility] Past Medical History Medical History Opioid use disorder Loculated pleural effusion Asthma exacerbation Social History Social History Household Members: Unknown / Unable to assess Housing: Unknown / Unable to assess Alcohol intake: never Patient Tobacco Use Status: Former Tobacco user Smoked in Last 30 Days: No Use of substances other than those prescribed or required for medical reasons: No Substance Use Type: Former Substance User Advance Directives: No Physical Exam Exam: Exam: Appearance: Alert. Oriented X3. , having difficulty breathing Eyes: Pupils equal, round and reactive to light. ENT: Pharynx normal. Neck: Normal inspection. Neck supple. No lymph nodes noted. No crepitus CVS: Normal heart rate and rhythm. Pulses normal. Normal S1 and S2 Respiratory: In mother respiratory distress, breath sounds: Bilateral minimal wheezing, very tight, oxygen saturation 94% on room air Abdomen: Soft and nontender. No rigidity. No distention. Skin: Skin warm and dry. Normal skin color. Normal skin turgor. Extremities: No lower extremity edema. No Lacerations. No Rash Neuro: Oriented X 3. No motor deficit. No sensory deficit. Moving all extremities. No slurred speech. CN 2 through 12 grossly intact Psych: calm, cooperative, normal affect Vital Signs: Vital Signs: Last Vital Signs Temp 98.5 F 04/06/25 02:47 Pulse 99 04/06/25 02:47 Resp 14 04/06/25 02:47 BP 151/80 H 04/06/25 02:47 Pulse Ox 97 04/06/25 02:47 O2 Del Method Room Air 04/06/25 02:47 BMI result Body Mass Index 37.7 Course Course Course Narrative: On arrival, patient getting albuterol treatment, magnesium, methylprednisolone. Patient's knowledge, he has never been diagnosed with COPD/emphysema. This is most likely an asthma exacerbation. All of patient's labs and imaging pending Medications Administered Discontinued Medications Generic Name Dose Route Start Last Admin Trade Name Ruslan PRN Reason Stop Dose Admin Albuterol Sulfate 2.5 mg/ 5 mg 04/05/25 23:51 04/05/25 23:52 Albuterol Sulfate 2.5 mg INHALE 04/05/25 23:52 5 mg ONCE ONE Administration Magnesium Sulfate 2 gm in 50 mls @ 150 mls/hr 04/05/25 23:58 04/06/25 00:42 Magnesium Sulfate/H2o IV 04/06/25 00:17 Infused ONCE ONE Infusion Methylprednisolone Sodium Succinate 125 mg 04/05/25 23:58 04/06/25 00:13 Methylprednisolone Sod Succ 125 Mg/2 Ml Vial IVPUSH 04/05/25 23:59 125 mg ONCE ONE Administration Medical Decision Making Medical Decision Making [facility] Narrative: The above-mentioned treatment, patient feeling much better. At this time, 03:45, patient is awake, alert and oriented x3. Patient states that he feels much better. On auscultation, patient is not wheezing at all. Patient has good air movement, oxygen saturation 97% on room air. Patient was walked around the emergency room, oxygen saturation states 95% and above. Patient states that he feels well enough to be discharged home. Patient likely has a viral illness a triggered patient's asthma exacerbation. Differential Diagnosis Differential Diagnoses: The differential diagnosis associated with the presentation includes (Viral illness, bronchitis, asthma exacerbation) Admission/Observation Consideration of admission/observation: Escalation of care including admission/observation considered (Given patient's initial presentation, admission was considered) Lab Data [facility] Lab Attestation statement: I reviewed the patient's lab results. 04/05/25 23:52 04/05/25 23:52 Labs: Lab Results 04/05/25 04/06/25 04/06/25 Range/Units 23:52 00:16 00:24 WBC 8.2 (4.8-10.8) X10*3/uL RBC 4.23 L (4.60-5.80) X10*6/uL Hgb 12.8 L (14.0-18.0) g/dl Hct 37.9 L (42.0-52.0) % MCV 89.6 (80.0-98.0) fL MCH 30.3 (27.0-33.0) pg MCHC 33.8 (31.0-36.0) g/dl RDW 13.2 (11.0-16.0) % Plt Count 200 (160-400) X10*3/uL MPV 10.0 (9.4-12.4) fL Immature Gran % (Auto) 0.4 (0.0-0.4) % Neut % (Auto) 62.6 (45-73) % Lymph % (Auto) 19.8 L (20-40) % [place] % (Auto) 10.7 (2-11) % Eos % (Auto) 6.0 H (0-4) % Baso % (Auto) 0.5 (0-2) % Lymph # (Auto) 1.6 (1.2-4.9) X10*3/uL [place] # (Auto) 0.9 (0.1-1.2) X10*3/uL Eos # (Auto) 0.5 H (0.0-0.4) X10*3/uL Baso # (Auto) 0.0 (0.0-0.2) X10*3/uL Abs Immat Gran (auto) 0.03 (0.00-0.03) X10*3/uL Absolute Neuts (auto) 5.2 (2.0-8.3) x10*3/uL Absolute Nucleated RBC 0.000 (0.0-0.012) X10*3/uL Nucleated RBC % (auto) 0.0 (0.0-0.2) /100WBC VBG pH 7.42 (7.32-7.43) VBG pCO2 49 mmHg VBG pO2 61 mmHg VBG HCO3 32 H (22-26) mmol/L VBG O2 Saturation 88.0 % VBG Base Excess 6.7 mmol/L Sodium 140 (135-145) mmol/L Potassium 4.1 (3.3-5.1) mmol/L Chloride 99 (96-108) mmol/L Carbon Dioxide 28 (22-29) mmol/L Anion Gap 17 (12-20) BUN 19 H (9-16) mg/dL Creatinine 0.75 (0.5-1.4) mg/dL Estim Creat Clear Calc 115.8 Estimated GFR > 60 Random Glucose 119 H (60-115) mg/dL Lactic Acid 1.5 (0.5-2.0) mmol/L Calcium 9.0 (8.4-10.2) mg/dL Total Bilirubin 0.6 (0.0-1.0) mg/dL AST 40 H (5-37) U/L ALT 46 H (0-40) U/L Alkaline Phosphatase 107 (39-117) U/L Troponin I High Sens 5.5 D (<3.5-35.0) ng/L B-Natriuretic Peptide 10 (<100) pg/mL Total Protein 7.3 (6.5-8.0) g/dL Albumin 4.3 (3.5-5.0) g/dL Influenza Type A (PCR) NEGATIVE (Negative) Influenza Type B (PCR) NEGATIVE (Negative) RSV RNA Qual (PCR) NEGATIVE (Negative) SARS-CoV-2 RNA (RT-PCR) NEGATIVE (Negative) Independent Interpretation I performed an independent interpretation of an: Plain X-Ray Interpretation: Bilateral peribronchial thickening suggesting bronchitis. No consolidation, large effusion or pneumothorax. Heart size is normal. No acute fracture. IMPRESSION: Bilateral peribronchial thickening suggesting bronchitis. Radiology Impression Discussion of test interpretation with radiology: I have reviewed the radiologist's reading. Radiologist Impression: Bilateral peribronchial thickening suggesting bronchitis. No consolidation, large effusion or pneumothorax. Heart size is normal. No acute fracture. IMPRESSION: Bilateral peribronchial thickening suggesting bronchitis. Critical Care Time Critical Care Time Critical Care Time: Yes Total Critical Care Time: 45 Attestation: I have personally provided critical care time. Time includes review of lab data, radiology results, discussion with consultants, and monitoring for potential decompensation. Intervention performed as documented. Discharge Plan Discharge Clinical Impression: Asthma exacerbation Patient Disposition: Home, Self-Care Instructions: Asthma (ED) Additional Instructions: Please follow-up with your primary care physician tomorrow. If you have any worsening or new symptoms, please return to the emergency room or call 911 Prescriptions: New prednisone 50 mg tablet 50 mg PO DAILY Qty: 4 0RF albuterol sulfate [Ventolin HFA] 90 mcg/actuation HFA aerosol inhaler 2 puff inhalation Q4-6H PRN (Reason: shortness of breath or wheezing) Qty: 8.5 0RF No Action cefpodoxime 200 mg tablet 200 mg PO BID Qty: 10 0RF Rx Instructions: must administer with a meal/food doxycycline hyclate 100 mg capsule 100 mg PO BID Qty: 10 0RF Print Language: Mongolian
[2025-04-06] MEDS: Magnesium Sulfate/H2O 2 GM/50 ML PIGGYBACK IV (00:13)
[2025-04-06 00:20] LABS: Alanine Aminotransferase 46 U/L (0-40); Albumin Level 4.3 g/dL (3.5-5.0); Alkaline Phosphatase 107 U/L (39-117); Anion Gap 17 (12-20); Aspartate Amino Transferase 40 U/L (5-37); Blood Urea Nitrogen 19 mg/dL (9-16); Calcium 9.0 mg/dL (8.4-10.2); Carbon Dioxide 28 mmol/L (22-29); Chloride 99 mmol/L (96-108); Creatinine Clr Calc Pharmacy 115.8; Estimated Glomerular Filt Rate > 60; Potassium 4.1 mmol/L (3.3-5.1); Sodium 140 mmol/L (135-145); Total Protein 7.3 g/dL (6.5-8.0)
[2025-04-06 00:28] LABS: Troponin-I High Sensitivity 5.5 ng/L (<3.5-35.0)
[2025-04-06 00:34] LABS: Venous Blood Gas Refer to POC result
[2025-04-06 00:35] LABS: VBG HCO3 32 mmol/L (22-26); VBG O2 % Saturation 88.0 %
--- NOTE | 2025-04-06 00:40 | PC.NURSE ---
pt a&ox4, respirations even and unlabored. pt reports sudden onset of shortness of breath, reports using inhaler with no relief. pt brought back from waiting room, rt called to bedside, pt noted to have inspiratory and expiratory wheezing as well as some tightness. duoneb given, 20g placed in right forearm and pt medicated per oct.
[2025-04-06 00:49] LABS: B Type Natriuretic Peptide 10 pg/mL (<100)
[2025-04-06 01:04] LABS: Resp Syncy Virus RNA Qual PCR NEGATIVE (Negative); SARS COV2 PCR INHOUSE NEGATIVE (Negative)
[2025-04-06 01:59] VITALS: O2SAT 98
--- NOTE | 2025-04-06 02:08 | MHC.EDTECH ---
T/w ambulated with Pt. O2 sats remained 97%. Adriana MARSHALL aware.
[2025-04-06 02:09] VITALS: O2SAT 97
--- NOTE | 2025-04-06 02:12 | PC.NURSE ---
pt taken for ambulatory oxygen walk, 97% on ambulation but pt appeared labored, pt denied any complaints
[2025-04-06 02:47] VITALS: BP 151/80; PULSE 99; RESP 14; TEMP 36.9; O2SAT 97
[2025-04-06 04:06] VITALS: BP 139/81; PULSE 82; RESP 14; TEMP 37; O2SAT 94
[2025-04-06 04:07] VITALS: BP 139/81; PULSE 82; RESP 14; TEMP 37; O2SAT 94
== END 2025-04-06 04:12 | disposition home or self-care (01) ==
PROVIDERS: Emergency Provider Emergency Medicine
DX: J45.901 Unspecified asthma with (acute) exacerbation (principal); Z87.891 Personal history of nicotine dependence
CPT/HCPCS: 36415; 71045; 80053; 82803; 83605; 83880; 84484; 85025; 87040; 87637; 94640; 99285; J2919; J3475

== ENCOUNTER → 2025-04-06 00:01 | Outpatient (BNV) | payer MEDICAID, SELFPAY | PROVIDERS: Emergency Provider Emergency Medicine; Visit Provider Radiology Diagnostic Radiology | DX: J40 Bronchitis, not specified as acute or chronic (principal) | CPT/HCPCS: 71045 ==

== ENCOUNTER 2025-05-14 11:29 | Outpatient (REF) | payer MEDICAID, SELFPAY ==
--- NOTE | ~2025-05-14 | XR_ITS ---
EXAMINATION: XR CHEST CLINICAL INFORMATION: pain COMPARISON: April 06, 2025 TECHNIQUE: PA and lateral views FINDINGS: Pulmonary reticular pattern. No consolidation pleural effusion or pneumothorax. Cardiomediastinal silhouette size is slightly prominent with a round cardiac apex. Multilevel spondylosis. S-shaped curvature of the thoracic spine. XR/XR chest 2V IMPRESSION: Chronic interstitial lung disease. Probable hypertensive cardiomyopathy. Multilevel spondylosis. Electronically signed by: Jay Bangura MD 05/14/2025 11:51 AM EDT
--- OUTSIDE RECORDS SUMMARY | 2025-05-14 11:00 | XMS_ITS | Encounter Summary ---
Author Organization [employer] Address [address] [facility] [address] [place] [address] Care Team Providers Care Wood Polisher Name Role Phone Name, Warner JENKINS Primary Care Provider [phone] Reason for Visit * Reason Comments Follow-up Encounter Details Date Type Department Care Team ([facility] Contact Info) Description 05/14/2025 11:00 AM EDT Office Visit [facility] [address] [place], [place] [id number] Name, MD Warner [address] [place] [address] Left-sided chest pain (Primary Dx); History of pneumonia; Opioid use disorder Social History Tobacco Use Types Packs/Day Years Used Date Smoking Tobacco: Former Cigarettes Passive Smoke Exposure: Past Smokeless Tobacco: Former Alcohol Use Standard Drinks/Week Comments Not Currently [...] AM EDT documented as of this encounter Last Filed Vital Signs Vital Sign Reading Time Taken Comments Blood Pressure 140/90 05/14/2025 11:14 AM EDT Pulse 79 05/14/2025 11:14 AM EDT Temperature 37.1 C (98.7 F) 05/14/2025 11:14 AM EDT Respiratory Rate 19 05/14/2025 11:14 AM EDT Oxygen Saturation 94% 05/14/2025 11:14 AM EDT Inhaled Oxygen Concentration - - Weight 96.4 kg (212 lb 9.6 oz) 05/14/2025 11:14 AM EDT Height 167.6 cm (5' 6 ) 05/14/2025 11:14 AM EDT Body Mass Index 34.31 05/14/2025 11:14 AM EDT documented in this encounter Progress Notes * Warner Hinkle MD - 05/14/2025 11:00 AM EDT Subjective Patient ID: Aldo Hodges is a 59 y.o. male who presents for Follow-up. Patient comes for a follow-up visit. He is currently on treatment with methadone. Patient current dose is 35 mg of methadone daily. He denies the use of illicit drugs for the past month. He complains of occasional shortness of breath and left-sided chest discomfort associated with exertion. The patient had pneumonia in September with empyema and required treatment with antibiotics billy chest tube briefly. During his visit he is not coughing and in no respiratory distress. He deniesany fevers, no chills, no weight loss, no cough or wheezing. Patient has a personal history of asthma. He is not smoking cigarettes. He is not using his inhalers regularly. Review of Systems Constitutional: Negative for chills, fatigue and fever. HENT: Negative for sore throat. Respiratory: Negative for cough, shortness of breath and wheezing. See HPI Cardiovascular: Negative for chest pain, palpitations and leg swelling. Gastrointestinal: Negative for abdominal pain and blood in stool. Objective Vitals: 05/14/25 1114 BP: (!) 140/90 BP Location: Left arm Patient Position: Sitting BP Cuff Size: Large adult Pulse: 79 Resp: 19 Temp: 98.7 ??F (37.1 ??C) TempSrc: Oral SpO2: 94% Weight: 212 lb 9.6 oz (96.4 kg) Height: 5' 6 (1.676 m) Physical Exam Constitutional: Appearance: Normal appearance. Cardiovascular: Rate and Rhythm: Normal rate and regular rhythm. Heart sounds: No murmur heard. Pulmonary: Effort: Pulmonary effort is normal. No respiratory distress. Breath sounds: No wheezing, rhonchi or rales. Abdominal: Palpations: Abdomen is soft. Tenderness: There is no abdominal tenderness. Musculoskeletal: Right lower leg: No edema. Left lower leg: No edema. Neurological: Mental Status: He is alert. Assessment/Plan Diagnoses and all orders for this visit: Left-sided chest pain Comments: I recommended evaluation with chest x-ray. He is encouraged to use his Arnuity daily and use albuterol as needed. Orders: - XR Chest 2 Views; Future - fluticasone furoate (Arnuity Ellipta) 100 MCG/ACT inhaler; Inhale 1 puff Once per day. Rinse mouth with water after use to reduce aftertaste and incidence of candidiasis. Do not swallow. - albuterol 108 (90 Base) MCG/ACT inhaler; Inhale 2 puffs every 6 (six) hours if needed for wheezing. History of pneumonia - XR Chest 2 Views; Future Opioid use disorder Comments: Patient is encouraged to continue following with his methadone provider. I will refill Narcan to have at home. Orders: - naloxone (Narcan) 4 mg/0.1 mL nasal spray; Administer 1 spray (4 mg) into affected nostril(s) if needed for opioid reversal. May repeat every 2-3 minutes if needed, alternating nostrils, until medical assistance becomes available. documented in this encounter Plan of Treatment Not on file documented as of this encounter Procedures Procedure Name Priority Date/Time Associated Diagnosis Comments XR CHEST 2 VIEWS Routine 05/14/2025 11:4 5 AM EDT Left-sided chest pain History of pneumonia documented in this encounter Results * XR Chest 2 Views (05/14/2025 11:45 AM EDT) Anatomical Region Laterality Modality Chest Radiographic Kristin ging 05/14/2025 11:4 5 AM EDT Narrative 05/14/2025 11:53 AM EDT [address] [address] XRay Report Signed Patient: Aldo Hodges MR#: [id number] : 1965 Acct:[id number] Age/Sex: 59 / M ADM Date: 05/14/25 Loc: HO.[facility] Attending Dr: Warner Hinkle MD Ordering Physician: Warner Hinkle MD Date of Service: 05/14/25 Procedure(s): XR chest 2V Accession Number(s): [id number] cc: Warner Hinkle MD Reason for Exam: pain EXAMINATION: XR CHEST CLINICAL INFORMATION: pain COMPARISON: April 06, 2025 TECHNIQUE: PA and lateral views FINDINGS: Pulmonary reticular pattern. No consolidation pleural effusion or pneumothorax. Cardiomediastinal silhouette size is slightly prominent with a round cardiac apex. Multilevel spondylosis. S-shaped curvature of the thoracic spine. XR/XR chest 2V IMPRESSION: Chronic interstitial lung disease. Probable hypertensive cardiomyopathy. Multilevel spondylosis. Electronically signed by: Jay Bangura MD 05/14/2025 11:51 AM EDT RP Dictated By: Jay Mitchell MD Signed By: <Electronically signed by Jay Carmichael MD in OV> 05/14/25 1151 DD/ 1145 TD/TT: 05/14/25 1146 Car Designer: Procedure Note Donsidneyvinnieter, Image - 05/14/2025 [facility] [address] [place] [address] XRay Report Signed Patient: Brent Hodges#: [id number] : 1965Acct:[id number] Age/Sex: 59 / MADM Date: 05/14/25 [facility] Attending Dr: Warner Hinkle MD Ordering Physician: Warner Hinkle MD Date of Service: 05/14/25 Procedure(s): XR chest 2V Accession Number(s): [id number] cc: Warner Hinkle MD Reason for Exam: pain EXAMINATION: XR CHEST CLINICAL INFORMATION: pain COMPARISON: April 06, 2025 TECHNIQUE: PA and lateral views FINDINGS: Pulmonary reticular pattern. No consolidation pleural effusion or pneumothorax. Cardiomediastinal silhouette size is slightly prominent with a round cardiac apex. Multilevel spondylosis. S-shaped curvature of the thoracic spine. XR/XR chest 2V IMPRESSION: Chronic interstitial lung disease. Probable hypertensive cardiomyopathy. Multilevel spondylosis. Electronically signed by: Jay Bangura MD 05/14/2025 11:51 AM EDT Dictated By: Jay Mitchell MD Signed By: <Electronically signed by Jay Carmichael MDin OV> 05/14/25 1151 DD/ 1145 TD/TT: 05/14/25 1146 Car Designer: Warner Hinkle MD IMG XR PROCEDURES Final Result documented in this encounter Visit Diagnoses Diagnosis Left-sided chest pain- Primary History of pneumonia Personal history of pneumonia (recurrent) Opioid use disorder documented in this encounter Additional Health Concerns Assessment Noted Time PHQ-9 Depression Total Score: 16 024 11:28 AM EDT documented as of this encounter Care Teams Wood Polisher Relationship Specialty Start Date End Date Warner Hinkle MD [address] [place] [address] PCP - General Internal Medicine 03/09/24 documented as of this encounter
--- OUTSIDE RECORDS SUMMARY | 2025-05-14 14:23 | XMS_ITS | Clinical Summary ---
Author Organization [facility] Address [address] [place] [address] Care Team Providers Care Cardroom Manager Name Role Phone Pcp, No Primary Care [...] 70 08/19/2016 12:05 PM EST Temperature 36 C (96.8 F) 08/19/2016 12:05 PM EST Respiratory Rate 18 [...] Vaccine (1 of 2) 2017 Influenza Vaccine 03/22/2025 COVID-19 Vaccine ( - season) 2025 Insurance * Guarantor: Aldo Hodges Account Type Relation to Patient Date of Phone Billing Address Personal/Family Self 1965 [address] [place] [address] MEDICAID OUT OF STATE [facility] Care Teams Cardroom Manager Relationship Specialty Start Date End Date Pcp, No PCP - General General Medicine 08/19/16
--- OUTSIDE RECORDS SUMMARY | 2025-05-14 14:24 | XMS_ITS | Encounter Summary ---
Author Organization [employer] Address [address] [facility] [address] [place] [address] Care Team Providers Care Automotive Painter Helper Name Role Phone Name, Warner JENKINS Primary Care Provider [phone] Encounter Details Date Type Department Care Team (Latest Contact Info) Description 05/14/2025 Travel Social History Tobacco Use Types Packs/Day Years [...] as of this encounter Plan of Treatment Not on file documented as of this encounter Visit Diagnoses Not on filedocumented in this encounter Additional Health Concerns Assessment Noted Time PHQ-9 Depression Total Score: 16 024 11:28 AM EDT documented as of this encounter Care Teams Automotive Painter Helper Relationship Specialty Start Date End Date Name, MD Warner [address] [place] [address] PCP - General Internal Medicine 03/09/24 documented as of this encounter
--- OUTSIDE RECORDS SUMMARY | 2025-05-14 14:24 | XMS_ITS | Clinical Summary ---
Author Organization [employer] Address [address] [facility] 7t [place] [address] Care Team Providers Care Newswriter Name Role Phone Name, Warner JENKINS Primary Care Provider [phone] Allergies No known active allergies Medications * This document contains information received from the source organization and may not represent a complete record from that organization. acetaminophen (Tylenol) 500 MG tabletIndicatio ns:Acute bilateral low back pain without sciatica Take 2 tablets (1,000 mg) by mouth every 6 (six) hours if needed for moderate pain or fever for up to 25 doses. 50 tablet 10/21/19 23 Active traZODone (Desyrel) 50 MG tablet Take 1 tablet (50 mg) by mouth at bedtime. 30 tablet 05/29/20 24 Active lisinopril 10 MG tablet Take 1 tablet (10 mg) by mouth Once per day. 90 tablet 2 01/24/20 25 2025 Active Blood Pressure kitIndications: Essential hypertension Check BP daily 1 kit 01/24/20 25 Active fluticasone furoate (Arnuity Ellipta) 100 MCG/ACT inhalerIndicati ons:Left-sided chest pain Inhale 1 puff Once per day. Rinse mouth with water after use to reduce aftertaste and incidence of candidiasis. Do not swallow. 1 each 05/14/20 25 2025 Active naloxone (Narcan) 4 mg/0.1 mL nasal sprayIndication s:Opioid use disorder Administer 1 spray (4 mg) into affected nostril(s) if needed for opioid reversal. May repeat every 2-3 minutes if needed, alternating nostrils, until medical assistance becomes available. 2 each 05/14/20 25 2025 Active albuterol 108 (90 Base) MCG/ACT inhalerIndicati ons:Left-sided chest pain Inhale 2 puffs every 6 (six) hours if needed for wheezing. 18 g 05/14/202025 Active naloxone (Narcan) 4 mg/0.1 mL nasal spray Administer 1 spray (4 mg) into affected nostril(s) if needed for opioid reversal. May repeat every 2-3 minutes if needed, alternating nostrils, until medical assistance becomes available. 2 each 05/29/20 24 2024 Discontinued(R eorder (will not trigger notification to Pharmacy)) fluticasone furoate (Arnuity Ellipta) 100 MCG/ACT inhaler Inhale 1 puff Once per day. Rinse mouth with water after use to reduce aftertaste and incidence of candidiasis. Do not swallow. 1 each 12/29/192024 Discontinued(R eorder (will not trigger notification to Pharmacy)) albuterol 108 (90 Base) MCG/ACT inhaler Inhale 2 puffs every 6 (six) hours if needed for wheezing. 18 g 12/29/192024 Discontinued(R eorder (will not trigger notification to Pharmacy)) Active Problems Problem Noted Date Diagnosed Date [...] Therapy and Medication management. At this time Adlo Hodges meets criteria for Visit Diagnoses: Problem List Items Addressed This Visit Other Mixed anxiety and depressive disorder Patient ready to address current needs Yes Strengths include Aldo is in action stageof change and his motivation will serve as treatment engagement. PLAN: 1. Follow up with [facility]: Recommended for follow-up: during OBAT appts 2. [...] Encounters Date Type Department Care Team Description 05/14/2025 11:00 AM EDT Office Visit [facility] [address] [place] [phone] Warner Hinkle MD Left-sided chest pain (Primary Dx); History of pneumonia; Opioid use disorder 05/14/2025 Travel 05/13/[address] [address] Brianna Rizzo MA chart prep 04/06/2025 Orders Only GENERIC EXTERNAL DATA DEPARTMENT Provider, Generic External Data 04/05/2025 Orders Only GENERIC EXTERNAL DATA DEPARTMENT Provider, Generic External Data 02/15/2025 Refill [facility] [address] [place] [address] Linda Armstrong MD Essential hypertension 02/13/2025 Orders Only [facility] [address] [place] [address] Linda Armstrong MD Left lower lobe pulmonary nodule (Primary Dx); History of pleural effusion 02/13/2025 Telephone [facility] [address] [place] [address] CHEST ORDER 02/11/2025 Patient Outreach [facility] [address] [place] [address] Ender Ott Recovery Supports from Last 3 Months Immunizations Immunization Administration [...] Passive Smoke Exposure: Past Smokeless Tobacco: Former Tobacco Cessation:Counseling Given: Not Answered Alcohol Use [...] Mass Index 34.31 05/14/2025 11:14 AM EDT Plan of Treatment Health Maintenance Due Date Last Done Comments CT Colonography 1967 Colonoscopy 1967 Colorectal Cancer Screening 1967 FIT DNA/Cologuard 1967 FIT 1967 FOBT 1967 Lipid Panel 1967 Sigmoidoscopy 1967 Zoster Vaccines (1 of 2) 2017 Depression Monitoring 11/27/2024 05/29/2024, 024 Influenza Vaccine (#1) 2025 , 08/24/2019, 09/15/2016, Additional history exists Alcohol/Substance Use Screening 12/28/2025 12/28/2024 Disability Screening 12/28/2025 12/28/2024 SDOH Screening 12/28/2025 12/28/2024 Tobacco Screening 01/23/2026 01/23/2025 DTaP/Tdap/Td Vaccines (2 - Td or Tdap) 02/02/2027 02/02/2017 RSV Patients and Patients Aged 60 years or older (1 - 1-dose 75+ series) 2042 Hepatitis A Vaccines Aged Out 09/05/2018, 08/12/20 17 No longer eligible based on patient's age to complete this topic Hepatitis B Vaccines Completed 09/05/2018, 09/21/2017, 08/12/2017 COVID-19 Vaccine Completed 05/29/2024, 11/2021, 10/01/2021 Pneumococcal Vaccine: 50+ Years Completed 12/28/2024, 08/24/2019, 08/15/2014 HIV Screening Completed 01/04/2025, 05/22, 03/01/2023, Additional history exists Hepatitis C Screening Completed 01/04/2025 , 06/06/2024, 03/01/2023, Additional history exists HIB Vaccines Aged Out No longer eligi [...] EDT Left-sided chest pain History of pneumonia XR CHEST 1 VIEW Routine 04/06/2025 1:43 AM EDT VENOUS BLOOD GAS Routine 04/06/2025 12:2 4 AM EDT BLOOD CULTURE (SECOND) Routine 12:22 AM EDT B TYPE NATRIURETIC PEPTIDE (BNP) Routine 04/06/2025 12:16 AM EDT LACTIC ACID Routine 04/06/2025 12:16 AM EDT BLOOD CULTURE (FIRST) Routine 04/06/2025 12:16 AM EDT SARS COV2/INFLUENZA A/B AND RSV RNA QL NAAT Routine 04/06/2025 12:16 AM EDT HIGH SENSITIVITY TROPONIN I Routine 04/05/2025 11:52 PM EDT COMPREHENSIVE METABOLIC PANEL Routine 04/05/2025 11:52 PM EDT CBC WITH AUTO DIFFERENTIAL Routine 04/05/2025 11:52 PM EDT HEPATITIS C AB W/REFL TO HCV RNA, QN, PCR Routine 01/04/2025 9:24 AM EDT Opioid use disorder HIV 1/2 ANTIGEN/ANTIBODY, FOURTH GENERATION W/RFL Routine 01/04/2025 9:24 AM EDT Opioid use disorder from Last 3 Months or Most Recently Relevant to Health Maintenance Results * XR Chest 2 Views (05/14/2025 11:45 AM EDT) Anatomical Region Laterality Modality Chest Radiographic Kristin ging 05/14/2025 11:4 5 AM EDT Narrative 05/14/2025 11:53 AM EDT [address] [address] XRay Report Signed Patient: Aldo Hodges MR#: [id number] : 1965 Acct:[id number] Age/Sex: 59 / M ADM Date: 05/14/25 Loc: HO.HHCX Attending Dr: Warner Hinkle MD Ordering Physician: Warner Hinkle MD Date of Service: 05/14/25 Procedure(s): XR chest 2V Accession Number(s): [id number] cc: Warner Hinkle MD Reason for Exam: [...] 05/14/25 1151 DD/ 1145 TD/TT: 05/14/25 1146 Costume Director: Procedure Note Donotuseinterpreter, Image - 05/14/2025 [place] [address] XRay Report Signed Patient: Brent Hodges#: [id number] : 1965Acct:[id number] Age/Sex: 59 / MADM Date: 05/14/25 Loc: HO.HHCX Attending Dr: Warner Hinkle MD Ordering Physician: Warner Hinkle MD Date of Service: 05/14/25 Procedure(s): XR chest 2V Accession Number(s): [id number] cc: Warner Hinkle MD Reason for Exam: [...] 05/14/25 1151 DD/ 1145 TD/TT: 05/14/25 1146 Costume Director: us Warner Hinkle MD IMG XR PROCEDURES Final Result * XR Chest 1 View (04/06/2025 1:43 AM EDT) Anatomical Region Laterality Modality Chest Radiographic Kristin ging 04/06/2025 1:43 AM EDT Narrative 04/06/2025 1:44 AM EDT [address] [address] XRay Report Signed Patient: Aldo Hodges MR#: [id number] : 1965 Acct:[id number] Age/Sex: 59 / M ADM Date: 04/06/25 Loc: .ED Attending Dr: Ordering Physician: Eneida Conteh MD Date of Service: 04/06/25 Procedure(s): XR chest 1V Accession Number(s): [id number] cc: [facility]; Eneida Conteh MD CLINICAL HISTORY: sob, asthma, hx empyema 1 view chest x-ray Comparison: CR/[place]/SR - XR CHEST 2V - 01/11/25 09:45 EDT Findings: Bilateral peribronchial thickening suggesting bronchitis. No consolidation, large effusion or pneumothorax. Heart size is normal. No acute fracture. IMPRESSION: Bilateral peribronchial thickening suggesting bronchitis. This document has been electronically signed by: Regulo Richard MD on 04/06/2025 01:43:09 Dictated By: Regulo Richard MD Signed By: <Electronically signed by Regulo Richard MD in OV> 04/06/25 0144 DD/ 014 TD/TT: 04/06/25 014 Costume Director: Procedure Note Donotuseinterpreter, Image - 04/06/[address] [address] XRay Report Signed Patient: Aldo HodgesMR#: [id number] : 1965Acct:[id number] Age/Sex: 59 / MADM Date: 04/06/25 Loc: HO.ED Attending Dr: Ordering Physician: Eneida Conteh MD Date of Service: 04/06/25 Procedure(s): XR chest 1V Accession Number(s): [id number] cc: [facility]; Eneida Conteh MD CLINICAL HISTORY: sob, asthma, hx empyema 1 view chest x-ray Comparison: CR/[place]/SR - XR CHEST 2V - 01/11/25 09:45 EDT Findings: Bilateral peribronchial thickening suggesting bronchitis. No consolidation, large effusion or pneumothorax. Heart size is normal. No acute fracture. IMPRESSION: Bilateral peribronchial thickening suggesting bronchitis. This document has been electronically signed by: Regulo Richard MD on 04/06/2025 01:43:09 Dictated By: Regulo Richard MD Signed By: <Electronically signed by Regulo Richard MD in OV> 04/06/25 014 DD/ 2 TD/TT: 04/06/25142 Costume Director: [facility] External Provider IMG XR PROCEDURES Edited Result - Final * (ABNORMAL) VENOUS BLOOD GAS (04/06/2025 12:24 AM EDT) VBG pH 7.42 7.32 - 7.43 [facility] Comment:METER #: [id number] additional_comment: CBMIUAM VBG PCO2 49 mmHg [facility] Comment:METER #: [id number] additional_comment: CBMIUAM VBG PO2 61 mmHg [facility] Comment:METER #: [id number] additional_comment: CBMIUAM VBG Base Excess 6.7 mmol/L [facility] Comment:METER #: [id number] additional_comment: CBMIUAM VBG HCO3 32(H) 22 - 26 mmol/L [facility] Comment:METER #: [id number] additional_comment: CBMIUAM O2 Sat, Beau 88.0 % [facility] Comment:METER #: [id number] additional_comment: CBMIUAM 04/06/2025 12:2 4 AM EDT 04/06/2025 12:35 AM EDT Generic External Data Provider LAB BLOOD ORDERAB LES Final Result Performing Organization Address [place]/[facility] Co de Phone Number [facility] [address] [place] [phone] * Blood Culture (Second) (04/06/2025 12:22 AM EDT) Blood Venous blood specimen / Unknown 04/06/2025 12:22 AM EDT 04/06/2025 12:26 AM EDT Comment:Blood Narrative [facility] - 04/11/2025 2:26 AM EDT Blood Culture (Second) No growth after 5 days. Specimen Source: Blood Generic External Data Provider LAB MICROBIOLOGY - GENERAL ORDERABLES Final Result Performing Organization Address [place]/[facility] Phone Number [facility] [address] [place] [phone] * Blood Culture (First) (04/06/2025 12:16 AM EDT) Blood Venous blood specimen / Unknown 04/06/2025 12:16 AM EDT 04/06/2025 12:22 AM EDT Comment:Blood Narrative [facility] - 04/11/2025 2:22 AM EDT Blood Culture (First) No growth after 5 days. Specimen Source: Blood Generic External Data Provider LAB MICROBIOLOGY - GENERAL ORDERABLES Final Result Performing Organization Address [place]/[facility] Co de Phone Number [facility] [address] [place] [phone] * SARS-CoV-2 RNA, Influenza A/B, and RSV RNA, Ql NAAT (04/06/2025 12:16 AM EDT) Influenza A PCR NEGATIVE Negative [facility] Influenza B PCR NEGATIVE Negative [facility] Resp Syncy Virus RNA Qual PCR NEGATIVE Negative [facility] SARS COV2 PCR NEGATIVE Negative [facility] Comment:All test results mus t [...] use by authorized laboratories.Testing performed on the [employer] GeneXpert utilizingreal-time RT-PCR.All SARS CoV2 and positive influenza A/B results arereported to [facility]. 04/06/2025 12:1 6 AM EDT 04/06/2025 12:22 AM EDT Generic External Data Provider LAB MICROBIOLOGY - GENERAL ORDERABLES Final Result Performing Organization Address [facility]/ZIP Co de Phone Number [facility] [address] [place] [phone] * B Type Natriuretic Peptide (BNP) (04/06/2025 12:16 AM EDT) Pathologist [facility] B Type Natriuretic Peptide 10 <100 pg/mL [facility] 04/06/2025 12:1 6 AM EDT 04/06/2025 12:22 AM EDT Generic External Data Provider LAB BLOOD ORDERAB LES Final Result Performing Organization Address [facility]/ZIP Co de Phone Number [facility] [address] [place] [phone] * Lactic Acid (04/06/2025 12:16 AM EDT) Pathologist [facility] Lactic Acid 1.5 0.5 - 2.0 mmol/L [facility] 04/06/2025 12:1 6 AM EDT 04/06/2025 12:22 AM EDT us Generic External Data Provider LAB BLOOD ORDERAB LES Final Result Performing Organization Address [facility] Co de Phone Number [facility] [address] [place] [phone] * High Sensitivity Troponin I (04/05/2025 11:52 PM EDT) [facility] TROPONIN I HIGH SENSITIVITY 5.5 <3.5 - 35.0 ng/L [facility] Comment:The Khan high sens itivity Troponin-I results should beused in conjunction with other diagnostic information suchas ECG, clinical observations and information, and patientsymptoms to aid in the diagnosis of [place]. 04/05/2025 11:5 2 PM EDT 04/06/2025 Generic External Data Provider LAB BLOOD ORDERAB LES Final Result Performing Organization Address [place]/[facility] de Phone Number [facility] [address] [place] [phone] * (ABNORMAL) CBC auto differential (04/05/2025 11:52 PM EDT) [facility] White Blood Count 8.2 4.8 - 10.8 X10*3/uL [facility] Red Blood Count 4.23(L) 4.60 - 5.80 X10*6/uL [facility] Hemoglobin 12.8(L) 14.0 - 18.0 g/dl [facility] Hematocrit 37.9(L) 42.0 - 52.0 % [facility] Mean Corpuscular Volume 89.6 80.0 - 98.0 fL [facility] Mean Corpuscular Hemoglobin 30.3 27.0 - 33.0 pg [facility] Mean Corpuscular HGB Conc 33.8 31.0 - 36.0 g/dl [facility] Red Cell Distribution Width 13.2 11.0 - 16.0 % [facility] Platelet Count 200 160 - 400 X10*3/uL [facility] Mean Platelet Volume 10.0 9.4 - 12.4 fL [facility] Neutrophils Percent Auto 62.6 45 - 73 % [facility] Imm Gran Pct Auto 0.4 0.0 - 0.4 % [facility] Lymphocytes Percent Auto 19.8(L) 20 - 40 % [facility] Monocytes Percent Auto 10.7 2 - 11 % [facility] Eosinophils Percent Auto 6.0(H) 0 - 4 % [facility] Basophils Percent Auto 0.5 0 - 2 % [facility] NRBC Pct Auto 0.0 0.0 - 0.2 /100WBC [facility] Neutrophils Absolute Auto 5.2 2.0 - 8.3 x10*3/uL [facility] Imm Gran Abs Auto 0.03 0.00 - 0.03 X10*3/uL [facility] Lymphocytes Absolute Auto 1.6 1.2 - 4.9 X10*3/uL [facility] Monocytes Absolute Auto 0.9 0.1 - 1.2 X10*3/uL [facility] Eosinophils Absolute Auto 0.5(H) 0.0 - 0.4 X10*3/uL [facility] Basophils Absolute Auto 0.0 0.0 - 0.2 X10*3/uL [facility] NRBC Abs Auto 0.000 0.0 - 0.012 X10*3/uL [facility] 04/05/2025 11:5 2 PM EDT 04/06/2025 us Generic External Data Provider LAB BLOOD ORDERAB LES Final Result [facility] [address] [place], [place] [phone] * (ABNORMAL) Comprehensive Metabolic Panel (04/05/2025 11:52 PM EDT) Sodium 140 135 - 145 mmol/L [facility] Potassium 4.1 3.3 - 5.1 mmol/L [facility] Chloride 99 96 - 108 mmol/L [facility] Carbon Dioxide 28 22 - 29 mmol/L [facility] Anion Gap 17 12 - 20 [facility] Urea Nitrogen (BUN) 19(H) 9 - 16 mg/dL [facility] Creatinine, Serum 0.75 0.5 - 1.4 mg/dL [facility] Creatinine Clr Calc Pharmacy 115.8 [facility] Comment:eGFR (calculated fro m the MDRD study equation) and eCrCl(calculated from the Cockcroft-Gault equation) are based ondifferent parameters and may not yield comparable results.If eCrCl result is absurd, please check patient'sheight/weight. Estimated Glomerular Filt Rate >60 [facility] Comment:Chronic Kidney Disea se: Estimated GFR < 60 mL/min/1.51m3Flcfrd Kidney Disease: Estimated GFR < 15 mL/min/1.73m2 Glucose 119(H) 60 - 115 mg/dL [facility] Calcium 9.0 8.4 - 10.2 mg/dL [facility] Bilirubin, Total 0.6 0.0 - 1.0 mg/dL [facility] Aspartate Amino Transferase 40(H) 5 - 37 U/L [facility] Alanine Aminotransferase 46(H) 0 - 40 U/L [facility] Total Protein 7.3 6.5 - 8.0 g/dL [facility] Albumin Level 4.3 3.5 - 5.0 g/dL [facility] Alkaline Phosphatase 107 39 - 117 U/L [facility] 04/05/2025 11:5 2 PM EDT 04/06/2025 us Generic External Data Provider LAB BLOOD ORDERAB LES Final Result [facility] [address] [place] [phone] * Hepatitis C Antibody with Reflex to HCV, RNA, Quantitative, Real-Time PCR (01/04/2025 9:24 AM EDT) Hepatitis C Antibody Nonreactive Nonreactive [facility] Comment:Antibodies to HCV no t detected; does not exclude early acuteHCV infection. Blood Venous blood specimen / Unknown 01/04/2025 9:24 AM EDT 01/04/2025 11:23 AM EDT Warner Hinkle MD LAB BLOOD ORDERABLES Final Resul t Performing Organization Address [facility]/ZIP Co de Phone Number [facility] [address] [place] [phone] * HIV-1/2 Antigen and Antibodies, Fourth Generation, with Reflexes (01/04/2025 9:24 AM EDT) [facility] Signature HIV AB/AG Nonreactive Nonreactive [facility] Comment:HIV-1 p24 Ag and/or HIV-1/HIV-2 Ab not detected.A test result that is nonreactive does not exclude thepossibility of exposure to or infection with HIV-1 and/orHIV-2. Nonreactive results in this assay for individualswith prior exposure to HIV-1 and/or HIV-2 may be due toantigen and antibody levels that are below the limit ofdetection of this assay.The COADE HIV Ag/Ab Combo assay result andsupplemental assay results should be interpreted inconjunction with the patient's clinical presentation,history and other laboratory results. If the results areinconsistent with clinical evidence, additional testing issuggested to confirm the result. Blood Venous blood specimen / Unknown 01/04/2025 9:24 AM EDT 01/04/2025 11:23 AM EDT us Warner Hinkle MD LAB BLOOD ORDERABLES Final Resul t Performing Organization Address City/[facility]/ZIP Co de Phone Number [facility] [address] [place] [phone] from Last 3 Months or Most Recently Relevant to Health Maintenance Insurance [facility] C3 Care Teams Newswriter Relationship Specialty Start Date End Date Name, MD Warner [address] [place] [address] PCP - General Internal Medicine 03/09/24
--- OUTSIDE RECORDS SUMMARY | 2025-05-14 14:24 | XMS_ITS | Encounter Summary ---
Author Organization [employer] Address [address] [facility] 7[address] [place] [address] Care Team Providers Care Math And Science Division Chair Name Role Phone Name, Warner JENKINS Primary Care Provider [phone] Reason for Visit * Reason Onset Date Comments chart prep 05/13/2025 Encounter Details Date Type Department Care Team ([facility] st Contact Info) Description 05/13/2025 Telephone [facility] [address] [place] [address] Brianna Rizzo MA chart prep Social History Tobacco Use Types Packs/Day Years [...] encounter Miscellaneous Notes * Telephone Encounter - Brianna Rizzo MA - 05/13/2025 9:58 AM EDT Chart Prep Labs: done Images: done Referrals: no show- gastro 04/24/25 9:00 AM [facility] Vaccines due: Covid, Flu, and Zoster Screenings: colonoscopy Overdue care gaps: Not applicable documented in this encounter Plan of Treatment Not on file documented as of this encounter Visit Diagnoses Not on filedocumented in this encounter Additional Health Concerns Assessment Noted Time PHQ-9 Depression Total Score: 16 024 11:28 AM EDT documented as of this encounter Care Teams Math And Science Division Chair Relationship Specialty Start Date End Date Name, MD Warner [address] [place] [address] PCP - General Internal Medicine 03/09/24 documented as of this encounter
--- OUTSIDE RECORDS SUMMARY | 2025-05-14 14:24 | XMS_ITS | Encounter Summary ---
Author Organization [employer] Address [address] [facility] 7t [place] [address] Care Team Providers Care Cord Cutter Name Role Phone Name, Warner JENKINS Primary Care Provider [phone] Reason for Visit * Reason Comments Med Refill Encounter Details Date Type Department Care Team ([facility] st Contact Info) Description 02/15/2025 Refill [facility] [address] [place], [place] [phone] Linda Armstrong MD [address] [place], [place] [phone] Essential hypertension Social History Tobacco Use Types Packs/Day Years [...] documented as of this encounter Visit Diagnoses Diagnosis Essential hypertension Unspecified essential hypertension documented in this encounter Additional Health Concerns Assessment Noted Time PHQ-9 Depression Total Score: 16 024 11:28 AM EDT documented as of this encounter Care Teams Cord Cutter Relationship Specialty Start Date End Date Name, MD Warner [address] [place] [phone] PCP - General Internal Medicine 03/09/24 documented as of this encounter
== END 2025-05-14 11:30 | disposition home or self-care (01) ==
LOC: HO.HHCX 11:29
PROVIDERS: PCP Internal Medicine Geriatric Medicine; Visit Provider Internal Medicine Geriatric Medicine
DX: R07.9 Chest pain, unspecified (principal); Z87.01 Personal history of pneumonia (recurrent)
CPT/HCPCS: 71046

== ENCOUNTER → 2025-05-14 11:34 | Outpatient (BNV) | payer MEDICAID, SELFPAY | PROVIDERS: PCP Internal Medicine Geriatric Medicine; Visit Provider Radiology Diagnostic Radiology | DX: J84.9 Interstitial pulmonary disease, unspecified (principal) | CPT/HCPCS: 71046 ==